=== PATIENT | male | born 1990 | race Caucasian/White ===

== ENCOUNTER 2020-12-02 21:23 | Emergency (ER) | payer OTHER, SELFPAY ==
[~2020-12-02] VITALS: Ht 185.4 cm; Wt 90.6 kg
[2020-12-02] MEDS ORDERED: CLEO300C2 PO (23:48)
[2020-12-02 23:58] VITALS: BP 144/71
[2020-12-03] MEDS ORDERED: CLINDAMYCIN 150MG CAPSULE PO ONE
== END 2020-12-03 00:09 | disposition home or self-care (01) ==
LOC: M ED 21:23
DX: L02.215 Cutaneous abscess of perineum (principal); Z88.0 Allergy status to penicillin; F20.9 Schizophrenia, unspecified

== ENCOUNTER 2020-12-06 18:11 | Emergency (ER) | payer OTHER, MEDICAID ==
[~2020-12-06] VITALS: Ht 185.4 cm; Wt 90.9 kg
[~2020-12-06 18:11] MED LIST: CLEO300C2 PO
[2020-12-06 19:44] LABS: HEMATOCRIT 42.8 % (42.0-52.0); HEMOGLOBIN 14.7 g/dl (13.5-17.5); MEAN CORPUSCULAR HEMOGLOBIN 30.3 pg (27.0-33.0); MEAN CORPUSCULAR HGB CONC 34.3 g/dl (32.0-36.5); MEAN CORPUSCULAR VOLUME 88.2 fl (80.0-96.0); PLATELET COUNT, AUTOMATED 216 10^3/uL (150-450); RED BLOOD COUNT 4.85 10^6/uL (4.30-6.10)
[2020-12-06 20:07] LABS: AMPHETAMINES LEVEL URINE NEGATIVE (NEGATIVE); BARBITURATES URINE NEGATIVE (NEGATIVE); BENZODIAZEPINES URINE NEGATIVE (NEGATIVE); CANNABINOIDS URINE NEGATIVE (NEGATIVE); COCAINE METABOLITE URINE NEGATIVE (NEGATIVE); METHADONE URINE NEGATIVE (NEGATIVE); OPIATES URINE NEGATIVE (NEGATIVE); PHENCYCLIDINE URINE NEGATIVE (NEGATIVE)
[2020-12-06 20:17] LABS: ACETAMINOPHEN LEVEL < 2.0 UG/ML (10.0-30.0); ALBUMIN 3.9 GM/DL (3.2-5.2); ALT/SGPT 37 U/L (12-78); BILIRUBIN,DIRECT 0.1 MG/DL (0.0-0.2); BILIRUBIN,TOTAL 0.3 MG/DL (0.2-1.0); BLOOD UREA NITROGEN 13 MG/DL (7-18); CALCIUM LEVEL 9.4 MG/DL (8.5-10.1); CARBON DIOXIDE LEVEL 27 MEQ/L (21-32); CHLORIDE LEVEL 103 MEQ/L (98-107); CREATININE FOR GFR 1.08 MG/DL (0.70-1.30); ETHYL ALCOHOL (ETHANOL) < 0.003 % (0.000-0.010); GLOMERULAR FILTRATION RATE > 60.0 (>60); GLUCOSE, FASTING 80 MG/DL (70-100); POTASSIUM SERUM 3.7 MEQ/L (3.5-5.1); SALICYLATE LEVEL < 1.7 MG/DL (5.0-30.0); SODIUM LEVEL 141 MEQ/L (136-145); THYROID STIMULATING HORMONE 0.907 uIU/ML (0.358-3.740); TOTAL PROTEIN 6.7 GM/DL (6.4-8.2)
[2020-12-06] MEDS ORDERED: HALO10TA20 PO (22:38)
[2020-12-06] MEDS ORDERED: VITMTA PO (22:40)
[2020-12-06] MEDS ORDERED: ARIS2.4I IM (22:40)
[2020-12-06 23:51] LABS: RSV AMPLIFICATION NEGATIVE (NEGATIVE)
--- NOTE | 2020-12-07 08:04 | ECGEPIP ---
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
[2020-12-07 08:27] VITALS: BP 131/76
== END 2020-12-07 08:29 | disposition short-term general hospital (02) ==
LOC: M ED 18:11
DX: F25.9 Schizoaffective disorder, unspecified (principal); Z79.899 Other long term (current) drug therapy; Z88.0 Allergy status to penicillin
CPT/HCPCS: 80048; 80076; 80307; 84443; 85027; 87631; 93005; 99284; G0480

== ENCOUNTER 2021-07-28 14:30 | Emergency (ER) | payer MEDICAID, OTHER ==
[~2021-07-28] VITALS: Ht 185.4 cm; Wt 81.8 kg
[~2021-07-28 14:30] MED LIST changes: +ARIS2.4I IM; +HALO10TA20 PO; +VITMTA PO
[2021-07-28 15:23] LABS: HEMATOCRIT 44.2 % (42.0-52.0); HEMOGLOBIN 15.1 g/dl (13.5-17.5); MEAN CORPUSCULAR HEMOGLOBIN 30.3 pg (27.0-33.0); MEAN CORPUSCULAR HGB CONC 34.2 g/dl (32.0-36.5); MEAN CORPUSCULAR VOLUME 88.6 fl (80.0-96.0); PLATELET COUNT, AUTOMATED 186 10^3/uL (150-450); RED BLOOD COUNT 4.99 10^6/uL (4.30-6.10); WHITE BLOOD COUNT 5.7 10^3/uL (4.0-10.0)
[2021-07-28 15:53] LABS: AMPHETAMINES LEVEL URINE NEGATIVE (NEGATIVE); BARBITURATES URINE NEGATIVE (NEGATIVE); BENZODIAZEPINES URINE NEGATIVE (NEGATIVE); CANNABINOIDS URINE NEGATIVE (NEGATIVE); COCAINE METABOLITE URINE NEGATIVE (NEGATIVE); METHADONE URINE NEGATIVE (NEGATIVE); OPIATES URINE NEGATIVE (NEGATIVE); PHENCYCLIDINE URINE NEGATIVE (NEGATIVE)
[2021-07-28 15:55] LABS: ACETAMINOPHEN LEVEL < 2.0 UG/ML (10.0-30.0); ALBUMIN 3.6 GM/DL (3.2-5.2); ALT/SGPT 31 U/L (12-78); BILIRUBIN,DIRECT 0.1 MG/DL (0.0-0.2); BILIRUBIN,TOTAL 0.5 MG/DL (0.2-1.0); BLOOD UREA NITROGEN 21 MG/DL (7-18); CALCIUM LEVEL 9.4 MG/DL (8.5-10.1); CARBON DIOXIDE LEVEL 28 MEQ/L (21-32); CHLORIDE LEVEL 105 MEQ/L (98-107); CREATININE FOR GFR 1.12 MG/DL (0.70-1.30); ETHYL ALCOHOL (ETHANOL) < 0.003 % (0.000-0.010); GLOMERULAR FILTRATION RATE > 60.0 (>60); GLUCOSE, FASTING 92 MG/DL (70-100); POTASSIUM SERUM 4.4 MEQ/L (3.5-5.1); SALICYLATE LEVEL < 1.7 MG/DL (5.0-30.0); SODIUM LEVEL 140 MEQ/L (136-145); TOTAL PROTEIN 6.8 GM/DL (6.4-8.2)
[2021-07-28 16:14] LABS: RSV AMPLIFICATION NEGATIVE (NEGATIVE)
[2021-07-28 18:32] VITALS: BP 122/78
== END 2021-07-28 19:17 | disposition home or self-care (01) ==
LOC: M ED 14:30
DX: F43.0 Acute stress reaction (principal); F32.9 Major depressive disorder, single episode, unspecified; F20.9 Schizophrenia, unspecified; Z88.0 Allergy status to penicillin

== ENCOUNTER 2021-07-29 20:38 | Inpatient (IN) | payer OTHER ==
[~2021-07-29] VITALS: Ht 182.9 cm; Wt 84.0 kg
[2021-07-29 21:05] LABS: HEMATOCRIT 40.8 % (42.0-52.0); MEAN CORPUSCULAR HEMOGLOBIN 30.4 pg (27.0-33.0); MEAN CORPUSCULAR HGB CONC 34.3 g/dl (32.0-36.5); MEAN CORPUSCULAR VOLUME 88.5 fl (80.0-96.0); PLATELET COUNT, AUTOMATED 174 10^3/uL (150-450); RED BLOOD COUNT 4.61 10^6/uL (4.30-6.10); WHITE BLOOD COUNT 4.9 10^3/uL (4.0-10.0)
[2021-07-29 21:36] LABS: ACETAMINOPHEN LEVEL < 2.0 UG/ML (10.0-30.0); ALBUMIN 3.4 GM/DL (3.2-5.2); ALT/SGPT 26 U/L (12-78); BILIRUBIN,DIRECT 0.1 MG/DL (0.0-0.2); BILIRUBIN,TOTAL 0.4 MG/DL (0.2-1.0); BLOOD UREA NITROGEN 17 MG/DL (7-18); CALCIUM LEVEL 9.1 MG/DL (8.5-10.1); CARBON DIOXIDE LEVEL 27 MEQ/L (21-32); CHLORIDE LEVEL 106 MEQ/L (98-107); CREATININE FOR GFR 1.06 MG/DL (0.70-1.30); ETHYL ALCOHOL (ETHANOL) < 0.003 % (0.000-0.010); GLOMERULAR FILTRATION RATE > 60.0 (>60); GLUCOSE, FASTING 86 MG/DL (70-100); POTASSIUM SERUM 4.3 MEQ/L (3.5-5.1); SALICYLATE LEVEL < 1.7 MG/DL (5.0-30.0); SODIUM LEVEL 140 MEQ/L (136-145)
[2021-07-29 22:54] LABS: AMPHETAMINES LEVEL URINE NEGATIVE (NEGATIVE); BARBITURATES URINE NEGATIVE (NEGATIVE); BENZODIAZEPINES URINE NEGATIVE (NEGATIVE); CANNABINOIDS URINE NEGATIVE (NEGATIVE); COCAINE METABOLITE URINE NEGATIVE (NEGATIVE); METHADONE URINE NEGATIVE (NEGATIVE); OPIATES URINE NEGATIVE (NEGATIVE); PHENCYCLIDINE URINE NEGATIVE (NEGATIVE)
[2021-07-29] MEDS ORDERED: HOME MED LIST COMPLETE! XX SCH (23:40)
[2021-07-30 01:40] LABS: RSV AMPLIFICATION NEGATIVE (NEGATIVE)
[2021-07-30] MEDS ORDERED: MOM 30ML SUSPENSION UDC PO PRN (02:40)
[2021-07-30] MEDS ORDERED: LORazepam 1 MG TAB PO PRN (02:40)
[2021-07-30] MEDS ORDERED: MAALOX 30 ML SUSP *UDC PO PRN (02:40)
[2021-07-30] MEDS ORDERED: ACETAMINOPHEN TAB 650MG DOSE (2X325MG) PO PRN (02:40)
[2021-07-30 04:15] VITALS: BP 120/76
[2021-07-30] MEDS: haloperidoL 5 MG TAB PO SCH ×2 (13:53→21:00)
--- NOTE | 2021-07-30 13:56 | MHHPEPDOC ---
General Date Of Admission: Jul 30, 2021 Legal Status: 9.39 Chief Complaint "When I am at [facility] I feel crazy." History of Present Illness HISTORY OF THE PRESENT ILLNESS: Patient is a 30 -year-old Single, Unemployed, Domiciled, , male, who lives in [facility] ([place], [place]) reportedly called police to wanted to jump into traffic. Reports that he has been feeling depressed, and having suicidal thoughts. He states in the interview that he has been having suicidal thoughts for months that he has been living at [facility] x 1 year and that prior to that he was living with his mother in [place], [place]. He states in the interview that he has questions about his life. He has delayed speech and appears to be responding to internal stimuli. In the interview he asks" Where do I find the questions? What do I want to be? I want to have relationships I want to learn and grow I want to spend time with people I want to get stronger I would like to be the person I want to become I don't understand the means and the methods Some times I am a control freak I sometimes I try to make it better PER ED REPORT: Pt contacted police after wanting to jump into traffic with intent to kill himself. Pt was just seen in the ED yesterday and was discharged after saying "I only said I was suicidal to get me out of the [facility] house." Pt continues to express SI with plan to jump into traffic. pt. states, "I called the police tonight because I almost committed suicide." Pt reports he's been feeling suicidal for the past few days. Today, he developed a plan to jump in front of a moving vehicle, however did not actually attempt. Suicidal stressors include disliking TLS and states "it's not fun." He reports wanting more outings and states he is lonely and "I don't belong." States he no longer speaks to his family or friends and states he would be better off . In addition to SI, pt. reports suffering from command AH to kill others. He denies a specific plan and it's directed towards anyone specific. Pt does appear to be internally pre- occupied during interview due to his delay in his responses. Pt has a Hx of Schizoaffective Disorder, transferred to [facility] (Nov, 2020) for SI. States he currently seeks TX with TLS, but does not believe the medication is working. Psychiatric Review of Systems Depression (2 or more weeks): depressed mood, anhedonia, insomnia/hypersomnia, feelings of worthlesness (hopeless and helpless), decreased energy, difficulty concentrating, psychomotor changes, suicidal thoughts Bonita (4 or more days of): denies Psychosis: auditory hallucination, paranoia, disorganization PTSD: denies Anxiety: stressor related anxiety Anxiety/ 6 months or more of: difficulty concentrating Past Psychiatric History Previous Psychiatric Diagnosis: Schizoaffective Disorder Previous Psychiatric Admissions: 10+ Hospitalizations, last admission was [facility] Suicide Attempts: No gestures or attempts Psychiatric Follow-up: TLS Psychiatric medications: Haldol, Haldol Dec, Effexor, Risperdal, Invega Sustenna, Aristada Past Medical History Medical Problems No contributory medical conditions No surgery in the past Head Injury: No Seizures: No Hospitalizations: Yes Surgeries: No Family Medical/Psychiatric HX Medical Problems Unable to answer Addiction History nicotine Social History Childhood: [place], 3 brothers, Abuse/Trauma: Unable to answer Current Living Situation: Lives in [facility] in [place] Education: Graduated High School in [place] Employment: Unemployed Social Support: [facility] Legal: Unknown Marital: Single Mental Status Examination General Appearance: unkempt, disheveled, hospital scubs/clothing Build: thin Demeanor: withdrawn, preoccupied, guarded Eye Contact: avoidant Activity: anxious Behavior: cooperative, loss of interests Speech: slow Mood: depressed, anxious Affect: flat Thought Process: loose, depressed, derailment Thought Content (Delusions): persecutory, paranoia Thought Content (Other): preoccupied, guarded Thought Content (Aggressive): none reported Perception (Hallucinations): auditory Perception (Other): none reported Cognition(Intelligence Est.): average Oriented: Awake, Alert, Oriented times three Insight: fair Judgment: Fair Psychosis: Denies Diagnoses Schizoaffective disorder. Depressed mood Nicotine use disorder A-FIB/CHADSVASC A-FIB History Current/History of A-Fib/PAF?: No Current PO Anticoag Therapy: No Assessment Patient is a 30-year-old single, unemployed/disabled, domiciled, male. He is reporting that he called the police and stated to them that he had suicidal thoughts to jump from a bridge. He states that when he is at [facility] his mind is "crazy. Patient reports that he has not been taking his medications at [facility]. Reports that his last admission was in [facility]. Patient presents in the interview is preoccupied having mild auditory hallucinations. He has delayed responses to questions observed with internal stimuli. Patient reports having suicidal thoughts for many months but has not acted on any. He is agreeable to start Haldol oral progressing to Haldol decanoate. Patient will be afforded individual and group therapy, medication management, safe environment, encouraged to participate in milieu therapy and will be discharged when stable. Initial Treatment Plan 1. Patient was admitted on a [9.39] status. 2. Complete history was obtained. 3. With patients permission, family will be contacted and database will be expanded. 4. Patients medication regimen will be reviewed and changed accordingly. 5. Patient will be provided with protected environment. 6. Patient will be treated with individual, group, and milieu therapies. 7. Patient will receive supportive psych-education. 8. Discharge planning will commence immediately. 9. Outpatient follow-up treatment will be strongly recommended. 10. The initial treatment plan will focus initially on: * Depression. * Risk for suicide. ESTIMATED LENGTH OF STAY: 57 DAYS. TIME SPENT COUNSELING AND COORDINATING INITIAL CARE: 60 minutes. Tobacco Cessation Screen Tobacco Cessation Tx Ordered?: Yes Ordered/Pending Vital Signs Vital Signs Date Time Temp Pulse Resp B/P (MAP) Pulse Ox O2 Delivery O2 Flow Rate FiO2 07/30/21 08:43 Room Air 07/30/21 04:15 97.6 56 18 120/76 (91) 97 Laboratory Data 24H Labs Laboratory Tests 2 07/29/21 20:53: Nucleated Red Blood Cells % (auto) 0.0, Anion Gap 7L, Glomerular Filtration Rate > 60.0, Calcium Level 9.1, Total Bilirubin 0.4, Direct Bilirubin 0.1, Aspartate Amino Transf (AST/SGOT) 17, Alanine Aminotransferase (ALT/SGPT) 26, Alkaline Phosphatase 52, Total Protein 6.0L, Albumin 3.4, Albumin/Globulin Ratio 1.3, Thyroid Stimulating Hormone (TSH) 2.020, Salicylates Level < 1.7L, Acetaminophen Level < 2.0L, Ethyl Alcohol Level < 0.003 07/29/21 22:17: Urine Opiates Screen NEGATIVE, Urine Methadone Screen NEGATIVE, Urine Barbiturates Screen NEGATIVE, Urine Phencyclidine Screen NEGATIVE, Urine Amphetamines Screen NEGATIVE, Urine Benzodiazepines Screen NEGATIVE, Urine Cocaine Metabolite Screen NEGATIVE, Urine Cannabinoids Screen NEGATIVE 07/29/21 23:42: Coronavirus (COVID-19)(PCR) NEGATIVE, Influenza Type A (RT-PCR) NEGATIVE, Influenza Type B (RT-PCR) NEGATIVE, Respiratory Syncytial Virus (PCR) NEGATIVE CBC/BMP Laboratory Tests 07/29/21 20:53 Medications No Active Prescriptions or Reported Meds Allergies Coded Allergies: Penicillins (Verified Allergy, Intermediate, 12/02/20) STEFANY MEDINA NP Jul 30, 2021 12:57
[2021-07-30] MEDS ORDERED: NICOTINE 21MG/24HR 1 EA TRANSDERMAL TD PRN (14:00)
--- NOTE | 2021-07-30 15:21 | HPEPDOC ---
[facility] Medical History & Physical Date of Admission Jul 30, 2021 Date of Service: Jul 30, 2021 History and Physical CHIEF COMPLAINT: Suicidal ideation HISTORY OF PRESENT ILLNESS: 30-year-old male was brought to ER by police after he contacted the police saying that he wanted to jump with traffic. Patient was seen in the ER day prior to admission with the same complaints. Patient denies any chest pain shortness of breath palpitations nausea vomiting or diarrhea. Hospitalist service was consulted for medical history. Blood work and vital signs were reviewed. No acute abnormalities noted. PAST MEDICAL HISTORY: Depression schizoaffective disorder PAST SURGICAL HISTORY: Past surgical history SOCIAL HISTORY: Patient denies smoking Patient denies etoh use Patient denies illicit drug use ALLERGIES: Please see below. REVIEW OF SYSTEMS: 10 point ROS conducted, relevant findings are noted in the HPI. HOME MEDICATIONS: Please see below. PHYSICAL EXAMINATION: VITAL SIGNS: please see below General: NAD, comfortable HEENT: PERRLA, EOMI, sclerae clear Neck: supple, normal ROM, no JVD Respiratory: lungs CTAB, no wheeze, no rales, no crackles CVS: RRR, normal S1, S2, no murmurs Abdo: soft, no masses, no hepatosplenomegaly, BS+, no rebound tenderness Extremities: no edema, pulses 2+ MSK: no joint deformities, normal ROM Neuro: no focal neuro deficits, moving all 4 extremities, CN2-12 intact. Strength 5/5 in all 4 extremities. No nystagmus. Psych: calm, cooperative, AAO x 3 LABORATORY DATA: See below. MICROBIOLOGY: Please see below. ASSESSMENT: 30-year-old male was brought to ER by police after he contacted the police saying that he wanted to jump with traffic. Patient was seen in the ER day prior to admission with the same complaints. Patient denies any chest pain shortness of breath palpitations nausea vomiting or diarrhea. Hospitalist service was consulted for medical history. PLAN: Suicidal ideation: Per psychiatry Thank you for involving me in the care of this patient. Please reconsult us as needed. Vital Signs Vital Signs Date Time Temp Pulse Resp B/P (MAP) Pulse Ox O2 Delivery O2 Flow Rate FiO2 07/30/21 08:43 Room Air 07/30/21 04:15 97.6 56 18 120/76 (91) 97 Laboratory Data Labs 24H Laboratory Tests 2 07/29/21 20:53: Nucleated Red Blood Cells % (auto) 0.0, Anion Gap 7L, Glomerular Filtration Rate > 60.0, Calcium Level 9.1, Total Bilirubin 0.4, Direct Bilirubin 0.1, Aspartate Amino Transf (AST/SGOT) 17, Alanine Aminotransferase (ALT/SGPT) 26, Alkaline Phosphatase 52, Total Protein 6.0L, Albumin 3.4, Albumin/Globulin Ratio 1.3, Thyroid Stimulating Hormone (TSH) 2.020, Salicylates Level < 1.7L, Acetaminophen Level < 2.0L, Ethyl Alcohol Level < 0.003 07/29/21 22:17: Urine Opiates Screen NEGATIVE, Urine Methadone Screen NEGATIVE, Urine Barbiturates Screen NEGATIVE, Urine Phencyclidine Screen NEGATIVE, Urine Amphetamines Screen NEGATIVE, Urine Benzodiazepines Screen NEGATIVE, Urine Cocaine Metabolite Screen NEGATIVE, Urine Cannabinoids Screen NEGATIVE 07/29/21 23:42: Coronavirus (COVID-19)(PCR) NEGATIVE, Influenza Type A (RT-PCR) NEGATIVE, Influenza Type B (RT-PCR) NEGATIVE, Respiratory Syncytial Virus (PCR) NEGATIVE CBC/BMP Laboratory Tests 07/29/21 20:53 Home Medications No Active Prescriptions or Reported Meds Allergies Coded Allergies: Penicillins (Verified Allergy, Intermediate, 12/02/20) SWELLING DEL DAVEY MD Jul 30, 2021 15:21
[2021-07-30 16:20] VITALS: BP 112/56
[2021-07-31 07:02] VITALS: BP 106/54
[2021-07-31] MEDS: haloperidoL 5 MG TAB PO SCH (08:15)
--- NOTE | 2021-07-31 11:43 | MHIPNPDOC ---
[facility] Progress Note Progress Note DATE OF SERVICE: 07/31/21 HISTORY: Patient is a 30 -year-old Single, Unemployed, Domiciled, , male, who lives in [facility] ([place], [place]) reportedly called police to wanted to jump into traffic. Reports that he has been feeling depressed, and having suicidal thoughts. He states in the interview that he has been having suicidal thoughts for months that he has been living at [facility] x 1 year and that prior to that he was living with his mother in [place], [place]. He states in the interview that he has questions about his life. He has delayed speech and appears to be responding to internal stimuli. In the interview he asks" Where do I find the questions? What do I want to be? I want to have relationships I want to learn and grow I want to spend time with people I want to get stronger I would like to be the person I want to become I don't understand the means and the methods Some times I am a control freak I sometimes I try to make it better PER ED REPORT: Pt contacted police after wanting to jump into traffic with intent to kill himself. Pt was just seen in the ED yesterday and was discharged after saying "I only said I was suicidal to get me out of the [facility] house." Pt co ntinues to express SI with plan to jump into traffic. pt. states, "I called the police tonight because I almost committed suicide." Pt reports he's been feeling suicidal for the past few days. Today, he developed a plan to jump in front of a moving vehicle, however did not actually attempt. Suicidal stressors include disliking TLS and states "it's not fun." He reports wanting more outings and states he is lonely and "I don't belong." States he no longer speaks to his family or friends and states he would be better off . In addition to SI, pt. reports suffering from command AH to kill others. He denies a specific plan and it's directed towards anyone specific. Pt does appear to be internally pre- occupied during interview due to his delay in his responses. Pt has a Hx of Schizoaffective Disorder, transferred to [facility] (Nov, 2020) for SI. States he currently seeks TX with [facility], but does not believe the medication is working. VITAL SIGNS: See below. NEW TEST RESULTS: See pending report. CURRENT MEDICATIONS: See below. MENTAL STATUS EXAMINATION: Patient is a 30 -year-old Single, Unemployed, Domiciled, , male, who lives in [place], [place]) reportedly the police stating he wanted to jump into traffic. General Appearance: well kempt, hygiene and grooming :fair hospital scrubs/clothing Build: thin Demeanor:diminished preoccupation ,less guarded Eye Contact: good eye contact Activity: anxious Behavior: cooperative Speech: delayed Mood: neutral, anxious Affect: flat Thought Process: more coherent today Thought Content (Delusions): no persecutory thoughts, decreased paranoia Thought Content (Other): less preoccupied, less guarded Thought Content (Aggressive): none reported Perception (Hallucinations): continued auditory hallucinations, but he is reporting less today Perception (Other): none reported Cognition(Intelligence Est.): average Oriented: Awake, Alert, Oriented times three Insight: fair Judgment: Fair Psychosis: Denies DIAGNOSES: Schizoaffective disorder,Depressed mood Nicotine use disorder ASSESSMENT: Pt alert and oriented today. Does not report depression, but does admit to some anxiety. Continued auditory hallucinations but denies command hallucinations. He is agreeable to restarting Aristada injection. Willing to stay until early next week. Patient has not been taking medication for several months and stated that he felt he needed to be compliant with treatment and get back on medications. He is seen with less delayed speech, he is not responding to internal stimuli or and reports reduction of voices. MANAGEMENT PLAN: Continue all medications and supportive therapies. Will discharge when stable. TIME SPENT: 25 minutes. Vital Signs Vital Signs Date Time Temp Pulse Resp B/P (MAP) Pulse Ox O2 Delivery O2 Flow Rate FiO2 07/31/21 07:02 98.3 62 16 106/54 (71) 96 Room Air Current Medications Current Medications Medications (Trade) Dose Ordered Sig/Jamey Route PRN Reason Start Time Stop Time Status Last Admin Dose Admin Acetaminophen (Tylenol Tab) 650 mg Q6HP PRN PO HEADACHE or MILD DISCOMFORT 07/30/21 02:40 Al Hydrox/Mg Hydrox/Simethicone (Mylanta) 30 ml Q4HP PRN PO HEARTBURN/INDIGESTION 07/30/21 02:40 Haloperidol (Haldol) 5 mg BID PO 07/30/21 09:00 07/31/21 08:15 Home Med (Home Med List Complete!) ASDIRECTED XX 07/29/21 23:40 07/29/21 23:37 DC Lorazepam (Ativan) 1 mg Q4HP PRN PO ANXIETY/AGITATION 07/30/21 02:40 08/01/21 02:40 Magnesium Hydroxide (Milk Of Magnesia) 30 ml DAILYPRN PRN PO CONSTIPATION 07/30/21 02:40 Nicotine (Nicoderm Cq 21mg) 1 patch DAILYPRN PRN TD NICOTINE WITHDRAWAL 07/30/21 14:00 Trazodone HCl (Desyrel) 50 mg QHSP PRN PO INSOMNIA 07/30/21 02:40 Allergies Coded Allergies: Penicillins (Verified Allergy, Intermediate, 12/02/20) SWELLING STEFANY CALDERON NP Jul 31, 2021 11:36
[2021-07-31 18:17] VITALS: BP 123/62
[2021-07-31] MEDS: ARIPiprazole 10 MG TAB PO SCH (20:20)
[2021-07-31] MEDS: traZODone 50 MG TAB PO PRN (20:36)
[2021-08-01 06:34] VITALS: BP 130/61
[2021-08-01 08:01] LABS: CHOLESTEROL RISK RATIO 3.061 (<5)
--- NOTE | 2021-08-01 09:13 | MHIPNPDOC ---
[facility] Progress Note Progress Note DATE OF SERVICE: 08/01/21 HISTORY: Patient is a 30 -year-old Single, Unemployed, Domiciled, , male, who lives in [facility] ([place], [place]) reportedly called police to wanted to jump into traffic. Reports that he has been feeling depressed, and having suicidal thoughts. He states in the interview that he has been having suicidal thoughts for months that he has been living at [facility] x 1 year and that prior to that he was living with his mother in [place], [place]. He states in the interview that he has questions about his life. PER ED REPORT: Pt contacted police after wanting to jump into traffic with intent to kill himself. Pt was just seen in the ED yesterday and was discharged after saying "I only said I was suicidal to get me out of the [facility] house." Pt continues to express SI with plan to jump into traffic. pt. states, "I called the police tonight because I almost committed suicide." Pt reports he's been feeling suicidal for the past few days. Today, he developed a plan to jump in front of a moving vehicle, however did not actually attempt. Suicidal stressors include disliking TLS and states "it's not fun." He reports wanting more outings and states he is lonely and "I don't belong." States he no longer speaks to his family or friends and states he would be better off . In addition to SI, pt. reports suffering from command AH to kill others. He denies a specific plan and it's directed towards anyone specific. Pt does appear to be internally pre- occupied during interview due to his delay in his responses. Pt has a Hx of Schizoaffective Disorder, transferred to [facility] (Nov, 2020) for SI. States he currently seeks TX with TLS, but does not believe the medication is working. VITAL SIGNS: See below. NEW TEST RESULTS: See pending report. CURRENT MEDICATIONS: See below. MENTAL STATUS EXAMINATION: Patient is a 30 -year-old Single, Unemployed, Domiciled, , male, who lives in [facility] ([place], [place]) reportedly the police stating he wanted to jump into traffic. General Appearance: well kempt, hygiene and grooming :fair hospital scrubs/clot matt Build: thin Demeanor:diminished preoccupation ,less guarded Eye Contact: good eye contact Activity: anxious Behavior: cooperative Speech: spontaneous, normal rate, tone and volume but minimal responses. Mood: neutral, anxious Affect: flat Thought Process: more coherent today Thought Content (Delusions): no persecutory thoughts, appears paranoia Thought Content (Other): guarded, isolative Thought Content (Aggressive): none reported Perception (Hallucinations): continued auditory hallucinations, but not command hallucinations Perception (Other): none reported Cognition(Intelligence Est.): average Oriented: Awake, Alert, Oriented times three Insight: fair Judgment: Fair Psychosis: Denies DIAGNOSES: Schizoaffective disorder,Depressed mood Nicotine use disorder ASSESSMENT: Patient found sleeping in his room. Agreeable to interview. States, "I am going crazy here. I feel irritated." He is not irritated at anyone and can't clarify what is making him irritated. When he was encouraged to attend groups, he stated "I don't do groups." He states that he doesn't want to stay next week until he get the Aristada. Patient stated he wanted the Maintena and did not want to wait for the Aristada. Reinforced with patient that the Aristada would be beneficial but patient's goal is to leave the hospital by Wednesday. He appears to have less paranoid thinking, his speech has a faster christiano and he is able to make his needs known. MANAGEMENT PLAN: Continue all medications and supportive therapies. Abilify 5 mg in AM in addition to Abilify 10 mg HS, will order Abilify Maintena 400 mg later when tolerability has been established. Patient states that he has been on Abilify with no adverse effects. Will discharge when stable. Probably Wednesday. TIME SPENT: 25 minutes. Vital Signs Vital Signs Date Time Temp Pulse Resp B/P (MAP) Pulse Ox O2 Delivery O2 Flow Rate FiO2 08/01/21 06:34 98.0 55 14 130/61 (84) 96 Room Air Laboratory Data 24H Labs Laboratory Tests 2 08/01/21 07:05: Triglycerides Level 48, Total Cholesterol 199, LDL Cholesterol 124H, Non-HDL Cholesterol (LDL + VLDL) 134, Total HDL Cholesterol 65, Cholesterol/HDL Ratio 3.061 Current Medications Current Medications Medications (Trade) Dose Ordered Sig/Jamey Route PRN Reason Start Time Stop Time Status Last Admin Dose Admin Acetaminophen (Tylenol Tab) 650 mg Q6HP PRN PO HEADACHE or MILD DISCOMFORT 07/30/21 02:40 Al Hydrox/Mg Hydrox/Simethicone (Mylanta) 30 ml Q4HP PRN PO HEARTBURN/INDIGESTION 07/30/21 02:40 Aripiprazole (AbiLIFY) 10 mg QHS PO 07/31/21 21:00 07/31/21 20:20 Haloperidol (Haldol) 5 mg BID PO 07/30/21 09:00 07/31/21 11:40 DC 07/31/21 08:15 Home Med (Home Med List Complete!) ASDIRECTED XX 07/29/21 23:40 07/29/21 23:37 DC Lorazepam (Ativan) 1 mg Q4HP PRN PO ANXIETY/AGITATION 07/30/21 02:40 08/01/21 02:40 DC Magnesium Hydroxide (Milk Of Magnesia) 30 ml DAILYPRN PRN PO CONSTIPATION 07/30/21 02:40 Nicotine (Nicoderm Cq 21mg) 1 patch DAILYPRN PRN TD NICOTINE WITHDRAWAL 07/30/21 14:00 Trazodone HCl (Desyrel) 50 mg QHSP PRN PO INSOMNIA 07/30/21 02:40 07/31/21 20:36 Allergies Coded Allergies: Penicillins (Verified Allergy, Intermediate, 12/02/20) SWELLING STEFANY CALDERON DOCUMENT CLERK Aug 01, 2021 09:05
[2021-08-01] MEDS ORDERED: hydrOXYzine 50 MG TAB PO PRN (09:15)
[2021-08-01] MEDS ORDERED: ARIPIPRAZOLE LAUROXIL IM ONE (14:00)
[2021-08-01 16:41] VITALS: BP 116/59
[2021-08-01] MEDS: ARIPiprazole 10 MG TAB PO SCH (21:35)
--- NOTE | 2021-08-02 11:54 | MHIPNPDOC ---
[facility] Progress Note Progress Note DATE OF SERVICE: 08/02/21 HISTORY: See H&P Interval: Is tired and lying in bed, denies any acute suicidal ideation, reports mood is improving on medications and has not received the Aristada which was confirmed on chart review. Per nursing staff patient is agreeable to starting Abilify Maintenna. Has been taking oral Abilify and denies any allergy or other side effects. Does not report any tight muscles, EPS symptoms or NMS symptoms, aims scoring is 0. Reports appetite and sleep are "fine". Food tray is uneaten at side of bed. No acute physical complaints. VITAL SIGNS: See below. NEW TEST RESULTS: Lipid panel shows LDL of 124 CURRENT MEDICATIONS: See below. MENTAL STATUS EXAMINATION: Patient is a 30-year old male, who is in no acute distress, tall dark hair good hygiene, somewhat avoidant eye contact, appears stated age. Speech: Is mildly slowed in context of morning fatigue Language skills are normal. Thought processes including: Linear logical Thought content: Denies suicidal or homicidal ideation, intent, or plan. Abstract reasoning, and computation: Normal. Description of associations: Normal. Description of abnormal or psychotic thoughts: Denies. Judgment: Improved. Insight: Good. Orientation: Times 4 Recent and remote memory: Intact Attention span and concentration: Good. Language: Pashto. Fund of knowledge: Average. Mood: "alright". Affect: Mildly dysthymic, constricted, withdrawn, mood congruent, appropriate DIAGNOSES: Schizoaffective disorder,Depressed mood Nicotine use disorder ASSESSMENT: Patient reports continues to improve on the unit, denies hallucinations or delusions, reports tolerates the oral Abilify without issue or side effects or side effect, aims score is 0, no NMS or EPS symptoms, agreeable to getting the shot, asked when he would leave made him aware that that will be discussion on Wednesday with provider. MANAGEMENT PLAN: Per chart review possible discharge Wednesday, provider waiting on tolerability to oral medication before putting in Abilify maintenna, will hold until March provider arrives on Wednesday, patient be continued on oral Abilify. TIME SPENT: 15 minutes. Vital Signs Vital Signs Date Time Temp Pulse Resp B/P (MAP) Pulse Ox O2 Delivery O2 Flow Rate FiO2 08/01/21 16:41 98.0 66 16 116/59 (78) 98 Room Air Current Medications Current Medications Medications (Trade) Dose Ordered Sig/Jamey Route PRN Reason Start Time Stop Time Status Last Admin Dose Admin Acetaminophen (Tylenol Tab) 650 mg Q6HP PRN PO HEADACHE or MILD DISCOMFORT 07/30/21 02:40 Al Hydrox/Mg Hydrox/Simethicone (Mylanta) 30 ml Q4HP PRN PO HEARTBURN/INDIGESTION 07/30/21 02:40 Aripiprazole (AbiLIFY) 5 mg QAM PO 08/01/21 09:00 08/02/21 09:24 Aripiprazole (AbiLIFY) 10 mg QHS PO 07/31/21 21:00 08/01/21 21:35 Haloperidol (Haldol) 5 mg BID PO 07/30/21 09:00 07/31/21 11:40 DC 07/31/21 08:15 Home Med (Home Med List Complete!) ASDIRECTED XX 07/29/21 23:40 07/29/21 23:37 DC Hydroxyzine HCl (Atarax) 50 mg Q6HP PRN PO ANXIETY/AGITATION 08/01/21 09:15 Lorazepam (Ativan) 1 mg Q4HP PRN PO ANXIETY/AGITATION 07/30/21 02:40 08/01/21 02:40 DC Magnesium Hydroxide (Milk Of Magnesia) 30 ml DAILYPRN PRN PO CONSTIPATION 07/30/21 02:40 Nicotine (Nicoderm Cq 21mg) 1 patch DAILYPRN PRN TD NICOTINE WITHDRAWAL 07/30/21 14:00 Trazodone HCl (Desyrel) 50 mg QHSP PRN PO INSOMNIA 07/30/21 02:40 07/31/21 20:36 Allergies Coded Allergies: Penicillins (Verified Allergy, Intermediate, 12/02/20) SWELLING BRISEYDA MCCULLOUGH MD Aug 02, 2021 11:54
[2021-08-02] MEDS: ARIPiprazole 10 MG TAB PO SCH (20:45)
--- NOTE | 2021-08-03 11:28 | MHIPNPDOC ---
[facility] Progress Note Progress Note DATE OF SERVICE: 08/03/21 HISTORY: See H&P Interval: Is tired and lying in bed, denies any acute suicidal ideation, reports mood is improving on medications and has not received the Aristada which was confirmed on chart review. Per nursing staff patient is agreeable to starting Abilify Maintenna. Has been taking oral Abilify and denies any allergy or other side effects. Does not report any tight muscles, EPS symptoms or NMS symptoms, aims scoring is 0. Reports appetite and sleep are "fine". Food tray is uneaten at side of bed. No acute physical complaints. VITAL SIGNS: See below. NEW TEST RESULTS: Lipid panel shows LDL of 124 CURRENT MEDICATIONS: See below. MENTAL STATUS EXAMINATION: Patient is a 30-year old male, who is in no acute distress, tall dark hair good hygiene, somewhat avoidant eye contact, appears stated age. Speech: Is mildly slowed in context of morning fatigue Language skills are normal. Thought processes including: Linear logical Thought content: Denies suicidal or homicidal ideation, intent, or plan. Abstract reasoning, and computation: Normal. Description of associations: [place] Description of abnormal or psychotic thoughts: Denies. Judgment: Improved. Insight: Good. Orientation: Times 4 Recent and remote memory: Intact Attention span and concentration: Good. Language: Maltese. Fund of knowledge: Average. Mood: "been good". Affect: Mildly dysthymic, flat, withdrawn, mood congruent, appropriate DIAGNOSES: Schizoaffective disorder,Depressed mood Nicotine use disorder ASSESSMENT: Patient reports continues to improve on the unit, denies hallucinations or delusions, but has had nighttime bizarre behavior, reports tolerates the oral Abilify without issue or side effects or side effect. Per chart review was negative in doorway yesterday and appeared to be disorganized. MANAGEMENT PLAN: Per chart review possible discharge Wednesday, provider waiting on tolerability to oral medication before putting in Abilify maintenna, will hold until March provider arrives on Wednesday, patient be continued on oral Abilify, increase dose to 15 mg twice daily as reports tolerates well, aims scoring is 0 today on interview. TIME SPENT: 20 minutes Vital Signs Vital Signs Date Time Temp Pulse Resp B/P (MAP) Pulse Ox O2 Delivery O2 Flow Rate FiO2 08/01/21 16:41 98.0 66 16 116/59 (78) 98 Room Air Current Medications Current Medications Medications (Trade) Dose Ordered Sig/Jamey Route PRN Reason Start Time Stop Time Status Last Admin Dose Admin Acetaminophen (Tylenol Tab) 650 mg Q6HP PRN PO HEADACHE or MILD DISCOMFORT 07/30/21 02:40 Al Hydrox/Mg Hydrox/Simethicone (Mylanta) 30 ml Q4HP PRN PO HEARTBURN/INDIGESTION 07/30/21 02:40 Aripiprazole (AbiLIFY) 5 mg QAM PO 08/01/21 09:00 08/03/21 10:55 DC 08/03/21 09:21 Aripiprazole (AbiLIFY) 10 mg QHS PO 07/31/21 21:00 08/03/21 10:55 DC 08/02/21 20:45 Aripiprazole (AbiLIFY) 15 mg QAM PO 08/04/21 09:00 Aripiprazole (AbiLIFY) 15 mg QHS PO 08/03/21 21:00 Haloperidol (Haldol) 5 mg BID PO 07/30/21 09:00 07/31/21 11:40 DC 07/31/21 08:15 Home Med (Home Med List Complete!) ASDIRECTED XX 07/29/21 23:40 07/29/21 23:37 DC Hydroxyzine HCl (Atarax) 50 mg Q6HP PRN PO ANXIETY/AGITATION 08/01/21 09:15 Lorazepam (Ativan) 1 mg Q4HP PRN PO ANXIETY/AGITATION 07/30/21 02:40 08/01/21 02:40 DC Magnesium Hydroxide (Milk Of Magnesia) 30 ml DAILYPRN PRN PO CONSTIPATION 07/30/21 02:40 Nicotine (Nicoderm Cq 21mg) 1 patch DAILYPRN PRN TD NICOTINE WITHDRAWAL 07/30/21 14:00 Trazodone HCl (Desyrel) 50 mg QHSP PRN PO INSOMNIA 07/30/21 02:40 07/31/21 20:36 Allergies Coded Allergies: Penicillins (Verified Allergy, Intermediate, 12/02/20) SWELLING BRISEYDA MCCULLOUGH MD Aug 03, 2021 11:28
[2021-08-03] MEDS: ARIPiprazole 15 MG TAB (AbiLIFY) PO SCH (21:11)
[2021-08-03] MEDS: traZODone 50 MG TAB PO PRN (21:11)
[2021-08-04 07:02] VITALS: BP 104/57
[2021-08-04] MEDS: ARIPiprazole 15 MG TAB (AbiLIFY) PO SCH ×2 (09:43→21:22)
[2021-08-04] MEDS ORDERED: ABIL400I IM (12:50)
[2021-08-04] MEDS ORDERED: ABIL1TAB12 PO ×2 (12:50)
[2021-08-04] MEDS ORDERED: NICO21PAT TD (12:50)
--- NOTE | 2021-08-04 14:18 | MHIPNPDOC ---
[facility] Progress Note Progress Note DATE OF SERVICE: 08/04/21 HISTORY: Patient is a 30 -year-old Single, Unemployed, Domiciled, , male, who lives in [place], [place]) reportedly called [facility] police to wanted to jump into traffic. Reports that he has been feeling depressed, and having suicidal thoughts. He states in the interview that he has been having suicidal thoughts for months that he has been living at [facility] x 1 year and that prior to that he was living with his mother in [place], [place]. He states in the interview that he has philophical questions about his life. VITAL SIGNS: See below. NEW TEST RESULTS: See pending report. CURRENT MEDICATIONS: See below. MENTAL STATUS EXAMINATION: Patient is a 30 -year-old Single, Unemployed, Domiciled, , male, who lives in [place], [place]) reportedly the police stating he wanted to jump into traffic. General Appearance: unkempt, poor attention to hygiene and grooming, wearing hospital scrubs/clothing Build: thin Demeanor: appropriate Eye Contact: good eye contact Activity: Average Behavior: cooperative Speech: spontaneous, normal rate, tone and volume but minimal responses. Mood: neutral, Affect: flat Thought Process: Coherent, linear Thought Content (Delusions): mildly paranoid Thought Content (Other): Less guarded, isolative Thought Content (Aggressive): none reported Perception (Hallucinations): continued auditory hallucinations, but not command hallucinations Perception (Other): none reported Cognition(Intelligence Est.): average Oriented: Awake, Alert, Oriented times three Insight: fair Judgment: Fair Psychosis: Denies DIAGNOSES: Schizoaffective disorder,Depressed mood Nicotine use disorder ASSESSMENT: Patient states that he feel he is ready for discharge. He is requesting his long acting today. States that over the weekend he has had no issues with [facility] edications. Reports that he feels that he has improved. Denies suicidal ideations. He denies auditory hallucinations but does have some delay in responses but this has improved from last week. Patient had had a lengthy conversation with provider x 3. He is mildly upset that he is not being discharged today. Patient continues to have flat affect, per staff has not been engaged in milieu or group therapy and having minimal responses to nurses. Has been observed in his room, chanting and making strange body movements. MANAGEMENT PLAN: Continue all medications and supportive therapies. Abilify Maintena 400 mg ordered for today. He is requesting to be discharged today, reinforced that he may be discharged tomorrow or Wednesday. TIME SPENT: 25 minutes. Vital Signs Vital Signs Date Time Temp Pulse Resp B/P (MAP) Pulse Ox O2 Delivery O2 Flow Rate FiO2 08/04/21 07:02 97.9 65 18 104/57 (73) 99 Room Air Current Medications Current Medications Medications (Trade) Dose Ordered Sig/Jamey Route PRN Reason Start Time Stop Time Status Last Admin Dose Admin Acetaminophen (Tylenol Tab) 650 mg Q6HP PRN PO HEADACHE or MILD DISCOMFORT 07/30/21 02:40 Al Hydrox/Mg Hydrox/Simethicone (Mylanta) 30 ml Q4HP PRN PO HEARTBURN/INDIGESTION 07/30/21 02:40 Aripiprazole (AbiLIFY) 5 mg QAM PO 08/01/21 09:00 08/03/21 10:55 DC 08/03/21 09:21 Aripiprazole (AbiLIFY) 10 mg QHS PO 07/31/21 21:00 08/03/21 10:55 DC 08/02/21 20:45 Aripiprazole (AbiLIFY) 15 mg QAM PO 08/04/21 09:00 08/04/21 09:43 Aripiprazole (AbiLIFY) 15 mg QHS PO 08/03/21 21:00 08/03/21 21:11 Haloperidol (Haldol) 5 mg BID PO 07/30/21 09:00 07/31/21 11:40 DC 07/31/21 08:15 Home Med (Home Med List Complete!) ASDIRECTED XX 07/29/21 23:40 07/29/21 23:37 DC Hydroxyzine HCl (Atarax) 50 mg Q6HP PRN PO ANXIETY/AGITATION 08/01/21 09:15 Lorazepam (Ativan) 1 mg Q4HP PRN PO ANXIETY/AGITATION 07/30/21 02:40 08/01/21 02:40 DC Magnesium Hydroxide (Milk Of Magnesia) 30 ml DAILYPRN PRN PO CONSTIPATION 07/30/21 02:40 Nicotine (Nicoderm Cq 21mg) 1 patch DAILYPRN PRN TD NICOTINE WITHDRAWAL 07/30/21 14:00 Trazodone HCl (Desyrel) 50 mg QHSP PRN PO INSOMNIA 07/30/21 02:40 08/03/21 21:11 Allergies Coded Allergies: Penicillins (Verified Allergy, Intermediate, 12/02/20) SWELLING STEFANY CALDERON NP Aug 04, 2021 14:18
[2021-08-04] MEDS ORDERED: ARIPiprazole MONOHYDRATE 400 MG INJ (ABILIFY) IM ONE (15:00)
[2021-08-04 18:10] VITALS: BP 120/61
[2021-08-05 06:00] VITALS: BP 129/62
[2021-08-05] MEDS: ARIPiprazole 15 MG TAB (AbiLIFY) PO SCH (08:56)
--- NOTE | 2021-08-05 10:45 | MHDSPDOC ---
[facility] Discharge Summary Discharge Summary DATE OF ADMISSION: Jul 30, 2021 at 04:04 DATE OF DISCHARGE: August 05, 2021 at 1026 DISCHARGE DIAGNOSES: Schizoaffective disorder, depressed mood Nicotine use disorder REASON FOR ADMISSION: Patient is a 30 -year-old Single, Unemployed, Domiciled, , male, who lives in [facility] ([place], [place]) reportedly called the police that he to wanted to jump into traffic. Reports that he has been feeling depressed, and having suicidal thoughts. He states in the interview that he has been having suicidal thoughts for months that he has been living at [facility] x 1 year and that prior to that he was living with his mother in [place], [place]. He states in the interview that he has philosophical questions about his life. He states in the interview that he has questions about his life. He has delayed speech and appears to be responding to internal stimuli. In the interview he asks Where do I find the questions? What do I want to be? PER ED REPORT: Pt contacted police after wanting to jump into traffic with intent to kill himself. Pt was just seen in the ED yesterday and was discharged after saying "I only said I was suicidal to get me out of the [facility] house." Pt continues to express SI with plan to jump into traffic. pt. states, "I called the police tonight because I almost committed suicide." Pt reports he's been fe eling suicidal for the past few days. Today, he developed a plan to jump in front of a moving vehicle, however did not actually attempt. Suicidal stressors include disliking [facility] and states "it's not fun." He reports wanting more outings and states he is lonely and "I don't belong." States he no longer speaks to his family or friends and states he would be better off . In addition to SI, pt. reports suffering from command AH to kill others. He denies a specific plan and it's directed towards anyone specific. Pt does appear to be internally pre- occupied during interview due to his delay in his responses. Pt has a Hx of Schizoaffective Disorder, transferred to [facility] (Nov, 2020) for SI. States he currently seeks TX with [facility], but does not believe the medication is working. VITAL SIGNS: See below. CONSULTANTS INVOLVED: See Medical H + P by Hospitalist TREATMENT AND PROGRESS ON THE UNIT: Patient was admitted to the [facility] on a 9.39 legal status was afforded the following treatment modalities: 1) Individual Therapy 2) Group Therapy 3) Medication Management 4) Milieu Therapy 5) Safe Environment HOSPITAL COURSE: Patient was admitted to [facility] on a 9.39 legal status. Pt contacted police after wanting to jump into traffic with intent to kill himself. He had been non-compliant of his medications and admitted that he had stopped taking medications including his injections. He initially was agreeable to Aristada and was started on oral Abilify. Later patient did not want to wait for Aristada to arrive to pharmacy and he asked for Maintena. Pt found medications beneficial and tolerated them well. Initially patient is guarded and isolative, preferring to stay in his room. He stated that he does not like to be in groups. Per staff patient had not attended to his ADLS during the weekend. Patient was more engaged within the last two days. Mood, anxiety, and intrusive thoughts improved with treatment. Pt attended groups yesterday. Pts symptoms improved with treatment. On day of discharge pt. denied depression, anxiety, insomnia, SI/HI, hallucinations, delusions. Pt was discharged home with follow-up with . Pt felt safe for discharge. DISCHARGE ASSESSMENT: In today's interview, patient is alert and oriented, pt.s dress is appropriate. Hygiene and grooming is well-kempt. Smiles on approach and is pleasant and engaged in the interview. Denies depression and anxiety. Denies suicidal and homicidal ideation, planning or intent. Denies and is not observed with alyson, psychotic symptoms of delusions, bizarre thinking, ob sessions, paranoia, ruminations illogical thoughts, flight of ideas or having poor insight and judgement. Reinforced with patient need to abstain from alcohol and drugs. At discharge patient has normal mentation, declines further hospitalization on a voluntary status and meets criteria for discharge today. Discussed indications of medications, potential benefits and risks, alternatives (including no treatment) and questions were encouraged and answered. Patient encouraged to return to hospital if symptoms worsen or change and encouraged to call unit if he/she/they needs to speak to provider for questions regarding medications or care. MENTAL STATUS EXAMINATION ON DISCHARGE: Patient is a 30 -year-old Single, Unemployed, Domiciled, , male, who lives in [place], [place]) reportedly called the police that he to wanted to jump into traffic. Hygiene and grooming improved, his eye contact is maintained. Behavior is cooperative and pleasant. Speech: Is fluid, conversant, normal rate, tone and volume Language skills are intact Thought processes including: linear and goal oriented Thought content: denies depression and anxiety. Denies suicidal/homicidal ideation, planning or intent. Abstract reasoning, and computation: fair Description of associations: denies, none observed Description of abnormal or psychotic thoughts: denies, none observed. Judgment: fair Insight: fair Orientation: alert and oriented to person, place, time and situation Recent and remote memory: intact Attention span and concentration: good Language: expansive Fund of knowledge: average Mood: Euthymic Mood Affect: reactive Suicide Risk Assessment: 1) Does the patient wish to be ? No 2) Since your admission, have you had any actual thought of killing yourself? No 3) Since your admission, have you been thinking about how you might do this? No 4) Since your admission, have you had these thoughts and had some intention of acting on them? No 5) Since your admission, have you started to work out or worked out the details of how to kill yourself? No 5A) Do you intent to carry out this plan? No and NA 6) Have you ever done anything, started anything, or prepared to do anything with any intent to ? No 6A) How long since your admission did you do any of these? NA MEDICATIONS ON DISCHARGE: See Medication Reconciliation PLAN/FOLLOWUP ARRANGEMENTS: Patient is returning to [facility] and will have his follow up with [facility] The amount of time spent in the coordination of care for this patient was approximately 25 minutes. ETOH/Disorder Med Rx ETOH/DRUG DISORDER RX: N/A Vital Signs/I&Os Vital Signs Date Time Temp Pulse Resp B/P (MAP) Pulse Ox O2 Delivery O2 Flow Rate FiO2 08/05/21 06:00 97.9 51 20 129/62 (84) 96 08/04/21 07:02 Room Air Medications Scheduled Aripiprazole (Abilify) 15 Mg Tablet, 15 MG PO QAM for Psychosis, #7 Aripiprazole (Abilify) 15 Mg Tablet, 15 MG PO QHS for Psychosis, #7 Aripiprazole Monohydrate (Abilify Maintena) 400 Mg Suser.vial, 400 MG IM ONCE for Psychosis, #1 Next dose due September 01, 2021 Scheduled PRN Nicotine (Nicotine Patch) 21 Mg Patch.td24, 1 PATCH TD DAILYPRN PRN for NICOTINE WITHDRAWAL, #7 Allergies Coded Allergies: Penicillins (Verified Allergy, Intermediate, 12/02/20) SWELLING STEFANY CALDERON [employer] Aug 05, 2021 10:45
== END 2021-08-05 13:26 | disposition home or self-care (01) | DRG 750 ==
LOC: M ED 20:38 → M PSY 07-30 04:04
PROVIDERS: ADMIT Psychiatry & Neurology Psychiatry; ATTEND Psychiatry & Neurology Psychiatry
DX: F25.1 Schizoaffective disorder, depressive type (principal); R45.851 Suicidal ideations; Z56.0 Unemployment, unspecified; F17.210 Nicotine dependence, cigarettes, uncomplicated; Z20.822 Contact with and (suspected) exposure to COVID-19; Z88.0 Allergy status to penicillin; Z59.8 Other problems related to housing and economic circumstances

== ENCOUNTER 2021-08-19 19:11 | Inpatient (IN) | payer OTHER ==
[~2021-08-19] VITALS: Ht 185.4 cm; Wt 77.3 kg
[~2021-08-19 19:11] MED LIST changes: +ABIL1TAB12 PO; +ABIL400I IM; +NICO21PAT TD
[2021-08-19 20:39] LABS: HEMATOCRIT 42.7 % (42.0-52.0); HEMOGLOBIN 14.5 g/dl (13.5-17.5); MEAN CORPUSCULAR HEMOGLOBIN 30.3 pg (27.0-33.0); MEAN CORPUSCULAR VOLUME 89.3 fl (80.0-96.0); PLATELET COUNT, AUTOMATED 200 10^3/uL (150-450); RED BLOOD COUNT 4.78 10^6/uL (4.30-6.10); WHITE BLOOD COUNT 5.7 10^3/uL (4.0-10.0)
[2021-08-19 21:04] LABS: AMPHETAMINES LEVEL URINE NEGATIVE (NEGATIVE); BARBITURATES URINE NEGATIVE (NEGATIVE); BENZODIAZEPINES URINE NEGATIVE (NEGATIVE); CANNABINOIDS URINE NEGATIVE (NEGATIVE); COCAINE METABOLITE URINE NEGATIVE (NEGATIVE); METHADONE URINE NEGATIVE (NEGATIVE); OPIATES URINE NEGATIVE (NEGATIVE); PHENCYCLIDINE URINE NEGATIVE (NEGATIVE)
[2021-08-19 21:31] LABS: ACETAMINOPHEN LEVEL < 2.0 UG/ML (10.0-30.0); ALBUMIN 3.3 GM/DL (3.2-5.2); ALT/SGPT 26 U/L (12-78); BILIRUBIN,DIRECT < 0.1 MG/DL (0.0-0.2); BILIRUBIN,TOTAL 0.2 MG/DL (0.2-1.0); BLOOD UREA NITROGEN 17 MG/DL (7-18); CALCIUM LEVEL 9.1 MG/DL (8.5-10.1); CARBON DIOXIDE LEVEL 29 MEQ/L (21-32); CHLORIDE LEVEL 106 MEQ/L (98-107); ETHYL ALCOHOL (ETHANOL) < 0.003 % (0.000-0.010); GLOMERULAR FILTRATION RATE > 60.0 (>60); GLUCOSE, FASTING 87 MG/DL (70-100); POTASSIUM SERUM 3.9 MEQ/L (3.5-5.1); SALICYLATE LEVEL < 1.7 MG/DL (5.0-30.0); SODIUM LEVEL 140 MEQ/L (136-145); THYROID STIMULATING HORMONE 0.724 uIU/ML (0.358-3.740); TOTAL PROTEIN 6.4 GM/DL (6.4-8.2)
[2021-08-20] MEDS ORDERED: ABIL1INJ2 IM (01:18)
[2021-08-20] MEDS ORDERED: ABIL1TAB12 PO (01:18)
[2021-08-20] MEDS ORDERED: HOME MED LIST COMPLETE! XX SCH (01:20)
[2021-08-20 01:56] LABS: RSV AMPLIFICATION NEGATIVE (NEGATIVE)
[2021-08-20] MEDS ORDERED: traZODone 50 MG TAB PO PRN (03:35)
[2021-08-20] MEDS ORDERED: ACETAMINOPHEN TAB 650MG DOSE (2X325MG) PO PRN (03:35)
[2021-08-20] MEDS ORDERED: MAALOX 30 ML SUSP *UDC PO PRN (03:35)
[2021-08-20] MEDS ORDERED: MOM 30ML SUSPENSION UDC PO PRN (03:35)
[2021-08-20] MEDS ORDERED: OLANZapine ORAL DISINTEGRATING TAB 5MG PO PRN (03:35)
[2021-08-20 05:27] VITALS: BP 115/71
[2021-08-20] MEDS: ARIPiprazole 15 MG TAB (AbiLIFY) PO SCH ×2 (09:46→21:57)
--- NOTE | 2021-08-20 11:28 | MHHPEPDOC ---
General Date Of Admission: Aug 20, 2021 Legal Status: 9.39 Chief Complaint "i said to them I was suicidal" History of Present Illness HISTORY OF THE PRESENT ILLNESS: Patient is a 30 -year-old , male, with a pph of schizoaffective disorder and more than 10 hospitalizations presents with suicidal ideations and plan to jump out a window, per chart review, was brought in on a 9.41 after he told [facility] workers in [place] where he resides he wanted to jump out bedroom window. Per PSA report: "Pt states several times "I mean should I be honest with you?" Pt reports that he is able to transistion between dimensions and is able to talk to different species inclusive of extra terrestrial. Pt at one point asked tw "are you an alien?" Pt has a very difficult time answering questions and states, "sometimes I think the government is aware that I can talk to people through the television". Pt also reports having a girlfriend that it his twin in female form and "she is sometimes female and sometimes an alien she changes forms". Pt also reports that often he has the ability to think what others are thinking. On interview denies suicidal thoughts then states "I told them I was suicidal because I thought I need to be in the hospital, for help, I don't know how to s ay that". He appears concrete and disorganized, somnolent, stating he feels very tired due to olanzapine he received this morning, does not provide reason why he needed to take the medication. Was last admitted Jul 30- to [facility] with thoughts of wanting to jump into traffic. Due to acute disorganization and paranoia patient ended interview early to return to bed and sleep, was not able to contract for safety, information was gathered from chart review mostly. he is due to abilify maintenna 400 mg Im FOSTER Sep 01, had received prior to recent discharge. Psychiatric Review of Systems Depression (2 or more weeks): anhedonia, decreased energy, suicidal thoughts Psychosis: auditory hallucination, delusions (bizarre), paranoia, disorgani zation Past Psychiatric History Per Rneae Gibbs and P jul 15: "Previous Psychiatric Diagnosis: Schizoaffective Disorder Previous Psychiatric Admissions: 10+ Hospitalizations, last admission was [facility] Suicide Attempts: No gestures or attempts Psychiatric Follow-up: [facility] Psychiatric medications: Haldol, Haldol Dec, Effexor, Risperdal, Invega Sustenna, Aristada" recent admission to [facility] Jul 30 for SI/psychosis, aug 02 received abilify 400 mg IM Past Medical History Medical Problems noon-contributory Head Injury: No Seizures: No Hospitalizations: Yes Surgeries: No Family Medical/Psychiatric HX Medical Problems none indicated, unable to fully assess due to disorganization Psychiatric Disorders: No Addiction: No Suicide Attemps/Completions: No Addiction History nicotine Social History Per yolanda's H and P 07/30 "Childhood: [place], 3 brothers, Abuse/Trauma: Unable to answer Current Living Situation: Lives in [facility] in [place] Education: Graduated High School in [place] Employment: Unemployed Social Support: [facility] Legal: Unknown Marital: Single" unable to engage further in interview for further information Mental Status Examination General Appearance: unkempt, disheveled Build: thin, other (tattoos) Demeanor: mistrustful, preoccupied, guarded Eye Contact: avoidant, intense Activity: slowed, anxious Behavior: uncooperative, loss of interests, withdrawn Speech: slurred, spontaneous, slow, low in volume, impoverished Mood: anxious, other (paranoid) Mood "bad" Affect: constricted, flat, disorganized Thought Process: concrete, blocked, slow, derailment Thought Content (Delusions): persecutory, bizarre, paranoia, delusions Thought Content (Other): preoccupied, guarded, phobic, ideas of reference, appears paranoid Thought Content (Aggressive): none reported Perception (Hallucinations): none reported Perception (Other): none reported Cognition (Impairment of): attention/concentration Cognition(Intelligence Est.): borderline Oriented: Awake, Alert, Oriented times three Insight: poor Judgment: Poor Psychosis: Psychotic Perceptions Diagnoses schizoaffective depressed type Tobacco use disorder A-FIB/CHADSVASC A-FIB History Current/History of A-Fib/PAF?: No Current PO Anticoag Therapy: No Age/Risk Factor Scoring CHADSVASC: CHADSVASC Response (Comments) Value Age Risk Factor Age < 65 years old 0 Gender Risk Factor Male 0 Hx of CHF No 0 Hx of HTN No 0 Hx of Stroke/TIA/or VTE No 0 Hx of Diabetes No 0 Hx of Vascular Disease No 0 Total 0 Treatment Treatment ordered: NONE Reason Anticoagulant not given: Not indicated/[id number] Assessment Patient is a 30 -year-old , male, with a pph of schizoaffective disorder and more than 10 hospitalizations presents with suicidal ideations and plan to jump out a window, per chart review, was brought in on a 9.41 after he told [employer] workers in [place] where he resides he wanted to jump out bedroom window. Per PSA report: "Pt states several times "I mean should I be honest with you?" Pt reports that he is able to transistion between dimensions and is able to talk to different species inclusive of extra terrestrial. Pt at one point asked tw "are you an alien?" Pt has a very difficult time answering questions and states, "sometimes I think the government is aware that I can talk to people through the television". Pt also reports having a girlfriend that it his twin in female form and "she is sometimes female and sometimes an alien she changes forms". Pt also reports that often he has the ability to think what others are thinking. Patient is currently disorganized and agreeable to continuing medications including abilify, plan to further evaluate tomorrow to assess for possible changes to regimen to help with psychotic symptoms. Reduced prn olanzapine to 5 mg due to sedation. Initial Treatment Plan 1. Patient was admitted on a [9.39] status. 2. Complete history was obtained. 3. With patients permission, family will be contacted and database will be expanded. 4. Patients medication regimen will be reviewed and changed accordingly. 5. Patient will be provided with protected environment. 6. Patient will be treated with individual, group, and milieu therapies. 7. Patient will receive supportive psych-education. 8. Discharge planning will commence immediately. 9. Outpatient follow-up treatment will be strongly recommended. 10. The initial treatment plan will focus initially on: * Depression. * Risk for suicide. ESTIMATED LENGTH OF STAY: 5-10 DAYS. TIME SPENT COUNSELING AND COORDINATING INITIAL CARE: 30 minutes. Tobacco Cessation Screen If Patient is a Smoker yes Tobacco Cessation Tx Ordered?: Yes Complete/Results docum. Vital Signs Vital Signs Date Time Temp Pulse Resp B/P (MAP) Pulse Ox O2 Delivery O2 Flow Rate FiO2 08/20/21 05:27 97.5 65 16 115/71 (86) 97 Room Air Laboratory Data 24H Labs Laboratory Tests 2 08/19/21 20:28: Nucleated Red Blood Cells % (auto) 0.0, Anion Gap 5L, Glomerular Filtration Rate > 60.0, Calcium Level 9.1, Total Bilirubin 0.2, Direct Bilirubin < 0.1, Aspartate Amino Transf (AST/SGOT) 17, Alanine Aminotransferase (ALT/SGPT) 26, Alkaline Phosphatase 61, Total Protein 6.4, Albumin 3.3, Albumin/Globulin Ratio 1.1, Thyroid Stimulating Hormone (TSH) 0.724, Salicylates Level < 1.7L, Urine Opiates Screen NEGATIVE, Urine Methadone Screen NEGATIVE, Acetaminophen Level < 2.0L, Urine Barbiturates Screen NEGATIVE, Urine Phencyclidine Screen NEGATIVE, Urine Amphetamines Screen NEGATIVE, Urine Benzodiazepines Screen NEGATIVE, Urine Cocaine Metabolite Screen NEGATIVE, Urine Cannabinoids Screen NEGATIVE, Ethyl Alcohol Level < 0.003 08/20/21 00:40: Coronavirus (COVID-19)(PCR) NEGATIVE, Influenza Type A (RT-PCR) NEGATIVE, Influenza Type B (RT-PCR) NEGATIVE, Respiratory Syncytial Virus (PCR) NEGATIVE CBC/BMP Laboratory Tests 08/19/21 20:28 Medications Scheduled Aripiprazole (Abilify) 15 Mg Tablet, 15 MG PO BID, (Reported) Aripiprazole (Abilify Maintena) 400 Mg Suser.syr, 400 MG IM QMONTH, (Reported) Allergies Coded Allergies: Penicillins (Verified Allergy, Intermediate, 12/02/20) SWELLING BRISEYDA MCCULLOUGH MD Aug 20, 2021 11:28
[2021-08-20] MEDS ORDERED: NICOTINE 21MG/24HR 1 EA TRANSDERMAL TD PRN (12:10)
--- NOTE | 2021-08-20 12:51 | HPEPDOC ---
[facility] Medical History & Physical Date of Admission Aug 19, 2021 Date of Service: Aug 20, 2021 History and Physical Chief complaint: Who presented to the emergency room with suicidal ideation History of present illness: Patient is a 30-year-old male with history of mental illness presented to the emergency room with complaints of suicidal ideation. Patient was admitted to the inpatient mental health unit under the care of psychiatry. Hospitalist service was consulted for medical screening evaluation, patient was seen and examined with a female snowboard designer in his room. Patient denies any headache, nausea, vomiting, chest pain, shortness breath, palpitations, cough, abdominal pain, constipation, diarrhea, or urinary discomfort. Denies any recent fevers, chills. Reports that his appetite is fairly denies any changes in his weight. Past Medical History: Reported history of depression Past Surgical History: Denies any prior surgeries Allergies: See below Medications: See below Family History: - Patient reports that his mother, father do not have any reported medical problems Social History: - Patient reports that he is a 72 smoke tobacco, rarely uses alcohol. Denies any drug use - Denies recent travel or sick contacts - Lives in a temporary living service - Occupation; unemployed Review of Systems: 10 point review of systems complete, all negative otherwise stated in HPI Physical exam: - Vitals: BP [115/71], HR [65], RR [16], Sat [97%RA], Temp [97.5F] - General: Lying in bed, Speaking in full sentences, AAOx3 - HEENT: NC, AT, PERRLA - CVS: RRR, +S1S2 - Lungs: Fair air entry bilaterally, No appreciable wheezing / rales / rhonchi - Abdomen: Soft, Non-distended, Non-tender - Extremities: No lower extremity edema, No calf tenderness - Neuro: No focal motor or sensory deficit - Skin: No visible rashes Labs: See below Imaging: See below EKG: See below Assessment and Plan: Suicidal ideation - Hx of depression - Admitted to the inpatient mental health unit under the care of psychiatry - Currently being managed by psychiatry No significant past medical history DVT prophylaxis - Will continue with early ambulation Male snowboard designer was present throughout the duration of this history and physical examination Thank you for this consultation. Hospitalist service will now sign off some: Please reconsult as needed Vital Signs Vital Signs Date Time Temp Pulse Resp B/P (MAP) Pulse Ox O2 Delivery O2 Flow Rate FiO2 08/20/21 05:27 97.5 65 16 115/71 (86) 97 Room Air Laboratory Data Labs 24H Laboratory Tests 2 08/19/21 20:28: Nucleated Red Blood Cells % (auto) 0.0, Anion Gap 5L, Glomerular Filtration Rate > 60.0, Calcium Level 9.1, Total Bilirubin 0.2, Direct Bilirubin < 0.1, Aspartate Amino Transf (AST/SGOT) 17, Alanine Aminotransferase (ALT/SGPT) 26, Alkaline Phosphatase 61, Total Protein 6.4, Albumin 3.3, Albumin/Globulin Ratio 1.1, Thyroid Stimulating Hormone (TSH) 0.724, Salicylates Level < 1.7L, Urine Opiates Screen NEGATIVE, Urine Methadone Screen NEGATIVE, Acetaminophen Level < 2.0L, Urine Barbiturates Screen NEGATIVE, Urine Phencyclidine Screen NEGATIVE, Urine Amphetamines Screen NEGATIVE, Urine Benzodiazepines Screen NEGATIVE, Urine Cocaine Metabolite Screen NEGATIVE, Urine Cannabinoids Screen NEGATIVE, Ethyl Alcohol Level < 0.003 08/20/21 00:40: Coronavirus (COVID-19)(PCR) NEGATIVE, Influenza Type A (RT-PCR) NEGATIVE, Influenza Type B (RT-PCR) NEGATIVE, Respiratory Syncytial Virus (PCR) NEGATIVE CBC/BMP Laboratory Tests 08/19/21 20:28 Home Medications Scheduled Aripiprazole (Abilify) 15 Mg Tablet, 15 MG PO BID Aripiprazole (Abilify Maintena) 400 Mg Suser.syr, 400 MG IM QMONTH Allergies Coded Allergies: Penicillins (Verified Allergy, Intermediate, 12/02/20) CASS WOOTEN MD Aug 20, 2021 12:51
[2021-08-20 19:27] VITALS: BP 112/66
[2021-08-21] MEDS: ARIPiprazole 15 MG TAB (AbiLIFY) PO SCH ×2 (09:45→20:08)
[2021-08-21] MEDS ORDERED: OLANZapine ORAL DISINTEGRATING TAB 5MG PO PRN (12:25)
--- NOTE | 2021-08-21 12:31 | MHIPNPDOC ---
[facility] Progress Note Progress Note DATE OF SERVICE: 08/21/21 HISTORY: Patient is a 30 -year-old , male, with a pph of schizoaffective disorder and more than 10 hospitalizations presents with suicidal ideations and plan to jump out a window, per chart review, was brought in on a 9.41 after he told [employer] workers in [place] where he resides he wanted to jump out bedroom window. Per PSA report: "Pt states several times "I mean should I be honest with you?" Pt reports that he is able to transistion between dimensions and is able to talk to different species inclusive of extra terrestr ial. Pt at one point asked tw "are you an alien?" Pt has a very difficult time answering questions and states, "sometimes I think the government is aware that I can talk to people through the television". Pt also reports having a girlfriend that it his twin in female form and "she is sometimes female and sometimes an alien she changes forms". Pt also reports that often he has the ability to think what others are thinking. On interview denies suicidal thoughts then states "I told them I was suicidal because I thought I need to be in the hospital, for help, I don't know how to say that". He appears concrete and disorganized, somnolent, stating he feels very tired due to olanzapine he received this morning, does not provide reason why he needed to take the medication. Was last admitted Jul 30- to [facility] with thoughts of wanting to jump into traffic. Due to acute disorganization and paranoia patient ended interview early to return to bed and sleep, was not able to contract for safety, information was gathered from chart review mostly. he is due to abilify maintenna 400 mg Im FOSTER Sep 01, had received prior to recent discharge. Interval: States "I was interpersonal confusion, not suicidal", when asked about what the person confusion was, states "the hospital is a good place to be because I was not happy with my life, did not have much money, friends are not with me there at [facility]", denied suicidal ideation, intent or plan, denied homicidal ideation intent or plan, denied any hallucinations, delusions or paranoia, reported that the "olanzapine made me feel tired and so I was not able to really talk well yesterday but I am feeling much better today I just wanted to be in the hospital, I do not know thought would change something", he then goes on to state that he really wants to go back home and feels he does not need to stay in the hospital, wants to continue with his Abilify and feels that it helps him. Denies any acute physical complaints, aims scoring 0 on evaluation. VITAL SIGNS: See below. NEW TEST RESULTS: August 20: influenza, RSV, covid test negative CURRENT MEDICATIONS: See below. MENTAL STATUS EXAMINATION: Patient is a 30-year old male, who is in no acute distress, improved eye contact, appears calm and relaxed, sitting in chair in hospital clothing with improved eye contact, improved hygiene Speech: Is spontaneous, normal rate and amount Language skills are fair. Thought processes including: Mildly disorganized at times but overall linear and logical. Thought content: Denies suicidal ideation, intent or plan, denies homicidal ideation intent or plan. Abstract reasoning, and computation: Poor description of associations: Mildly concrete Description of abnormal or psychotic thoughts: Denies. Judgment: Fair, improving Insight: Improved. Orientation: X4 Recent and remote memory: Intact. Attention span and concentration: Fair. Language: Sammarinese. Fund of knowledge: Below average at baseline, based on interview and history. Mood: "Feeling a lot better" affect: Mildly disorganized, blunted, euthymic, appropriate, mood congruent DIAGNOSES: schizoaffective depressed type Tobacco use disorder ASSESSMENT: Patient endorses that he was bored and dissatisfied with his living arrangements, did not have suicidal ideation and felt medications help control symptoms of paranoia and hallucinations, currently not experiencing any psychotic symptoms or manic symptoms, feels mood is even, denies suicidal thoughts intent or plan, wants to return back to the housing, despite situational frustrations of not having friends around and having financial concerns. MANAGEMENT PLAN: Continue home medications including Abilify, next due for 400 mg IM FOSTER 09/01/2021, collateral obtained from [facility], plan for possible discharge tomorrow if continues to do well. TIME SPENT: 15 minutes. Vital Signs Vital Signs Date Time Temp Pulse Resp B/P (MAP) Pulse Ox O2 Delivery O2 Flow Rate FiO2 08/20/21 19:27 97.6 75 16 112/66 (81) 08/20/21 05:27 97 Room Air Current Medications Current Medications Medications (Trade) Dose Ordered Sig/Jamey Route PRN Reason Start Time Stop Time Status Last Admin Dose Admin Acetaminophen (Tylenol Tab) 650 mg Q6HP PRN PO HEADACHE or MILD DISCOMFORT 08/20/21 03:35 Al Hydrox/Mg Hydrox/Simethicone (Mylanta) 30 ml Q4HP PRN PO HEARTBURN/INDIGESTION 08/20/21 03:35 Aripiprazole (AbiLIFY) 15 mg BID PO 08/20/21 09:00 08/21/21 09:45 Home Med (Home Med List Complete!) ASDIRECTED XX 08/20/21 01:20 08/20/21 01:22 DC Magnesium Hydroxide (Milk Of Magnesia) 30 ml DAILYPRN PRN PO CONSTIPATION 08/20/21 03:35 Nicotine (Nicoderm Cq 21mg) 1 patch DAILYPRN PRN TD NICOTINE WITHDRAWAL 08/20/21 12:10 Olanzapine (ZyPREXA ZYDIS) 10 mg Q4HP PRN PO ANXIETY/AGITATION 08/20/21 03:35 08/20/21 05:34 Trazodone HCl (Desyrel) 50 mg QHSP PRN PO INSOMNIA 08/20/21 03:35 Allergies Coded Allergies: Penicillins (Verified Allergy, Intermediate, 12/02/20) SWELLING BRISEYDA MCCULLOUGH MD Aug 21, 2021 12:31
[2021-08-21 16:18] VITALS: BP 138/60
[2021-08-22] MEDS ORDERED: ABIL1INJ2 IM (08:32)
[2021-08-22] MEDS ORDERED: NICO21PAT TD (08:32)
[2021-08-22] MEDS ORDERED: ABIL1TAB12 PO (08:32)
--- NOTE | 2021-08-22 14:29 | MHDSPDOC ---
[facility] Discharge Summary Discharge Summary DATE OF ADMISSION: Aug 20, 2021 at 03:45 DATE OF DISCHARGE: Aug 22, 2021 at 10:29 Discharge diagnoses: schizoaffective depressed type Tobacco use disorder Reason for admission:Patient is a 30 -year-old , male, with a pph of schizoaffective disorder and more than 10 hospitalizations presents with suicidal ideations and plan to jump out a window, per chart review, was brought in on a after he told TLS workers in [place] where he resides he wanted to jump out bedroom window. Per PSA report: "Pt states several times "I mean should I be honest with you?" Pt reports that he is able to transistion between dimensions and is able to talk to different species inclusive of extra terrestrial. Pt at one point asked tw "are you an alien?" Pt has a very difficult time answering questions and states, "sometimes I think the government is aware that I can talk to people through the television". Pt also reports having a girlfriend that it his twin in female form and "she is sometimes female and sometimes an alien she changes forms". Pt also reports that often he has the ability to think what others are thinking. On interview denies suicidal thoughts then states "I told them I was suicidal because I thought I need to be in the hospital, for help, I don't know how to say that". He appears concrete and disorganized, somnolent, stating he feels very tired due to olanzapine he received this morning, does not provide reason why he needed to take the medication. Was last admitted Jul 30- to [facility] with thoughts of wanting to jump into traffic. Due to acute disorganization and paranoia patient ended interview early to return to bed and sleep, was not able to contract for safety, information was gathered from chart review mostly. he is due to abilify maintenna 400 mg Im FOSTER Sep 01, had received prior to recent discharge. Vital signs: See below Consultants involved: See medical H&P by hospitalist Treatment and progress on the unit: Patient was admitted to the [facility] legal status and was afforded the following treatment modalities: 1. Individual therapy 2. Group therapy 3. Medication management 4. Milieu therapy 5. Safe environment Hospital course: Patient was admitted to the [facility] on a legal status. Was medically cleared prior to coming up to the [facility]. Upon arrival stated he was anxious and may be panicked, reported acute stressors of not be able to see friends and being dissatisfied with environment in [facility], initial interview was somewhat disorganized in the context of excessive sedation after receiving 10 mg of olanzapine, had also been making bizarre statements in the ED. On follow-up with patient states he is not having psychotic symptoms, rather he just want to be checked out in the hospital for anxiety and feels comfortable returning to [facility], was continued on home medications of Abilify 15 mg twice daily and still covered by his monthly Abilify FOSTER 400 mg, next due September 01, 2021. Patient found medications beneficial and tolerated them well. Denies mood anxiety and intrusive thoughts which improved with treatment. Patient attended groups daily during stay. Patient symptoms improved with treatment. On day of discharge patient had bright affect, was calm, denied depression, anxiety, insomnia, suicidal or homicidal ideations intent or plan, hallucinations, delusions. Terry amin was discharged to [facility] with follow-up. Patient felt safe for discharge. Was offered continued stay on voluntary admission but refused. Discharge assessment: On today's interview patient is alert and oriented, dressed appropriately. Has significantly brighter affect, good eye contact, was polite and offered his roommate a banana. He did not endorse any safety concerns reported he is ready to return home. Hygiene and grooming is well-kept. Smiles on approach and is pleasant and engaged on interview. Denies depression and anxiety. Denies suicidal homicidal ideation, intent or planning. Nursing evaluation was negative for suicidal ideations and denied altered perceptions. Denies and is not observed with alyson or psychotic symptoms of delusions, duran llucinations, bizarre thinking, obsessions, paranoia, ruminations, illogical thoughts, flight of ideas or having poor insight or judgment. Patient has normal mentation, declines further hospitalization of voluntary status and meets criteria for discharge today, patient encouraged to return the hospital if symptoms worsen or change and encouraged to call unit if they feel they need provider's questions to be answered or help with medications or care. Mental status: Patient is a 30-year old male, who is in no acute distress, improved eye contact, appears calm and relaxed, sitting in chair in hospital clothing with improved eye contact, improved hygiene Speech: Is spontaneous, normal rate and amount Language skills are fair. Thought processes including: Mildly disorganized at times but overall linear and logical. Thought content: Denies suicidal ideation, intent or plan, denies homicidal ideation intent or plan. Abstract reasoning, and computation: Fair description of associations: Good Description of abnormal or psychotic thoughts: Denies hallucinations, delusions, or paranoia Judgment: Fair, improving Insight: Improved. Orientation: X4 Recent and remote memory: Intact. Attention span and concentration: Fair. Language: Norwegian. Fund of knowledge: Below average at baseline, based on interview and history. Mood: "Good" affect: Euthymic, full, appropriate, mood congruent Medications on discharge: -see medication reconciliation, was given refills for 400 mg Abilify maintenna FOSTER CSSRS on discharge: Wish to be : No nonspecific active suicidal thoughts: No lifetime attempts: 0 interrupted attempts: 0 aborted attempts: 0 preparatory acts or behavior: None Taking into consideration safety state, status, modifiable, non-modifiable risk factors patient is at low risk on discharge for suicide according to [place] suicide evaluation. PLAN/FOLLOWUP ARRANGEMENTS: Follow Up Care Education Label * Medical * Medical Follow Up [facility] * Established With This Provider Yes * Therapist NATTY * Date Aug 28, 2021 * Time 11:00 * Address of Clinic or Practice [address] [place] [address] * Follow Up Care Education Label * Mental Health Appt 1 * Mental Health [facility] * Established With This Provider Yes * Therapist ARSENIO * Date Aug 25, 2021 * Time 11:00 * Address of Clinic or Practice [address] [place] [address] * The amount of time spent in the coordination of care for this patient was approximately 25 minutes. ETOH/Disorder Med Rx ETOH/DRUG DISORDER RX: Offrd @ d/c & pt refused Vital Signs/I&Os Vital Signs Date Time Temp Pulse Resp B/P (MAP) Pulse Ox O2 Delivery O2 Flow Rate FiO2 08/20/21 19:27 97.6 75 16 112/66 (81) 08/20/21 05:27 97 Room Air Medications Scheduled Aripiprazole (Abilify Maintena) 400 Mg Suser.syr, 400 MG IM QMONTH for psychosis, #1 Aripiprazole (Abilify) 15 Mg Tablet, 15 MG PO BID for psychosis, #14 Scheduled PRN Nicotine (Nicotine Patch) 21 Mg Patch.td24, 1 PATCH TD DAILYPRN PRN for NICOTINE WITHDRAWAL, #7 Allergies Coded Allergies: Penicillins (Verified Allergy, Intermediate, 12/02/20) SWELLING BRISEYDA MCCULLOUGH MD Aug 22, 2021 14:29
== END 2021-08-22 10:29 | disposition home or self-care (01) | DRG 750 ==
LOC: M ED 19:11 → M ED INP 08-20 03:45 → M PSY 08-20 04:57
PROVIDERS: ADMIT Student in an Organized Health Care Education/Training Program; ATTEND Student in an Organized Health Care Education/Training Program
DX: F25.1 Schizoaffective disorder, depressive type (principal); F17.210 Nicotine dependence, cigarettes, uncomplicated; R45.851 Suicidal ideations; Z20.822 Contact with and (suspected) exposure to COVID-19; Z79.899 Other long term (current) drug therapy; Z88.1 Allergy status to other antibiotic agents

== ENCOUNTER 2021-09-16 16:38 | Inpatient (IN) | payer OTHER ==
[~2021-09-16] VITALS: Ht 185.4 cm; Wt 86.0 kg
[~2021-09-16 16:38] MED LIST changes: +ABIL1INJ2 IM
--- OUTSIDE RECORDS SUMMARY | 2021-09-16 16:43 | CCD ---
Author Author [facility] Organization [facility] Address Unknown Phone Unavailable Care Team Providers Care Geophysical Prospecting Permit Agent Name Role Phone Emani Pierre Unavailable PROBLEMS Type Condition ICD9-CM Code COH52-DY Code Onset Dates Condition S tatus W/U Status Risk SNOMED Code Notes Problem Mental health disorder F99 Active confirmed 00123617 Problem Personality disorder F60.9 Active confirmed 32238855 Problem Paranoid schizophrenia F20.0 Active confirmed 74919764 ALLERGIES Allergen (clinical drug ingredient) Drug/Non Drug Allergy do cumented on EMR Reaction Allergy Type Onset Date Status caplyta c/o hot feeling Non Drug Allergy Act bentley penicillamine Penicillamine([facility] Code:[address]-30) Unknown Drug A llergy Active ENCOUNTERS from 1992 to 2021-08-27 Encounter Location [place] [address] 13 Aug, 2021 Emani Ignacio IMMUNIZATIONS Vaccine Route Administration Date Status Aristada IM Intramuscular February 12, 2021 Administered Aristada IM Intramuscular Nov 20, 2020 Administered Aristada IM Intramuscular Dec 18, 2020 Administered Aristada IM Intramuscular January 13, 2021 Administered Mantoux ID Intradermal Jun 26, 2020 Administered Aristada IM Intramuscular Oct 23, 2020 Administered Aristada IM Intramuscular Sep 25, 2020 Administered Aristada IM Intramuscular Aug 23, 2020 Administered abilify maintena IM Intramuscular Jul 26, 2020 Administered abilify maintena IM Intramuscular Jun 24, 2020 Administered abilify maintena IM Intramuscular May 24, 2020 Administered haldolperidol decanoate IM Intramuscular February 19, 2021 Adminis tered haldolperidol decanoate IM Intramuscular Jan 10, 2021 Adminis tered SOCIAL HISTORY Tobacco Use: Social History Observation Description Date Details (start date - stop date) Former Smoker Sex Assigned At : Social History Observation Description Sex Assigned At Unknown Tobacco Use/Smoking Question Answer Notes Are you a former smoker How long has it been since you last smoked? 1-3 months REASON FOR REFERRAL No Information VITAL SIGNS No information MEDICATIONS Medication SIG (Take, Route, Frequency, Duration) Notes Start Da te End Date Status Aristada 882 MG/3.2ML INJECT 3.2MLS ONCE A MONTH I NTRAMUSCULARLY Intramuscular for 30 Active ARIPiprazole 15 MG TAKE ONE TABLET BY MOUTH ELENA RY MORNING AND AT BEDTIME FOR PSYCHOSIS Oral for 7 Active PROCEDURES No Information RESULTS No Results REASON FOR VISIT mtcm/IPMHU follow-up MEDICAL (GENERAL) HISTORY Type Description Date Medical History ADHD Medical History Paranoid Schizophrenia Surgical History [place] teeth extraction Hospitalization History [facility] inpatient Hospitalization History Mental health 07/2021 Goals Section No Information Health Concerns No Information MEDICAL EQUIPMENT No Information MENTAL STATUS No Information FUNCTIONAL STATUS No Information ASSESSMENTS No Information PLAN OF TREATMENT Next Appt Details 08/28/21 at 1100 Reason: Provider Name:Sarah Singh, 2021-08-15 4 11:00:00 AM, [address] [place] [address], [phone], Provider Name:Emani Pierre, 2021-10-16 3 09:40:00 AM, [address] [place] [address], [phone], Insurance Providers Payer Name Payer Address Payer Phone Insured Name Patient Relati onship to Insured Coverage Start Date Coverage End Date [employer] CLAIMS DEPT [address] [address] [facility] [id number] Ernesto Peraza self
--- OUTSIDE RECORDS SUMMARY | 2021-09-16 16:43 | CCD ---
Author Author ReferralErnesto [facility] Organization Unknown Address Unknown Phone Unavailable Care Team Providers Care Oracle Hrms Developer Name Role Phone Referral, [facility] PCP Unavailable Allergies, Adverse Reactions, Alerts Allergy Substance Code C odeSystem Reaction Severity Critic ality Status Start Date Moderate Medications Medication Medication Code Medication CodeSystem Start Date Stop Date Route Dose Status Fill Instructions RxNorm Problems Problem Name Code CodeSy stem Alternate Code Alternate CodeSystem Start Date End Date Status Narrative Paranoid schizophrenia 03661855 SNOMED-CT 2021-02-04 Active Paranoid schizophrenia 21633412 SNOMED-CT 2021-02-04 Active Schizoaffective disorder, unspecified 76940214 SNOMED-CT 2020-09-12 Active Schizoaffective disorder, unspecified 45732893 SNOMED-CT 2020-09-12 Active Relevant diagnostic tests/laboratory data Narrative No Information Procedures Procedure Name Code Code System Target Site Date of Procedure Status Service Delivery Location Device Cod e Device Name Device UID Psychotherapy, 45 minutes with patient [id number] SNOMED-CT () 2021-08-[address], [id number] Initial Psychiatric Evaluation [id number] SNOMED-CT () 2021-07-[address], [id number] Est. Patient - E&M Intermediate [id number] SNOMED-CT () 2021-07-[address], [id number] [id number] Individual Psychotherapy 01235983 SNOMED-CT () 2021-08-[address], [id number] [id number] SNOMED-CT () 2020-11-15 [address] [place], [place], [address] [id number] SNOMED-CT () 2021-01-13 completed [facility] [address] [place], 715454296 [id number] SNOMED-CT () 2020-10-[address] [facility] [address] [place], 413464558 [id number] SNOMED-CT () 2020-12-[address] [facility] [address] [place], 2123[address] [id number] SNOMED-CT () 2020-10-15 [address] [facility] [address] [place], 302499527 [id number] SNOMED-CT () 2020-11-15 [address] [facility] [address] [place], 637834627 [id number] SNOMED-CT () 2020-12-[address] [facility] [address] [place], [address]15910 [id number] SNOMED-CT () 2021-01-13 completed [facility] [address] [place], 97[address]1519 [id number] SNOMED-CT () 2021-02-13 completed [facility] [address] [place], 521[address]8636 [id number] SNOMED-CT () 2021-03-15 completed [facility] [address] [place], 107035028 [id number] SNOMED-CT () 2021-04-15 completed [facility] [address] [place], 245599576 [id number] SNOMED-CT () 2021-05-15 [address] [place], 073527106 [id number] SNOMED-CT () 2021-06-15 completed [facility] [address] [place], 586354249 [id number] SNOMED-CT () 2021-07-16 [address] [facility] [address] [place], 52[address]6440 [id number] SNOMED-CT () 2021-08-15 [address] [place], 856066929 [id number] SNOMED-CT () 2020-10-15 [address] [place], 480392091 [id number] SNOMED-CT () 2020-11-15 [address] [facility] [address] [place], 999454779 [id number] SNOMED-CT () 2020-12-16 [address] [place], 928566447 [id number] SNOMED-CT () 2021-01-13 completed [facility] [address] [place], 785677658 [id number] SNOMED-CT () 2021-02-13 completed [facility] [address] [place], 573489811 [id number] SNOMED-CT () 2021-03-15 completed [address] [place], 977528811 [id number] SNOMED-CT () 2020-08-15 completed [address] [place], 389634198 [id number] SNOMED-CT () 2021-04-15 completed [facility] [address] [place], 410872196 [id number] SNOMED-CT () 2021-05-15 completed [address] [place], 519524469 [id number] SNOMED-CT () 2021-06-15 [address] [place], 186236987 [id number] SNOMED-CT () 2021-07-[address] [place], 120732621 [id number] SNOMED-CT () 2021-08-15 [address] [place], 938572645 [id number] SNOMED-CT () 2020-09-15 [address] [place], 526[address]3210 [id number] Encounters/Encounter Diagnoses Encounter Name Encounter Code Diagnosis Code Diagnosis Name Diagnosis CodeSystem Date of Diagnosis Service Delivery L ocation Pyschotherapy 30 Minute with Patient [address] [id number] Paranoid schizophrenia SNOMED-CT 2021-08-06 [facility] [address] [place] [address], [id number] Vital Signs No Information Social History Element Description Description Start Date End Date Code CodeSystem AdditionalInfo SexAssignedAtBirth Male 1990 M AdministrativeGender Hospital Discharge Instructions * Reason For Referral Medical Equipment * FDA Assessments *
--- OUTSIDE RECORDS SUMMARY | 2021-09-16 16:43 | CCD ---
Author Author ReferralErnesto [facility] Organization Unknown Address Unknown Phone Unavailable Care Team Providers Care Gamma Facilities Operator Name Role Phone Referral, [facility] PCP Unavailable Allergies, Adverse Reactions, Alerts Allergy Substance Code C odeSystem Reaction Severity Critic ality Status Start Date Moderate Medications Medication Medication Code Medication CodeSystem Start Date Stop Date Route Dose Status Fill Instructions RxNorm Problems Problem Name Code CodeSy stem Alternate Code Alternate CodeSystem Start Date End Date Status Narrative Schizoaffective disorder, unspecified 49112251 SNOMED-CT 2020-09-12 Active Schizoaffective disorder, unspecified 05050044 SNOMED-CT 2020-09-12 Active Paranoid schizophrenia 81180741 SNOMED-CT 2021-02-04 Active Paranoid schizophrenia 28271592 SNOMED-CT 2021-02-04 Active Relevant diagnostic tests/laboratory data Narrative No Information Procedures Procedure Name Code Code System Target Site Date of Procedure Status Service Delivery Location Device Cod e Device Name Device UID Initial Psychiatric Evaluation [id number] SNOMED-CT () 2021-07-[address], [id number] [id number] Est. Patient - E&M Intermediate [id number] SNOMED-CT () 2021-07-[address], 168478156 [id number] SNOMED-CT () 2020-11-15 [address] [place], [place], [address]25[address] [id number] SNOMED-CT () 2021-01-13 completed [address] [place], [place], 532765400 [id number] SNOMED-CT () 2020-10-15 [address] [place], [place], 211122153 [id number] SNOMED-CT () 2020-12-16 [address] [place], 917841279 [id number] SNOMED-CT () 2020-10-15 completed [address] [place], [place], 936766263 [id number] SNOMED-CT () 2020-11-15 completed [address] [place], 362584973 [id number] SNOMED-CT () 2020-12-16 completed [address] [place], 208942814 [id number] SNOMED-CT () 2021-01-13 completed [address] [place], 531098887 [id number] SNOMED-CT () 2021-02-13 completed [address] [place], 955442414 [id number] SNOMED-CT () 2021-03-15 completed [address] [place], 670111035 [id number] SNOMED-CT () 2021-04-15 completed [address] [place], 980896805 [id number] SNOMED-CT () 2021-05-15 completed [address] [place], 201843012 [id number] SNOMED-CT () 2021-06-15 completed [address] [place], 137927004 [id number] SNOMED-CT () 2021-07-16 [address] [place], 27[address]3215 [id number] SNOMED-CT () 2020-10-15 [address] [place], 916787638 [id number] SNOMED-CT () 2020-11-15 completed [address] [place], 704959152 [id number] SNOMED-CT () 2020-12-16 completed [address] [place], 824088799 [id number] SNOMED-CT () 2021-01-13 completed [facility] [address] [place], 424418151 [id number] SNOMED-CT () 2021-02-13 completed [address] [place], 935477535 [id number] SNOMED-CT () 2021-03-15 completed [address] [place], 662950339 [id number] SNOMED-CT () 2021-04-15 completed [address] [place], 621948799 [id number] SNOMED-CT () 2021-05-15 completed [address] [place], 370427413 [id number] SNOMED-CT () 2021-06-15 completed [address] [place], 829724895 [id number] SNOMED-CT () 2021-07-16 [address] [place], 628854409 [id number] SNOMED-CT () 2020-09-15 completed [address] [place], 688724061 [id number] SNOMED-CT () 2020-08-15 completed [address] [place], 203395548 [id number] Encounters/Encounter Diagnoses Encounter Name Encounter Code Diagnosis Code Diagnosis Name Diagnosis CodeSystem Date of Diagnosis Service Delivery L ocation Medication Therapy- Low Complexity 36309 [id number] Paranoid schizophrenia SNOMED-CT 2021-07-23 [facility] [address] [place] [address], [phone] Vital Signs No Information Social History Element Description Description Start Date End Date Code CodeSystem AdditionalInfo SexAssignedAtBirth Male 1990 M AdministrativeGender Hospital Discharge Instructions * Reason For Referral Medical Equipment * FDA Assessments *
--- OUTSIDE RECORDS SUMMARY | 2021-09-16 16:43 | CCD ---
Author Author [facility] Organization [facility] Address Unknown Phone Unavailable Care Team Providers Care Commodities Manager Name Role Phone Emani Pierre Unavailable PROBLEMS Type Condition ICD9-CM Code [id number] Code Onset Dates Condition S tatus W/U Status Risk SNOMED Code Notes Problem Mental health disorder F99 Active confirmed 84491820 Problem Personality disorder F60.9 Active confirmed 62960973 Problem Paranoid schizophrenia F20.0 Active confirmed 57725214 ALLERGIES Allergen (clinical drug ingredient) Drug/Non Drug Allergy do cumented on EMR Reaction Allergy Type Onset Date Status caplyta c/o hot feeling Non Drug Allergy Act bentely penicillamine Penicillamine([facility] Code:[address]-01) Unknown Drug A llergy Active ENCOUNTERS from 1992 to 2021-08-27 Encounter Location Date Provider Diagnosis [address] [phone] 13 Aug, 2021 Emani Adak IMMUNIZATIONS Vaccine Route Administration Date Status Aristada [...] Information RESULTS No Results REASON FOR VISIT notes MEDICAL (GENERAL) HISTORY Type Description Date Medical History ADHD Medical History Paranoid Schizophrenia Surgical History [place] teeth extraction Hospitalization History [facility] inpatient Hospitalization History Mental health 07/2021 Goals Section No Information Health Concerns No Information MEDICAL EQUIPMENT No Information MENTAL STATUS No Information FUNCTIONAL STATUS No Information ASSESSMENTS No Information PLAN OF TREATMENT Next Appt Details Provider Name:Sarah Singh, 2021-08-15 4 11:00:00 AM, [address] [place] [address], [phone], Provider Name:Emani Pierre, 2021-10- 3 09:40:00 AM, [address] [place] [address], [phone], Insurance Providers Payer Name Payer Address Payer Phone Insured Name Patient Relati onship to Insured Coverage Start Date Coverage End Date [employer] MED[employer] CLAIMS DEPT [address] [address] [facility] [id number] Ernesto Peraza self
--- OUTSIDE RECORDS SUMMARY | 2021-09-16 16:43 | CCD ---
Author Author [facility] Organization [facility] Address Unknown Phone Unavailable Care Team Providers Care Art Director Name Role Phone Emani Pierre Unavailable PROBLEMS Type Condition ICD9-CM Code [id number] Code Onset Dates Condition S tatus W/U Status Risk SNOMED Code Notes Problem Mental health disorder F99 Active confirmed [id number] Problem Personality disorder F60.9 Active confirmed 98515499 Problem Paranoid schizophrenia F20.0 Active confirmed 57683626 ALLERGIES Allergen (clinical drug ingredient) Drug/Non Drug Allergy do cumented on EMR Reaction Allergy Type Onset Date Status caplyta c/o hot feeling Non Drug Allergy Act bentley penicillamine Penicillamine([facility] Code:[address]-83) Unknown Drug A llergy Active ENCOUNTERS from 1992 to 2021-08-24 Encounter Location Date Provider Diagnosis [address] [address] Jul, [facility] discharge follow-up Z09 and Mental health disorder F99 IMMUNIZATIONS Vaccine Route Administration Date Status Aristada [...] REASON FOR REFERRAL No Information VITAL SIGNS Height 28.74 in Jul, Weight 173.6 lbs Jul, Temperature 97.8 degrees Fahrenheit Jul, Heart Rate 88 /min Jul, Respiratory Rate 18 /min Jul, Oximetry 98 % Jul, Blood pressure systolic 120 mmHg Jul, Blood pressure diastolic 74 mmHg Jul, MEDICATIONS Medication SIG (Take, Route, Frequency, Duration) Notes Start Da te End Date Status Aristada 882 MG/3.2ML INJECT 3.2MLS ONCE A MONTH I NTRAMUSCULARLY Intramuscular for 30 Active ARIPiprazole 15 MG TAKE ONE TABLET BY MOUTH ELENA RY MORNING AND AT BEDTIME FOR PSYCHOSIS Oral for 7 Active PROCEDURES No Information RESULTS No Results REASON FOR VISIT [facility] Hospitalization Follow Up, Records being faxed MEDICAL (GENERAL) HISTORY Type Description Date Medical History ADHD Medical History Paranoid Schizophrenia Surgical History [place] teeth extraction Hospitalization History [facility] inpatient Hospitalization History Mental health 07/2021 Goals Section No Information Health Concerns No Information MEDICAL EQUIPMENT No Information MENTAL STATUS No Information FUNCTIONAL STATUS No Information ASSESSMENTS Encounter Date Diagnosis Assessment Notes Treatment Notes Treatm ent Clinical Notes Jul, Hospital discharge follow-up (ICD-10 - Z09) Reviewed record. No discharge summary available. Requested notes be sent to the office Jul, Mental health disorder (ICD-10 - F99) Today, his PHQ-9 score is 0 and NIRU-7 score is 0. He has a negative screening for depression and anxiety. Pt to report to the ED immediately with any thoughts of self-harm and/or harm to others. Pt v/u and agree. No indications of what the follow up plan for this patient is known. He is not able to tell me either. See telephone encounter as I discussed case with [facility] RN as patient has been established with them in the past and needs follow up care Jul, Other All questions an d concerns addressed, patient understanding and agreeable to plan. Patient encouraged to follow up at the clinic for any additional or new questions or concerns. Time spent includes face to face time with patient and review of any pertinent laboratory results, consult documentation/hospital notes and diagnostic imaging. Time spent: 30 mins Glenna Blackman, scribing the following service on behalf of Emani Pierre NP on 08/07/2021. PLAN OF TREATMENT Treatment Notes Assessment Notes Clinical Notes Hospital discharge follow-up Reviewed re cord. No discharge summary available. Requested notes be sent to the office Mental health disorder Today, his PHQ-9 score is 0 and NIRU-7 score is 0. He has a negative screening for depression and anxiety. Pt to report to the ED immediately with any thoughts of self-harm and/or harm to others. Pt v/u and agree. No indications of what the follow up kiley n for this patient is known. He is not able to tell me either. See telephone encounter as I discussed case with [facility] RN as patient has been established with them in the past and needs follow up care Next Appt Details 3 Months Reason:Weight/MH Status Provider Name:Sarah Singh, 2021-08-15 4 11:00:00 AM, [address] [place] [address], [phone], Provider Name:Emani Pierre, 2021-10- 3 09:40:00 AM, [address] [place] [address], [phone], Follow Up:3 MonthsWeight/MH Status Insurance Providers Payer Name Payer Address Payer Phone Insured Name Patient Relati onship to Insured Coverage Start Date Coverage End Date [employer] CLAIMS [address] [address] [facility] [phone] Ernesto Peraza self
--- OUTSIDE RECORDS SUMMARY | 2021-09-16 16:43 | CCD ---
Author Author [facility] Organization [facility] Address Unknown Phone Unavailable Care Team Providers Care General Accountant Name Role Phone Sarah Singh Unavailable PROBLEMS Type Condition ICD9-CM Code [id number] Code Onset Dates Condition S tatus W/U Status Risk SNOMED Code Notes Problem Mental health disorder F99 Active confirmed [id number] Problem Personality disorder F60.9 Active confirmed 07026976 Problem Paranoid schizophrenia F20.0 Active confirmed 51942203 ALLERGIES Allergen (clinical drug ingredient) Drug/Non Drug Allergy do cumented on EMR Reaction Allergy Type Onset Date Status caplyta c/o hot feeling Non Drug Allergy Act bentley penicillamine Penicillamine([facility] 2[facility] Code:[address]-73) Unknown Drug A llergy Active ENCOUNTERS from 1992 to 2021-08-28 Encounter Location Date Provider Diagnosis [address] [address] 14 Aug, 2021 Sarahannemarie Singh IMMUNIZATIONS Vaccine Route Administration Date Status Aristada IM Intramuscular February 12, 2021 Administered Aristada IM Intramuscular Nov 20, 2020 Administered Aristada IM Intramuscular Dec 18, 2020 Administered Aristada IM Intramuscular January 13, 2021 Administered Mantoux ID Intradermal Jun 26, 2020 Administered Aristada IM Intramuscular Oct 23, 2020 Administered Aristada IM Intramuscular Sep 25, 2020 Administered Aristada IM Intramuscular Aug 23, 2020 Administered haldolperidol decanoate IM Intramuscular February 19, 2021 Adminis tered abilify maintena IM Intramuscular Jul 26, 2020 Administered abilify maintena IM Intramuscular Jun 24, 2020 Administered abilify maintena IM Intramuscular May 24, 2020 Administered haldolperidol decanoate IM Intramuscular Jan 10, 2021 [...] Notes Start Da te End Date Status ARIPiprazole 15 MG TAKE ONE TABLET BY MOUTH ELENA RY MORNING AND AT BEDTIME FOR PSYCHOSIS Oral for 7 Active Aristada 882 MG/3.2ML INJECT 3.2MLS ONCE A MONTH I NTRAMUSCULARLY Intramuscular for 30 Active PROCEDURES No Information RESULTS No Results REASON FOR VISIT Concerns MEDICAL (GENERAL) HISTORY Type Description Date Medical History ADHD Medical History Paranoid Schizophrenia Surgical History [place] teeth extraction Hospitalization History [facility] inpatient Hospitalization History Mental health 07/2021 Goals Section No Information Health Concerns No Information MEDICAL EQUIPMENT No Information MENTAL STATUS No Information FUNCTIONAL STATUS No Information ASSESSMENTS No Information PLAN OF TREATMENT Next Appt Details Provider Name:Emani Pierre, 2020-12-2 3 09:40:00 AM, [address] [place] [address], [phone], Insurance Providers Payer Name Payer Address Payer Phone Insured Name Patient Relati onship to Insured Coverage Start Date Coverage End Date [employer] CLAIMS DEPT [address] [address] [facility] [id number] Ernesto Peraza self
--- OUTSIDE RECORDS SUMMARY | 2021-09-16 16:44 | CCD ---
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 Name Role Phone Referral, [facility] PCP Unavailable Allergies, Adverse Reactions, Alerts Allergy Substance Code C odeSystem Reaction Severity Critic ality Status Start Date Moderate Medications Medication Medication Code Medication CodeSystem Start Date Stop Date Route Dose Status Fill Instructions RxNorm Problems Problem Name Code CodeSy stem Alternate Code Alternate CodeSystem Start Date End Date Status Narrative Schizoaffective disorder, unspecified 51207600 SNOMED-CT 2020-09-12 Active Paranoid schizophrenia 03218411 SNOMED-CT 2021-02-04 Active Paranoid schizophrenia 30248706 SNOMED-CT 2021-02-04 Active Schizoaffective disorder, unspecified 56764785 SNOMED-CT 2020-09-12 Active Relevant diagnostic tests/laboratory data Narrative No Information Procedures Procedure Name Code Code System Target Site Date of Procedure Status Service Delivery Location Device Cod e Device Name Device UID SNOMED-CT () 2020-11-[address] [place], [place], [id number] SNOMED-CT () 2021-01-[address] [place], [address] [id number] SNOMED-CT () 2020-10-[address] [place], [place], [address] [id number] SNOMED-CT () 2020-12-16 [address] [place], [id number] SNOMED-CT () 2020-10-15 [address] [place], [address] [id number] SNOMED-CT () 2020-11-[address] [place], [address] [id number] SNOMED-CT () 2020-12-[address] [place], [address] [id number] SNOMED-CT () 2021-01-[address] [place], [address] [id number] SNOMED-CT () 2021-02-13 [address] [place], [address] [id number] SNOMED-CT () 2021-03-15 [address] [place], [address] [id number] SNOMED-CT () 2021-04-[address] [place], [address] [id number] SNOMED-CT () 2021-05-[address] [place], [address] [id number] SNOMED-CT () 2021-06-15 [address] [place], [place], [address] [id number] SNOMED-CT () 2021-07-[address] [place], [address] [id number] SNOMED-CT () 2020-10-[address] [place], [address] [id number] SNOMED-CT () 2020-11-15 [address] [place], [address] [id number] SNOMED-CT () 2020-12-[address] [place], [address] [id number] SNOMED-CT () 2021-01-13 [address] [place], [address] [id number] SNOMED-CT () 2021-02-13 [address] [place], [address] [id number] SNOMED-CT () 2021-03-[address] [place], [address] [id number] SNOMED-CT () 2021-04-[address] [place], [address] [id number] SNOMED-CT () 2021-05-[address] [place], [address] [id number] SNOMED-CT () 2021-06-[address] [place], [address] [id number] SNOMED-CT () 2021-07-[address] [place], [address] [id number] SNOMED-CT () 2020-09-[address] [place], [address] [id number] SNOMED-CT () 2020-08-15 [address] [place], [place], [address] [id number] Encounters/Encounter Diagnoses Encounter Name Encounter Code Diagnosis Code Diagnosis Name Diagnosis CodeSystem Date of Diagnosis Service Delivery L ocation non-billable [id number] Paranoid schizophrenia SNOMED-CT 2021-07-17 [facility] , , , Vital Signs No Information Social History Element Description Description Start Date End Date Code CodeSystem AdditionalInfo SexAssignedAtBirth Male 1990 M AdministrativeGender Hospital Discharge Instructions * Reason For Referral Medical Equipment * FDA Assessments *
--- OUTSIDE RECORDS SUMMARY | 2021-09-16 16:44 | CCD ---
Author Author [facility] Organization [facility] Address Unknown Phone Unavailable Care Team Providers Care [place] Coiling Machine Setter Name Role Phone Emani Pierre Unavailable PROBLEMS Type Condition ICD9-CM Code [id number] Code Onset Dates Condition S tatus W/U Status Risk SNOMED Code Notes Problem Mental health disorder F99 Active confirmed 07004691 Problem Personality disorder F60.9 Active confirmed 60529493 Problem Paranoid schizophrenia F20.0 Active confirmed 48999450 ALLERGIES Allergen (clinical drug ingredient) Drug/Non Drug Allergy do cumented on EMR Reaction Allergy Type Onset Date Status caplyta c/o hot feeling Non Drug Allergy Act bentley penicillamine Penicillamine([facility] Code:[address]-95) Unknown Drug A llergy Active ENCOUNTERS from 1992 to 2021-08-07 Encounter Location Date Provider Diagnosis [address] [address] Jul, Emani Pierre IMMUNIZATIONS Vaccine Route Administration Date Status Aristada [...] Information RESULTS No Results REASON FOR VISIT [facility] D/C MEDICAL (GENERAL) HISTORY Type Description Date Medical History ADHD Medical History Paranoid Schizophrenia Surgical History [place] teeth extraction Hospitalization History [facility] inpatient Hospitalization History Mental health 07/2021 Goals Section No Information Health Concerns No Information MEDICAL EQUIPMENT No Information MENTAL STATUS No Information FUNCTIONAL STATUS No Information ASSESSMENTS No Information PLAN OF TREATMENT Next Appt Details Provider Name:Emani Pierre, 2020-12-2 3 09:40:00 AM, [address] [place] [address], [phone], Insurance Providers Payer Name Payer Address Payer Phone Insured Name Patient Relati onship to Insured Coverage Start Date Coverage End Date [employer] CLAIMS DEPT [address] [address] [facility] [id number] Ernesto Peraza self
--- OUTSIDE RECORDS SUMMARY | 2021-09-16 16:44 | CCD ---
Author Author [facility] Organization [facility] Address Unknown Phone Unavailable Care Team Providers Care Editor Magazine Name Role Phone [place], L Emani ARTIFICIAL FOLIAGE ARRANGER Unavailable Unavailable Ignacio, L Emani ARTIFICIAL FOLIAGE ARRANGER Unavailable Unavailable [place], L Emani ARTIFICIAL FOLIAGE ARRANGER Unavailable Unavailable [place], L Emani ARTIFICIAL FOLIAGE ARRANGER Unavailable Unavailable Ignacio, L Emani ARTIFICIAL FOLIAGE ARRANGER Unavailable Unavailable [place], L Emani ARTIFICIAL FOLIAGE ARRANGER Unavailable Unavailable [place], L Emani ARTIFICIAL FOLIAGE ARRANGER Unavailable Unavailable [place], L Emani ARTIFICIAL FOLIAGE ARRANGER Unavailable Unavailable [place], L Emani ARTIFICIAL FOLIAGE ARRANGER Unavailable Unavailable [place], L Emani ARTIFICIAL FOLIAGE ARRANGER Unavailable Unavailable Ignacio, L Emani ARTIFICIAL FOLIAGE ARRANGER Unavailable Unavailable [place], L Emani ARTIFICIAL FOLIAGE ARRANGER Unavailable Unavailable [place], L Emani ARTIFICIAL FOLIAGE ARRANGER Unavailable Unavailable [place], L Emani ARTIFICIAL FOLIAGE ARRANGER Unavailable Unavailable Ignacio, L Emani ARTIFICIAL FOLIAGE ARRANGER Unavailable Unavailable Ignacio, L Emani ARTIFICIAL FOLIAGE ARRANGER Unavailable Unavailable [place], L Emani ARTIFICIAL FOLIAGE ARRANGER Unavailable Unavailable Ignacio, L Emani ARTIFICIAL FOLIAGE ARRANGER Unavailable Unavailable [place], L Emani ARTIFICIAL FOLIAGE ARRANGER Unavailable Unavailable Ignacio, L Emani ARTIFICIAL FOLIAGE ARRANGER Unavailable Unavailable Ignacio, L Emani ARTIFICIAL FOLIAGE ARRANGER Unavailable Unavailable Ignacio, L Emani ARTIFICIAL FOLIAGE ARRANGER Unavailable Unavailable Ignacio, L Emani ARTIFICIAL FOLIAGE ARRANGER Unavailable Unavailable Ignacio, L Emani ARTIFICIAL FOLIAGE ARRANGER Unavailable Unavailable [place], L Emani ARTIFICIAL FOLIAGE ARRANGER Unavailable Unavailable [place], L Emani ARTIFICIAL FOLIAGE ARRANGER Unavailable Unavailable [place], L Emani ARTIFICIAL FOLIAGE ARRANGER Unavailable Unavailable Ignacio, L Emani ARTIFICIAL FOLIAGE ARRANGER Unavailable Unavailable Ignacio, L Emani ARTIFICIAL FOLIAGE ARRANGER Unavailable Unavailable [place], L Emani ARTIFICIAL FOLIAGE ARRANGER Unavailable Unavailable [place], L Emani ARTIFICIAL FOLIAGE ARRANGER Unavailable Unavailable Ignacio, L Emani ARTIFICIAL FOLIAGE ARRANGER Unavailable Unavailable Ignacio, L Emani ARTIFICIAL FOLIAGE ARRANGER Unavailable Unavailable Ignacio, L Emani ARTIFICIAL FOLIAGE ARRANGER Unavailable Unavailable [place], L Emani ARTIFICIAL FOLIAGE ARRANGER Unavailable Unavailable [place], L Emani ARTIFICIAL FOLIAGE ARRANGER Unavailable Unavailable [place], L Emani ARTIFICIAL FOLIAGE ARRANGER Unavailable Unavailable Ignacio, L Emani ARTIFICIAL FOLIAGE ARRANGER Unavailable Unavailable [place], L Emani ARTIFICIAL FOLIAGE ARRANGER Unavailable Unavailable LAGUNAS, SADA Unavailable Unavailable TONYA MORRIS MD Unavailable Unavailable TONYA MORRIS MD Unavailable Unavailable UNA, MANUEL Unavailable Unavailable UNA, MANUEL MD Unavailable Unavailable UNA, MANUEL MD Unavailable Unavailable UNA, MANUEL MD Unavailable Unavailable UNA, MANUEL MD Unavailable Unavailable SYSTEM, NOT IN PROVIDER Unavailable Unavailable DESJARLAIS, CRISS CHRO Unavailable Unavailable DESJARLAIS, CRISS CHRO Unavailable Unavailable DESJARLAIS, CRISS CHRO Unavailable Unavailable DESJARLAIS, CRISS CHRO Unavailable Unavailable DESJARLAIS, CRISS CHRO Unavailable Unavailable DESJARLAIS, CRISS CHRO Unavailable Unavailable DESJARLAIS, CRSIS CHRO Unavailable Unavailable DESJARLAIS, CRISS CHRO Unavailable Unavailable DESJARLAIS, CRISS CHRO Unavailable Unavailable ANDREEA, CAROLYNN JUDD PA-C Unavailable Unavailable ADNREEA, CAROLYNN JUDD PA-C Unavailable Unavailable ANDREEA, CAROLYNN JUDD PA-C Unavailable Unavailable ANDREEA, CAROLYNN JUDD PA-C Unavailable Unavailable ANDREEA, CAROLYNN JUDD PA-C Unavailable Unavailable ANDREEA, CAROLYNN JUDD PA-C Unavailable Unavailable ANDREEA, CAROLYNN JUDD PA-C Unavailable Unavailable ANDREEA, CAROLYNN JUDD PA-C Unavailable Unavailable ANDREEA, CAROLYNN JUDD PA-C Unavailable Unavailable ANDREEA, CAROLYNN JUDD PA-C Unavailable Unavailable Re-disclosure Warning The records that you are about to access may contain information from federally-assisted alcohol or drug abuse programs. If such information is present, then the following federally mandated warning applies: This information has been disclosed to you from records protected by federal confidentiality rules (42 CFR part 2). The federal rules prohibit you from making any further disclosure of this information unless further disclosure is expressly permitted by the written consent of the person to whom it pertains or as otherwise permitted by 42 CFR part 2. A general authorization for the release of medical or other information is NOT sufficient for this purpose. The Federal rules restrict any use of the information to criminally investigate or prosecute any alcohol or drug abuse patient.The records that you are about to access may contain highly sensitive health information, the redisclosure of which is protected by Article 27-F of the [facility] Public Health law. If you continue you may have access to information: Regarding HIV / AIDS; Provided by facilities licensed or operated by the [facility] Office of Mental Health; or Provided by the [facility] Office for People With Developmental Disabilities. If such information is present, then the following [facility] mandated warning applies: This information has been disclosed to you from confidential records which are protected by state law. State law prohibits you from making any further disclosure of this information without the specific written consent of the person to whom it pertains, or as otherwise permitted by law. Any unauthorized further disclosure in violation of state law may result in a fine or alf sentence or both. A general authorization for the release of medical or other information is NOT sufficient authorization for further disc losure. Allergies and Adverse Reactions Type Description Substance Reaction Status Data Source(s ) Drug allergy Penicillins Penicillins [facility] Encounters Encounter Providers Location Date Indications Data Source(s ) Psychiatric Diagnostic Evaluation [facility] 09/04/2021 12:00:00 AM EDT [place] ([facility]) Outpatient [facility] 08/28/2021 12:00:00 AM EDT eCW1 ([facility]) Outpatient [facility] 08/27/2021 12:00:00 AM EDT eCW1 ([facility]) Outpatient [facility] 08/27/2021 12:00:00 AM EDT eCW1 ([facility]) Outpatient Attender: Emani DE LOS SANTOS 08/07/2021 09:35:00 AM EDT [facility] Outpatient [facility] 08/07/2021 12:00:00 AM EDT eCW1 ([facility]) Outpatient [facility] 08/07/2021 12:00:00 AM EDT eCW1 ([facility]) Pyschotherapy 30 Minute with Patient [facility] 08/06/2021 12:00:00 AM EDT [facility] 07/23/2021 12:00:00 AM EDT [facility] ([facility]) non-billable [facility] 07/17/2021 12:00:00 AM EDT [facility] ([facility]) [facility]billable [facility] 06/16/2021 12:00:00 AM EDT [facility] ([facility]) [facility]billable [facility] 05/19/2021 12:00:00 AM EDT [facility] ([facility]) non-billable [facility] 04/15/2021 12:00:00 AM EDT [facility] ([facility]) Outpatient Attender: CRISS JOSHI NP 03/20/2021 02: 40:00 PM [facility] Outpatient Attender: JUDD DORAN PA-C 03/12/2021 10:00:00 AM [facility] Outpatient Attender: JUDD DORAN PA-C 02/19/2021 01:24:00 PM [facility] Outpatient Attender: CRISS JOSHI NP 02/18/2021 03: 44:00 PM [facility] Outpatient Attender: JUDD DORAN PA-C 02/18/2021 03:44:00 PM [facility] Admission cancelled. Disregard status an d admitted date. Outpatient Attender: JUDD DORAN PA-C 02/12/2021 10:00:00 AM [facility] Outpatient Attender: CRISS JOSHI NP 01/21/2021 03: 36:00 PM [facility] Outpatient Attender: JUDD DORAN PA-C 01/13/2021 12:33:00 PM [facility] Outpatient [facility] 01/13/2021 12:00:[address] [facility]) Outpatient Attender: JUDD DORAN PA-C 01/10/2021 11:00:00 AM [facility] Outpatient Attender: CRISS JOSHI NP 12/24/2020 03: 48:00 PM [facility] Outpatient Attender: JUDD DORAN PA-C 12/18/2020 03:19:00 PM [facility] Outpatient Attender: [facility] 12/18/2020 08:34:00 AM [facility] Outpatient 12/06/2020 11:05:[facility] chizoaffective disorder, vague SI, auditory hallucination. [facility] Schizoaffective disorder, vague SI, dimitris tory hallucination. Outpatient Attender: [facility] 12/04/2020 10:00:00 AM [facility] Outpatient Attender: CRISS JOSHI NP 11/21/2020 03: 40:00 PM [facility] Outpatient Attender: [facility] 11/21/2020 09:08:00 AM [facility] Outpatient Attender: JUDD DORAN PA-C 11/20/2020 01:15:00 PM [facility] Outpatient Attender: [facility] 11/06/2020 11:00:00 AM [facility] Outpatient Attender: JUDD DORAN PA-C 10/23/2020 04:30:00 PM [facility] Outpatient Attender: [facility] 10/23/2020 11:00:00 AM [facility] Outpatient Attender: CRISS JOSHI NP 10/15/2020 04: 00:00 PM [facility] Outpatient Attender: [facility] 10/09/2020 11:00:00 AM [facility] Outpatient Attender: [facility] 10/02/2020 10:00:00 AM [facility] Outpatient [facility] 10/01/2020 12:00:00 AM [place] [id number] ([facility]) Outpatient Attender: JUDD DORAN PA-C 09/25/2020 09:41:00 AM [facility] Outpatient Attender: [facility] 09/24/2020 01:00:00 PM [facility] Outpatient Attender: CRISS JOSHI NP 09/20/2020 02: 20:00 PM [facility] Outpatient Attender: [facility] 09/12/2020 04:00:00 PM [facility] Inpatient Attender: MANUEL [place]: TONYA MORRIS MDAdmitter: MANUEL HEART MD ER-3RD 09/02/2020 04:36:00 PM EDT - 09/11/2020 11:05:00 AM [facility] Patient discharged. Outpatient Referrer: [id number] 09/02/2020 10:0 9:00 AM [facility] schizophrenia Outpatient Attender: JUDD DORAN PA-C 08/29/2020 11:00:00 AM [facility] Outpatient Attender: JUDD DORAN PA-C 08/23/2020 04:15:00 PM [facility] Outpatient Attender: JUDD DORAN PA-C 08/06/2020 09:23:00 AM [facility] Outpatient Attender: JUDD DORAN PA-C 08/01/2020 03:02:00 PM [facility] Outpatient Attender: CRISS JOSHI NP 08/01/2020 03: 00:00 PM [facility] Outpatient Attender: JUDD DORAN PA-C 07/26/2020 01:37:00 PM [facility] Outpatient Attender: CRISS JOSHI NP 07/26/2020 01: 20:00 PM [facility] Outpatient Attender: JUDD DORAN PA-C 07/23/2020 10:24:00 AM [facility] Outpatient Attender: CRISS JOSHI NP 07/18/2020 08: 04:00 AM [facility] Outpatient Attender: [facility] 07/17/2020 02:00:00 PM [facility] Outpatient Attender: [facility] 07/08/2020 03:58:00 PM [facility] Outpatient Attender: [facility] 07/04/2020 04:00:00 PM [facility] Outpatient Attender: CRISS JOSHI NP 07/03/2020 02: 00:00 PM [facility] Outpatient Attender: Emani DE LOS SANTOS 06/26/2020 02:00:00 PM [facility] Outpatient Attender: JUDD DORAN PA-C 06/24/2020 01:00:00 PM [facility] Outpatient Attender: JUDD DORAN PA-C 06/21/2020 01:00:00 PM [facility] Outpatient Attender: [facility] 06/20/2020 05:58:00 PM [facility] Outpatient Attender: [facility] 06/13/2020 02:59:00 PM [facility] Outpatient Attender: CRISS JOSHI NP 06/12/2020 01: 49:00 PM EDT [facility] Outpatient Attender: SADA LAGUNAS 06/05/2020 05:00:00 PM EDT [facility] Outpatient Attender: SADA LAGUNAS 05/30/2020 02:00:00 PM EDT [facility] Outpatient Attender: JUDD DORAN PA-C 05/24/2020 10:00:00 AM EDT [facility] Outpatient Attender: CRISS MADELYN HESTER 05/22/2020 03: 20:00 PM EDT [facility] Outpatient Attender: JUDD DORAN PA-C 05/07/2020 10:00:00 AM EDT [facility] Immunizations Vaccine Date Status Description Data Source(s) 02/19/2021 12:58:00 PM EDT completed e CW1 ([facility]) 02/19/2021 12:58:00 PM EDT completed e CW1 ([facility]) 02/19/2021 12:58:00 PM EDT completed e CW1 ([facility]) 02/19/2021 12:58:00 PM EDT completed e CW1 ([facility]) 02/19/2021 12:58:00 PM EDT completed e CW1 ([facility]) 02/12/2021 10:38:00 AM EDT completed e CW1 ([facility]) 02/12/2021 10:38:00 AM EDT completed e CW1 ([facility]) 02/12/2021 10:38:00 AM EDT completed e CW1 ([facility]) 02/12/2021 10:38:00 AM EDT completed e CW1 ([facility]) 02/12/2021 10:38:00 AM EDT completed e CW1 ([facility]) 01/13/2021 01:33:00 PM EST completed e CW1 ([facility]) 01/13/2021 01:33:00 PM EST completed e CW1 ([facility]) 01/13/2021 01:33:00 PM EST completed e CW1 ([facility]) 01/13/2021 01:33:00 PM EST completed e CW1 ([facility]) 01/13/2021 01:33:00 PM EST completed e CW1 ([facility]) 01/13/2021 01:33:00 PM EST completed e CW1 ([facility]) 01/10/2021 11:11:00 AM EST completed e CW1 ([facility]) 01/10/2021 11:11:00 AM EST completed e CW1 ([facility]) 01/10/2021 11:11:00 AM EST completed e CW1 ([facility]) 01/10/2021 11:11:00 AM EST completed e CW1 ([facility]) 01/10/2021 11:11:00 AM EST completed e CW1 ([facility]) 01/10/2021 11:11:00 AM EST completed e CW1 ([facility]) 12/18/2020 03:36:00 PM EST completed e CW1 ([facility]) 12/18/2020 03:36:00 PM EST completed e CW1 ([facility]) 12/18/2020 03:36:00 PM EST completed e CW1 ([facility]) 12/18/2020 03:36:00 PM EST completed e CW1 ([facility]) 12/18/2020 03:36:00 PM EST completed e CW1 ([facility]) 12/18/2020 03:36:00 PM EST completed e CW1 ([facility]) 11/20/2020 04:50:00 PM EST completed e CW1 ([facility]) 11/20/2020 04:50:00 PM EST completed e CW1 ([facility]) 11/20/2020 04:50:00 PM EST completed e CW1 ([facility]) 11/20/2020 04:50:00 PM EST completed e CW1 ([facility]) 11/20/2020 04:50:00 PM EST completed e CW1 ([facility]) 11/20/2020 04:50:00 PM EST completed e CW1 ([facility]) 10/23/2020 05:27:00 PM EST completed e CW1 ([facility]) 10/23/2020 05:27:00 PM EST completed e CW1 ([facility]) 10/23/2020 05:27:00 PM EST completed e CW1 ([facility]) 10/23/2020 05:27:00 PM EST completed e CW1 ([facility]) 10/23/2020 05:27:00 PM EST completed e CW1 ([facility]) 10/23/2020 05:27:00 PM EST completed e CW1 ([facility]) 09/25/2020 10:14:00 AM EST completed e CW1 ([facility]) 09/25/2020 10:14:00 AM EST completed e CW1 ([facility]) 09/25/2020 10:14:00 AM EST completed e CW1 ([facility]) 09/25/2020 10:14:00 AM EST completed e CW1 ([facility]) 09/25/2020 10:14:00 AM EST completed e CW1 ([facility]) 09/25/2020 10:14:00 AM EST completed e CW1 ([facility]) 09/25/2020 10:14:00 AM EST completed e CW1 ([facility]) 08/23/2020 05:06:00 PM EDT completed e CW1 ([facility]) 08/23/2020 05:06:00 PM EDT completed e CW1 ([facility]) 08/23/2020 05:06:00 PM EDT completed e CW1 ([facility]) 08/23/2020 05:06:00 PM EDT completed e CW1 ([facility]) 08/23/2020 05:06:00 PM EDT completed e CW1 ([facility]) 08/23/2020 05:06:00 PM EDT completed e CW1 ([facility]) 08/23/2020 05:06:00 PM EDT completed e CW1 ([facility]) 07/26/2020 01:46:00 PM EDT completed e CW1 ([facility]) 07/26/2020 01:46:00 PM EDT completed e CW1 ([facility]) 07/26/2020 01:46:00 PM EDT completed e CW1 ([facility]) 07/26/2020 01:46:00 PM EDT completed e CW1 ([facility]) 07/26/2020 01:46:00 PM EDT completed e CW1 ([facility]) 07/26/2020 01:46:00 PM EDT completed e CW1 ([facility]) 07/26/2020 01:46:00 PM EDT completed e CW1 ([facility]) Medications Medication Brand Name Start Date Product Form Dose Route Admi nistrative Instructions Pharmacy Instructions Status Indications Reaction Description Data Source(s) Divalproex Sodium 500 MG Delayed Release Oral Tablet [ Depakote] Depakote 500 MG Depakote 500 MG 10/01/2020 12:00:00 AM EST 1.0 {tablet} active Depakote 500 MG [facility]CW1 [facility]) 882 mg/3.2 mL 09/24/2020 12:00:00 AM EST suspension,extended rel syring 3 INJECT 3.2ML INTRAMUSCULARLY ONCE MONTHLY INJECT 3.2ML INTRAMUSCULARLY ONCE MONTHLY SOLD: 09/25/2020 [facility] venlafaxine 75 MG Oral Tablet VENLAFAXINE HCL 09/12/2020 12:00:00 A M EDT tablet 20 TAKE ONE TABLET BY MOUTH EVERY DAY FOR M OOD TAKE ONE TABLET BY MOUTH EVERY DAY FOR MOOD SOLD: 09/12/2020 [facility] 500 mg 09/11/2020 12:00:00 AM EDT tablet,delayed release (DR/EC) 20 TAKE 1 TABLET BY MOUTH TWO TIMES A DAY TAKE 1 TABLET BY MOUTH TWO TIMES A DAY SOLD: 09/12/2020 [facility] 300 mg 08/28/2020 12:00:00 AM EDT capsule 60 TAKE ONE CAPSULE BY MOUTH TWICE A DAY TAKE ONE CAPSULE BY MOUTH TWICE A DAY SOLD: 08/29/2020 [facility] Penitas Carbonate 300 MG Oral Capsule Penitas Carbonate 300 MG 08/27/2020 12:00:00 AM EDT active Penitas Carbonate 300 MG eCW1 ([facility]) 882 mg/3.2 mL 08/20/2020 12:00:00 AM EDT suspension,extended rel syring 3 INJECT 3.2 ML INTRAMUSCULARLY ONCE MONTHLY INJECT 3.2 ML INTRAMUSCULARLY ONCE MONTHLY SOLD: 08/23/2020 [facility] 400 mg 05/24/2020 12:00:00 AM EDT suspension,extended rel syring 1 USE DIRECTED INJECT 1 SYRINGE INTRAMUSCULARLY ONCE PER MONTH USE DIRECTED INJECT 1 SYRINGE INTRAMUSCULARLY ONCE PER MONTH SOLD: 07/26/2020 [facility] Insurance Providers Payer name Policy type / Coverage type Policy ID Covered alliance party ID Covered alliance party's relationship to kelley Policy Kelley Plan Information EXCELLUS BCBS [id number] Yesika SFZ [id number] BLUE CROSS [id number] BLUE [place] [id number] BLUE CROSS [id number] MEDICAID [facility] [id number] SP [id number] MEDICAID [id number] Yesika [id number] MEDICAID [facility] [id number] SP [id number] MEDICAID [facility] [id number] SP [id number] [place] [id number] SP [id number] SELF PAY ONLY [id number] SP [id number] GABRIEL [id number] SP [id number] [place] [id number] MEDICAID PROF FEES [id number] S [id number] MEDICAID [id number] S [id number] JEAN PAUL [id number] S [id number] STAY WELL [id number] S [id number] 3 STAYWELL UNAVAILABLE S UNAVAILA BLE GABRIEL [id number] SP [id number] OTHER INS [id number] S [id number] [employer] [id number] S [id number] OTHER INS STAYWELL [id number] S [id number] [employer] [id number] S [id number] SELF PAY UNAVAILABLE S UNAVAILA BLE SELF PAY UNAVAILABLE S UNAVAILA BLE MEDICAID [id number] S [id number] MEDICAID [facility] [id number] BLUE CROSS [id number] BLUE BR[place] [id number] MEDICAID [facility] UNAVAILABLE UNAVAILABLE OTHER INS STAY WELL [id number] S [id number] GAB[facility]EL CARE MEDICAID [id number] S [id number] [facility] MEDICAID [id number] W GABRIEL CARE MEDICAID [id number] S [id number] IRA [facility] MEDICAID [id number] S [id number] MEDICAID [id number] S [id number] [facility] [id number] S [id number] [id number] S [id number] Problems, Conditions, and Diagnoses Code Display Name Description Problem Type Effective Dates Data Source(s) F99 Mental disorder, not otherwise specified MENTAL DISORDER, NOT OTHERWISE SPECIFIED Diagnosis 08/07/2021 09:35:00 AM EDT [facility] F20.0 Paranoid schizophrenia PARANOID SCHIZOPHRENIA Diagnosi s 03/20/2021 02:40:00 PM EDT [facility] F60.9 Personality disorder, unspecified PERSONALITY DI SORDER, UNSPECIFIED Diagnosis 02/19/2021 01:24:00 PM EDT [facility] Schizoaffective disorder, vague SI, dimitris tory hallucination. Schizoaffective disorder, vague SI, auditory hallucination. Diagnosis 12/06/2020 11:05:00 PM [facility] F12.10 Cannabis abuse, uncomplicated CANNABIS ABUSE, UNCOMPLI CATED Diagnosis 09/02/2020 04:36:00 PM T [facility] F17.200 Nicotine dependence, unspecified, uncomp licated NICOTINE DEPENDENCE, UNSPECIFIED, UNCOMPLICATED Diagnosis 09/02/2020 04:36:00 PM EDT [facility] F20.9 Schizophrenia, unspecified SCHIZOPHRENIA, UNSPECIFIED Diagnosis 09/02/2020 04:36:00 PM [facility] F25.0 Schizoaffective disorder, bipolar type S CHIZOAFFECTIVE DISORDER, BIPOLAR TYPE Diagnosis 09/02/2020 04:36:[facility] Encounter for general psychiatric examin ation, requested by authority ENCNTR FOR GENERAL PSYCHIATRIC EXAM, REQUESTED BY AUTHORITY Diagnosis 09/02/2020 04:36:00 PM [facility] schizophrenia schizophrenia Diagnosis 09/02/2020 10:09:00 AM [facility] Z59.9 Problem related to housing and economic circumstances, unspecified PROBLEM RELATED TO HOUSING AND ECONOMIC CIRCUMSTAN Diagnosis 07/18/2020 08:04:00 AM EDT [facility] F60.9 [id number] Personality disorder Problem 02/18/2021 12:0 0:00 AM EDT [facility]CW1 ([facility]) [id number] Paranoid schizophrenia Paranoid schizophrenia Conditio n 02/04/2021 12:00:00 AM EDT [facility] ([facility]) [id number] Paranoid schizophrenia Paranoid schizophrenia Conditio n 02/04/2021 12:00:00 AM EDT [facility] ([facility]) [id number] Paranoid schizophrenia Paranoid schizophrenia Conditio n 02/04/2021 12:00:00 AM EDT [facility] ([facility]) [id number] Paranoid schizophrenia Paranoid schizophrenia Conditio n 02/04/2021 12:00:00 AM EDT [facility] ([facility]) [id number] Paranoid schizophrenia Paranoid schizophrenia Conditio n 02/04/2021 12:00:00 AM EDT [facility] ([facility]) [id number] Paranoid schizophrenia Paranoid schizophrenia Conditio n 02/04/2021 12:00:00 AM EDT [facility] ([facility]) [id number] Paranoid schizophrenia Paranoid schizophrenia Conditio n 02/04/2021 12:00:00 AM EDT [facility] ([facility]) [id number] Paranoid schizophrenia Paranoid schizophrenia Conditio n 02/04/2021 12:00:00 AM EDT [facility] ([facility]) [id number] Paranoid schizophrenia Paranoid schizophrenia Conditio n 02/04/2021 12:00:00 AM EDT [facility] ([facility]) [id number] Paranoid schizophrenia Paranoid schizophrenia Conditio n 02/04/2021 12:00:00 AM EDT [facility] ([facility]) [id number] Paranoid schizophrenia Paranoid schizophrenia Conditio n 02/04/2021 12:00:00 AM EDT [facility] ([facility]) [id number] Schizoaffective disorder, unspecified Sc hizoaffective disorder, unspecified Condition 09/12/2020 12:00:00 AM EDT [facility] ([facility]) [id number] Schizoaffective disorder, unspecified Sc hizoaffective disorder, unspecified Condition 09/12/2020 12:00:00 AM EDT [facility]) [id number] Schizoaffective disorder, unspecified Sc hizoaffective disorder, unspecified Condition 09/12/2020 12:00:00 AM EDT [facility] ([facility]) [id number] Schizoaffective disorder, unspecified Sc hizoaffective disorder, unspecified Condition 09/12/2020 12:00:00 AM EDT [facility] ([facility]) [id number] Schizoaffective disorder, unspecified Sc hizoaffective disorder, unspecified Condition 09/12/2020 12:00:00 AM EDT [facility] ([facility]) [id number] Schizoaffective disorder, unspecified Sc hizoaffective disorder, unspecified Condition 09/12/2020 12:00:00 AM EDT [facility] ([facility]) [id number] Schizoaffective disorder, unspecified Sc hizoaffective disorder, unspecified Condition 09/12/2020 12:00:00 AM EDT [facility] ([facility]) [id number] Schizoaffective disorder, unspecified Sc hizoaffective disorder, unspecified Condition 09/12/2020 12:00:00 AM EDT [facility] ([facility]) [id number] Schizoaffective disorder, unspecified Sc hizoaffective disorder, unspecified Condition 09/12/2020 12:00:00 AM EDT [facility] ([facility]) [id number] Schizoaffective disorder, unspecified Sc hizoaffective disorder, unspecified Condition 09/12/2020 12:00:00 AM EDT [facility] ([facility]) [id number] Schizoaffective disorder, unspecified Sc hizoaffective disorder, unspecified Condition 09/12/2020 12:00:00 AM EDT [facility] ([facility]) Surgeries/Procedures Procedure Description Date Indications Data Source(s) Diagnostic psychiatric interview (procedure) 12:00:00 AM EDT [facility] ([facility]) Procedure related to management of drug administration (proc edure) 09/03/2021 12:00:00 AM EDT [facility] ([facility]) Individual psychotherapy (regime/therapy) 08/25/2021 1 2:00:00 AM EDT [facility] ([facility]) Evaluation AND/OR management - established patient (procedur e) 08/25/2021 12:00:00 AM EDT [facility] ([facility]) Individual psychotherapy (regime/therapy) 08/25/2021 1 2:00:00 AM EDT [facility] ([facility]) Individual psychotherapy (regime/therapy) 08/06/2021 1 2:00:00 AM EDT [facility] ([facility]) Individual psychotherapy (regime/therapy) 08/06/2021 1 2:00:00 AM EDT [facility] ([facility]) Individual psychotherapy (regime/therapy) 08/06/2021 1 2:00:00 AM EDT [facility] ([facility]) Individual psychotherapy (regime/therapy) 08/06/2021 1 2:00:00 AM EDT [facility] ([facility]) Evaluation AND/OR management - established patient (procedur e) 07/23/2021 12:00:00 AM EDT [facility] ([facility]) Evaluation AND/OR management - established patient (procedur e) 07/23/2021 12:00:00 AM EDT [facility] ([facility]) Evaluation AND/OR management - established patient (procedur e) 07/23/2021 12:00:00 AM EDT [facility] ([facility]) Initial psychiatric evaluation (procedure) 07/16/2021 12:00:00 AM EDT [facility] ([facility]) Initial psychiatric evaluation (procedure) 07/16/2021 12:00:00 AM EDT [facility] ([facility]) Initial psychiatric evaluation (procedure) 07/16/2021 12:00:00 AM EDT [facility] ([facility]) Psychological Tests, Neurobehavioral and Cognitive Status 09/02/2020 12:00:00 AM EDT [facility] Results ID Date Data Source [id number] 08/20/2021 12:40:00 AM EDT [facility] Name Value Range Interpretation Code Description Data Maritza rce(s) Supporting Document(s) SARS coronavirus 2 RNA [Presence] in Res piratory specimen by LENY with probe detection NEGATIVE [facility] This lab was ordered by [facility] a nd reported by [facility]. ID Date Data Source [id number] 07/29/2021 11:42:00 PM EDT [facility] Name Value Range Interpretation Code Description Data Maritza rce(s) Supporting Document(s) SARS coronavirus 2 RNA [Presence] in Res piratory specimen by LENY with probe detection NEGATIVE [facility] This lab was ordered by [facility] a nd reported by [facility]. ID Date Data Source [id number] 07/28/2021 03:10:00 PM EDT [facility] Name Value Range Interpretation Code Description Data Maritza rce(s) Supporting Document(s) SARS coronavirus 2 RNA [Presence] in Res piratory specimen by LENY with probe detection NEGATIVE [facility] This lab was ordered by [facility] a nd reported by [facility]. ID Date Data Source [id number] 12/06/2020 11:00:00 PM EST [facility] Name Value Range Interpretation Code Description Data Maritza rce(s) Supporting Document(s) SARS coronavirus 2 RNA [Presence] in Res piratory specimen by LENY with probe detection NEGATIVE [facility] This lab was ordered by [facility] a nd reported by [facility]. ID Date Data Source [id number] 09/11/2020 01:45:[address] DISCHARGE SUMMARYPATIENT NAME: ERNESTO PERAZA MR#: [id number] PHYSICIAN: MANUEL HEART MDAUTHOR: Manuel Heart MD DATE: 09/02/20 #: [id number] DATE: 09/11/20HistoryIdentificationPatient is 29-year-old male, currently single, lives by himself, pastpsych history of schizoaffective disorderChief ComplaintThe patient was referred for evaluation because Decompensation, worseninghallucinations.History of Presenting IllnessInformation from emergency room, The patients chief complaint is decompensationand hallucinations. Pt reports that he has had schizophrenia since he was 20years old. Pt reports that he has been admitted a few times before fordecompensation and was admitted to [facility] in 2013. Pt reports that he came inwith his mother because she had concerns about his mental health status. Ptdenies current SI, HI, hallucinations, self harm and denies having access tofirearms. Pt reports that he has always lived with his mother and that shethinks that he does not do enough for himself and is frequently in bed. 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 Pt's mother reportsthat Ernesto has had a pattern of becoming non-complaint with his psychmedications in the past and that this currently happening again. Pt's motherreports that Ernesto has had worsening auditory hallucinations and has beenverbally abusive towards her. Pt's mother reports that she can not contract Gemmyo's safety, does not feel safe at home with Ernesto and believes that I/Pwould benefit his mental health. . Delusions are denied, Hallucinations aredenied. Patient's mood is depressed.During this course of assessment, patient reported that he was brought into thehospital because he has been not feeling well lately experiencing significantconcern regarding his been receiving secret messages and he was also reportingthere is a pressure in his head as well. He was also feeling scared as well.He was also expressing that lithium medication that he was not taking and hewas thinking that his medication does not seem to be working well. Patient wasalso stating that he was having difficulty with his attention and concentration, he cannot stay focused due to his underlying illness and he has beendiagnosed with schizoaffective disorder as well. He could not contract for hissafety outside as well. Patient expressed and maintain safe behavior on theunit as well.Past psych history: Patient stated that he has been hospitalized more than 10times in the past, he is currently from [place], he also stated that hehad been on Invega Sustenna in the past, also getting Abilify Maintena latelyand also stated that he was placed on lithium medication recently as well.Patient also reported that he has been diagnosed with schizoaffective disorder,he does not feel comfortable talking about suicidal ideation or attempt in [facility] at this point as well.Past medical history: DeniedFamily psych history: Bipolar disorder in cousinSubstance use history: Reported smoking marijuana once and lately, denieshaving any other substances issuesAbuse history: DeniedSocial history: Patient stated that mother has been a major support that he has, he is getting SSI, he is currently single, lives in by himself the house thatprovided by his mother, he worked in a [employer] in the past but heis currently not working.Past Psych/Medical HistoryAllergiesCoded Allergies:Penicillins (09/03/20)Hospital CourseHospital CoursePatient was admitted into inpatient mental health unit due to concern aboutdecompensation of mental health as well as worsening hallucinations as well.Patient behavior, labs and vitals were constantly monitored during this courseof treatment. Patient was initially appeared exhibiting symptoms of psychosisand he was continued aristrada medication that he was getting it outside forunderlying psychotic symptoms as well. Patient was placed on mood stabilizerin the past due to underlying affective symptoms and he was on lithiummedication but stated that he did not feel comfortable continuing thatmedication at this point as well. After discussing with the patient we addedDepakote medication and also patient CMP and liver enzymes were also monitoredduring this course of treatment. Patient was started with 250 mg of Depakoteand slowly increased 100 mg twice a [facility] Patient has also reported symptoms of hopelessness, lack of motivationand some depression symptoms during this course of treatment and discussed withthe patient about different medication option and we added Effexor medicationfor underlying depression as well. Patient reported he had tried differentantidepressant medication which did not seem to be working for him as well.During this course of treatment we observed improvement in his mood, behaviorpatient also reporting having improved motivation and also appeared lessparanoid, less disorganized and shows taking [facility] Patient was also requesting for a safe discharge plan and placement andfor that he was accepted at [facility] but meanwhile [facility] as he does not feel comfortable stayingfurther into inpatient mental health unit just for placement. We discussedwith the patient and mother about safe discharge plan and she is willing toprovide him how, there were no concern about the safety reported, there were noaccess to guns or weapons reported as well. Patient shows improve ment as wellas taking part in his discharge plan, he was observed maintaining his safetyand others on the unit as well and no psychotic symptoms observed no as neededmedication needed. At the time of discharge patient talked about that he feelsrelaxed and he is open to be discharged, he stated that he likes to read, helikes to go outside and walk, if he ever feels unsafe he will reach out to histherapist or call someone or come back into the hospital. We also educated himabout inpatient and outpatient rehab as well as provide any information aboutsubstance use and related effect on his mood which patient declined during thiscourse of treatment as well. Patient is also willing to see his therapist andpsychiatrist outside and we no longer have criteria for inpatienthospitalization.Mental status examination: Patient was alert, oriented with time place person,cooperative, excited about his discharge plan, his speech remained softer, moodis better, affect was still somewhat constricted, thought process was mostlyorganized, thought content denied having any suicidal, homicidal ideations,denied having any auditory visual hallucinations, denied delusions, attentionconcentration improved, insight and judgment appeared improved, stable gaitDiagnosis: Schizoaffective disorder, bipolar subtypePatient's Discharge ConditionVital SignsVital Signs-LastResult Date TimeTemp 96.5 09/11 0740Pulse Ox 98 09/10 1302B/P 112/75 09/10 1302Pulse 81 09/10 1302Resp 15 09/10 1302Patient/Family InstructionsPrescriptionsStop taking the following medications:LITHIUM CARBONATE (LITHIUM CARB) 300 MG [id number] MILLIGRAM Orally TWICE DAILY Qty = 60Aripiprazole (Abilify Maintena) 400 MG SUSER.PLK067 MILLIGRAM Intramuscularly Q 28 DAYS Qty = 1Start taking the following new medications:Divalproex* (Depakote*) 500 MG TABLET.DR500 MILLIGRAM Orally TWICE DAILYQty = 20Refills = 1VENLAFAXINE HCL (VENLAFAXINE) 75 MG CAP.ER.24H75 MILLIGRAM Orally DAILYQty = 20Refills = 1Aripiprazole Lauroxil (Aristada) 882 MG/3.2 ML SUSER.OFV137 MILLIGRAM Intramuscularly X2WDLXYXmf = 1No RefillsDischarge Activity: As toleratedDischarge diet: Low Fat/Low Cholesterol, 2Gm SodiumFollow-upFollow up with your Primary care physicianFollow up with therapiest and psychiatrist as scheduledalso recommended outpt chemical dependencyReferralsOrdered ReferralsCH[facility] [place], [place] [address]Oz person appointment at [facility] ([phone]) onTSeptember 12 at 4:00 pm withSada Lagunas. If you are unable toattend this appointment, please call theinic number provided to reschedule.DATE SIGNED: 09/11/20 Electronically SignedTIME SIGNED: 1350 MANUEL HEART MD Name Value Range Interpretation Code Description Data Maritza rce(s) Supporting Document(s) ID Date Data Source [id number] 09/11/2020 09:45:00 AM EDT [address] [id number] NAME: ERNESTO PERAZA#: [id number] PHYSICIAN: MANUEL HEART [facility] #: [id number] ADM. DATE: 09/02/20PATIENT : 89 DISCH. DATE: [50}DISCHARGE SUMMARYMHU discharge planNicotine Replacement TherapySmoking Status Current every day smokerPrescribed at discharge Rx offered, pt refusedAlcohol/Drug DisorderAlcohol or Drug Disorder counseling prescribedPersonal Care InstructionsDischarge Activity: As toleratedDischarge diet: Low Fat/Low Cholesterol, 2Gm SodiumFollow Up CareFollow Up:Follow up with your Primary care physicianFollow up with therapiest and psychiatrist as scheduledalso recommended outpt chemical dependencyPriority ItemsUrgent /Important items that need to be addressed at primary care follow- upappointmentDischarge InformationDISCHARGE INFORMATION* Thank you for [facility] and allowing us toserve you* Our Goal is to provide the highest quality of care.* This discharge information is to help you better understand your diagnosisand medication* Avoid taking iqsm-ikz-dlrmdnz medicines unless approved by your physician.* Take your medications as prescribed. DO NOT stop any medications unlessapproved first* Weigh yourself daily. Report any gain of 5 lbs in a week* 24 Hour Crisis HOTLINE available: Call Reachout at [phone]* Chem. Dependency: Walk in Clinics [place] ([phone]) and [place] ([phone]) anytime Wednesday thru Wednesday 8 to 10am. [place] ([phone]) anytimeMond thru Wednesday 8 to 10am. [place] ([phone]) Wednesday or Wednesday from 8to 10am (Bring $30 to First [facility]) SMOKIN G CESSATION* Smoking is dangerous to your health. It delays the healing process, andworks against your medications. Not smoking will improve your health* Our hospital participates with the Opt-to-Quit program. You will be contactedafter discharge by the [facility] Smoker's Quitline for support with tobaccocessation. You have the option once contacted to refuse this service.* You can also go online to www.EntrenaYa. Free nicotine replacementsare available ___Attention* You should contact your follow up Physician as it is important that you lethim or her check you and report any new or remaining problems. If yourcondition worsens, follow up with your provider or visit our EmergencyDepartment. If you received pain medication, anxiety medications, musc lerelaxants, or any medication that causes drowsiness, you cannot operatemachinery, power tools, or drive.Safe ActSafe Act Completed NoiStopiStop completed NoEND ENDDICT: 09/11/20944 Electronically SignedTRANS:09/11/20944 MANUEL HEART MDTRANS BY:DATE SIGNED:09/11/20TIME SIGNED: 09REPORT COPY TO: Name Value Range Interpretation Code Description Data Maritza rce(s) Supporting Document(s) ID Date Data Source [id number] 09/10/2020 01:44:00 PM EDT [address] HEALTH PROGRESS NOTEPATIENT NAME: ERNESTO PERAZA PHYSICIAN: MANUEL HEART MDAUTHOR: Una SOTO,DhruvADM. DATE: 09/02/20 MR#: [id number] NOTE DATE: 09/10/20 RM#: [id number] TIME: 1349 is 29-year-old male, currently single, lives by himself, pastpsych history of schizoaffective disorderCC/Hx Present IllnessThe patient was referred for evaluation because Decompensation, worseninghallucinations.Events Since Last EntryPatient reporting feeling somewhat better, medication seems to be working well,denies having any medication side effect, he was wondering about his dischargeplanning stating that if [facility] is taking too long that he would prefer to go tohis mother's place for the time being as well. We discussed with the patientabout treatment plan and with his consent talked to his mother about safedischarge plan as well. And also reporting sleeping well and eating well aswell.Mental status examination: Patient was alert, oriented to place and person,appeared somewhat slightly distracted, still remain constricted affect, speechremained soft, mood is okay, less anxious, thought process was mostly organized, thought content denied having any suicidal, homicidal ideations, deniedhaving any auditory visual hallucinations, denied delusions, attentionconcentration limited, insight and judgment appeared improvedPlan: Consider to continue current treatment plan, discussed with the patientregarding safe discharge plan which patient agreed at this point and alsocontinuing current psychotropic medication as patient seems compliant with andshows improvement with the medication as well. Will have a possible safedischarge plan soon.ObjectiveVital SignsVital Signs-LastResult Date TimePulse Ox 98 09/10 1302B/P 112/75 09/10 1302Temp 96.5 09/10 1302Pulse 81 09/10 1302Resp 15 09/10 1302Current MedicationsVenlafaxine HCl (Effexor Xr) 75 MG DAILY POMiscellaneous Read UZCH30A@1800 NADivalproex Sodium (Depakote DR) 500 MG BID POMultivitamins (Multivitamin) 1 TAB DAILY PONicotine (Nicorette) 2 MG Q2HPRN PRN POAcetaminophen (Tylenol) 650 MG Q4HPRN PRN POAcetaminophen (Tylenol) 650 MG Q4HPRN PRN POAl Hydrox/Mg Hydrox/Simethicone (Maalox) 15 ML QIDPRN PRN POHydroxyzine (Atarax) 50 MG Q4HPRN PRN POMagnesium Hydroxide (Mom) 10 ML QHSPRN PRN POTrazodone HCl (Desyrel) 50 MG QHSPRN PRN POAssessment/PlanDiagnosis1. Schizoaffective disorderCoordination of care provided with nursing staff, treatment teamRisk/benefits discussed side effectsDATE SIGNED: 09/10/20 Electronically SignedTIME SIGNED: 1349 MANUEL HEART MD Name Value Range Interpretation Code Description Data Maritza rce(s) Supporting Document(s) ID Date Data Source [id number] 09/09/2020 01:30:[address] PROGRESS NOTEPATIENT NAME: ERNESTO PERAZA PHYSICIAN: MANUEL HEART MDAUTHOR: Una SOTO,DhruvADM. DATE: 09/02/20 MR#: [id number] NOTE DATE: 09/09/20 RM#: [id number] TIME: 1332 is 29-year-old male, currently single, lives by himself, pastpsych history of schizoaffective disorderCC/Hx Present IllnessThe patient was referred for evaluation because Decompensation, worseninghallucinations.Events Since Last EntryPatient reporting feeling significantly better stating that he thinks thatmedication seems to be working well, also stated that he feels that medicationshows improvement with his mood and hopelessness as well. He would like tocontinue taking his medication outside as well and he is focused on hisdischarge plan tomorrow as well. [facility] [place] [facility] patient agreed at this point as well and denied having anyconcern about the safety of others as well. Patient denied having any auditoryvisual hallucinations as well.Mental status examination: Patient was alert, oriented with time place person,cooperative, appeared less distracted, his speech remained soft, mood is better, affect was constricted still, thought content denied having any suicidal,homicidal ideations, denied having any auditory visual hallucinations, denieddelusions, attention concentration fair, insight and judgment appeared limited/improvedPlan: Consider to continue current treatment plan, patient shows improvementwith current medication and treatment plan, patient labs were also assessed andDepakote level was within normal range as well.ObjectiveVital SignsVital Signs-LastResult Date TimeTemp 98.0 09/09 0636Pulse Ox 98 09/08 1130B/P 120/80 09/08 1130Pulse 81 09/08 1130Resp 14 09/08 1130Current MedicationsVenlafaxine HCl (Effexor Xr) 75 MG DAILY POMiscellaneous Read [id number]@1800 NADivalproex Sodium (Depakote DR) 500 MG BID POMultivitamins (Multivitamin) 1 TAB DAILY PONicotine (Nicorette) 2 MG Q2HPRN PRN POAcetaminophen (Tylenol) 650 MG Q4HPRN PRN POAcetaminophen (Tylenol) 650 MG Q4HPRN PRN POAl Hydrox/Mg Hydrox/Simethicone (Maalox) 15 ML QIDPRN PRN POHydroxyzine (Atarax) 50 MG Q4HPRN PRN POMagnesium Hydroxide (Mom) 10 ML QHSPRN PRN POTrazodone HCl (Desyrel) 50 MG QHSPRN PRN POResultsLaboratory DataRecent Labs-24 hours10/869722BlvstavhqJkivew (136 - 147 mmol/L) 143Potassium (3.5 - 5.1 mmol/L) 4.3Chloride (99 - 110 mmol/L) 105Serum Bicarbonate (20 - 33 mmol/L) 32Anion Gap (10.0 - 20.0) 10.3BUN (7 - 23 mg/dL) 13Creatinine (0.500 - 1.300 mg/dL) 1.060Estimated GFR/1.73 m2 (mL/min) > 60Glucose (70 - 110 mg/dL) 86Calcium (8.3 - 10.7 mg/dL) 9.2Total Bilirubin (0.1 - 1.1 mg/dL) 0.6AST (8 - 40 U/L) 14ALT (6 - 54 U/L) 32Alkaline Phosphatase (45 - 117 U/L) 66Total Protein (6.0 - 7.8 g/dL) 7. 0Albumin (3.5 - 5.0 g/dL) 3.4 LGlobulin (2.3 - 3.5 g/dL) 3.6 HAlbumin/Globulin Ratio (1.0 - 2.5) 0.9 LToxicologyValproic Acid (40 - 120 ug/mL) 77.0Assessment/PlanDiagnosis1. Schizoaffective disorderCoordination of care provided with nursing staff, treatment teamRisk/benefits discussed side effectsDATE SIGNED: 09/09/20 Electronically SignedTIME SIGNED: 1332 MANUEL HEART MD Name Value Range Interpretation Code Description Data Maritza rce(s) Supporting Document(s) ID Date Data Source [id number] 09/09/2020 09:05:00 AM EDT [facility] Name Value Range Interpretation Code Description Data Maritza rce(s) Supporting Document(s) VALPROIC ACID 77.0 ug/mL 40-120 [facility] ID Date Data Source [id number] 09/09/2020 09:05:00 AM EDT [facility] Name Value Range Interpretation Code Description Data Maritza rce(s) Supporting Document(s) GLU 86 mg/dL 70-110 [facility] Patients taking Sulfasalazine may have f alsely depressedGlucose levels. Patients taking Sulfapyridine may havefalsely elevated Glucose levels. Patients should be drawnfor Glucose before the initial administration of eitherdrug. BUN 13 mg/dL 7-23 [facility] CRE 1.060 mg/dL 0.500-1.300 [facility] GFR > 60 mL/min [facility] CHLORIDE 105 mmol/L 99-110 [facility] NA 143 mmol/L 136-147 [facility] POTASSIUM 4.3 mmol/L 3.5-5.1 [facility] TCO2 32 mmol/L 20-33 [facility] ANION GAP 10.3 10.0-20.0 [facility] CA 9.2 mg/dL 8.3-10.7 [facility] ALKALINE PHOS 66 U/L 45-117 [facility] TP 7.0 g/dL 6.0-7.8 [facility] ALB 3.4 g/dL 3.5-5.0 [facility] ESRD Dialysis patient Albumin reference range: 2.9-4.4 g/dL GL 3.6 g/dL 2.3-3.5 [facility] A/G 0.9 1.0-2.5 [facility] T. BILIRUBIN 0.6 mg/dL 0.1-1.1 [facility] [place] Total Bilirubin is n ot recommended forpatients undergoing treatment with eltrombopag (Promacta)due to the potential for falsely elevated results. ALTI 32 U/L 6-54 [facility] Patients taking Sulfasalazine and/or Sul fapyridine may havefalsely depressed ALT levels. Patients should be drawn forALT before the initial administration of either drug. AST 14 U/L 8-40 [facility] Patients taking Sulfasalazine and/or Sul fapyridine may havefalsely depressed AST levels. Patients should be drawn forAST before the initial administration of either drug. ID Date Data Source [id number] 09/06/2020 11:51:00 AM EDT [facility] [place], [place] [address]HDYTLA HEALTH PROGRESS NOTEPATIENT NAME: ERNESTO PERAZA PHYSICIAN: MANUEL HEART, MDAUTHOR: Una SOTO,Ana Laura. DATE: 09/02/20 MR#: [id number] NOTE DATE: 09/06/20 RM#: [id number] TIME: 1152 is 29-year-old male, currently single, lives by himself, pastpsych history of schizoaffective disorderCC/Hx Present IllnessThe patient was referred for evaluation because Decompensation, worseninghallucinations.Events Since Last EntryPatient reporting feeling somewhat better, stating that he is open to haveconversation with his mother as well. Patient stated that his medication seemsto be working well, he was also updated about that he has been accepted at [facility] patient willing to go on Wednesday as well. He stated that his mood hasbeen much more better with the current medication and willing to continue themedication outside as well.Mental status examination: Patient was alert, oriented with a place, person,appeared somewhat less anxious, less distracted, speech remained softer, moodis better, affect was somewhat constricted, thought process was mostlyorganized, thought content denied having any suicidal, homicidal ideations,denied having any auditory visual hallucination, appeared less delusional,attention concentration limited, insight and judgment appeared limited as well.Plan: Consider to continue current treatment plan, discussed with the patientregarding continuing current medication that patient seems to be working well,will have a Depakote level done on Wednesday at this point, and also plan for safedischarge on Wednesday as well. Patient family will be contacted according topatient consent. Patient expressed and maintain safe behavior on the unit.ObjectiveVital SignsVital Signs-LastResult Date TimeTemp 97.3 09/06 0615Pulse Ox 97 09/05 0634B/P 119/67 09/05 0634Pulse 66 09/05 0634Resp 14 09/05 06Current MedicationsVenlafaxine HCl (Effexor Xr) 75 MG DAILY POMiscellaneous Read PDHY52K@1800 NADivalproex Sodium (Depakote DR) 500 MG BID POMultivitamins (Multivitamin) 1 TAB DAILY PONicotine (Nicorette) 2 MG Q2HPRN PRN POAcetaminophen (Tylenol) 650 MG Q4HPRN PRN POAcetaminophen (Tylenol) 650 MG Q4HPRN PRN POAl Hydrox/Mg Hydrox/Simethicone (Maalox) 15 ML QIDPRN PRN POHydroxyzine (Atarax) 50 MG Q4HPRN PRN POMagnesium Hydroxide (Mom) 10 ML QHSPRN PRN POTrazodone HCl (Desyrel) 50 MG QHSPRN PRN POAssessment/PlanDiagnosis1. Schizoaffective disorderCoordination of care provided with nursing staff, treatment teamRisk/benefits discussed side effectsJustification for continued stay danger to self/othersDATE SIGNED: 09/06/20 Electronically SignedTIME SIGNED: 1152 MANUEL HEART MD Name Value Range Interpretation Code Description Data Maritza rce(s) Supporting Document(s) ID Date Data Source [id number] 09/05/2020 01:09:00 PM EDT [address] HEALTH PROGRESS NOTEPATIENT NAME: ERNESTO PERAZA PHYSICIAN: MANUEL HEART MDAUTHOR: Una SOTO,DhruvADM. DATE: 09/02/20 MR#: [id number] NOTE DATE: 09/05/20 RM#: [id number] TIME: 1311 is 29-year-old male, currently single, lives by himself, pastpsych history of schizoaffective disorderCC/Hx Present IllnessThe patient was referred for evaluation because Decompensation, worseninghallucinations.Events Since Last EntryPatient reporting somewhat better, stating that he feels less anxious, stillsome underlying symptoms of depression there but does not feel any suicidal,denies having any hopelessness during this course of assessment. Patientstated that he is kind of somewhat not talking to his mother because he wasbrought into the hospital by her but he denies having any suicidal, h omicidalideations. Denied having any medical issues as well.Mental status examination: Patient was alert, oriented with a place, person,appeared distracted, still remain somewhat isolative, his speech remained softand hesitant manner, mood is anxious and depressed, affect was constricted,thought process was superficially organized, thought content denied having anydirect suicidal, homicidal ideations, still remained somewhat paranoid, deniedhaving any auditory visual hallucinations, attention concentration limited,insight and judgment appear limited as well.Plan: Consider to continue current treatment plan, monitoring for patientsafety, discussed with the patient about further increasing Effexor medicationat this point and also continue Depakote 500 mg twice a day as well. Alsotrying to gather further collateral information for safe discharge plan aswell.ObjectiveVital SignsVital Signs-LastResult Date TimePulse Ox 97 09/05 0634B/P 119/67 09/05 634Temp 97.4 09/05 634Pulse 66 09/05 634Resp 14 09/05 634Current MedicationsVenlafaxine HCl (Effexor Xr) 75 MG DAILY POMiscellaneous Read BYHV40L@1800 NADivalproex Sodium (Depakote DR) 500 MG BID POMultivitamins (Multivitamin) 1 TAB DAILY PONicotine (Nicorette) 2 MG Q2HPRN PRN POAcetaminophen (Tylenol) 650 MG Q4HPRN PRN POAcetaminophen (Tylenol) 650 MG Q4HPRN PRN POAl Hydrox/Mg Hydrox/Simethicone (Maalox) 15 ML QIDPRN PRN POHydroxyzine (Atarax) 50 MG Q4HPRN PRN POMagnesium Hydroxide (Mom) 10 ML QHSPRN PRN POTrazodone HCl (Desyrel) 50 MG QHSP RN PRN POAssessment/PlanDiagnosis1. Schizoaffective disorderCoordination of care provided with nursing staff, treatment teamRisk/benefits discussed side effectsJustification for continued stay danger to self/othersDATE SIGNED: 09/05/20 Electronically SignedTIME SIGNED: 1311 MANUEL HEART MD Name Value Range Interpretation Code Description Data Maritza rce(s) Supporting Document(s) ID Date Data Source [id number] 09/04/2020 01:31:00 PM EDT [facility] Exam Number: [id number] OF EXAMINATIO N: 09/04/2020 14:00 EDTCT BRAIN W/O CONTRASTHISTORY: Organic cause of psychosisTECHNIQUE:This CT exam was performed using the following dose reductiontechniques: automatic exposure control, adjustment of mA and/or kVaccording to the patient's size, and use of iterative reconstructiontechnique.Standard contiguous axial spiral imaging was obtained from the skullbase through the vertex without contrast administration and withcoronal reformatting.FINDINGS:BRAIN: Basilar cisterns and ventricles appear normal. No spaceoccupying lesions, intracerebral edema, or any signs of mass effectsare noted. Base of the skull appears normal.IMPRESSION:Unremarkable CT scan of the brainElectronically signed in PS360 by: Rashel Pineda M.D. 09/04/202013:24 EDT Reported By: - Paulina PINEDA M.D. Signed By: Paulina PINEDA M.D. Name Value Range Interpretation Code Description Data Maritza rce(s) Supporting Document(s) ID Date Data Source [id number] 09/04/2020 12:56:00 PM EDT [facility] [address] HEALTH PROGRESS NOTEPATIENT NAME: ERNESTO PERAZA PHYSICIAN: MANUEL HEART, MDAUTHOR: Una SOTO,DhruvADM. DATE: 09/02/20 MR#: [id number] NOTE DATE: 09/04/20 RM#: [id number] TIME: 1258 is 29-year-old male, currently single, lives by himself, pastpsych history of schizoaffective disorderCC/Hx Present IllnessThe patient was referred for evaluation because Decompensation, worseninghallucinations.Events Since Last EntryPatient reporting that he has been still feeling depressed, stating that attimes he feels tired of feeling this way and that seems to be making him veryhopeless. Patient was also talking about that he does not understand whetherhe will be ever back to normal as well. Patient still talking aboutsignificant paranoid delusions and some unreal things that been bothering himas well. Patient stated that compared to yesterday he seems to be doingsomewhat better, denied having any suicidal thoughts and expressed to maintainsafe behavior on the unit.Mental status examination: Patient was alert, oriented with a place, person,appeared distracted, still remains anxious, depressed, his speech remained soft, affect was constricted/blunted, thought process was superficially organized,thought content denied having any suicidal, homicidal ideations, still remainssignificantly delusional, possible bizarre and paranoid delusions, attentionconcentration limited, insight and judgment appeared impaired, denies havingany auditory visual hallucinationsPlan: Consider to continue current treatment plan, as we consider to order CTscan at this point to rule out any organic cause for significant underlyingdelusional thoughts, at the same time patient is added on Effexor medicationfor significant depression symptoms which could be part of affective symptomsof schizoaffective disorder as well. Currently monitoring for his safety,recently increase Depakote 400 mg twice a day at this point. Monitoring forhis safety and working on safe discharge plan and continued recommending closeo bservation.ObjectiveVital SignsVital Signs-LastResult Date TimePulse Ox 100 09/04 1104B/P 115/79 09/04 1104Temp 96.6 09/04 1104Pulse 71 09/04 1104Resp 14 09/04 1104Current MedicationsMiscellaneous Read XMSP09T@1800 NADivalproex Sodium (Depakote DR) 500 MG BID POMultivitamins (Multivitamin) 1 TAB DAILY POVenlafaxine HCl (Effexor Xr) 37.5 MG DAILY PONicotine (Nicorette) 2 MG Q2HPRN PRN POAcetaminophen (Tylenol) 650 MG Q4HPRN PRN POAcetaminophen (Tylenol) 650 MG Q4HPRN PRN POAl Hydrox/Mg Hydrox/Simethicone (Maalox) 15 ML QIDPRN PRN POHydroxyzine (Atarax) 50 MG Q4HPRN PRN POMagnesium Hydroxide (Mom) 10 ML QHSPRN PRN POTrazodone HCl (Desyrel) 50 MG QHSPRN PRN POAssessment/PlanDiagnosis1. Schizoaffective disorderCoordination of care provided with nursing staff, treatment teamRisk/benefits discussed side effectsDATE SIGNED: 09/04/20 Electronically SignedTIME SIGNED: 1258 MANUEL HEART MD Name Value Range Interpretation Code Description Data Maritza rce(s) Supporting Document(s) ID Date Data Source [id number] 09/03/2020 03:47:00 PM EDT [address] PSYCHIATRIC ASSESSMENTPATIENT NAME: ERNESTO PERAZA MR#: [id number] PHYSICIAN: MANUEL HEART MDAUTHOR: Una SOTO,Manuel DATE: 09/02/20 #: 3RDHistoryIdentificationPatient is 29-year-old male, currently single, lives by himself, pastpsych history of schizoaffective disorderChief ComplaintThe patient was referred for evaluation because Decompensation, worseninghallucinations.History of Presenting IllnessInformation from emergency room, The patients chief complaint is decompensationand hallucinations. Pt reports that he has had schizophrenia since he was 20years old. Pt reports that he has been admitted a few times before fordecompensation and was admitted to [facility] in 2013. Pt reports that he came inwith his mother because she had concerns about his mental health status. Ptdenies current SI, HI, hallucinations, self harm and denies having access tofirearms. Pt reports that he has always lived with his mother and that shethinks that he does not do enough for himself and is frequently in bed. 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 Pt's mother reportsthat Ernesto has had a pattern of becoming non-complaint with his psychmedications in the past and that this currently happening again. Pt's m otherreports that Ernesto has had worsening auditory hallucinations and has beenverbally abusive towards her. Pt's mother reports that she can not contract Gemmyo's safety, does not feel safe at home with Ernesto and believes that I/Pwould benefit his mental health. . Delusions are denied, Hallucinations aredenied. Patient's mood is depressed.During this course of assessment, patient reported that he was brought into thehospital because he has been not feeling well lately experiencing significantconcern regarding his been receiving secret messages and he was also reportingthere is a pressure in his head as well. He was also feeling scared as well.He was also expressing that lithium medication that he was not taking and hewas thinking that his medication does not seem to be working well. Patient wasalso stating that he was having difficulty with his attention and concentration, he cannot stay focused due to his underlying illness and he has beendiagnosed with schizoaffective disorder as well. He could not contract for hissafety outside as well. Patient expressed and maintain safe behavior on theunit as well.Past psych history: Patient stated that he has been hospitalized more than 10times in the past, he is currently from [place], he also stated that hehad been on Invega Sustenna in the past, also getting Abilify Maintena latelyand also stated that he was placed on lithium medication recently as well.Patient also reported that he has been diagnosed with schizoaffective disorder,he does not feel comfortable talking about suicidal ideation or attempt in thepast at this point as well.Past medical history: DeniedFamily psych history: Bipolar disorder in cousinSubstance use history: Reported smoking marijuana once and lately, denieshaving any other substances issuesAbuse history: DeniedSocial history: Patient stated that mother has been a major support that he has, he is getting SSI, he is currently single, lives in by himself the house thatprovided by his mother, he worked in a [employer] place in the past but heis currently not working.Additional NotesMental status examination: Patient was alert, oriented with a place, person,appeared distracted, anxious, his speech remained soft and hesitant manner,mood depressed and anxious, affect was blunted, thought process was mostlydisorganized and somewhat superficially organized at times, thought contentdenied having any suicidal, homicidal ideations but concerned about his abilityto maintain safety, also appeared paranoid, bizarre delusions, some possibleauditory hallucination which patient does not feel comfortable talking aboutbut denies visual hallucination., attention concentration poor, insight andjudgment appeared impaired, stable gaitDiagnosis: Schizoaffective disorder, bipolar subtypePlan: Consider to admit patient into inpatient mental health unit due toconcern about worsening symptoms of psychosis and possible concern aboutpatient's ability and amended safety. Patient behavior, labs and vitals willbe constantly monitored during this course of treatment. Discussed with thepatient about attending groups and activities, also due to patient underlyingpsychotic symptoms we consider to continue patient Abilify Maintena injectionthat he had been on it for quite some time at the same time patient wasexperiencing racing thoughts and appeared that patient needs mood stabilizer wedo not feel comfortable with the lithium medication as the patient never hadany tried that medication and does not feel comfortable continuing at thispoint and we consider to start him on Depakote medication 250 mg and slightlyfurther increase 500 mg twice a day. Currently monitoring for his safety,patient willing to reach out for further help if needed on the unit as hereported and also discussed with the patient about getting further c ollateralinformation and working on safe discharge plan. Also recommended inpatientrehab for underlying marijuana use as well.Past Psych/Medical HistoryAllergiesCoded Allergies:Penicillins (09/03/20)ExamVital SignsVital Signs-LastResult Date TimePulse Ox 100 09/03 1204B/P 131/77 09/03 1204Temp 97.0 09/03 1204Pulse 73 09/03 1204Resp 16 09/03 1204Assessment/PlanDiagnosis1. Schizoaffective disorderCoordination of care provided with nursing staff, treatment teamRisk/benefits discussed side effectsJustification for continued stay danger to self/othersDATE SIGNED: 09/03/20 Electronically SignedTIME SIGNED: 1554 MANUEL HEART MD Name Value Range Interpretation Code Description Data Maritza rce(s) Supporting Document(s) ID Date Data Source [id number] 09/03/2020 10:57:00 AM EDT [facility] [address] [address]ZOPXZOW AND PHYSICALPATIENT NAME: ERNESTO PERAZA MR#: [id number] PHYSICIAN: MANUEL HEART MDAUTHOR: Humaira Pugh DO DATE: 09/02/20 RM#: [id number] & PHYSICAL DATE: 09/03/20 : 92EVALUATION TIME: 1110HistoryChief Complaint/Admit ReasonDecompensated schizophreniaHistory of Presenting IllnessPatient is a 29 years old male with a past medical history significant forschizophrenia is seen in inpatient mental health unit for medical H&P. Patientstated he stopped taking his schizophrenia medications. According todocumentation, patient had her worsening auditory hallucinations. Howeverduring encounter, patient refused to discuss details of his hallucinations.Denies suicidal ideation. Patient denies any acute distress. Denies any feveror chill. Denies chest pain or shortness of breath.Past Medical/Surgical HistoryPast Medical/Surgical HistoryMedical ProblemsNicotine dependenceSchizoaffective disorderSchizophreniaReconciled Home Med ListSee Reconciled Home Medication ListAllergiesCoded Allergies:Penicillins (09/03/20)Family history Father: 68 y.o. Mother: 70 y.o. Patient does not know his parent's medical history.Social History alcohol use, recreational drug use, smokerReview of SystemsConstitutionalDenies: Pain, Fever, Chills, Generalized weakness.SkinDenies: bruising, itching, rash.EyesDenies: visual loss/blurred, itching.ENTDenies: nasal congestion, sore throat.RespiratoryDenies: dyspnea, non-productive cough, wheezing.CardiovascularDenies: chest pain, dyspnea on exertion, edema, palpitations.GastrointestinalDenies: nausea, vomiting, abdominal pain, diarrhea.GenitorurinaryDenies: dysuria, flank pain, frequency, urgency.MusculoskeletalDenies: extremity pain, extremity swelling, joint pain, joint swelling.HematologyDenies: bleeding, bruising.EndocrineDenies: diabetic.NeurologicalDenies: focal weakness, gait problem, numbness.PsychReports: auditory hallucination.ExamVital SignsVital Signs-24 HRS09/02 0647Temp 97.4 97.4 97.6Pulse 92 86 73Resp 16 18 16B/P 132/85 109/77 108/69B/P MeanPulse Ox 95 98 97O2 DeliveryO2 Flow ElsmMbW5Xveedbaa ExaminationGeneral Appearance no acute distress, afebrile, alert, awake, conversantHead atraumatic, normocephalicENT normal sinusNeck no swelling, suppleCardiovascular regular rate, no murmur, normal caillary refill, normal heartsoundsRespiratory clear to auscultation, no distress, aerating well, symmetricexpansionAbdomen soft, non-tender, no distention, normal bowel sounds, no guarding, noreboundUrinary no bladder distention, no flank painExtremities no cyanosis, no edemaMuscoskeletal full range of motion, normal inspection, no janice arthritisNeurological normal cerebellar functio, normal gait, normal speech, no motordeficits, no sensory deficitsSkin AssessmentSkin dry, intact, no rashPsych/Mental Status unable to evaluateData ReviewLaboratory DataLab from 08/30/2020 reviewedAssessment/PlanDiagnosis/Problem1. SchizophreniaA&P-Patient is admitted to inpatient mental health unit. Management perpsychiatry.2. Nicotine dependenceA&P-As needed nicotine supplement orderedVTE ProphylaxisVTE Prophylaxis: Encourage ambulation.CQM VTE HISTORYVTE HISTORYPrior VTE? NoDATE SIGNED: 09/12/20 Electronically SignedTIME SIGNED: 2013 HUMAIRA PUGH DO Name Value Range Interpretation Code Description Data Maritza rce(s) Supporting Document(s) ID Date Data Source [id number] 09/02/2020 12:08:52 PM EDT [facility] Name Value Range Interpretation Code Description Data Maritza rce(s) Supporting Document(s) Progress Note [facility] SKQUSy5jTiLLPoUd34/JWIngZOUsd1OpTQatTYc2OAyhMGMxS2ZeHVJ2dM0yHFN9YJxGCgViJfWdECI3 lbm [file] AgICAgICAgICAgICAgICAgICAgICAgICAgICAgICAgICAgICAgICAgICAgICAgICAgICAgICAgICAgIC OxSNVmVF1LKGBjTPIzZDLeQYQrDQIyTUQiMKZbNPFc ICAgICAgICAgICAgICAgICAgICAgICAgICAgICAgICAgICAgICAgICAgICAgICAgICAgICAgICAgICAg SNVwPHIdKZTlUYOtRJFlKO2ASXIbTFHxUQHlTAEtCSMbNMOyFAOrTVSuSBOnOIEoHAMnJJNiOGWrVBAf ICAgICAgICAgICAgICAgICAgICAgICAgICAgICAgIC DaPLRqZBRlOOWyFVBjBQXdFUAtPSIjUTZzXG8IZAKkXLUsAVHdGGJcWYPbKPTiZBMzMXPkHGDnARNpSP AgICAgICAgICAgICAgICAgICAgICAgICAgICAgICAgICAgICAgICAgICAgICAgICAgICAgICAgICAgIC XfMRUkWPMxRM2WBCCzEDCrVIUxQOBhOWByQMNaNRYr ICAgICAgICAgICAgICAgICAgICAgICAgICAgICAgICAgICAgICAgICAgICAgICAgICAgICAgICAgICAg SSJtVXSwRBRcTHQqOLBeZJZdBC8PFZOzJKWeXMEfCMVqTTEoMIVoVQNaUGRbMCOsCOFqCHHhPCCfENWz ICAgICAgICAgICAgICAgICAgICAgICAgICAgICAgIC QgWCLdUFDwKXFpVHQdFHFgBTYoMQFkGFDfISZsFX9FUKPjHRDzHGShNGEjEUWwUCRvMZFwMQDeMGDxRM AgICAgICAgICAgICAgICAgICAgICAgICAgICAgICAgICAgICAgICAgICAgICAgICAgICAgICAgICAgIC LtSOWrKLQkXQHqRU1XNSHdHVKhAYYdWBLbELBpUAMs ICAgICAgICAgICAgICAgICAgICAgICAgICAgICAgICAgICAgICAgICAgICAgICAgICAgICAgICAgICAg ETVxTSBmHBEdXYXrYHVkRRGpRRAlEZ8YLCDaCNGfDCVmJJHsJSDcQMHoRIXwNFWfGMKqVUSmTBRsPZTb ICAgICAgICAgICAgICAgICAgICAgICAgICAgICAgIC FuKPEjGGHoTBHiZQIjUCXaYJNkECMqRATvZTAfNPRgDX0TJZRcKKStKIFaFRNqKSXnJQJfZHAaCZQxNV AgICAgICAgICAgICAgICAgICAgICAgICAgICAgICAgICAgICAgICAgICAgICAgICAgICAgICAgICAgIC XgQWZpJOKmLRIaODLrSQ3PMK24mOAix2M0KQNkXL0y dyc/Zf7LQAfkkbUilAZzER6FNgWdLK7rcg8IYiYlFB6zzx8VJKoKIbMwK4W6aHRpOCRvRHYAPjQvI77j PDpnDk81MCrbIQXrXvFqDPf1Zz3QArNiZ9pbNAYhMdH4RTWqYyTrIOptRA8Hz5RqcBTsDLr+Vp7ERA6s a6VsLMpyUASjWC8uhn1DUMsALmJpL3SdclF4TVE8TO OcZb6OZAOcZGVwtLImRWEqTUNGXaMuD6BwyB66LZWOEf4+WQvsttYjIobEFuO9AGDgo7MfWPo3UW0EIB ZhGFy0eDJvAGLaX6Ahc2IdTt89UQNqUckxZfgzcFyuogFXTW7vO1dji7ThvKRbEJHIFvTkkTNdDH4mHP 3tTKInSCNlGqM9ZJIRDZ2NZPPfJEQdxDZrZUFbDUNP WN7HIQifEWS2CyajsjEbyQRtQPmcEK9FNSKoacPsGEWrBZWUYPi+Zg0PHI8am3VoMHkuKaEnDC8rzl7B IBkZLyNdB3H3sUFgS7S9HKzaIi3CLSPtHRJxGMWrYRWLBKgvZB0GTF1cpmC8BA4MkOLyYTMhBSRjeWAk OYb9K32rsQMdTLkvYF4SYAG+Ayad+Ev1VRMSoIJIyZO GmLrPoINPZTeQbA0KnH5USf4WdD4UqKT00bRwcjoEqGRhtPI6VZY9dKHYmTNFXOU8JyILmpH7kzzYsBS LzIBYBZrHrM54bcGSjBZDgULMgAAFbCz4OXVYmR5UocmDkhDgzsxLpKBNnFVHLVG7GYKoigfDtjFGfbZ nvLO77yZjlYI0VEd5XYpMsDM8doh2FwTRnTk6UJFCl Pz6WWMIhZLEyLSVyBRO3DMAdLqHxAMzlRLBbAFPcCRV5SHYnIYTyGI9XYoXvHRDbSFC8YxHgHSNmNBLi bz7AFQLgKYNkBlT1VJScDQJjQYOmFNfzQJScIFRpYLV3JYUiGKNoFZ2SMfOdYKYwVLX2HnNwRVEeJRIv fs2ZJTQaKNXaFIi8BEZyPOFgKPPlOVtwXKQuMCMgJA FmMYElMGKeZD5LMrVyKDCxWEIfFHeiLFKrPXVzep9CUBSiQJOrVxB2YUYaRSNdQRNcLLetMFMmIWG8Dg M9ZTScONVdSN5DBqRcABIvURF0ACweCKVzHXZovh0SWGJeFNIiAJI0CjZwKEJrBHWtIBpoQODiVZE5BY OtCPZbXGWwEC2VEjQmLNQqBET2EJhpLPIsFIWwor6K GQDyJEJrIbW9YEKhOZLeUDOzUKrxLSYoXQS9GeW1UMEhZVTrKY9XKbWlCVjnOYSAFvo1ISfqW1y4JHEy Xw9HE3Yjk4DkMOOeNSLRLZxdTK1hizCfVJXfBm9KG6lBGrm0SkV5JkafSJn5MSa9TYYvDnwmBNE0KUY9 SyTkR5D3Ik5nCLvzZjtwBHH4FpzyGAa9D1AcQASzFW Y5UORpHbY4PIsfPgNcCR2DAm5HUgM6POQ0yEFxQo2LMfk5FC4KRCCBG6YJVw== ID Date Data Source [id number] 08/30/2020 08:13:00 PM EDT [facility] Name Value Range Interpretation Code Description Data Maritza rce(s) Supporting Document(s) LITHIUM 0.20 mmol/L 0.50-1.20 [facility] ID Date Data Source [id number] 08/30/2020 08:13:00 [facility] Name Value Range Interpretation Code Description Data Maritza rce(s) Supporting Document(s) GLU 116 mg/dL 70-110 [facility] Patients taking Sulfasalazine may have f alsely depressedGlucose levels. Patients taking Sulfapyridine may havefalsely elevated Glucose levels. Patients should be drawnfor Glucose before the initial administration of eitherdrug. BUN 11 mg/dL 7-23 [facility] CRE 1.000 mg/dL 0.500-1.300 [facility] GFR > 60 mL/min [facility] CHLORIDE 107 mmol/L 99-110 [facility] NA 141 mmol/L 136-147 [facility] POTASSIUM 4.3 mmol/L 3.5-5.1 [facility] TCO2 30 mmol/L 20-33 [facility] ANION GAP 8.3 10.0-20.0 [facility] CA 9.0 mg/dL 8.3-10.7 [facility] ALKALINE PHOS 85 U/L 45-117 [facility] TP 7.3 g/dL 6.0-7.8 [facility] ALB 3.6 g/dL 3.5-5.0 [facility] ESRD Dialysis patient Albumin reference range: 2.9-4.4 g/dL GL 3.7 g/dL 2.3-3.5 [facility] A/G 1.0 1.0-2.5 [facility] T. BILIRUBIN 0.2 mg/dL 0.1-1.1 [facility] [place] Total Bilirubin is n ot recommended forpatients undergoing treatment with eltrombopag (Promacta)due to the potential for falsely elevated results. ALTI 32 U/L 6-54 [facility] Patients taking Sulfasalazine and/or Sul fapyridine may havefalsely depressed ALT levels. Patients should be drawn forALT before the initial administration of either drug. AST 15 U/L 8-40 [facility] Patients taking Sulfasalazine and/or Sul fapyridine may havefalsely depressed AST levels. Patients should be drawn forAST before the initial administration of either drug. ID Date Data Source [id number] 08/30/2020 08:13:00 PM EDT [facility] Name Value Range Interpretation Code Description Data Maritza rce(s) Supporting Document(s) SALICYLATE 1.8 mg/dL 0.0-20.0 [facility] ID Date Data Source [id number] 08/30/2020 08:13:00 PM EDT [facility] Name Value Range Interpretation Code Description Data Maritza rce(s) Supporting Document(s) ACETAMINOPHEN < 2.0 ug/mL 0-30 [facility] ID Date Data Source [id number] 08/30/2020 08:13:00 PM EDT [facility] Name Value Range Interpretation Code Description Data Maritza rce(s) Supporting Document(s) ETOH NONE DETECTED [facility] NONE DETECTED ID Date Data Source [id number] 08/30/2020 07:26:00 PM EDT [facility] Name Value Range Interpretation Code Description Data Maritza rce(s) Supporting Document(s) WBC 4.62 x10E3/uL 4.0-10.5 [facility] RBC 5.27 x10E6/uL 4.70-6.00 [facility] Hemoglobin 15.9 g/dL 14.0-18.0 [facility] Hematocrit 45.8 % 42.0-52.0 [facility] MCV 86.9 fL 81.0-99.0 [facility] MCH 30.2 pg 27.0-31.0 [facility] MCHC 34.7 g/dL 32.7-35.6 [facility] RDW 11.8 % 11.5-14.0 [facility] Platelet count 198 x10E3/uL 150-450 [facility] ital MPV 9.6 fl 6.9-9.5 [facility] Neutrophils 44.0 % 34-64 [facility] Lymphocytes 48.9 % 25-45 [facility] Monocytes 6.5 % 1.7-10.6 [facility] Eosinophils 0.2 % 0.4-7.0 [facility] Basophils 0.2 % 0.1-2.0 [facility] Imm. Gran. 0.2 % 0.1-2.0 [facility] Abs. Neutro. 2.03 x10E3/uL 1.2-7.6 [facility] Abs. Lymph. 2.26 x10E3/uL 1.0-3.5 [facility] Abs. [place]. 0.30 x10E3/uL 0.1-1.0 [facility] Eosin. 0.01 x10E3/uL 0.1-0.7 [facility] Abs. Baso. 0.01 x10E3/uL 0.0-0.1 [facility] Abs. Imm. Gran. 0.01 x10E3/uL 0.0-0.1 [facility] ANRBC% 0 % 0 [facility] ID Date Data Source [id number] 08/30/2020 08:13:00 PM EDT [facility]le Name Value Range Interpretation Code Description Data Maritza rce(s) Supporting Document(s) PCP VISTA NEG NEGATIVE [facility] MINIMUM LEVEL OF DETECTION IS 25 ng/ml BENZODIAZEPINES NEG NEGATIVE [facility] al MINIMUM LEVEL OF DETECTION IS 200 ng/ml COCAINE VISTA NEG NEGATIVE [facility] MINIMUM LEVEL OF DETECTION IS 300 ng/ml AMPHETAMINES NEG NEGATIVE [facility] al MINIMUM LEVEL OF DETECTION IS 1000 ng/ml BARBITURATES NEG NEGATIVE [facility] al CUTOFF CONCENTRATION IS 200 ng/ml CANNABINOIDS [facility] NE[facility] POS[facility]IVE RESULTS UNCOMFIRMEDCUTOFF ERIK NTRATION IS 50 ng/ml METHADONE VISTA NEG NEGATIVE [facility] al MINIMUM LEVEL OF DETECTION IS 300 ng/ml OPIATE VISTA NEG NEGATIVE [facility] MINIMUM DETECTION LEVEL IS 300 ng/ml ID Date Data Source [id number] 08/30/2020 07:33:00 PM EDT [facility] Name Value Range Interpretation Code Description Data Maritza rce(s) Supporting Document(s) URINE COLOR Yellow [facility] UAPR Clear [facility] UGLU Negative NEGATIVE [facility] URINE BILIRUBIN [facility] UKET Negative NEGATIVE [facility] USG 1.022 1.010-1.025 [facility] UBLO Negative NEGATIVE [facility] UpH 7.5 5.0-8.0 [facility] UPRO Negative Negative [facility] UUB 1.0 mg/dL 0.2-1.0 [facility] UNIT Negative Negative [facility] ULEU Negative Negative [facility] ID Date Data Source [id number] 09/02/2020 06:16:00 PM EDT [facility] Physician DocumentationClaxmark-Pia Jacobs edical CenterName: Erensto LipinskiAge: 29 yrsSex: MaleDOB: 1990MRN: [id number] Date: 08/30/2020Time: 18:38Account#: [id number] MD: Jacquelyn Pierre Physician Amanuel PereiraDisfreda Summary:09/02/20 16:39Hospitalization OrderedHospitalization Status: Inpatient Admission oy4Itwpiitv: Nico Tierney ov8Qplglrmn: Mental Health Unit jl8Iubtldvvu: Stable jh6Rqwaruo: an ongoing problem ky7Ofyckekf: are unchanged kk6Atia Assignment: qb4Sjujamipl- Schizophrenia, unspecified rt8Vrobrhdzjn Information- Admission Type: Inpatient Status. ue7Cywcv:- Medication Reconciliation th4- SBAR th4- Medication Reconciliation Form - 2nd Copy th4HPI:08/1619:50 This 29 yrs old White Male presents to ER via Private Vehicle with ow9ijjzgkdytu of Psych Problem.19:50 Patient brought in for psychiatric evaluation. Patient states history dk2of schizoaffective disorde r. It is indicated he is on lithium,patient states he is taking all his medications as prescribed. Hestates he is here because his mother was concerned that he wasspending time in bed. He states that he has nothing to do currentlyso he basically lays in bed and smokes cigarettes. He denies anyphysical complaints or pain. He denies any constitutional sicksymptoms. He denies any suicidal or homicidal ideations. He denieshearing voices. Patient really has no complaints, stating that hedoes not want to be admitted.Historical:- Allergies: PENICILLINS;- Home Meds:1. Abilify Maintena 400 mg intramuscular serr once moly2. Aristada 882 mg/3.2 mL intramuscular sers 3.2 mL once moly3. lithium carbonate 300 mg Oral tab 1 tab 2 times per day- PMHx: Schizophrenia;- Immunization history: Flu vaccine is not up to date.- Social history: Smoking status: Patient uses tobacco products,current every day smoker. Patient/guardian denies using streetdrugs, IV drugs, ETOH status Uses ETOH Occasionally.- Advance Directives:: None.ROS:19:51 Constitutional: Negative for chills, fever. Eyes: Negative for qb7mhbnvuiup, vision loss. ENT: Negative for difficulty swallowing,difficulty handling secretions. Neck: Negative for stiffness, bonytenderness. Cardiovascular: Negative for chest pain, palpitations.Respiratory: Negative for cough, shortness of breath. Abdomen/GI:Negative for abdominal pain, nausea, vomiting, diarrhea. Back:Negative for decreased range of motion, acute changes. MS/extremity:Negative for contusion, rash. Skin: Negative for jaundice, pallor.Neuro: Negative for loss of consciousness, seizure activity, syncope.Psych: Negative for homicidal ideation, suicidal ideation.Exam:19:52 Constitutional: The patient appears in no acute distress, alert, mk5fwnzk, comfortable, non-diaphoretic, non-toxic, well developed.19:52 Head/face: Exam is negative for contusion, deformity.19:52 Eyes: Exam is negative for drainage, abnormalities of symmetry, size,shape and reaction of the pupils.19:52 ENT: Exam is negative for epistaxis, abnormal voice.19:52 Neck: Exam negative for meningismus, nuchal rigidity.19:52 Chest/axilla: Exam negative for crepitus, flail chest.19:52 Cardiovascular: Exam negative for JVD, tachycardia.19:52 Respiratory: Exam negative for respiratory distress, stridor,tachypnea.19:52 Abdomen/GI: Exam negative for distension, guarding.19:52 Back: Exam negative for CVA tenderness, vertebral tenderness.19:52 Musculoskeletal/extremity: Exam is negative for open injury, pelvicinstability.19:52 Skin: Exam negative for cyanosis, pallor.19:52 Neuro: Exam negative for focal neuro deficits, confusion, dysarthria.19:52 Psych: Behavior/mood is cooperative, anxious, Affect is flat,Oriented to person, place, time, Patient has no thoughts/intents toharm self or others.Vital Signs:18:45 BP 115 / 70; Pulse 97; Resp 18; Temp 98; Pulse Ox 98% ; Weight 86.4 wd1kg; Height 6 ft. 1 in. (185.42 cm); Pain 0/10;08/1711:30 BP 106 / 53; Pulse 55; Resp 15; Temp 99.0; Pulse Ox 95% ; Pain 0/10; tlm19:09 BP 126 / 84; Pulse 77; Resp 16; Temp 98.2; Pulse Ox 99% ; tp210/1809:19 BP 120 / 81; Pulse 87; Resp 15; Temp 96.8; Pulse Ox 97% ; Pain 0/10; tlm19:30 BP 117 / 67; Pulse 72; Resp 16; Temp 97.2; Pulse Ox 97% on R/A; kk31/1918:14 BP 132 / 88; Pulse 92; Resp 16; Temp 97.6; Pulse Ox 98% ; Pain 0/10; wd110/1618:45 Body Mass Index 25.13 (86.40 kg, 185.42 cm) wd1MDM:08/1619:11 Patient medically screened. dk222:32 Data reviewed: nurses notes. ED course: Patient presenting for vr5puadsiuwice evaluation, does not endorse suicidality or homicidalityto me. He has a subtherapeutic lithium level, negative alcohol level,medically cleared for psychiatric evaluation.08/1916:39 ED course: I received this patient at change of shift. A change of rv9nrsyc patient was pending disposition. Patient has been seen andevaluated by PSA and presented to the psychiatrist. Patient will beadmitted for further evaluation and treatment. See PSA note. Patienthas been cooperative..08/1619: Order name: Acetaminophen Level; Complete Time: 22:32 tp:09 Order name: CBC with diff; Complete Time: 22:32 tp:09 Order name: CMP; Complete Time: 22:32 tp:09 Order name: ETOH; Complete Time: 22:32 tp:09 Order name: Glucose tp9:09 Order name: Salicylate Level; Complete Time: 22:32 tp:09 Order name: Triage - Drug Screen; Complete Time: 22:32 tp:09 Order name: UA; Complete Time: 22:32 tp:30 Order name: [place] Level; Complete Time: 22:32 :09 Order name: Diet - Mental Health Tray (call dietary); Complete Time: tp::09 Order name: Belongings List; Complete Time: 20:05 :09 Order name: Document Weight and Height for BMI; Complete Time: 19:21 :09 Order name: Mental Health Evaluation; Complete Time: 07:20 :09 Order name: Mental Health Level 3; Complete Time: 19:20 :09 Order name: VS q shift; Complete Time: 19:20 :32 Order name: Medically Cleared for Eval by-Psychosocial, Road Inspector dk2(.PSA); Complete Time: 02:19Dispensed Medications:08/1619:51 Drug: lithium 300 mg Route: PO; tp220:43 Follow up: Response: No adverse reaction jw510/1709:43 D rug: lithium 300 mg Route: PO; tlm17:41 Follow up: Response: No adverse reaction tlm19:47 Drug: lithium 300 mg Route: PO; tp221:00 Follow up: Response: No adverse reaction tp210/1809:18 Drug: lithium 300 mg Route: PO; tlm13:14 Follow up: Response: No adverse reaction tlm19:23 Drug: lithium 300 mg Route: PO; kk319:50 Follow up: Response: No adverse reaction kk310/1909:18 Drug: lithium 300 mg Route: PO; as4Dumaqemexq:Dispatcher [employer] Summer Medley RN RN tlmDBettye marroquin RN RN qi4NsxtlnnAmanuel Pereira MD MD pb3LibjuJm Glez RN RN qr5EbnlaqCodey Cordova RN RN Oscar Mullins MD MD dk2Brenda Sanford, RN RN lp8Khluketmz, Aliza, RN RN aa3 Name Value Range Interpretation Code Description Data Maritza rce(s) Supporting Document(s) ID Date Data Source [id number] 09/02/2020 06:16:00 PM EDT [facility] Nurse's NotesClaxElizabet[facility] Medical Anuradha terName: Ernesto PerazaAge: 29 yrsSex: MaleDOB: 1990MRN: [id number] Date: 08/30/2020Time: 18:38Account#: [id number] X7Avosubl MD: Candis Pierreiagnosis: Schizophrenia, unspecifiedPresentation:08/1618:40 Presenting complaint: Mother states: he has schizophrenia and hes zz8hbsucfmiypixdr. Coronavirus Screening: Have you traveled to [facility] with widespread or ongoing COVID-19 community spread [facility]? no Flu-like symptoms reported in the last 14days: no. Have you had close contact with confirmed or suspectedCOVID-19 case? no. Comm unicable Disease Screen: Negative for fever>/=100 degrees Fahrenheit. Communicable disease screen is negative.18:40 Acuity: Triage 2 wd118:40 Acuity Assignment: Triage 2 wd118:40 Method Of Arrival: Private Vehicle rx3Lgbvyw Assessment:18:43 General: Appears in no apparent distress, Behavior is cooperative. rf6Fvsqvx Screening: (1)Signs/symptoms infection No. Pain: Denies pain.PSS-3 Now I'm going to ask you some questions that we ask everyonetreated here, no matter what problem they are here for. It is part ofthe hospital's policy and it helps us to make sure we are not missinganything important. Over the past 2 weeks, have you felt down,depressed, or hopeless? Yes. Over the past 2 weeks, have had thoughtsof killing yourself? No. In your lifetime, have you ever attempted tokill yourself? Yes, More than 6 months ago. Provider notified. Neuro:Level of Consciousness is awake, alert, Oriented to person, place,time, Pumper Head are equal bilaterally Moves all extremities. Gait issteady, Speech is normal, Facial symmetry appears normal.Respiratory: Airway is patent Respiratory effort is even, unlabored,Respiratory pattern is regular.Historical:- Allergies: PENICILLINS;- Home Meds:1. Abilify Maintena 400 mg intramuscular serr once moly2. Aristada 882 mg/3.2 mL intramuscular sers 3.2 mL once moly3. lithium carbonate 300 mg Oral tab 1 tab 2 times per day- PMHx: Schizophrenia;- Immunization history: Flu vaccine is not up to date.- Social history: Smoking status: Patient uses tobacco products,current every day smoker. Patient/guardian denies using streetdrugs, IV drugs, ETOH status Uses ETOH Occasionally.- Advance Directives:: None.Screenin:21 Abuse screen: Denies threats or abuse. Denies injuries from another. tr0Bvlkfidlmnq screening: No deficits noted. Offer of HIV testing:patient was previously offered screening. Fall Risk None identified.Assessment:19:21 Pain: Denies pain. Sepsis Screening: Not applicable to this patient. oh7Gzza: No deficits noted. General: Appears in no apparent distress,Behavior is cooperative. EENT: No deficits noted. Neuro: Level ofConsciousness is awake, alert, Oriented to person, place, time.Cardiovascular: No deficits noted. Respiratory: No deficits noted.GI: No deficits noted. : No deficits noted. Musculoskeletal: Nodeficits noted.21:57 Reassessment: Patient appears in no apparent distress at this time. jw523:39 Reassessment: Patient appears in no apparent distress at this time. jw510/1701:31 Reassessment: Patient appears in no apparent distress at this time. jw503:49 Reassessment: Patient appears in no apparent distress at this time. jw505:23 Reassessment: Patient appears in no apparent distress at this time. jw508:00 Reassessment: Patient appears in no apparent distress at this time. tlm09:43 Reassessment: Patient appears in no apparent distress at this time. tlm11:30 Reassessment: Patient appears in no apparent distress at this time. tlm13:23 Reassessment: Patient appears in no apparent distress at this time. tlm15:00 Reassessment: Patient appears in no apparent distress at this time. tlm17:40 Reassessment: Patient appears in no apparent distress at this time. tlm18:48 Reassessment: Patient appears in no apparent distress at this time. tlm20:57 Reassessment: Patient appears in no apparent distress at this time. tp223:00 Reassessment: Patient appears in no apparent distress at this time. tp210/1801:00 Reassessment: Patient appears in no apparent distress at this time. tp202:28 Reassessment: Patient appears in no apparent distress at this time. tp204:57 Reassessment: Patient appears in no apparent distress at this time. tp206:55 Reassessment: Patient appears in no apparent distress at this time. tp207:15 Reassessment: Patient appears in no apparent distress at this time. tlm09:18 Reassessment: Patient appears in no apparent distress at this time. tlm11:18 Reassessment: Patient appears in no apparent distress at this time. tlm13:14 Reassessment: Patient appears in no apparent distress at this time. tlm14:23 Reassessment: Patient appears in no apparent distress at this time. tlm15:36 Reassessment: Patient appears in no apparent distress at this time. tlm17:16 Reassessment: Patient appears in no apparent distress at this time. tlm19:20 Reassessment: Patient appears in no apparent distress at this time. kk320:15 Reassessment: Patient appears in no apparent distress at this time. kk321:25 Reassessment: Patient appears in no apparent distress at this time. kk322:35 Reassessment: Patient appears in no apparent distress at this time. kk323:18 Reassessment: Patient appears in no apparent distress at this time. yo3Pgpykns up to use bathroom.08/1900:20 Reassessment: Patient appears in no apparent distress at this time. kk302:01 Reassessment: Patient appears in no apparent distress at this time. tp203:09 Reassessment: Patient appears in no apparent distress at this time. kk303:52 Reassessment: Patient appears in no apparent distress at this time. tp205:10 Reassessment: Patient appears in no apparent distress at this time. kk306:18 Reassessment: Patient appears in no apparent distress at this time. qr9Vjsytzr awake and using bathroom.08:13 Reassessment: Patient appears in no apparent distress at this time. aa3No changes from previously documented assessment.10:52 Reassessment: Patient appears in no apparent distress at this time. aa313:47 Reassessment: Patient appears in no apparent distress at this time. aa3No changes from previously documented assessment.15:34 Reassessment: Patient appears in no apparent distress at this time. aa3No changes from previously documented asses sment.Psychosocial:08/1702:07 SAFE Act Report Not Completed. Intervention: Observation Level 3. cp202:20 Mental health consult is initiated at 02:20. cp206:08 Referral Information: Evaluation referral is generated by a relative, cw2ongsqk The patient was referred for evaluation becauseDecompensation, worsening hallucinations. Subjective: The patientschief complaint is decompensation and hallucinations. Pt reports thathe has had schizophrenia since he was 20 years old. Pt reports thathe has been admitted a few times before for decompensation and wasad[facility] to [facility]. Pt reports that he came in with his motherbecause she had concerns about his mental health status. Pt deniescurrent SI, HI, hallucinations, self harm and denies having access tofirearms. Pt reports that he has always lived with his mother andthat she thinks that he does not do enough for himself and isfrequently in bed. Pt provided this telegraphic typewriter operator chief permission to speak withhis mother. Pt's mother reports that Ernesto has had a pattern ofbecoming non-complaint with his psych medications in the past andthat this currently happening again. Pt's mother reports that Malik had worsening auditory hallucinations and has been verballyabusive towards her. Pt's mother reports that she can not contractfor Ernesto's safety, does not feel safe at home with Ernesto andbelieves that I/P would benefit his mental health. . Delusions aredenied, Hallucinations are denied. Patient's mood is depressed.Patient reports history of schizophrenia, Mental Health Admissions:2, one in [place], one at [facility]. Both for Decomp. Current Outpatient MentalHealth Services: Therapist / Agency: [facility]. LivingEnvironment: Family / Home Support: Good The patient currently liveswith his / her mother, Mother. Detox / Rehab Admissions: None.Current Outpt Alcohol or Substance Abuse Services: None. Patientpresents to Emergency Department with the following symptoms withinthe past 2 weeks: hallucinations - auditory, psychosis. Objective:Patient is cooperative, Speech is soft, Affect is flat. Mental statusexam: Patients appearance is appropriate, Patient's behavior isnormal, Speech is normal. Affect is flat. Mood is appropriate.Perception is normal. Appetite is normal. Memory is good. Energylevel is normal. Content of thought is normal. Thought Process isintact. Cognitive level is Oriented to person,place and time. Insight/ Judgment is fair. Rapport with interviewer is good. SuicidalIdeation: Denies. Homicidal Ideation: Denies. Patient uses marijuana.Family notified of admission to [facility], Notification was given to.Consultation: Psych MD informed of patient's status at 05:40.Disposition: Medically cleared for disposition by Dr Maldonado.Psychiatric Consult is performed by phone with Dr Tierney. LegalStatus: Patient's legal status will be. DSM-V DX [place] I diagnosis:Schizophrenia. Insurance Pre-Certification: Not Required. [facility]: The patient displays symptoms of severepsychiatric disorder resulting in disordered behavior and significantinterference with his / her ability to maintain self care.Hallucinations. The patient requires continuous observation and/orcontrol to protect self, others or property. The patient's carerequires a multi-modal treatment plan under close supervision andcoordination due to the complexity and severity of the patient'ssymptoms. The patient requires administration and monitoring ofpsychoactive medications by skilled medical providers due to the sideeffects of the psychoactive medications or significant dosageadjustments. The patient is not a marketing services vice president or militarydependent. [place] Suicide Severity Rating Scale: Suicidal IdeationRating 0; Intensity of Ideations Rating 0; Suicidal Behavior Rating 0.06:22 Narrative Pt's mother phone number: [phone].. cp214:36 Narrative Per pt's mother, he is "anti-medicine". He has been kfnon-compliant with therapy and has been responding to internalstimuli. Found yelling at radio and objects. Bettye, staff at [facility] that she has recommended that the pt be seen forinpatient treatment.16:09 Narrative Pt currently waiting for bed availability. kf20:04 Narrative PSA Seth Jenkins takes over responsibility of PSA. cj1Pt resting. Sitter present and safety maintained..21:16 Narrative Pt information faxed to [facility]. cj123:22 Narrative Pt sleeping. Sitter present and safety maintained. . cj123:27 Narrative Pt chart faxed to [facility].. cj123:50 Narrative Pt chart faxed to [facility]. cj110/1805:48 Narrative Pt sleeping. Sitter present and safety maintained.. cj109:45 Narrative Pt is calm and cooperative. Pt showered. Sitter is present. om9Nwmkic is maintained..15:49 Narrative Pt is calm and cooperative. Sitter is present. Safety is bp9rtudtdrvdp..17:35 Narrative Pt is calm and cooperative. Sitter is present. Safety is gg8szvghgecsx..19:29 Narrative PSA roll handed off to this telegraphic typewriter operator chief at 1900. sm822:00 Narrative Pt is resting. Sitter is present. Safety is maintained. sm810/1901:54 Narrative Pt is sleeping. Sitter is present. Safety is maintained. sm803:55 Narrative Pt is sleeping. Sitter is present. Safety is maintained. sm806:04 Narrative Pt is sleeping. Sitter is present. Safety is maintained. sm807:31 Narrative PSA role handed off to this telegraphic typewriter operator chief at 7:30 AM. kf09:10 Narrative Pt chart has been faxed to [facility] for review. kf09:43 Narrative Information provided to [facility] for review. kf11:24 Narrative Chart has been faxed to [facility] for review. kfPsych:08/1619:00 Subjective: Patient's mood is irritable, Delusions are denied, er5Cvdlztzdwolnek are denied. Ob jective: Patient is cooperative,irritable, Speech is normal, Affect is flat. Interventions: Removedpersonal items and placed in bag. Patient placed in hospital gown.Searched person for dangerous items. Urine collected and sent forurine drug test. Belonging list filled out. Observation Level Level 3Sitter needed. Provider notified. Oscar Maldonado MD Charge nursenotified. CODEY CORDOVA Level 3 order placed.Vital Signs:18:45 BP 115 / 70; Pulse 97; Resp 18; Temp 98; Pulse Ox 98% ; Weight 86.4 wd1kg; Height 6 ft. 1 in. (185.42 cm); Pain 0/10;08/1711:30 BP 106 / 53; Pulse 55; Resp 15; Temp 99.0; Pulse Ox 95% ; Pain 0/10; tlm19:09 BP 126 / 84; Pulse 77; Resp 16; Temp 98.2; Pulse Ox 99% ; tp210/1809:19 BP 120 / 81; Pulse 87; Resp 15; Temp 96.8; Pulse Ox 97% ; Pain 0/10; tlm19:30 BP 117 / 67; Pulse 72; Resp 16; Temp 97.2; Pulse Ox 97% on R/A; kk310/1918:14 BP 132 / 88; Pulse 92; Resp 16; Temp 97.6; Pulse Ox 98% ; Pain 0/10; wd110/1618:45 Body Mass Index 25.13 (86.40 kg, 185.42 cm) wd1ED Course:08/1618:39 Patient arrived in ED. wd118:39 Emani Pierre is Private Physician. wd118:40 Triage completed. wd119:11 Oscar Maldonado MD is Attending Physician. dk219:18 Jm Glez, MATIAS is Primary Nurse. jw519:23 Patient has correct armband on for positive identification. Bed in jw5low position. Sitter at bedside. Verbal reassurance given. Warmblanket given.20:04 Valuables inventory done. Locked in safe. sk421:30 Sitter at bedside. jw523:39 Sitter at bedside. jw510/1701:31 Sitter at bedside. jw503:50 Sitter at bedside. jw505:23 Sitter at bedside. jw508:00 Appears to be sleeping. Awaiting disposition. tlm08:00 Sitter at bedside. Diet tray given. tlm09:43 Appears to be sleeping. Awaiting disposition. tlm09:43 Sitter at bedside. Diet: Patient given regular meal. Tolerated well. tlm09:43 No Physician assisted procedures completed. tlm11:30 No apparent distress. Resting quietly. Awaiting disposition. tlm11:30 Sitter at bedside. Diet tray ordered. tlm13:24 No apparent distress. Awaiting disposition. tlm13:24 Sitter at bedside. Diet: Patient given regular meal. Tolerated well. tlm15:00 No apparent distress. Resting quietly. Awaiting disposition. tlm15:00 Sitter at bedside. tlm17:40 No apparent distress. Awaiting disposition. tlm17:40 Primary Nurse role handed off by Jm Glez RN dh217:40 Sitter at bedside. Diet: Patient given regular meal. Tolerated well. tlm18:48 No apparent distress. Awaiting disposition. tlm18:48 Sitter at bedside. tlm19:27 Codey Cordova RN is Primary Nurse. tp210/180 7:15 Appears to be sleeping. Awaiting disposition. tlm07:15 Sitter at bedside. Diet tray given. tlm08:26 Shower given. Linen changed. fbg09:19 No apparent distress. Awaiting disposition. tlm09:19 Sitter at bedside. Diet: Patient given regular meal. Tolerated well. tlm09:53 Primary Nurse role handed off by Codey Cordova RN fbg11:18 Summer Perez, RN is Primary Nurse. tlm11:18 Resting quietly. Awaiting disposition. tlm11:18 Sitter at bedside. Diet tray ordered. tlm13:14 Resting quietly. Awaiting disposition. tlm13:14 Sitter at bedside. Diet: Patient given regular meal. Tolerated well. tlm14:23 No apparent distress. Awaiting disposition. tlm14:23 Sitter at bedside. tlm15:36 Sitter at bedside. Diet tray ordered. tlm15:37 Resting quietly. Awaiting disposition. tlm17:16 No apparent distress. Awaiting disposition. tlm17:16 Sitter at bedside. Diet: Patient given regular meal. Tolerated well. tlm19:05 Report received from Summer Perez RN. kk319:06 Primary Nurse role handed off by Summer Perez RN kk319:06 Brenda Sanford RN is Primary Nurse. kk319:20 No apparent distress. Resting quietly. kk319:20 Sitter at bedside. kk319:20 PO fluids given. snack given. kk320:15 No apparent distress. Resting quietly. kk320:15 Sitter at bedside. kk321:20 Sitter at bedside. kk321:25 No apparent distress. Resting quietly. kk322:21 Sitter at bedside. kk322:36 No apparent distress. Resting quietly. kk323:19 Sitter at bedside. kk323:20 No apparent distress. Resting quietly. kk310/1900:21 No apparent distress. Resting quietly. kk300:21 Sitter at bedside. kk301:20 No apparent distress. Appears to be sleeping. kk301:20 Sitter at bedside. kk302:20 Sitter at bedside. kk302:22 No apparent distress. Appears to be sleeping. kk303:09 No apparent distress. Appears to be sleeping. kk303:09 Sitter at bedside. kk304:24 No apparent distress. Appears to be sleeping. kk304:24 Sitter at bedside. kk305:10 No apparent distress. Appears to be sleeping. kk305:10 Sitter at bedside. kk306:18 Sitter at bedside. kk306:19 No apparent distress. Resting quietly. kk307:19 Report given to Shell Gandhi RN. k k307:21 Primary Nurse role handed off by Brenda Sanford, MATIAS kk308:13 Sitter at bedside. aa308:14 No apparent distress. Resting quietly. aa308:30 Diet: Patient given regular meal. aa310:52 Sitter at bedside. aa310:53 No apparent distress. Resting quietly. aa313:48 Sitter at bedside. aa315:34 No apparent distress. Resting quietly. aa315:34 Sitter at bedside. aa316:38 Attending Physician role handed off by Oscar Maldonado MD th416:38 Amanuel Pereira MD is Attending Physician. th416:39 Nico Tierney MD is Hospitalizing Provider. hi5Riuewtfigonq Medications:08/1619:51 Drug: lithium 300 mg Route: PO; tp220:43 Follow up: Response: No adverse reaction 519:43 Drug: lithium 300 mg Route: PO; tlm17:41 Follow up: Response: No adverse reaction tlm19:47 Drug: lithium 300 mg Route: PO; tp221:00 Follow up: Response: No adverse reaction tp210/1809:18 Drug: lithium 300 mg Route: PO; tlm13:14 Follow up: Response: No adverse reaction tlm19:23 Drug: lithium 300 mg Route: PO; kk319:50 Follow up: Response: No adverse reaction kk310/1909:18 Drug: lithium 300 mg Route: PO; mx6Mejaxdo:16:39 Decision to Hospitalize by Provider. th418:14 Disposition: Discharged to home wd118:14 Condition: stable.18:14 Instructed on need for admit, Demonstrated understanding ofinstructions.18:14 Discharge Assessment: Patient verbalized understanding of dispositioninstructions. Patient has no functional deficits.18:16 Patient left the ED. ra9Jcnmejtmch:Simeon Renee RN Summer Menezes RN MATIAS tlAj Cox, FALGUNI PSA rs2DowBettye RN MATIAS zf6AkahwqnpxNikki Bryan, FALGUNI PSA Amanuel Norman MD MD hr1YdjsqslSeth Jenkins, PSA PSA bl9OmfqnJm Glez RN MATIAS cy3HllbpyCodey english RN RN uv4DqmbxxeOscar Maldonado MD MD jg5UcuqsDebbie Christiansen Krista, RN RN zy7ZlrtzpauClarice santana qw1RwokgolitShell arzola RN RN yr0FntqDeny slater, PSA PSA yx1Csrxdh, Jeanie 2 Name Value Range Interpretation Code Description Data Maritza rce(s) Supporting Document(s) Procedure Social History Code Duration Value Status Description Data Source(s ) Smoking 08/07/2021 12:00:00 AM EDT Former Smoker completed Former Smoker eCW1 ([facility]) Smoking 08/07/2021 12:00:00 AM EDT Former Smoker completed Former Smoker eCW1 ([facility]) Smoking 08/07/2021 12:00:00 AM EDT Former Smoker completed Former Smoker eCW1 ([facility]) Smoking 08/07/2021 12:00:00 AM EDT Former Smoker completed Former Smoker eCW1 ([facility]) Smoking 08/07/2021 12:00:00 AM EDT Former Smoker completed Former Smoker eCW1 ([facility]) Smoking 11/21/2020 12:00:00 AM EST Former Smoker completed Former Smoker eCW1 ([facility]) Vital Signs ID Date Data Source UNK Name Value Range Interpretation Code Description Data Source(s) Body height 28.74 [in_i] 28.74 [in_i] eCW1 ([facility]) Heart rate 88 /min 88 /min eCW1 ([facility]) Respiratory rate 18 /min 18 /min eCW1 ([facility]) Body weight 173.6 [lb_av] 173.6 [lb_av] eCW1 ([facility]) Body temperature 97.8 [degF] 97.8 [degF] eCW1 ( [facility]) Oxygen saturation in Arterial blood by Pulse oximetry 98 % 98 % eCW1 ([facility]) ID Date Data Source [id number] 12/06/2020 11:05:16 PM EST [facility] Name Value Range Interpretation Code Description Data Source(s) TRANSFER FROM [facility] ID Date Data Source [id number] 09/13/2020 01:57:00 PM EDT [facility] Name Value Range Interpretation Code Description Data Source(s) WEIGHT 86.8 kilos 86.8 kilos [facility] HEIGHT 182.88 centimeters 182.88 centimeter [facility] WEIGHT 86.4 kilos 86.4 kilos [facility] HEIGHT 182.88 centimeters 182.88 centimeter [facility] ID Date Data Source [id number] 09/02/2020 12:08:52 PM EDT [facility] Name Value Range Interpretation Code Description Data Source(s) TRANSFER FROM [facility] Patient Treatment Plan of Care Planned Activity Planned Date Details Description Data Source (s) [place] 07/26/2020 01:46:00 PM EDT eCW1 ([facility]) Divalproex Sodium 500 MG Delayed Release Oral Tablet [ Depakote] 10/01/2020 12:00:00 AM EST eCW1 ([facility])
--- OUTSIDE RECORDS SUMMARY | 2021-09-16 17:21 | CCD ---
Author Author [facility] Organization [facility] Address Unknown Phone Unavailable Care Team Providers Care Associate Business Analyst Name Role Phone [place], L Emani SOCK KNITTER Unavailable Unavailable Ignacio, L Emani SOCK KNITTER Unavailable Unavailable [place], L Emani SOCK KNITTER Unavailable Unavailable [place], L Emani SOCK KNITTER Unavailable Unavailable Ignacio, L Emani SOCK KNITTER Unavailable Unavailable [place], L Emani SOCK KNITTER Unavailable Unavailable [place], L Emani SOCK KNITTER Unavailable Unavailable [place], L Emani SOCK KNITTER Unavailable Unavailable [place], L Emani SOCK KNITTER Unavailable Unavailable [place], L Emani SOCK KNITTER Unavailable Unavailable Ignacio, L Emani SOCK KNITTER Unavailable Unavailable [place], L Emani SOCK KNITTER Unavailable Unavailable [place], L Emani SOCK KNITTER Unavailable Unavailable [place], L Emani SOCK KNITTER Unavailable Unavailable Ignacio, L Emani SOCK KNITTER Unavailable Unavailable Ignacio, L Emani SOCK KNITTER Unavailable Unavailable [place], L Emani SOCK KNITTER Unavailable Unavailable Ignacio, L Emani SOCK KNITTER Unavailable Unavailable [place], L Emani SOCK KNITTER Unavailable Unavailable Ignacio, L Emani SOCK KNITTER Unavailable Unavailable Ignacio, L Emani SOCK KNITTER Unavailable Unavailable Ignacio, L Emani SOCK KNITTER Unavailable Unavailable Ignacio, L Emani SOCK KNITTER Unavailable Unavailable Ignacio, L Emani SOCK KNITTER Unavailable Unavailable [place], L Emani SOCK KNITTER Unavailable Unavailable [place], L Emani SOCK KNITTER Unavailable Unavailable [place], L Emani SOCK KNITTER Unavailable Unavailable Ignacio, L Emani SOCK KNITTER Unavailable Unavailable Ignacio, L Emani SOCK KNITTER Unavailable Unavailable [place], L Emani SOCK KNITTER Unavailable Unavailable [place], L Emani SOCK KNITTER Unavailable Unavailable Ignacio, L Emani SOCK KNITTER Unavailable Unavailable Ignacio, L Emani SOCK KNITTER Unavailable Unavailable Ignacio, L Emani SOCK KNITTER Unavailable Unavailable [place], L Emani SOCK KNITTER Unavailable Unavailable [place], L Emani SOCK KNITTER Unavailable Unavailable [place], L Emani SOCK KNITTER Unavailable Unavailable Ignacio, L Emani SOCK KNITTER Unavailable Unavailable [place], L Emani SOCK KNITTER Unavailable Unavailable LAGUNAS, SADA Unavailable Unavailable TONYA MORRIS MD Unavailable Unavailable TONYA MORRIS MD Unavailable Unavailable UNA, MANUEL Unavailable Unavailable UNA, MANUEL MD Unavailable Unavailable UNA, MANUEL MD Unavailable Unavailable UNA, MANUEL MD Unavailable Unavailable UNA, MANUEL MD Unavailable Unavailable SYSTEM, NOT IN PROVIDER Unavailable Unavailable DESJARLAIS, CRISS METAL RECLAMATION KETTLE TENDER Unavailable Unavailable DESJARLAIS, CRISS METAL RECLAMATION KETTLE TENDER Unavailable Unavailable DESJARLAIS, CRISS METAL RECLAMATION KETTLE TENDER Unavailable Unavailable DESJARLAIS, CRISS METAL RECLAMATION KETTLE TENDER Unavailable Unavailable DESJARLAIS, CRISS METAL RECLAMATION KETTLE TENDER Unavailable Unavailable DESJARLAIS, CRISS METAL RECLAMATION KETTLE TENDER Unavailable Unavailable DESJARLAIS, CRISS METAL RECLAMATION KETTLE TENDER Unavailable Unavailable DESJARLAIS, CRISS METAL RECLAMATION KETTLE TENDER Unavailable Unavailable DESJARLAIS, CRISS METAL RECLAMATION KETTLE TENDER Unavailable Unavailable ANDREEA, CAROLYNN JUDD PA-C Unavailable [...] is protected by Article 27-F of the [facility] Public Health law. If you continue you may have access to information: Regarding HIV / AIDS; Provided by facilities licensed or operated by the [facility] Office of Mental Health; or Provided by the [facility] Office for People With Developmental Disabilities. If such information is present, then the following [facility] mandated warning applies: This information has been [...] law may result in a fine or detention sentence or both. A general authorization for the release of medical or other information is NOT sufficient authorization for further disc losure. Allergies and Adverse Reactions Type Description Substance Reaction Status Data Source(s ) Drug allergy Penicillins Penicillins Caity [facility] spital Encounters Encounter Providers Location Date Indications Data Source(s ) Psychiatric Diagnostic Evaluation [facility]al [facility] 09/04/2021 12:00:00 AM EDT [place] ([facility]) Outpatient [facility] 08/28/2021 12:00:00 AM EDT eCW1 ([facility]) Outpatient [facility] 08/27/2021 12:00:00 AM EDT eCW1 ([facility]) Outpatient [facility] 08/27/2021 12:00:00 AM EDT eCW1 ([facility]) Outpatient Attender: Emani DE LOS SANTOS 08/07/2021 09:35:[address] [facility] Outpatient [facility] 08/07/2021 12:00:00 AM EDT eCW1 ([facility]) Outpatient [facility] 08/07/2021 12:00:00 AM EDT eCW1 ([facility]) Pyschotherapy 30 Minute with Patient [facility] 08/06/2021 12:00:00 AM EDT [facility] ([facility]) [facility] 07/23/2021 12:00:00 AM EDT [facility] ([facility]) non-billable [facility] 07/17/2021 12:00:00 AM EDT [facility] ([facility]) non-billable [facility] 06/16/2021 12:00:00 AM EDT [facility] ([facility]) non-billable [facility] 05/19/2021 12:00:00 AM EDT [facility] ([facility]) non-billable [facility] 04/15/2021 12:00:00 AM EDT [facility] ([facility]) Outpatient Attender: CRISS JOSHI NP 03/20/2021 02: 40:00 PM [facility] Outpatient Attender: JUDD DORAN PA-C 03/12/2021 10:00:00 AM [facility] Outpatient Attender: JUDD DORAN PA-C 02/19/2021 01:24:00 PM [facility] Outpatient Attender: CRISS JOSHI NP 02/18/2021 03: 44:00 PM [facility] Outpatient Attender: JUDD DORAN PA-C 02/18/2021 03:44:00 PM [facility] Admission cancelled. Disregard status an d admitted date. Outpatient Attender: JUDD DORAN PA-C 02/12/2021 10:00:00 AM [facility] Outpatient Attender: CRISS JOSHI NP 01/21/2021 03: 36:00 PM [facility] Outpatient Attender: JUDD DORAN PA-C 01/13/2021 12:33:00 PM [facility] Outpatient [facility] 01/13/2021 12:00:[address] [facility]) Outpatient Attender: JUDD DORAN PA-C 01/10/2021 11:00:00 AM [facility] Outpatient Attender: CRISS JOSHI NP 12/24/2020 03: 48:00 PM [facility] Outpatient Attender: JUDD DORAN PA-C 12/18/2020 03:19:00 PM [facility] Outpatient Attender: [facility] 12/18/2020 08:34:00 AM [facility] Outpatient 12/06/2020 11:05:00 PM [facility] S chizoaffective disorder, vague SI, auditory hallucination. [facility] Schizoaffective disorder, vague SI, dimitris tory hallucination. Outpatient Attender: [facility] 12/04/2020 10:00:00 AM [facility] Outpatient Attender: CRISS JOSHI NP 11/21/2020 03: 40:00 PM [facility] Outpatient Attender: [facility] 11/21/2020 09:08:00 AM [facility] Outpatient Attender: JUDD DORAN PA-C 11/20/2020 01:15:00 PM [facility] Outpatient Attender: [facility] 11/06/2020 11:00:00 AM [facility] Outpatient Attender: JUDD DORAN PA-C 10/23/2020 04:30:00 PM [facility] Outpatient Attender: [facility] 10/23/2020 11:00:00 AM [facility] Outpatient Attender: CRISS JOSHI NP 10/15/2020 04: 00:00 PM [facility] Outpatient Attender: [facility] 10/09/2020 11:00:00 AM [facility] Outpatient Attender: [facility] 10/02/2020 10:00:00 AM [facility] Outpatient [facility] 10/01/2020 12:00:00 AM [place] [id number] ([facility]) Outpatient Attender: JUDD DORAN PA-C 09/25/2020 09:41:00 AM [facility] Outpatient Attender: [facility] 09/24/2020 01:00:00 PM [facility] Outpatient Attender: CRISS JOSHI NP 09/20/2020 02: 20:00 PM [facility] Outpatient Attender: [facility] 09/12/2020 04:00:00 PM [facility] Inpatient Attender: MANUEL Carroll [place]: TONYA MORRIS MDAdmitter: MANUEL HEART MD ER-3RD 09/02/2020 04:36:00 PM EDT - 09/11/2020 11:05:00 AM [facility] Patient discharged. Outpatient Referrer: PROVIDER SYSTEM [id number] 09/02/2020 10:0 9:00 AM [facility] schizophrenia Outpatient Attender: JUDD DORAN PA-C 08/29/2020 11:00:00 AM [facility] Outpatient Attender: JUDD DORAN PA-C 08/23/2020 04:15:00 PM [facility] Outpatient Attender: JUDD DORAN PA-C 08/06/2020 09:23:00 AM [facility] Outpatient Attender: JUDD DORAN PA-C 08/01/2020 03:02:00 PM [facility] Outpatient Attender: CRISS JOSHI NP 08/01/2020 03: 00:00 PM [facility] Outpatient Attender: JUDD DORAN PA-C 07/26/2020 01:37:00 PM [facility] Outpatient Attender: CRISS JOSHI NP 07/26/2020 01: 20:00 PM [facility] Outpatient Attender: JUDD DORAN PA-C 07/23/2020 10:24:00 AM [facility] Outpatient Attender: CRISS JOSHI NP 07/18/2020 08: 04:00 AM [facility] Outpatient Attender: [facility] 07/17/2020 02:00:00 PM [facility] Outpatient Attender: [facility] 07/08/2020 03:58:00 PM [facility] Outpatient Attender: [facility] 07/04/2020 04:00:00 PM [facility] Outpatient Attender: CRISS JOSHI NP 07/03/2020 02: 00:00 PM [facility] Outpatient Attender: Emani DE LOS SANTOS 06/26/2020 02:00:00 PM [facility] Outpatient Attender: JUDD DORAN PA-C 06/24/2020 01:00:00 PM [facility] Outpatient Attender: JUDD DORAN PA-C 06/21/2020 01:00:00 PM [facility] Outpatient Attender: [facility] 06/20/2020 05:58:00 PM [facility] Outpatient Attender: [facility] 06/13/2020 02:59:00 PM [facility] Outpatient Attender: CRISS JOSHI NP 06/12/2020 01: 49:[address] [facility] Outpatient Attender: SADA LAGUNAS 06/05/2020 05:00:[address] [facility] Outpatient Attender: SADA LAGUNAS 05/30/2020 02:00:[address] [facility] Outpatient Attender: JUDD DORAN PA-C 05/24/2020 10:00:[address] [facility] Outpatient Attender: CRISS MADELYN HESTER 05/22/2020 03: 20:[address] [facility] Outpatient Attender: JUDD DORAN PA-C 05/07/2020 10:00:[address] [facility] Immunizations Vaccine Date Status Description Data Source(s) 02/19/2021 12:58:00 PM EDT completed e CW1 ([facility]) 02/19/2021 12:58:00 PM EDT completed e CW1 ([facility]) 02/19/2021 12:58:00 PM EDT completed e CW1 ([facility]) 02/19/2021 12:58:00 PM EDT completed e CW1 ([facility]) 02/19/2021 12:58:00 PM EDT completed e CW1 ([facility]) 02/12/2021 10:38:00 AM EDT completed e CW1 ([facility]) 02/12/2021 10:38:00 AM EDT completed e CW1 ([facility]) 02/12/2021 10:38:00 AM EDT completed e CW1 ([facility]) 02/12/2021 10:38:00 AM EDT completed e CW1 ([facility]) 02/12/2021 10:38:00 AM EDT completed e CW1 ([facility]) 01/13/2021 01:33:00 PM EST completed e CW1 ([facility]) 01/13/2021 01:33:00 PM EST completed e CW1 ([facility]) 01/13/2021 01:33:00 PM EST completed e CW1 ([facility]) 01/13/2021 01:33:00 PM EST completed e CW1 ([facility]) 01/13/2021 01:33:00 PM EST completed e CW1 ([facility]) 01/13/2021 01:33:00 PM EST completed e CW1 ([facility]) 01/10/2021 11:11:00 AM EST completed e CW1 ([facility]) 01/10/2021 11:11:00 AM EST completed e CW1 ([facility]) 01/10/2021 11:11:00 AM EST completed e CW1 ([facility]) 01/10/2021 11:11:00 AM EST completed e CW1 ([facility]) 01/10/2021 11:11:00 AM EST completed e CW1 ([facility]) 01/10/2021 11:11:00 AM EST completed e CW1 ([facility]) 12/18/2020 03:36:00 PM EST completed e CW1 ([facility]) 12/18/2020 03:36:00 PM EST completed e CW1 ([facility]) 12/18/2020 03:36:00 PM EST completed e CW1 ([facility]) 12/18/2020 03:36:00 PM EST completed e CW1 ([facility]) 12/18/2020 03:36:00 PM EST completed e CW1 ([facility]) 12/18/2020 03:36:00 PM EST completed e CW1 ([facility]) 11/20/2020 04:50:00 PM EST completed e CW1 ([facility]) 11/20/2020 04:50:00 PM EST completed e CW1 ([facility]) 11/20/2020 04:50:00 PM EST completed e CW1 ([facility]) 11/20/2020 04:50:00 PM EST completed e CW1 ([facility]) 11/20/2020 04:50:00 PM EST completed e CW1 ([facility]) 11/20/2020 04:50:00 PM EST completed e CW1 ([facility]) 10/23/2020 05:27:00 PM EST completed e CW1 ([facility]) 10/23/2020 05:27:00 PM EST completed e CW1 ([facility]) 10/23/2020 05:27:00 PM EST completed e CW1 ([facility]) 10/23/2020 05:27:00 PM EST completed e CW1 ([facility]) 10/23/2020 05:27:00 PM EST completed e CW1 ([facility]) 10/23/2020 05:27:00 PM EST completed e CW1 ([facility]) 09/25/2020 10:14:00 AM EST completed e CW1 ([facility]) 09/25/2020 10:14:00 AM EST completed e CW1 ([facility]) 09/25/2020 10:14:00 AM EST completed e CW1 ([facility]) 09/25/2020 10:14:00 AM EST completed e CW1 ([facility]) 09/25/2020 10:14:00 AM EST completed e CW1 ([facility]) 09/25/2020 10:14:00 AM EST completed e CW1 ([facility]) 09/25/2020 10:14:00 AM EST completed e CW1 ([facility]) 08/23/2020 05:06:00 PM EDT completed e CW1 ([facility]) 08/23/2020 05:06:00 PM EDT completed e CW1 ([facility]) 08/23/2020 05:06:00 PM EDT completed e CW1 ([facility]) 08/23/2020 05:06:00 PM EDT completed e CW1 ([facility]) 08/23/2020 05:06:00 PM EDT completed e CW1 ([facility]) 08/23/2020 05:06:00 PM EDT completed e CW1 ([facility]) 08/23/2020 05:06:00 PM EDT completed e CW1 ([facility]) 07/26/2020 01:46:00 PM EDT completed e CW1 ([facility]) 07/26/2020 01:46:00 PM EDT completed e CW1 ([facility]) 07/26/2020 01:46:00 PM EDT completed e CW1 ([facility]) 07/26/2020 01:46:00 PM EDT completed e CW1 ([facility]) 07/26/2020 01:46:00 PM EDT completed e CW1 ([facility]) 07/26/2020 01:46:00 PM EDT completed e CW1 ([facility]) 07/26/2020 01:46:00 PM EDT completed e CW1 ([facility]) Medications Medication Brand Name Start Date Product Form Dose Route Admi nistrative Instructions Pharmacy Instructions Status Indications Reaction Description Data Source(s) Divalproex Sodium 500 MG Delayed Release Oral Tablet [ Depakote] Depakote 500 MG Depakote 500 MG 10/01/2020 12:00:00 AM EST 1.0 {tablet} active Depakote 500 MG eCW1 ([facility]) 882 mg/3.2 mL 09/24/2020 12:00:00 [...] TWICE A DAY SOLD: 08/29/2020 [facility] [place] Carbonate 300 MG Oral Capsule [place] Carbonate 300 MG 08/27/2020 12:00:00 AM EDT active [place] Carbonate 300 MG eCW1 ([facility]) 882 mg/3.2 mL 08/20/2020 12:00:00 AM EDT [...] type / Coverage type Policy ID Covered democrat ID Covered democrat's relationship to kelley Policy Kelley Plan Information EXCELLUS BCBS [id number] Yesika SFZ [id number] BLUE CROSS [id number] BLUE PENGILLY [id number] BLUE CROSS [id number] MEDICAID [facility] [id number] SP [id number] MEDICAID [id number] Yesika [id number] MEDICAID [facility] [id number] SP [id number] MEDICAID [facility] [id number] SP [id number] EMEDNY [id number] SP [id number] SELF PAY ONLY [id number] SP [id number] GABRIEL [id number] SP [id number] EMEDNY [id number] MEDICAID PROF FEES [id number] S [id number] MEDICAID [id number] S [id number] JEAN PAUL [id number] S [id number] 3 STAY WELL [id number] S [id number] 3 STAYWELL UNAVAILABLE S UNAVAILA BLE GABRIEL [id number] SP [id number] OTHER INS [id number] S [id number] 3 [facility] PL[facility] [id number] S [id number] OTHER INS STAYWELL [id number] S [id number] [facility] [employer] [id number] S [id number] SELF PAY UNAVAILABLE S UNAVAILA BLE SELF PAY UNAVAILABLE S UNAVAILA BLE MEDICAID [id number] S [id number] MEDICAID [facility] [id number] BLUE CROSS [id number] BLUE PENGILLY [id number] MEDICAID [facility] UNAVAILABLE UNAVAILABLE OTHER INS STAY WELL [id number] S [id number] [facility] MEDICAID [id number] S [id number] [facility] MEDICAID [id number] W [facility] MEDICAID [id number] S [id number] [facility] MEDICAID [id number] S [id number] MEDICAID [id number] [facility] [id number] S [id number] [facility] [id number] S [id number] Problems, Conditions, and Diagnoses Code Display Name Description Problem Type Effective Dates Data Source(s) F99 Mental disorder, not otherwise specified MENTAL DISORDER, NOT OTHERWISE SPECIFIED Diagnosis 08/07/2021 09:35:00 AM ED[facility] F20.0 Paranoid schizophrenia PARANOID SCHIZOPHRENIA Diagnosi s 03/20/2021 02:40:[address] [facility] F60.9 Personality disorder, unspecified PERSONALITY DI SORDER, UNSPECIFIED Diagnosis 02/19/2021 01:24:[address] [facility] Schizoaffective disorder, vague SI, dimitris tory hallucination. Schizoaffective disorder, vague SI, auditory hallucination. Diagnosis 12/06/2020 11:05:00 PM [facility] F12.10 Cannabis abuse, uncomplicated CANNABIS ABUSE, UNCOMPLI CATED Diagnosis 09/02/2020 04:36:00 PM T [facility] F17.200 Nicotine dependence, unspecified, uncomp licated NICOTINE DEPENDENCE, UNSPECIFIED, UNCOMPLICATED Diagnosis 09/02/2020 04:36:00 PM EDT [facility] F20.9 Schizophrenia, unspecified SCHIZOPHRENIA, UNSPECIFIED Diagnosis 09/02/2020 04:36:00 PM [facility] F25.0 Schizoaffective disorder, bipolar type S CHIZOAFFECTIVE DISORDER, BIPOLAR TYPE Diagnosis 09/02/2020 04:36:00 [facility]6 Encounter for general psychiatric examin ation, requested by authority ENCNTR FOR GENERAL PSYCHIATRIC EXAM, REQUESTED BY AUTHORITY Diagnosis 09/02/2020 04:36:00 PM [facility] schizophrenia schizophrenia Diagnosis 09/02/2020 10:09:00 AM [facility] Z59.9 Problem related to housing and economic circumstances, unspecified PROBLEM RELATED TO HOUSING AND ECONOMIC CIRCUMSTAN Diagnosis 07/18/2020 08:04:[address] [facility] F60.9 [id number] Personality disorder Problem 02/18/2021 12:0 0:00 AM EDT eCW1 ([facility]) [id number] Paranoid schizophrenia Paranoid schizophrenia Conditio n 02/04/2021 12:00:00 AM EDT [facility] ([facility]) [id number] Paranoid schizophrenia Paranoid schizophrenia Conditio n 02/04/2021 12:00:00 AM EDT [facility] ([facility]) [id number] Paranoid schizophrenia Paranoid schizophrenia Conditio n 02/04/2021 12:00:00 AM EDT [facility] ([facility]) [id number] Paranoid schizophrenia Paranoid schizophrenia Conditio n 02/04/2021 12:00:00 AM EDT [facility] ([facility]) [id number] Paranoid schizophrenia Paranoid schizophrenia Conditio n 02/04/2021 12:00:00 AM EDT [facility] ([facility]) [id number] Paranoid schizophrenia Paranoid schizophrenia Conditio n 02/04/2021 12:00:00 AM EDT [facility] ([facility]) [id number] Paranoid schizophrenia Paranoid schizophrenia Conditio n 02/04/2021 12:00:00 AM EDT [facility] ([facility]) [id number] Paranoid schizophrenia Paranoid schizophrenia Conditio n 02/04/2021 12:00:00 AM EDT [facility] ([facility]) [id number] Paranoid schizophrenia Paranoid schizophrenia Conditio n 02/04/2021 12:00:00 AM EDT [facility] ([facility]) [id number] Paranoid schizophrenia Paranoid schizophrenia Conditio n 02/04/2021 12:00:00 AM EDT [facility] ([facility]) [id number] Paranoid schizophrenia Paranoid schizophrenia Conditio n 02/04/2021 12:00:00 AM EDT [facility] ([facility]) [id number] Schizoaffective disorder, unspecified Sc hizoaffective disorder, unspecified Condition 09/12/2020 12:00:00 AM EDT [facility] ([facility]) [id number] Schizoaffective disorder, unspecified Sc hizoaffective disorder, unspecified Condition 09/12/2020 12:00:00 AM EDT [facility] [id number] Schizoaffective disorder, unspecified Sc hizoaffective disorder, unspecified Condition 09/12/2020 12:00:00 AM EDT [facility] ([facility]) [id number] Schizoaffective disorder, unspecified Sc hizoaffective disorder, unspecified Condition 09/12/2020 12:00:00 AM EDT [facility] ([facility]) [id number] Schizoaffective disorder, unspecified Sc hizoaffective disorder, unspecified Condition 09/12/2020 12:00:00 AM EDT [facility] ([facility]) [id number] Schizoaffective disorder, unspecified Sc hizoaffective disorder, unspecified Condition 09/12/2020 12:00:00 AM EDT [facility] ([facility]) [id number] Schizoaffective disorder, unspecified Sc hizoaffective disorder, unspecified Condition 09/12/2020 12:00:00 AM EDT [facility] ([facility]) [id number] Schizoaffective disorder, unspecified Sc hizoaffective disorder, unspecified Condition 09/12/2020 12:00:00 AM EDT [facility] ([facility]) [id number] Schizoaffective disorder, unspecified Sc hizoaffective disorder, unspecified Condition 09/12/2020 12:00:00 AM EDT [facility] ([facility]) [id number] Schizoaffective disorder, unspecified Sc hizoaffective disorder, unspecified Condition 09/12/2020 12:00:00 AM EDT [facility] ([facility]) [id number] Schizoaffective disorder, unspecified Sc hizoaffective disorder, unspecified Condition 09/12/2020 12:00:00 AM EDT [facility] ([facility] Surgeries/Procedures Procedure Description Date Indications Data Source(s) Diagnostic psychiatric interview (procedure) 12:00:00 AM EDT [facility] ([facility]) Procedure related to management of drug administration (proc edure) 09/03/2021 12:00:00 AM EDT [facility] ([facility]) Individual psychotherapy (regime/therapy) 08/25/2021 1 2:00:00 AM EDT [facility] ([facility]) Evaluation AND/OR management - established patient (procedur e) 08/25/2021 12:00:00 AM EDT [facility] ([facility]) Individual psychotherapy (regime/therapy) 08/25/2021 1 2:00:00 AM EDT [facility] ([facility]) Individual psychotherapy (regime/therapy) 08/06/2021 1 2:00:00 AM EDT [facility] ([facility]) Individual psychotherapy (regime/therapy) 08/06/2021 1 2:00:00 AM EDT [facility] ([facility]) Individual psychotherapy (regime/therapy) 08/06/2021 1 2:00:00 AM EDT [facility] ([facility]) Individual psychotherapy (regime/therapy) 08/06/2021 1 2:00:00 AM EDT [facility] ([facility]) Evaluation AND/OR management - established patient (procedur e) 07/23/2021 12:00:00 AM EDT [facility] ([facility]) Evaluation AND/OR management - established patient (procedur e) 07/23/2021 12:00:00 AM EDT [facility] ([facility]) Evaluation AND/OR management - established patient (procedur e) 07/23/2021 12:00:00 AM EDT [facility] ([facility]) Initial psychiatric evaluation (procedure) 07/16/2021 12:00:00 AM EDT [facility] ([facility]) Initial psychiatric evaluation (procedure) 07/16/2021 12:00:00 AM EDT [facility] ([facility]) Initial psychiatric evaluation (procedure) 07/16/2021 12:00:00 AM EDT [facility] ([facility]) Psychological Tests, Neurobehavioral and Cognitive Status 09/02/2020 12:00:00 AM EDT [facility] Results ID Date Data Source [id number] 08/20/2021 12:40:00 AM EDT [facility] Name Value Range Interpretation Code Description Data Maritza rce(s) Supporting Document(s) SARS coronavirus 2 RNA [Presence] in Res piratory specimen by LENY with probe detection NEGATIVE [facility] This lab was ordered by [facility] a nd reported by [facility]. ID Date Data Source [id number] 07/29/2021 11:42:00 PM EDT [facility] Name Value Range Interpretation Code Description Data Maritza rce(s) Supporting Document(s) SARS coronavirus 2 RNA [Presence] in Res piratory specimen by LENY with probe detection NEGATIVE [facility] This lab was ordered by [facility] a nd reported by [facility]. ID Date Data Source [id number] 07/28/2021 03:10:00 PM EDT [facility] Name Value Range Interpretation Code Description Data Maritza rce(s) Supporting Document(s) SARS coronavirus 2 RNA [Presence] in Res piratory specimen by LENY with probe detection NEGATIVE [facility] This lab was ordered by [facility] a nd reported by [facility]. ID Date Data Source [id number] 12/06/2020 11:00:00 PM EST [facility] Name Value Range Interpretation Code Description Data Maritza rce(s) Supporting Document(s) SARS coronavirus 2 RNA [Presence] in Res piratory specimen by LENY with probe detection NEGATIVE [facility] This lab was ordered by [facility] a nd reported by [facility]. ID Date Data Source [id number] 09/11/2020 01:45:00 PM EDT [address] DISCHARGE SUMMARYPATIENT NAME: ERNESTO PERAZA MR#: [id number] PHYSICIAN: MANUEL HEART MDAUTHOR: Manuel Heart MD [...] times before fordecompensation and was admitted to [facility] in 2013. Pt reports that he came inwith his mother because she had concerns about his mental health status. Ptdenies current SI, HI, hallucinations, self harm and denies having access tofirearms. Pt reports that he has always lived with his mother and that shethinks that he does not do enough for himself and is frequently in bed. P tprovided this group underwriter permission to speak with his mother. Pt's mother reportsthat Ernesto has had a pattern of becoming non-complaint with his psychmedications in the past and that this currently happening again. Pt's motherreports that Ernesto has had worsening auditory hallucinations and has beenverbally abusive towards her. Pt's mother reports that she can not contract [employer]'s safety, does not feel safe at home [...] in the past, he is currently from [place], he also stated that hehad been on Invega Sustenna in the past, also getting Abilify Maintena latelyand also stated that he was placed on lithium medication recently as well.Patient also reported that he has been diagnosed with schizoaffective disorder,he does not feel comfortable talking about suicidal ideation or attempt in [facility] at this point as well.Past medical history: [...] by his mother, he worked in a [employer] place in the past but heis currently [...] [facility] Patient has also reported symptoms of hopelessness, [...] shows taking [facility]. Patient was also requesting for a safe discharge plan and placement andfor that he was accepted at [facility] but [facility] as he does not feel comfortable [...] following medications:LITHIUM CARBONATE (LITHIUM CARB) 300 MG [id number] MILLIGRAM Orally TWICE DAILY Qty = 60Aripiprazole (Abilify Maintena) 400 MG SUSER.GHJ210 MILLIGRAM Intramuscularly Q 28 DAYS Qty = 1Start taking the following new medications:Divalproex* (Depakote*) 500 MG TABLET.DR500 MILLIGRAM Orally TWICE DAILYQty = 20Refills = 1VENLAFAXINE HCL (VENLAFAXINE) 75 MG CAP.ER.24H75 MILLIGRAM Orally DAILYQty = 20Refills = 1Aripiprazole Lauroxil (Aristada) 882 MG/3.2 ML SUSER.QAN722 MILLIGRAM Intramuscularly B2OKOFUHim = 1No RefillsDischarge Activity: As toleratedDischarge diet: Low Fat/Low Cholesterol, 2Gm SodiumFollow-upFollow up with your Primary care physicianFollow up with therapiest and psychiatrist as scheduledalso recommended outpt chemical dependencyReferralsOrdered Referrals[facility] [place], [place] [address]Bz person appointment at [facility] ([phone]) onTSeptember 12 at 4:00 pm withSada Lagunas. If you are unable toattend this appointment, please call theinic number provided to reschedule.DATE SIGNED: 09/11/20 Electronically SignedTIME SIGNED: 1350 MANUEL HEART MD Name Value Range Interpretation Code Description Data Maritza rce(s) Supporting Document(s) ID Date Data Source [id number] 09/11/2020 09:45:00 AM EDT [address] [id number] NAME: ERNESTO PERAZA#: [id number] PHYSICIAN: MANUEL HEART [facility] #: [id number] ADM. DATE: 09/02/20PATIENT : 89 DISCH. DATE: [...] upappointmentDischarge InformationDISCHARGE INFORMATION* Thank you for choosing [facility] and allowing us toserve you* Our Goal is to provide the highest quality of care.* This discharge information is to help you better understand your diagnosisand medication* Avoid taking rhbe-vpr-ydhyeyp medicines unless approved by your physician.* Take your medications as prescribed. DO NOT stop any medications unlessapproved first* Weigh yourself daily. Report any gain of 5 lbs in a week* 24 Hour Crisis HOTLINE available: Call [facility] at [phone]* Chem. Dependency: [facility] [place] ([phone]) and [place] ([phone]) anytime Wednesday thru Wednesday 8 to 10am. [place] ([phone]) anytimeMond thru Wednesday 8 to 10am. [facility] ([phone]) Wednesday or Wednesday from 8to 10am (Bring $30 to [facility]) SMOKIN G CESSATION* Smoking is dangerous to your health. It delays the healing process, andworks against your medications. Not smoking will improve your health* Our hospital participates with the Opt-to-Quit program. You will be contactedafter discharge by the [facility] Smoker's Quitline for support with tobaccocessation. You have the option once contacted to refuse this service.* You can also go online to www.[employer]. Free nicotine replacementsare available ___Attention* You should [...] rce(s) Supporting Document(s) ID Date Data Source [id number] 09/10/2020 01:44:00 PM EDT [address] HEALTH PROGRESS NOTEPATIENT NAME: ERNESTO PERAZA PHYSICIAN: MANUEL HEART MDAUTHOR: Una SOTO,DhruvADM. DATE: 09/02/20 MR#: [id number] NOTE DATE: 09/10/20 RM#: [id number] TIME: 1349 [...] (Effexor Xr) 75 MG DAILY POMiscellaneous Read [id number]@1800 NADivalproex Sodium (Depakote DR) 500 MG BID [...] rce(s) Supporting Document(s) ID Date Data Source [id number] 09/09/2020 01:30:00 PM EDT [address] PROGRESS NOTEPATIENT NAME: ERNESTO PERAZA PHYSICIAN: MANUEL HEART MDAUTHOR: Una SOTO,DhruvADM. DATE: 09/02/20 MR#: [id number] NOTE DATE: 09/09/20 RM#: [id number] TIME: 1332 [...] (Effexor Xr) 75 MG DAILY POMiscellaneous Read [id number]@1800 NADivalproex Sodium (Depakote DR) 500 MG BID POMultivitamins (Multivitamin) 1 TAB DAILY PONicotine (Nicorette) 2 MG Q2HPRN PRN POAcetaminophen (Tylenol) 650 MG Q4HPRN PRN POAcetaminophen (Tylenol) 650 MG Q4HPRN PRN POAl Hydrox/Mg Hydrox/Simethicone (Maalox) 15 ML QIDPRN PRN POHydroxyzine (Atarax) 50 MG Q4HPRN PRN POMagnesium Hydroxide (Mom) 10 ML QHSPRN PRN POTrazodone HCl (Desyrel) 50 MG QHSPRN PRN POResultsLaboratory DataRecent Labs-24 hours10/640643BqzyavrerHhbvuz (136 - 147 mmol/L) 143Potassium (3.5 - [...] rce(s) Supporting Document(s) ID Date Data Source [id number] 09/09/2020 09:05:00 AM EDT [facility] Name Value Range Interpretation Code Description Data Maritza rce(s) Supporting Document(s) VALPROIC ACID 77.0 ug/mL 40-120 [facility] ID Date Data Source [id number] 09/09/2020 09:05:00 AM EDT [facility] Name Value Range Interpretation Code Description Data Maritza rce(s) Supporting Document(s) GLU 86 mg/dL 70-110 [facility] Patients taking Sulfasalazine may have f alsely depressedGlucose levels. Patients taking Sulfapyridine may havefalsely elevated Glucose levels. Patients should be drawnfor Glucose before the initial administration of eitherdrug. BUN 13 mg/dL 7-23 [facility] CRE 1.060 mg/dL 0.500-1.300 [facility] GFR > 60 mL/min [facility] CHLORIDE 105 mmol/L 99-110 [facility] NA 143 mmol/L 136-147 [facility] POTASSIUM 4.3 mmol/L 3.5-5.1 [facility] TCO2 32 mmol/L 20-33 [facility] ANION GAP 10.3 10.0-20.0 [facility] CA 9.2 mg/dL 8.3-10.7 [facility] ALKALINE PHOS 66 U/L 45-117 [facility] TP 7.0 g/dL 6.0-7.8 [facility] ALB 3.4 g/dL 3.5-5.0 [facility] ESRD Dialysis patient Albumin reference range: 2.9-4.4 g/dL GL 3.6 g/dL 2.3-3.5 H [facility] A/G 0.9 1.0-2.5 [facility] T. BILIRUBIN 0.6 mg/dL 0.1-1.1 [facility] [employer] [place] Total Bilirubin is n ot recommended forpatients undergoing treatment with eltrombopag (Promacta)due to the potential for falsely elevated results. ALTI 32 U/L 6-54 [facility] Patients taking Sulfasalazine and/or Sul fapyridine may havefalsely depressed ALT levels. Patients should be drawn forALT before the initial administration of either drug. AST 14 U/L 8-40 [facility] Patients taking Sulfasalazine and/or Sul fapyridine may havefalsely depressed AST levels. Patients should be drawn forAST before the initial administration of either drug. ID Date Data Source [id number] 09/06/2020 11:51:00 AM EDT [facility] [place], [place] [address]KWFMXO HEALTH PROGRESS NOTEPATIENT NAME: ERNESTO PERAZA PHYSICIAN: MANUEL HEART, MDAUTHOR: Una SOTO,Ana Laura. DATE: 09/02/20 MR#: [id number] NOTE DATE: 09/06/20 RM#: [id number] TIME: 1152 [...] about that he has been accepted at [facility] patient willing to go on Wednesday as [...] (Effexor Xr) 75 MG DAILY POMiscellaneous Read [id number]@1800 NADivalproex Sodium (Depakote DR) 500 MG BID [...] rce(s) Supporting Document(s) ID Date Data Source [id number] 09/05/2020 01:09:00 PM EDT [address] HEALTH PROGRESS NOTEPATIENT NAME: ERNESTO PERAZA PHYSICIAN: MANUEL HEART MDAUTHOR: Una SOTO,DhruvADM. DATE: 09/02/20 MR#: [id number] NOTE DATE: 09/05/20 RM#: [id number] TIME: 1311 [...] (Effexor Xr) 75 MG DAILY POMiscellaneous Read [id number]@1800 NADivalproex Sodium (Depakote DR) 500 MG BID [...] rce(s) Supporting Document(s) ID Date Data Source [id number] 09/04/2020 01:31:00 PM EDT [facility] Exam Number: [id number] OF EXAMINATIO N: 09/04/2020 14:00 EDTCT BRAIN [...] rce(s) Supporting Document(s) ID Date Data Source [id number] 09/04/2020 12:56:00 PM EDT [facility] [address] HEALTH PROGRESS NOTEPATIENT NAME: ERNESTO PERAZA PHYSICIAN: MANUEL HEART, MDAUTHOR: Una SOTO,DhruvADM. DATE: 09/02/20 MR#: [id number] NOTE DATE: 09/04/20 RM#: [id number] TIME: 1258 [...] 09/04 1104Resp 14 09/04 1104Current MedicationsMiscellaneous Read [id number]@1800 NADivalproex Sodium (Depakote DR) 500 MG BID [...] rce(s) Supporting Document(s) ID Date Data Source [id number] 09/03/2020 03:47:00 PM EDT [address] PSYCHIATRIC ASSESSMENTPATIENT NAME: ERNESTO PERAZA MR#: [id number] PHYSICIAN: MANUEL HEART MDAUTHOR: Una SOTO,Manuel DATE: [...] times before fordecompensation and was admitted to [facility] in 2013. Pt reports that he came inwith his mother because she had concerns about his mental health status. Ptdenies current SI, HI, hallucinations, self harm and denies having access tofirearms. Pt reports that he has always lived with his mother and that shethinks that he does not do enough for himself and is frequently in bed. Ptprovided this group underwriter permission to speak with his mother. Pt's mother reportsthat Ernesto has had a pattern of becoming non-complaint with his psychmedications in the past and that this currently happening again. Pt's m otherreports that Ernesto has had worsening auditory hallucinations and has beenverbally abusive towards her. Pt's mother reports that she can not contract [employer]'s safety, does not feel safe at home [...] in the past, he is currently from [place], he also stated that hehad been on [...] by his mother, he worked in a [employer] place in the past but heis currently [...] rce(s) Supporting Document(s) ID Date Data Source [id number] 09/03/2020 10:57:00 AM EDT [facility] [address] [address]SABYKTE AND PHYSICALPATIENT NAME: ERNESTO PERAZA MR#: [id number] PHYSICIAN: MANUEL HEART MDAUTHOR: Humaira Pugh DO [...] MeanPulse Ox 95 98 97O2 DeliveryO2 Flow KgqkEdD7Memqebca ExaminationGeneral Appearance no acute distress, afebrile, alert, [...] rce(s) Supporting Document(s) ID Date Data Source [id number] 09/02/2020 12:08:52 PM EDT [facility] Name Value Range Interpretation Code Description Data Maritza rce(s) Supporting Document(s) Progress Note [facility] SMCCVs1aCpOFCcDj65/NCOtiFINkl2UiUWmdYYo2QXrbPYBoL1QcGGU5sX8wOCV7SPgNIxHfPnVrIWM6 lbm [file] AgICAgICAgICAgICAgICAgICAgICAgICAgICAgICAgICAgICAgICAgICAgICAgICAgICAgICAgICAgIC StOSApWK8CMREeAEMeIMLxZBPwBYFvIUKeZPRwPTQf ICAgICAgICAgICAgICAgICAgICAgICAgICAgICAgICAgICAgICAgICAgICAgICAgICAgICAgICAgICAg SPBnNPKsJSKnTNObTIPdGL1MUBAbCCEwOZDyQFYiTKInIUAkVDFzIOVbAPRwCUIxHOFnWPNwJFGfEZOf ICAgICAgICAgICAgICAgICAgICAgICAgICAgICAgIC JaWMFoXRDuVNKvQONkCXOrXUQsAJQtMFRiVB3RRUWcEXMiFINoYXMkDOPwSFMvKAWeUXFfYTHgPTVwES AgICAgICAgICAgICAgICAgICAgICAgICAgICAgICAgICAgICAgICAgICAgICAgICAgICAgICAgICAgIC XbLEQkALZfKU0CYLPhAZZbHAImYGKhWTCyTDVvXWWe ICAgICAgICAgICAgICAgICAgICAgICAgICAgICAgICAgICAgICAgICAgICAgICAgICAgICAgICAgICAg YFNkCUMbSZOvVFLxQWQoTVMjNQ4WDULvDMDoOZBeQDTwUHUcLOVaLJLxZPFyDHSaRTFwPXXcCFFtVBLt ICAgICAgICAgICAgICAgICAgICAgICAgICAgICAgIC KyWEPuQLWuNIRuTTBuSXEqRLInWOWdYRBcVXJfEV8BJQIgQSMuEELxZZQrCEGnFRDaDEFzARFhUNPaTR AgICAgICAgICAgICAgICAgICAgICAgICAgICAgICAgICAgICAgICAgICAgICAgICAgICAgICAgICAgIC CkRTIhJESqJOWuUM9FLJEjILUiHSNxNIFqZJUeDVDl ICAgICAgICAgICAgICAgICAgICAgICAgICAgICAgICAgICAgICAgICAgICAgICAgICAgICAgICAgICAg PZLiCAVjPIRkMMJsLOPuKZRtAOZdSN6DINLdQKCnORQpRIJfXWJdBILjPPPlOCEuYQQaHKYuAZKwXYMk ICAgICAgICAgICAgICAgICAgICAgICAgICAgICAgIC FqBQIpTZQvNWOyTJVlCCKiSGBqCCXkYIJuXCUlRCChLB3ZPMQnRLOpKITrOMNzNQIvFWJaUAWrPNInTS AgICAgICAgICAgICAgICAgICAgICAgICAgICAgICAgICAgICAgICAgICAgICAgICAgICAgICAgICAgIC SmKEArXRGoVAGoQMUgRY3DKK01hFNad7Z4VNRiFQ1g dyc/Zw9VONjbxvOlmFXuXL1TXfOcUK5klx0FOaZuBE7hvt0TCGmKExYtT1J4fRVtQLUkDYUVWbMlT06w HFkdRk16IKxoSXLsAmWaXEk4Jj2GOmHaC4yeVIRtIvN5HKAvKvAjTQctDZ8Ay4HqoTPiYEk+Jl5IDR2i g4XgYUgmJWVwBM9emc1LTZxUPeEsE8GrwhX1VEV2PQ DkOb7MYQRpCDTvuOSsOWOjLUYWUcViB3GwfA01HCPYBa4+MJojawMqEayRJqW6JWKdq8VpHXm7GI6EKN EsDCl5oAKuUYAjN0Cxl2EoYo14GRSoLpoyZsxelKvejjWZIG5pY8qry9TtrSMoBIUKJgRwmQQwRY2vRP 2qKWPjZPUtCbX1ECIVVB1WXWYpJWNmdTSsYROlMSWC GR9DOLsxPYU8LccerjCowXZfPLsvFT0ZXWLamjUeMPAlMYVHTYm+Gd0NAV9ij7FqALghZlLwRW6zwc1B OIjRBjUqY0L4qQToQ8T4VNuzXi9ZUCWdFCGpMZLxRJGNTXnfBP5FII4vghY8KV5JiKZySSUxVGEoyRAj EJl6V05blAYzMDgeOY6GTWR+Ayad+Jn1VKCZvSRNtHI XwUxOwUASCTqUoC8TeJ1DLa2EmG0WrOL74aAnurqYjYFxdPM1MHY8dMURmQMORMP7GdOUpyZ9zjjPmMJ TfNTSEPrTfH72tfWLqRIZxZIDpDKQtHt4GUKGzS7SmupHobRrafcYuNYBjPVFBUP4ZGGwamvEtuMNgjV vaDZ26aLfaWE4OOj3DWxStIT9mid6HrRYfQc2ZDEOs Wf4RXGBfIQEdDQJmGQU8MFEoOpMlARuySJXoAXBjSUO6PAMaOBKzVQ9EWtVtLXEnGIS6DnTyLZGcSXHa hj8VROOwOCMlEwN6EMEhSLLyFTRxNJieRZXuOUFeHHL8EABcVSIlCA5VQdJySDUcOQJ0NyDcFKYySTKt fh9SRWEjEWWbQBh7IPZaZISdWPHcZFmtHSLaUWFcDU OlNFCiPRSaWF0NEwDhTTIqXPLoNMvcUTJqWCLxmy0SFWFxJXTaXiV2GZQsAXAnFOAdFGwrSACmMLA3Lq P9LHIoSPAhXQ9WIdNrRRMuHFL0PLuqSQGkTLGtvr8YAHYtENClSAI8CuFtQGVsRPMnTRdwEWXsMFC3YX AkOBUqPVQaPR4PNmKaVVCiMPS0WQpaZWKuJQCrpv9Y DWVfWRYtIkY4JPWmVEOwMVFmMYweYGKzLBY7IuZ1GHMtHMDnYQ1RZgZnYLmpHHGLVag9SXjvH9k1BUEp Wi7MZ1Tcf2IgTBEiRWADODxhNG5fjqIbDBDzJs6LG7nULmq8OcN3FoerONu2NXl0PUTiHjqgWTT4AIX2 WsEzI3P8Pv2xGGagOzwfYUT6BepoZPt2V0YnVJBvMC O0AHAzEhE2DTzeQgBdMS5ECe4TKrG1PKT9mYIdSq2KIdp8GR9PZVDPI1MOBo== ID Date Data Source [id number] 08/30/2020 08:13:00 PM EDT [facility] Name Value Range Interpretation Code Description Data Maritza rce(s) Supporting Document(s) LITHIUM 0.20 mmol/L 0.50-1.20 L [facility] ID Date Data Source [id number] 08/30/2020 08:13:00 PM EDT [facility] Name Value Range Interpretation Code Description Data Maritza rce(s) Supporting Document(s) GLU 116 mg/dL 70-110 H [facility] Patients taking Sulfasalazine may have f alsely depressedGlucose levels. Patients taking Sulfapyridine may havefalsely elevated Glucose levels. Patients should be drawnfor Glucose before the initial administration of eitherdrug. BUN 11 mg/dL 7-23 [facility] CRE 1.000 mg/dL 0.500-1.300 [facility] GFR > 60 mL/min [facility] CHLORIDE 107 mmol/L 99-110 [facility] NA 141 mmol/L 136-147 [facility] POTASSIUM 4.3 mmol/L 3.5-5.1 [facility] TCO2 30 mmol/L 20-33 [facility] ANION GAP 8.3 10.0-20.0 L [facility] CA 9.0 mg/dL 8.3-10.7 [facility] ALKALINE PHOS 85 U/L 45-117 [facility] TP 7.3 g/dL 6.0-7.8 [facility] ALB 3.6 g/dL 3.5-5.0 [facility] ESRD Dialysis patient Albumin reference range: 2.9-4.4 g/dL GL 3.7 g/dL 2.3-3.5 [facility] A/G 1.0 1.0-2.5 [facility] T. BILIRUBIN 0.2 mg/dL 0.1-1.1 [facility] [employer] [place] Total Bilirubin is n ot recommended forpatients undergoing treatment with eltrombopag (Promacta)due to the potential for falsely elevated results. ALTI 32 U/L 6-54 [facility] Patients taking Sulfasalazine and/or Sul fapyridine may havefalsely depressed ALT levels. Patients should be drawn forALT before the initial administration of either drug. AST 15 U/L 8-40 [facility] Patients taking Sulfasalazine and/or Sul fapyridine may havefalsely depressed AST levels. Patients should be drawn forAST before the initial administration of either drug. ID Date Data Source [id number] 08/30/2020 08:13:00 PM EDT [facility] Name Value Range Interpretation Code Description Data Maritza rce(s) Supporting Document(s) SALICYLATE 1.8 mg/dL 0.0-20.0 [facility] ID Date Data Source [id number] 08/30/2020 08:13:00 PM EDT [facility] Name Value Range Interpretation Code Description Data Maritza rce(s) Supporting Document(s) ACETAMINOPHEN < 2.0 ug/mL 0-30 [facility] ID Date Data Source [id number] 08/30/2020 08:13:00 PM EDT [facility] Name Value Range Interpretation Code Description Data Maritza rce(s) Supporting Document(s) ETOH NONE DETECTED [facility] NONE DETECTED ID Date Data Source [id number] 08/30/2020 07:26:00 PM EDT [facility] Name Value Range Interpretation Code Description Data Maritza rce(s) Supporting Document(s) WBC 4.62 x10E3/uL 4.0-10.5 [facility] RBC 5.27 x10E6/uL 4.70-6.00 [facility] Hemoglobin 15.9 g/dL 14.0-18.0 [facility] Hematocrit 45.8 % 42.0-52.0 [facility] MCV 86.9 fL 81.0-99.0 [facility] MCH 30.2 pg 27.0-31.0 [facility] MCHC 34.7 g/dL 32.7-35.6 [facility] RDW 11.8 % 11.5-14.0 [facility] Platelet count 198 x10E3/uL 150-450 [facility] ital MPV 9.6 fl 6.9-9.5 H [facility] Neutrophils 44.0 % 34-64 N [facility] Lymphocytes 48.9 % 25-45 H [facility] Monocytes 6.5 % 1.7-10.6 [facility] Eosinophils 0.2 % 0.4-7.0 L [facility] Basophils 0.2 % 0.1-2.0 [facility] Imm. Gran. 0.2 % 0.1-2.0 [facility] Abs. Neutro. 2.03 x10E3/uL 1.2-7.6 [facility] Abs. Lymph. 2.26 x10E3/uL 1.0-3.5 [facility] Abs. [facility]. 0.30 x10E3/uL 0.1-1.0 N [facility]. Eosin. 0.01 x10E3/uL 0.1-0.7 L [facility] Abs. Baso. 0.01 x10E3/uL 0.0-0.1 [facility] Abs. Imm. Gran. 0.01 x10E3/uL 0.0-0.1 [facility] spital ANRBC% 0 % 0 [facility] ID Date Data Source [id number] 08/30/2020 08:13:00 PM EDT [facility] nichelle Name Value Range Interpretation Code Description Data Maritza rce(s) Supporting Document(s) PCP VISTA NEG NEGATIVE [facility] MINIMUM LEVEL OF DETECTION IS 25 ng/ml BENZODIAZEPINES NEG NEGATIVE [facility] al MINIMUM LEVEL OF DETECTION IS 200 ng/ml COCAINE VISTA NEG NEGATIVE [facility] MINIMUM LEVEL OF DETECTION IS 300 ng/ml AMPHETAMINES NEG NEGATIVE [facility] al MINIMUM LEVEL OF DETECTION IS 1000 ng/ml BARBITURATES NEG NEGATIVE [facility] al CUTOFF CONCENTRATION IS 200 ng/ml CANNABINOIDS POS NEGATIVE [facility] POSITIVE RESULTS UNCOMFIRMEDCUTOFF ERIK NTRATION IS 50 ng/ml METHADONE VISTA NEG NEGATIVE [facility] al MINIMUM LEVEL OF DETECTION IS 300 ng/ml OPIATE VISTA NEG NEGATIVE [facility] MINIMUM DETECTION LEVEL IS 300 ng/ml ID Date Data Source [id number] 08/30/2020 07:33:00 PM EDT [facility] nichelle Name Value Range Interpretation Code Description Data Maritza rce(s) Supporting Document(s) URINE COLOR Yellow [facility] UAPR Clear [facility] UGLU Negative NEGATIVE [facility]IN [facility] UK[facility] NE[facility] USG 1.022 1.010-1.025 [facility] UBLO Negative NEGATIVE [facility] UpH 7.5 5.0-8.0 [facility] UPRO Negative Negative [facility] UUB 1.0 mg/dL 0.2-1.0 [facility] UNIT Negative Negative [facility] ULEU Negative Negative [facility] ID Date Data Source [id number] 09/02/2020 06:16:00 PM EDT [facility] Physician DocumentationClaxmark-Pia Jacobs edical CenterName: Ernesto LipinskiAge: 29 yrsSex: MaleDOB: 1990MRN: [id number] Date: 08/30/2020Time: 18:38Account#: [id number] MD: Jacquelyn Pierre Physician Amanuel PereiraDisfreda Summary:09/02/20 16:39Hospitalization OrderedHospitalization Status: Inpatient Admission qq3Azzunkwa: Nico Tierney dh8Gkrjfhmf: Mental Health Unit bt7Lodietceq: Stable ml6Iundafj: an ongoing problem wz1Thmwwozj: are unchanged gf6Hpwi Assignment: ja4Lcjzoudab- Schizophrenia, unspecified fg1Mxrbxtfclv Information- Admission Type: Inpatient Status. zo5Ohtpf:- Medication Reconciliation th4- SBAR th4- Medication Reconciliation Form - 2nd Copy th4HPI:08/1619:50 This 29 yrs old White Male presents to ER via Private Vehicle with zj2jsrwkrwgip of Psych Problem.19:50 Patient brought in for [...] Negative for chills, fever. Eyes: Negative for wf8fghdhahva, vision loss. ENT: Negative for difficulty swallowing,difficulty [...] patient appears in no acute distress, alert, fp9gtvab, comfortable, non-diaphoretic, non-toxic, well developed.19:52 Head/face: Exam [...] nurses notes. ED course: Patient presenting for md3tlugwqekvyg evaluation, does not endorse suicidality or homicidalityto me. He has a subtherapeutic lithium level, negative alcohol level,medically cleared for psychiatric evaluation.08/1916:39 ED course: I received this patient at change of shift. A change of sx6ipetk patient was pending disposition. Patient has been [...] UA; Complete Time: 22:32 tp:30 Order name: [place] Level; Complete Time: 22:32 :09 Order name: [...] Order name: Medically Cleared for Eval by-Psychosocial, Deposit Refund Clerk dk2(.PSA); Complete Time: 02:19Dispensed Medications:08/1619:51 Drug: lithium [...] kk310/1909:18 Drug: lithium 300 mg Route: PO; vk8Wpxyxshenk:Dispatcher [employer] Summer Medley RN RN tlmDBettye marroquin RN RN kx4LmaqqedAmanuel Pereira MD MD yx7BkukaJm Glez RN RN rl6WaprkaCodey Cordova RN RN Oscar Mullins MD MD dk2Brenda Sanford, RN RN xl6Jahpyxrri, Aliza, RN RN aa3 Name Value Range Interpretation Code Description Data Maritza rce(s) Supporting Document(s) ID Date Data Source [id number] 09/02/2020 06:16:00 PM EDT [facility]Cl[facility]St[facility] Anuradha terName: Ernesto PerazaAge: 29 yrsSex: MaleDOB: 1990MRN: [id number] Date: 08/30/2020Time: 18:38Account#: [id number] Z7Eoygwgr MD: Candis Pierreiagnosis: Schizophrenia, unspecifiedPresentation:08/1618:40 Presenting complaint: Mother states: he has schizophrenia and hes ux9uircydwtxfpzlc. Coronavirus Screening: Have you traveled to [facility] with widespread or ongoing COVID-19 community spread [facility]? no Flu-like symptoms reported in the last 14days: no. Have you had close contact with confirmed or suspectedCOVID-19 case? no. Comm unicable Disease Screen: Negative for fever>/=100 degrees Fahrenheit. Communicable disease screen is negative.18:40 Acuity: Triage 2 wd118:40 Acuity Assignment: Triage 2 wd118:40 Method Of Arrival: Private Vehicle tv7Emfxtx Assessment:18:43 General: Appears in no apparent distress, Behavior is cooperative. gs9Taqshs Screening: (1)Signs/symptoms infection No. Pain: Denies pain.PSS-3 [...] is awake, alert, Oriented to person, place,time, Flask Pusher are equal bilaterally Moves all extremities. Gait [...] threats or abuse. Denies injuries from another. re2Yisjkzxgxan screening: No deficits noted. Offer of HIV testing:patient was previously offered screening. Fall Risk None identified.Assessment:19:21 Pain: Denies pain. Sepsis Screening: Not applicable to this patient. zv8Ezkc: No deficits noted. General: Appears in no [...] in no apparent distress at this time. lk2Tjsllzl up to use bathroom.08/1900:20 Reassessment: Patient appears [...] in no apparent distress at this time. qa4Fxwuoro awake and using bathroom.08:13 Reassessment: Patient appears [...] Evaluation referral is generated by a relative, lk4tgepoj The patient was referred for evaluation becauseDecompensation, worsening hallucinations. Subjective: The patientschief complaint is decompensation and hallucinations. Pt reports thathe has had schizophrenia since he was 20 years old. Pt reports thathe has been admitted a few times before for decompensation and wasad[facility] to [facility] 2013. Pt reports that he came in with his motherbecause she had concerns about his mental health status. Pt deniescurrent SI, HI, hallucinations, self harm and denies having access tofirearms. Pt reports that he has always lived with his mother andthat she thinks that he does not do enough for himself and isfrequently in bed. Pt provided this group underwriter permission to speak withhis mother. Pt's mother [...] of schizophrenia, Mental Health Admissions:2, one in [place], one at [facility]. Both for Decomp. Current Outpatient MentalHealth Services: [...] Patient uses marijuana.Family notified of admission to [facility], Notification was given to.Consultation: Psych MD informed of patient's status at 05:40.Disposition: Medically cleared for disposition by Dr Maldonado.Psychiatric Consult is performed by phone with Dr Tierney. LegalStatus: Patient's legal status will be. DSM-V DX [place] I diagnosis:Schizophrenia. Insurance Pre-Certification: Not Required. [facility] The patient displays symptoms of severepsychiatric [...] significant dosageadjustments. The patient is not a mechanical service specialist or militarydependent. Sandy Suicide Severity Rating Scale: Suicidal IdeationRating 0; Intensity of Ideations Rating 0; Suicidal Behavior Rating 0.06:22 Narrative Pt's mother phone number: [phone].. cp214:36 Narrative Per pt's mother, he is "anti-medicine". He has been kfnon-compliant with therapy and has been responding to internalstimuli. Found yelling at radio and objects. Bettye, staff at [facility] that she has recommended that the pt be seen forinpatient treatment.16:09 Narrative Pt currently waiting for bed availability. kf20:04 Narrative PSA Seth Jenkins takes over responsibility of PSA. cj1Pt resting. Sitter present and safety maintained..21:16 Narrative Pt information faxed to [facility]. cj123:22 Narrative Pt sleeping. Sitter present and safety maintained. . cj123:27 Narrative Pt chart faxed to [facility].. cj123:50 Narrative Pt chart faxed to [facility]. cj110/1805:48 Narrative Pt sleeping. Sitter present and safety maintained.. cj109:45 Narrative Pt is calm and cooperative. Pt showered. Sitter is present. xo8Kqecyx is maintained..15:49 Narrative Pt is calm and cooperative. Sitter is present. Safety is tp6qmwspyijfg..17:35 Narrative Pt is calm and cooperative. Sitter is present. Safety is go9lleorvhliw..19:29 Narrative PSA roll handed off to this group underwriter at 1900. sm822:00 Narrative Pt is resting. Sitter is present. Safety is maintained. sm810/1901:54 Narrative Pt is sleeping. Sitter is present. Safety is maintained. sm803:55 Narrative Pt is sleeping. Sitter is present. Safety is maintained. sm806:04 Narrative Pt is sleeping. Sitter is present. Safety is maintained. sm807:31 Narrative PSA role handed off to this group underwriter at 7:30 AM. kf09:10 Narrative Pt chart has been faxed to [facility] for review. kf09:43 Narrative Information provided to [facility] for review. kf11:24 Narrative Chart has been faxed to [facility] for review. kfPsych:08/1619:00 Subjective: Patient's mood is irritable, Delusions are denied, rt3Lexfddyxczoenx are denied. Ob jective: Patient is cooperative,irritable, [...] th416:39 Nico Tierney MD is Hospitalizing Provider. ek8Sxebwcrtoret Medications:08/1619:51 Drug: lithium 300 mg Route: PO; [...] kk310/1909:18 Drug: lithium 300 mg Route: PO; gc3Qunawdz:16:39 Decision to Hospitalize by Provider. th418:14 Disposition: Discharged to home wd118:14 Condition: stable.18:14 Instructed on need for admit, Demonstrated understanding ofinstructions.18:14 Discharge Assessment: Patient verbalized understanding of dispositioninstructions. Patient has no functional deficits.18:16 Patient left the ED. wm2Hinbgpbofx:Simeon Renee RN Summer Menezes RN MATIAS tlAj Cox, FALGUNI PSA rs2DowBettye RN MATIAS gu4HazthwnmqNikki Bryan, FALGUNI PSA Amanuel Norman MD MD ew4LoowlpoSeth Jenkins, PSA PSA lh5GmirpJm Glez RN MATIAS dr4LfkjtvCodey english RN RN uw5UceoqldOscar Maldonado MD MD uk8YkcdaDebbie Christiansen Krista, RN RN zq6TstbkjpiClarice santana zx5LamqsrxlxShell arzola RN RN pr3FuxmDeny slater, PSA PSA xf0Zummnm, Jeanie 2 Name Value Range Interpretation Code Description Data Maritza rce(s) Supporting Document(s) Procedure Social History Code Duration Value Status Description Data Source(s ) Smoking 08/07/2021 12:00:00 AM EDT Former Smoker completed Former Smoker eCW1 ([facility]) Smoking 08/07/2021 12:00:00 AM EDT Former Smoker completed Former Smoker eCW1 ([facility]) Smoking 08/07/2021 12:00:00 AM EDT Former Smoker completed Former Smoker eCW1 ([facility]) Smoking 08/07/2021 12:00:00 AM EDT Former Smoker completed Former Smoker eCW1 ([facility]) Smoking 08/07/2021 12:00:00 AM EDT Former Smoker completed Former Smoker eCW1 ([facility]) Smoking 11/21/2020 12:00:00 AM EST Former Smoker completed Former Smoker eCW1 ([facility]) Vital Signs ID Date Data Source UNK Name Value Range Interpretation Code Description Data Source(s) Body height 28.74 [in_i] 28.74 [in_i] eCW1 ([facility]) Body weight 173.6 [lb_av] 173.6 [lb_av] eCW1 ([facility]) Body temperature 97.8 [degF] 97.8 [degF] eCW1 ( [facility]) Heart rate 88 /min 88 /min eCW1 ([facility]) Respiratory rate 18 /min 18 /min eCW1 ([facility]) Oxygen saturation in Arterial blood by Pulse oximetry 98 % 98 % eCW1 ([facility]) ID Date Data Source [id number] 12/06/2020 11:05:16 PM EST [facility] Name Value Range Interpretation Code Description Data Source(s) TRANSFER FROM [facility] ID Date Data Source [id number] 09/13/2020 01:57:00 PM EDT [facility] Name Value Range Interpretation Code Description Data Source(s) WEIGHT 86.8 kilos 86.8 kilos [facility] HEIGHT 182.88 centimeters 182.88 centimeter [facility] WEIGHT 86.4 kilos 86.4 kilos [facility] HEIGHT 182.88 centimeters 182.88 centimeter [facility] ID Date Data Source [id number] 09/02/2020 12:08:52 PM EDT [facility] Name Value Range Interpretation Code Description Data Source(s) TRANSFER FROM [facility] Patient Treatment Plan of Care Planned Activity Planned Date Details Description Data Source (s) [place] 07/26/2020 01:46:00 PM EDT eCW1 ([facility]) Divalproex Sodium 500 MG Delayed Release Oral Tablet [ Depakote] 10/01/2020 12:00:00 AM EST eCW1 ([facility])
[2021-09-16 19:32] LABS: HEMATOCRIT 46.9 % (42.0-52.0); HEMOGLOBIN 15.7 g/dl (13.5-17.5); MEAN CORPUSCULAR HGB CONC 33.5 g/dl (32.0-36.5); MEAN CORPUSCULAR VOLUME 89.5 fl (80.0-96.0); PLATELET COUNT, AUTOMATED 197 10^3/uL (150-450); RED BLOOD COUNT 5.24 10^6/uL (4.30-6.10); WHITE BLOOD COUNT 5.2 10^3/uL (4.0-10.0)
[2021-09-16 19:53] LABS: ACETAMINOPHEN LEVEL < 2.0 UG/ML (10.0-30.0); ALBUMIN 3.3 GM/DL (3.2-5.2); ALT/SGPT 28 U/L (12-78); BILIRUBIN,DIRECT 0.1 MG/DL (0.0-0.2); BILIRUBIN,TOTAL 0.6 MG/DL (0.2-1.0); BLOOD UREA NITROGEN 18 MG/DL (7-18); CALCIUM LEVEL 9.5 MG/DL (8.5-10.1); CARBON DIOXIDE LEVEL 30 MEQ/L (21-32); CHLORIDE LEVEL 106 MEQ/L (98-107); CREATININE FOR GFR 0.98 MG/DL (0.70-1.30); ETHYL ALCOHOL (ETHANOL) 0.007 % (0.000-0.010); GLOMERULAR FILTRATION RATE > 60.0 (>60); GLUCOSE, FASTING 96 MG/DL (70-100); POTASSIUM SERUM 4.5 MEQ/L (3.5-5.1); SALICYLATE LEVEL < 1.7 MG/DL (5.0-30.0); SODIUM LEVEL 141 MEQ/L (136-145); THYROID STIMULATING HORMONE 0.439 uIU/ML (0.358-3.740); TOTAL PROTEIN 6.4 GM/DL (6.4-8.2)
[2021-09-16 21:19] LABS: AMPHETAMINES LEVEL URINE NEGATIVE (NEGATIVE); BARBITURATES URINE NEGATIVE (NEGATIVE); BENZODIAZEPINES URINE NEGATIVE (NEGATIVE); CANNABINOIDS URINE POSITIVE (NEGATIVE); COCAINE METABOLITE URINE NEGATIVE (NEGATIVE); METHADONE URINE NEGATIVE (NEGATIVE); OPIATES URINE NEGATIVE (NEGATIVE); PHENCYCLIDINE URINE NEGATIVE (NEGATIVE)
[2021-09-16 21:20] LABS: RSV AMPLIFICATION NEGATIVE (NEGATIVE)
[2021-09-16] MEDS ORDERED: HOME MED LIST COMPLETE! XX SCH (23:05)
[2021-09-16] MEDS ORDERED: ABIL1INJ2 IM (23:05)
--- NOTE | 2021-09-17 08:33 | MHCRPDOC ---
[facility] Consultation Consultation DATE OF CONSULTATION: 09/17/21 CONSULTATION REQUESTED BY: ED team REASON FOR CONSULTATION: Patient reported suicidal ideations at TLS appointment RELEVANT HISTORY: Patient is a 30 -year-old , male, with a pph of schizoaffective disorder and more than 10 hospitalizations presents with suicidal ideations and plan to jump off roof, endorses worsening depression, suicidal thoughts and command auditory hallucinations telling him to harm himself and that he needs to be in the hospital reportedly. Denies acute physical complaints. Denies medication side effects. Reported the symptoms at TLS appointment and provider urged he be brought to the hospital for evaluation. Per PSA report: "PT was seen by his mental health provider today and he expressed that he is suicidal and plans to jump off the roof of a building and land on pavement. PT was recently admitted to [facility] 08/05 and 09/04. In November he had been admitted to [place] and he describes his experience there as weird. PT states after his last [facility] d/c in August he felt much better and that lasted about a week and then he started to feel depressed again. PT lists stressors as being unemployed, not having a relationship, having no money, boredom and living at [facility]. He admits to two suicide attempts that he aborted-1. Started his car in a garage 2. Put a belt around his neck and began to strangle himself. Unsure of the time frames. He identifies his desire to have a , kids and a career as the motivator for him to abort the attempts. PT is admitting to and at first he states he can recogonize the voices but then he states "I dont know. I feel there is pain there. I dont want to look at it" He would not discuss furthur. He does not appear to be responding to internal stimuli but he does have pause times up to 20 seconds when answering questions. Currently he cannot CFS. He denies HI. PT was brought to ED on legal status 9.45 but per PT's provider at [facility] they only completed the order for transportation as they had no other means for PT to get to ED per his request. The order was not signed by a valid designee. PT is aware that [facility] is at capacity and he will need to be transferred for care. PT's mother called to check on him and referred to him as "one of your frequent flyers". PT declined to speak with her and does not wish for staff to speak with her. Per psychiatrist dr. Mccullough PT to be held in ED and he will complete a face to face in the morning as he has treated PT prior and would like to evaluate for admission vs. d/c." PAST PSYCHIATRIC HISTORY: Michele Macdonald H and P jul 30: "Previous Psychiatric Diagnosis: Schizoaffective Disorder Previous Psychiatric Admissions: 10+ Hospitalizations, last admission was [facility] Suicide Attempts: No gestures or attempts Psychiatric Follow-up: TLS Psychiatric medications: Haldol, Haldol Dec, Effexor, Risperdal, Invega Sustenna, Aristada" recent admission to [facility] Jul 30- for SI/psychosis, aug 02 received abilify 400 mg IM PAST MEDICAL HISTORY: non-contributory Head Injury: No Seizures: No Hospitalizations: Yes Surgeries: No FAMILY HISTORY: Medical Problems none indicated, unable to fully assess due to disorganization Psychiatric Disorders: No Addiction: No Suicide Attemps/Completions: No PERSONAL AND SOCIAL HISTORY: Per jose H and P 07/30 "Childhood: [place], 3 brothers, Abuse/Trauma: Unable to answer Current Living Situation: Lives in [facility] in [place] Education: Graduated High School in [place] Employment: Unemployed Social Support: [facility] Legal: Unknown Marital: Single" SUBSTANCE ABUSE HISTORY: nicotine LEGAL HISTORY: denies MENTAL STATUS EXAMINATION: Patient is a 30-year old male, who is in no acute distress, disheveled, sitting in bed, poor eye contact and looking around the room, appears stated age Speech is slowed, nonspontaneous, decreased amount Language skills are poor Thought processes including: Circumstantial Thought content: Reports hearing voices that tell him to harm himself, endorses suicidal ideation. Abstract reasoning, and computation: Poor. Description of associations: Poor. Description of abnormal or psychotic thoughts: Auditory hallucinations which are command. Judgment: Poor. Insight: Poor. Orientation to x4. Recent and remote memory: Fair Attention span and concentration: Decreased. Language: Faroese. Fund of knowledge: Below average based on interview. Mood: Depressed. Affect: Dysthymic, withdrawn, constricted DIAGNOSIS: 1. schizoaffective depressed type Tobacco use disorder PLAN: 1. Patient meets criteria for involuntary admission due to suicidal thoughts, have plan to jump off the roof, reports worsening depression symptoms in context of isolation and life situation, does not like his TLS housing 2. Continue home medications Vital Signs Vital Signs Date Time Temp Pulse Resp B/P (MAP) Pulse Ox O2 Delivery O2 Flow Rate FiO2 09/17/21 06:13 98.5 62 18 113/55 (74) 97 Room Air Laboratory Data 24H Labs Laboratory Tests 2 09/16/21 19:02: Nucleated Red Blood Cells % (auto) 0.0, Anion Gap 5L, Glomerular Filtration Rate > 60.0, Calcium Level 9.5, Total Bilirubin 0.6, Direct Bilirubin 0.1, Aspartate Amino Transf (AST/SGOT) 15, Alanine Aminotransferase (ALT/SGPT) 28, Alkaline Phosphatase 58, Total Protein 6.4, Albumin 3.3, Albumin/Globulin Ratio 1.1, Thyroid Stimulating Hormone (TSH) 0.439, Salicylates Level < 1.7L, Acetaminophen Level < 2.0L, Ethyl Alcohol Level 0.007 09/16/21 19:40: Coronavirus (COVID-19)(PCR) NEGATIVE, Influenza Type A (RT-PCR) NEGATIVE, Influenza Type B (RT-PCR) NEGATIVE, Respiratory Syncytial Virus (PCR) NEGATIVE 09/16/21 20:27: Urine Opiates Screen NEGATIVE, Urine Methadone Screen NEGATIVE, Urine Barbiturates Screen NEGATIVE, Urine Phencyclidine Screen NEGATIVE, Urine Amphetamines Screen NEGATIVE, Urine Benzodiazepines Screen NEGATIVE, Urine Cocaine Metabolite Screen NEGATIVE, Urine Cannabinoids Screen POSITIVEH Home Medications Current Medications Current Medications Medications (Trade) Dose Ordered Sig/Jamey Route PRN Reason Start Time Stop Time Status Last Admin Dose Admin Home Med (Home Med List Complete!) ASDIRECTED XX 09/16/21 23:05 09/16/21 23:08 DC Scheduled Aripiprazole (Abilify Maintena) 400 Mg Suser.syr, 400 MG IM QMONTH, (Reported) Allergies Coded Allergies: Penicillins (Verified Allergy, Intermediate, 12/02/20) SWELLING BRISEYDA MCCULLOUGH MD Sep 17, 2021 08:33
[2021-09-17] MEDS ORDERED: ACETAMINOPHEN TAB 650MG DOSE (2X325MG) PO PRN (15:25)
[2021-09-17] MEDS ORDERED: MOM 30ML SUSPENSION UDC PO PRN (15:25)
[2021-09-17] MEDS ORDERED: MAALOX 30 ML SUSP *UDC PO PRN (15:25)
--- OUTSIDE RECORDS SUMMARY | 2021-09-17 15:38 | CCD ---
Author Author [facility] Organization [facility] Address Unknown Phone Unavailable Care Team Providers Care Core Drill Operator Helper Name Role Phone Artesia, L Emani REGULATORY AFFAIRS PORTFOLIO LEADER Unavailable Unavailable Ignacio, L Emani REGULATORY AFFAIRS PORTFOLIO LEADER Unavailable Unavailable Artesia, L Emani REGULATORY AFFAIRS PORTFOLIO LEADER Unavailable Unavailable Artesia, L Emani REGULATORY AFFAIRS PORTFOLIO LEADER Unavailable Unavailable Ignacio, L Emani REGULATORY AFFAIRS PORTFOLIO LEADER Unavailable Unavailable Artesia, L Emani REGULATORY AFFAIRS PORTFOLIO LEADER Unavailable Unavailable Artesia, L Emani REGULATORY AFFAIRS PORTFOLIO LEADER Unavailable Unavailable Artesia, L Emani REGULATORY AFFAIRS PORTFOLIO LEADER Unavailable Unavailable Artesia, L Emani REGULATORY AFFAIRS PORTFOLIO LEADER Unavailable Unavailable Artesia, L Emani REGULATORY AFFAIRS PORTFOLIO LEADER Unavailable Unavailable Ignacio, L Emani REGULATORY AFFAIRS PORTFOLIO LEADER Unavailable Unavailable Artesia, L Emani REGULATORY AFFAIRS PORTFOLIO LEADER Unavailable Unavailable Artesia, L Emani REGULATORY AFFAIRS PORTFOLIO LEADER Unavailable Unavailable Artesia, L Emani REGULATORY AFFAIRS PORTFOLIO LEADER Unavailable Unavailable Ignacio, L Emani REGULATORY AFFAIRS PORTFOLIO LEADER Unavailable Unavailable Ignacio, L Emani REGULATORY AFFAIRS PORTFOLIO LEADER Unavailable Unavailable Artesia, L Emani REGULATORY AFFAIRS PORTFOLIO LEADER Unavailable Unavailable Ignacio, L Emani REGULATORY AFFAIRS PORTFOLIO LEADER Unavailable Unavailable Artesia, L Emani REGULATORY AFFAIRS PORTFOLIO LEADER Unavailable Unavailable Ignacio, L Emani REGULATORY AFFAIRS PORTFOLIO LEADER Unavailable Unavailable Ignacio, L Emani REGULATORY AFFAIRS PORTFOLIO LEADER Unavailable Unavailable Ignacio, L Emani REGULATORY AFFAIRS PORTFOLIO LEADER Unavailable Unavailable Ignacio, L Emani REGULATORY AFFAIRS PORTFOLIO LEADER Unavailable Unavailable Ignacio, L Emani REGULATORY AFFAIRS PORTFOLIO LEADER Unavailable Unavailable Artesia, L Emani REGULATORY AFFAIRS PORTFOLIO LEADER Unavailable Unavailable Artesia, L Emani REGULATORY AFFAIRS PORTFOLIO LEADER Unavailable Unavailable Artesia, L Emani REGULATORY AFFAIRS PORTFOLIO LEADER Unavailable Unavailable Ignacio, L Emani REGULATORY AFFAIRS PORTFOLIO LEADER Unavailable Unavailable Ignacio, L Emani REGULATORY AFFAIRS PORTFOLIO LEADER Unavailable Unavailable Artesia, L Emani REGULATORY AFFAIRS PORTFOLIO LEADER Unavailable Unavailable Artesia, L Emani REGULATORY AFFAIRS PORTFOLIO LEADER Unavailable Unavailable Ignacio, L Emani REGULATORY AFFAIRS PORTFOLIO LEADER Unavailable Unavailable Ignacio, L Emani REGULATORY AFFAIRS PORTFOLIO LEADER Unavailable Unavailable Ignacio, L Emani REGULATORY AFFAIRS PORTFOLIO LEADER Unavailable Unavailable Artesia, L Emani REGULATORY AFFAIRS PORTFOLIO LEADER Unavailable Unavailable Artesia, L Emani REGULATORY AFFAIRS PORTFOLIO LEADER Unavailable Unavailable Artesia, L Emani REGULATORY AFFAIRS PORTFOLIO LEADER Unavailable Unavailable Ignacio, L Emani REGULATORY AFFAIRS PORTFOLIO LEADER Unavailable Unavailable Artesia, L Emani REGULATORY AFFAIRS PORTFOLIO LEADER Unavailable Unavailable LAGUNAS, SADA Unavailable Unavailable TONYA MORRIS MD Unavailable Unavailable TONYA MORRIS MD Unavailable Unavailable UNA, MANUEL Unavailable Unavailable UNA, MANUEL MD Unavailable Unavailable UNA, MANUEL MD Unavailable Unavailable UNA, MANUEL MD Unavailable Unavailable UNA, MANUEL MD Unavailable Unavailable SYSTEM, NOT IN PROVIDER Unavailable Unavailable DESJARLAIS, CRISS ENROLLMENT COUNSELOR Unavailable Unavailable DESJARLAIS, CRISS ENROLLMENT COUNSELOR Unavailable Unavailable DESJARLAIS, CRISS ENROLLMENT COUNSELOR Unavailable Unavailable DESJARLAIS, CRISS ENROLLMENT COUNSELOR Unavailable Unavailable DESJARLAIS, CRISS ENROLLMENT COUNSELOR Unavailable Unavailable DESJARLAIS, CRISS ENROLLMENT COUNSELOR Unavailable Unavailable DESJARLAIS, CRISS ENROLLMENT COUNSELOR Unavailable Unavailable DESJARLAIS, CRISS ENROLLMENT COUNSELOR Unavailable Unavailable DESJARLAIS, CRISS ENROLLMENT COUNSELOR Unavailable Unavailable ANDREEA, CAROLYNN JUDD PA-C Unavailable Unavailable ANDREEA, CAROLYNN JUDD PA-C Unavailable Unavailable ANDREEA, CAROLYNN JUDD PA-C Unavailable Unavailable ANDREEA, CAROLYNN JUDD PA-C Unavailable Unavailable ANDREEA, CAROYLNN JUDD PA-C Unavailable Unavailable ANDREEA, CAROLYNN JUDD [...] is protected by Article 27-F of the [facility] Public Health law. If you continue you may have access to information: Regarding HIV / AIDS; Provided by facilities licensed or operated by the [facility] Office of Mental Health; or Provided by the [facility] Office for People With Developmental Disabilities. If such information is present, then the following [facility] mandated warning applies: This information has [...] law may result in a fine or mcc sentence or both. A general authorization for [...] hospital Clinic 09/04/2021 12:00:00 AM EDT [facility] ([facility]) Outpatient [facility] 08/28/2021 12:00:00 AM EDT eCW1 ([facility]) Outpatient [facility] 08/27/2021 12:00:00 AM EDT eCW1 ([facility]) Outpatient [facility] 08/27/2021 12:00:00 AM EDT eCW1 ([facility]) Outpatient Attender: Emani DE LOS SANTOS 08/07/2021 09:35:00 AM EDT [facility] Outpatient [facility] 08/07/2021 12:00:00 AM EDT eCW1 ([facility]) Outpatient [facility] 08/07/2021 12:00:00 AM EDT eCW1 ([facility]) Pyschotherapy 30 Minute with Patient [facility] 08/06/2021 12:00:00 AM EDT [facility] ([facility]) [facility] 07/23/2021 12:00:00 AM EDT [facility] ([facility]) non-billable [facility] 07/17/2021 12:00:00 AM EDT [facility] ([facility]) non-billable [facility] 06/16/2021 12:00:00 AM EDT [facility] ([facility]) non-billable [facility] 05/19/2021 12:00:00 AM EDT [facility] ([facility]) non-billable [facility] 04/15/2021 12:00:00 AM EDT [facility] ([facility]) Outpatient Attender: CRISS JOSHI NP 03/20/2021 02: 40:00 PM [facility] Outpatient Attender: JUDD DORAN PA-C 03/12/2021 10:00:00 AM [facility] Outpatient Attender: JUDD DORAN PA-C 02/19/2021 01:24:00 PM [facility] Outpatient Attender: CRISS JOSHI NP 02/18/2021 03: 44:00 PM [facility] Outpatient Attender: JUDD DORAN PA-C 02/18/2021 03:44:00 PM [facility] Admission cancelled. Disregard status an d admitted date. Outpatient Attender: JUDD DORAN PA-C 02/12/2021 10:00:00 AM [facility] Outpatient Attender: CRISS JOSHI NP 01/21/2021 03: 36:00 PM [facility] Outpatient Attender: JUDD DORAN PA-C 01/13/2021 12:33:00 PM [facility] Outpatient [facility] 01/13/2021 12:00:[address] [facility]) Outpatient Attender: JUDD DORAN PA-C 01/10/2021 11:00:00 AM [facility] Outpatient Attender: CRISS JOSHI NP 12/24/2020 03: 48:00 PM [facility] Outpatient Attender: JUDD DORAN PA-C 12/18/2020 03:19:00 PM [facility] Outpatient Attender: [facility] 12/18/2020 08:34:00 AM [facility] Outpatient 12/06/2020 11:05:00 PM [facility] S chizoaffective disorder, vague SI, auditory hallucination. [facility] Schizoaffective disorder, vague SI, dimirtis tory hallucination. Outpatient Attender: [facility] 12/04/2020 10:00:00 AM [facility] Outpatient Attender: CRISS JOSHI NP 11/21/2020 03: 40:00 PM [facility] Outpatient Attender: [facility] 11/21/2020 09:08:00 AM [facility] Outpatient Attender: JUDD DORAN PA-C 11/20/2020 01:15:00 PM [facility] Outpatient Attender: [facility] 11/06/2020 11:00:00 AM [facility] Outpatient Attender: JUDD DORAN PA-C 10/23/2020 04:30:00 PM [facility] Outpatient Attender: [facility] 10/23/2020 11:00:00 AM [facility] Outpatient Attender: CRISS JOSHI NP 10/15/2020 04: 00:00 PM [facility] Outpatient Attender: [facility] 10/09/2020 11:00:00 AM [facility] Outpatient Attender: [facility] 10/02/2020 10:00:00 AM [facility] Outpatient [facility] 10/01/2020 12:00:00 AM [place] [id number] ([facility]) Outpatient Attender: JUDD DORAN PA-C 09/25/2020 09:41:00 AM [facility] Outpatient Attender: [facility] 09/24/2020 01:00:00 PM [facility] Outpatient Attender: CRISS JOSHI NP 09/20/2020 02: 20:00 PM [facility] Outpatient Attender: [facility] 09/12/2020 04:00:00 PM [facility] Inpatient Attender: MANUEL Carroll [place]: TONYA MORRIS MDAdmitter: MANUEL HEART MD ER-3RD 09/02/2020 04:36:00 PM EDT - 09/11/2020 11:05:00 AM [facility] Patient discharged. Outpatient Referrer: PROVIDER SYSTEM [id number] 09/02/2020 10:0 9:[address] [facility] schizophrenia Outpatient Attender: JUDD DORAN PA-C 08/29/2020 11:00:00 AM [facility] Outpatient Attender: JUDD DORAN PA-C 08/23/2020 04:15:00 PM [facility] Outpatient Attender: JUDD DORAN PA-C 08/06/2020 09:23:00 AM [facility] Outpatient Attender: JUDD DORAN PA-C 08/01/2020 03:02:00 PM [facility] Outpatient Attender: CRISS JOSHI NP 08/01/2020 03: 00:00 PM [facility] Outpatient Attender: JUDD DORAN PA-C 07/26/2020 01:37:00 PM [facility] Outpatient Attender: CRISS JOSHI NP 07/26/2020 01: 20:00 PM [facility] Outpatient Attender: JUDD DORAN PA-C 07/23/2020 10:24:00 AM [facility] Outpatient Attender: CRISS JOSHI NP 07/18/2020 08: 04:00 AM [facility] Outpatient Attender: [facility] 07/17/2020 02:00:00 PM [facility] Outpatient Attender: [facility] 07/08/2020 03:58:00 PM [facility] Outpatient Attender: [facility] 07/04/2020 04:00:00 PM [facility] Outpatient Attender: CRISS JOSHI NP 07/03/2020 02: 00:00 PM [facility] Outpatient Attender: Emani DE LOS SANTOS 06/26/2020 02:00:00 PM [facility] Outpatient Attender: JUDD DORAN PA-C 06/24/2020 01:00:00 PM [facility] Outpatient Attender: JUDD DORAN PA-C 06/21/2020 01:00:00 PM [facility] Outpatient Attender: [facility] 06/20/2020 05:58:00 PM [facility] Outpatient Attender: [facility] 06/13/2020 02:59:00 PM [facility] Outpatient Attender: CRISS JOSHI NP 06/12/2020 01: 49:00 PM EDT [facility] Outpatient Attender: SADA LAGUNAS 06/05/2020 05:00:00 PM EDT [facility] Outpatient Attender: SADA LAGUNAS 05/30/2020 02:00:00 PM EDT [facility] Outpatient Attender: JUDD DORAN PA-C 05/24/2020 10:00:00 AM EDT [facility] Outpatient Attender: CRISS MADELYN HESTER 05/22/2020 03: 20:00 PM EDT [facility] Outpatient Attender: JUDD DORAN PA-C 05/07/2020 10:00:00 AM EDT [facility] Immunizations Vaccine Date Status Description Data Source(s) 02/19/2021 12:58:00 PM EDT completed e CW1 ([facility]) 02/19/2021 12:58:00 PM EDT completed e CW1 ([facility]) 02/19/2021 12:58:00 PM EDT completed e CW1 ([facility]) 02/19/2021 12:58:00 PM EDT completed e CW1 ([facility]) 02/19/2021 12:58:00 PM EDT completed e CW1 ([facility]) 02/12/2021 10:38:00 AM EDT completed e CW1 ([facility]) 02/12/2021 10:38:00 AM EDT completed e CW1 ([facility]) 02/12/2021 10:38:00 AM EDT completed e CW1 ([facility]) 02/12/2021 10:38:00 AM EDT completed e CW1 ([facility]) 02/12/2021 10:38:00 AM EDT completed e CW1 ([facility]) 01/13/2021 01:33:00 PM EST completed e CW1 ([facility]) 01/13/2021 01:33:00 PM EST completed e CW1 ([facility]) 01/13/2021 01:33:00 PM EST completed e CW1 ([facility]) 01/13/2021 01:33:00 PM EST completed e CW1 ([facility]) 01/13/2021 01:33:00 PM EST completed e CW1 ([facility]) 01/13/2021 01:33:00 PM EST completed e CW1 ([facility]) 01/10/2021 11:11:00 AM EST completed e CW1 ([facility]) 01/10/2021 11:11:00 AM EST completed e CW1 ([facility]) 01/10/2021 11:11:00 AM EST completed e CW1 ([facility]) 01/10/2021 11:11:00 AM EST completed e CW1 ([facility]) 01/10/2021 11:11:00 AM EST completed e CW1 ([facility]) 01/10/2021 11:11:00 AM EST completed e CW1 ([facility]) 12/18/2020 03:36:00 PM EST completed e CW1 ([facility]) 12/18/2020 03:36:00 PM EST completed e CW1 ([facility]) 12/18/2020 03:36:00 PM EST completed e CW1 ([facility]) 12/18/2020 03:36:00 PM EST completed e CW1 ([facility]) 12/18/2020 03:36:00 PM EST completed e CW1 ([facility]) 12/18/2020 03:36:00 PM EST completed e CW1 ([facility]) 11/20/2020 04:50:00 PM EST completed e CW1 ([facility]) 11/20/2020 04:50:00 PM EST completed e CW1 ([facility]) 11/20/2020 04:50:00 PM EST completed e CW1 ([facility]) 11/20/2020 04:50:00 PM EST completed e CW1 ([facility]) 11/20/2020 04:50:00 PM EST completed e CW1 ([facility]) 11/20/2020 04:50:00 PM EST completed e CW1 ([facility]) 10/23/2020 05:27:00 PM EST completed e CW1 ([facility]) 10/23/2020 05:27:00 PM EST completed e CW1 ([facility]) 10/23/2020 05:27:00 PM EST completed e CW1 ([facility]) 10/23/2020 05:27:00 PM EST completed e CW1 ([facility]) 10/23/2020 05:27:00 PM EST completed e CW1 ([facility]) 10/23/2020 05:27:00 PM EST completed e CW1 ([facility]) 09/25/2020 10:14:00 AM EST completed e CW1 ([facility]) 09/25/2020 10:14:00 AM EST completed e CW1 ([facility]) 09/25/2020 10:14:00 AM EST completed e CW1 ([facility]) 09/25/2020 10:14:00 AM EST completed e CW1 ([facility]) 09/25/2020 10:14:00 AM EST completed e CW1 ([facility]) 09/25/2020 10:14:00 AM EST completed e CW1 ([facility]) 09/25/2020 10:14:00 AM EST completed e CW1 ([facility]) 08/23/2020 05:06:00 PM EDT completed e CW1 ([facility]) 08/23/2020 05:06:00 PM EDT completed e CW1 ([facility]) 08/23/2020 05:06:00 PM EDT completed e CW1 ([facility]) 08/23/2020 05:06:00 PM EDT completed e CW1 ([facility]) 08/23/2020 05:06:00 PM EDT completed e CW1 ([facility]) 08/23/2020 05:06:00 PM EDT completed e CW1 ([facility]) 08/23/2020 05:06:00 PM EDT completed e CW1 ([facility]) 07/26/2020 01:46:00 PM EDT completed e CW1 ([facility]) 07/26/2020 01:46:00 PM EDT completed e CW1 ([facility]) 07/26/2020 01:46:00 PM EDT completed e CW1 ([facility]) 07/26/2020 01:46:00 PM EDT completed e CW1 ([facility]) 07/26/2020 01:46:00 PM EDT completed e CW1 ([facility]) 07/26/2020 01:46:00 PM EDT completed e CW1 ([facility]) 07/26/2020 01:46:00 PM EDT completed e CW1 ([facility]) Medications Medication Brand Name Start Date Product Form Dose Route Admi nistrative Instructions Pharmacy Instructions Status Indications Reaction Description Data Source(s) Divalproex Sodium 500 MG Delayed Release Oral Tablet [ Depakote] Depakote 500 MG Depakote 500 MG 10/01/2020 12:00:00 AM EST 1.0 {tablet} active Depakote 500 MG eCW1 ([facility]) 882 mg/3.2 mL 09/24/2020 [...] TWICE A DAY SOLD: 08/29/2020 [facility] [place] Carbonate 300 MG Oral Capsule [place] Carbonate 300 MG 08/27/2020 12:00:00 AM EDT active [place] Carbonate 300 MG eCW1 ([facility]) 882 mg/3.2 mL 08/20/2020 12:00:00 AM EDT [...] type / Coverage type Policy ID Covered republican ID Covered republican's relationship to kelley Policy Kelley Plan Information [employer]BS [id number] Yesika SFZ [id number] BLUE [place] [id number] [place] [id number] BLUE CROSS [id number] MEDICAID [facility] [id number] SP [id number] MEDICAID [id number] Yesika [id number] MEDICAID [facility] [id number] SP [id number] MEDICAID [facility] [id number] SP [id number] EMEDNY [id number] SP [id number] SELF PAY ONLY [id number] SP [id number] GABRIEL [id number] SP [id number] EMEDNY [id number] MEDICAID PROF FEES [id number] MEDICAID [id number] S [id number] JEAN PAUL [id number] S [id number] 3 [place] [id number] S [id number] 3 [place] UNAVAILABLE S UNAVAILA BLE GABRIEL [id number] SP [id number] OTHER INS [id number] [facility] PL[facility] [id number] S [id number] OTHER INS STAYWELL [id number] S [id number] [facility] [id number] S [id number] SELF PAY UNAVAILABLE S UNAVAILA BLE SELF PAY UNAVAILABLE S UNAVAILA BLE MEDICAID [id number] S [id number] MEDICAID [facility] [id number] BLUE [place] [id number] [place] [id number] MEDICAID [facility] UNAVAILABLE UNAVAILABLE OTHER INS STAY WELL [id number] S [id number] [facility] MEDICAID [id number] S [id number] [facility] MEDICAID [id number] W G[facility]RI[facility] CARE MEDICAID [id number] S [id number] [facility] MEDICAID [id number] S [id number] MEDICAID [id number] S [id number] [facility] [id number] S [id number] [facility] [id number] S [id number] Problems, Conditions, and Diagnoses Code Display Name Description Problem Type Effective Dates Data Source(s) F99 Mental disorder, not otherwise specified MENTAL DISORDER, NOT OTHERWISE SPECIFIED Diagnosis 08/07/2021 09:35:[address] [facility] F20.0 Paranoid schizophrenia PARANOID SCHIZOPHRENIA Diagnosi s 03/20/2021 02:40:00 PM EDT [facility] F60.9 Personality disorder, unspecified PERSONALITY DI SORDER, UNSPECIFIED Diagnosis 02/19/2021 01:24:00 PM EDT [facility] Schizoaffective disorder, vague SI, dimitris tory hallucination. Schizoaffective disorder, vague SI, auditory hallucination. Diagnosis 12/06/2020 11:05:00 PM [facility] F12.10 Cannabis abuse, uncomplicated CANNABIS ABUSE, UNCOMPLI CATED Diagnosis 09/02/2020 04:36:00 PM EDT [facility] F17.200 Nicotine dependence, unspecified, uncomp licated NICOTINE DEPENDENCE, UNSPECIFIED, UNCOMPLICATED Diagnosis 09/02/2020 04:36:00 PM EDT [facility] F20.9 Schizophrenia, unspecified SCHIZOPHRENIA, UNSPECIFIED Diagnosis 09/02/2020 04:36:00 PM EDT [facility] F25.0 Schizoaffective disorder, bipolar type S CHIZOAFFECTIVE DISORDER, BIPOLAR TYPE Diagnosis 09/02/2020 04:36:00 PM [facility]6 Encounter for general psychiatric examin ation, requested by authority ENCNTR FOR GENERAL PSYCHIATRIC EXAM, REQUESTED BY AUTHORITY Diagnosis 09/02/2020 04:36:00 PM EDT [facility] schizophrenia schizophrenia Diagnosis 09/02/2020 10:09:00 AM T [facility] F60.9 [id number] Personality disorder Problem 02/18/2021 12:0 0:00 AM EDT eCW1 ([facility]) [id number] Paranoid schizophrenia Paranoid schizophrenia Conditio n 02/04/2021 12:00:00 AM EDT [facility] ([facility] [id number] Paranoid schizophrenia Paranoid schizophrenia Conditio n 02/04/2021 12:00:00 AM EDT [facility] ([facility]) [id number] Paranoid schizophrenia Paranoid schizophrenia Conditio n 02/04/2021 12:00:00 AM EDT [facility] ([facility]) [id number] Paranoid schizophrenia Paranoid schizophrenia Conditio n 02/04/2021 12:00:00 AM EDT [facility] ([facility]) [id number] Paranoid schizophrenia Paranoid schizophrenia Conditio n 02/04/2021 12:00:00 AM EDT [facility] ([facility]) [id number] Paranoid schizophrenia Paranoid schizophrenia Conditio n 02/04/2021 12:00:00 AM EDT [facility] ([facility]) [id number] Paranoid schizophrenia Paranoid schizophrenia Conditio n 02/04/2021 12:00:00 AM EDT [facility] ([facility]) [id number] Paranoid schizophrenia Paranoid schizophrenia Conditio n 02/04/2021 12:00:00 AM EDT [facility] ([facility]) [id number] Paranoid schizophrenia Paranoid schizophrenia Conditio n 02/04/2021 12:00:00 AM EDT [facility] ([facility]) [id number] Paranoid schizophrenia Paranoid schizophrenia Conditio n 02/04/2021 12:00:00 AM EDT [facility] ([facility]) [id number] Paranoid schizophrenia Paranoid schizophrenia Conditio n 02/04/2021 12:00:00 AM EDT [facility] ([facility]) [id number] Schizoaffective disorder, unspecified Sc hizoaffective disorder, unspecified Condition 09/12/2020 12:00:00 AM EDT [facility] [id number] Schizoaffective disorder, unspecified Sc hizoaffective disorder, unspecified Condition 09/12/2020 12:00:00 AM EDT [facility] ([facility]) [id number] Schizoaffective disorder, unspecified Sc hizoaffective disorder, unspecified Condition 09/12/2020 12:00:00 AM EDT [facility] ([facility]) [id number] Schizoaffective disorder, unspecified Sc hizoaffective disorder, unspecified Condition 09/12/2020 12:00:00 AM EDT [facility] ([facility]) [id number] Schizoaffective disorder, unspecified Sc hizoaffective disorder, unspecified Condition 09/12/2020 12:00:00 AM EDT [facility] ([facility]) [id number] Schizoaffective disorder, unspecified Sc hizoaffective disorder, unspecified Condition 09/12/2020 12:00:00 AM EDT [facility] ([facility]) [id number] Schizoaffective disorder, unspecified Sc hizoaffective disorder, unspecified Condition 09/12/2020 12:00:00 AM EDT [facility] ([facility]) [id number] Schizoaffective disorder, unspecified Sc hizoaffective disorder, unspecified Condition 09/12/2020 12:00:00 AM EDT [facility] ([facility]) [id number] Schizoaffective disorder, unspecified Sc hizoaffective disorder, unspecified Condition 09/12/2020 12:00:00 AM EDT [facility] ([facility]) [id number] Schizoaffective disorder, unspecified Sc hizoaffective disorder, unspecified Condition 09/12/2020 12:00:00 AM EDT [facility] ([facility]) [id number] Schizoaffective disorder, unspecified Sc hizoaffective disorder, unspecified Condition 09/12/2020 12:00:00 AM EDT [facility] ([facility]) Surgeries/Procedures Procedure Description Date Indications Data Source(s) Diagnostic psychiatric interview (procedure) 12:00:00 AM EDT [facility] ([facility]) Procedure related to management of drug administration (proc edure) 09/03/2021 12:00:00 AM EDT [facility]) Individual psychotherapy (regime/therapy) 08/25/2021 1 2:00:00 AM EDT [facility] ([facility]) Evaluation AND/OR management - established patient (procedur e) 08/25/2021 12:00:00 AM EDT [facility] ([facility]) Individual psychotherapy (regime/therapy) 08/25/2021 1 2:00:00 AM EDT [facility] ([facility]) Individual psychotherapy (regime/therapy) 08/06/2021 1 2:00:00 AM EDT [facility] ([facility]) Individual psychotherapy (regime/therapy) 08/06/2021 1 2:00:00 AM EDT [facility] ([facility]) Individual psychotherapy (regime/therapy) 08/06/2021 1 2:00:00 AM EDT [facility] ([facility]) Individual psychotherapy (regime/therapy) 08/06/2021 1 2:00:00 AM EDT [facility] ([facility]) Evaluation AND/OR management - established patient (procedur e) 07/23/2021 12:00:00 AM EDT [facility] Evaluation AND/OR management - established patient (procedur e) 07/23/2021 12:00:00 AM EDT [facility] ([facility]) Evaluation AND/OR management - established patient (procedur e) 07/23/2021 12:00:00 AM EDT [facility] ([facility]) Initial psychiatric evaluation (procedure) 07/16/2021 12:00:00 AM EDT [facility] ([facility]) Initial psychiatric evaluation (procedure) 07/16/2021 12:00:00 AM EDT [facility] ([facility]) Initial psychiatric evaluation (procedure) 07/16/2021 12:00:00 AM EDT [facility] ([facility]) Psychological Tests, Neurobehavioral and Cognitive Status 09/02/2020 12:00:00 AM EDT [facility] Results ID Date Data Source [id number] 08/20/2021 12:40:00 AM EDT [facility] Name Value Range Interpretation Code Description Data Maritza rce(s) Supporting Document(s) SARS coronavirus 2 RNA [Presence] in Res piratory specimen by LENY with probe detection NEGATIVE [facility] This lab was ordered by [facility] a nd reported by [facility]. ID Date Data Source [id number] 07/29/2021 11:42:00 PM EDT [facility] Name Value Range Interpretation Code Description Data Maritza rce(s) Supporting Document(s) SARS coronavirus 2 RNA [Presence] in Res piratory specimen by LENY with probe detection NEGATIVE [facility] This lab was ordered by [facility] a nd reported by [facility]. ID Date Data Source [id number] 07/28/2021 03:10:00 PM EDT [facility] Name Value Range Interpretation Code Description Data Maritza rce(s) Supporting Document(s) SARS coronavirus 2 RNA [Presence] in Res piratory specimen by LENY with probe detection NEGATIVE [facility] This lab was ordered by [facility] a nd reported by [facility]. ID Date Data Source [id number] 12/06/2020 11:00:00 PM EST [facility] Name Value Range Interpretation Code Description Data Maritza rce(s) Supporting Document(s) SARS coronavirus 2 RNA [Presence] in Res piratory specimen by LENY with probe detection NEGATIVE [facility] This lab was ordered by [facility] a nd reported by [facility]. ID Date Data Source [id number] 09/11/2020 01:45:00 PM EDT [address] DISCHARGE SUMMARYPATIENT NAME: ERNESTO HERNÁNDEZ MR#: [id number] PHYSICIAN: MANUEL HEART MDAUTHOR: Manuel Heart MD [...] times before fordecompensation and was admitted to [facility] in 2013. Pt reports that he came inwith his mother because she had concerns about his mental health status. Ptdenies current SI, HI, hallucinations, self harm and denies having access tofirearms. Pt reports that he has always lived with his mother and that shethinks that he does not do enough for himself and is frequently in bed. P tprovided this information writer permission to speak with his mother. Pt's mother reportsthat Ernesto has had a pattern of becoming non-complaint with his psychmedications in the past and that this currently happening again. Pt's motherreports that Ernesto has had worsening auditory hallucinations and has beenverbally abusive towards her. Pt's mother reports that she can not contract [employer] safety, does not feel safe at home [...] in the past, he is currently from [place], he also stated that hehad been on [...] by his mother, he worked in a [employer] place in the past but heis currently [...] a day during this course of treatment [facility]. Patient has also reported symptoms of hopelessness, [...] shows taking part in his discharge plan aswell. Patient was also requesting for a safe discharge plan and placement andfor that he was accepted at [facility] but meanwhile he would prefer to go to hisparents place before he goes to the [facility] as he does not feel comfortable [...] following medications:LITHIUM CARBONATE (LITHIUM CARB) 300 MG [id number] MILLIGRAM Orally TWICE DAILY Qty = 60Aripiprazole (Abilify Maintena) 400 MG SUSER.GLV013 MILLIGRAM Intramuscularly Q 28 DAYS Qty = 1Start taking the following new medications:Divalproex* (Depakote*) 500 MG TABLET.DR500 MILLIGRAM Orally TWICE DAILYQty = 20Refills = 1VENLAFAXINE HCL (VENLAFAXINE) 75 MG CAP.ER.24H75 MILLIGRAM Orally DAILYQty = 20Refills = 1Aripiprazole Lauroxil (Aristada) 882 MG/3.2 ML SUSER.TUM364 MILLIGRAM Intramuscularly S0AUNCWDtr = 1No RefillsDischarge Activity: As toleratedDischarge diet: Low Fat/Low Cholesterol, 2Gm SodiumFollow-upFollow up with your Primary care physicianFollow up with therapiest and psychiatrist as scheduledalso recommended outpt chemical dependencyReferralsOrdered Referrals[facility] [place], [place] [address]Rs person appointment at [facility] ([phone]) September 12 at 4:00 pm withSada Lagunas. If you are unable toattend this appointment, please call theinic number provided to reschedule.DATE SIGNED: 09/11/20 Electronically SignedTIME SIGNED: 1350 MANUEL HEART MD Name Value Range Interpretation Code Description Data Maritza rce(s) Supporting Document(s) ID Date Data Source [id number] 09/11/2020 09:45:00 AM EDT [facility] [place] [address] [id number] NAME: ERNESTO HERNÁNDEZ#: [id number] PHYSICIAN: MANUEL HEART MDAOUNT #: [id number] ADM. DATE: 09/02/20PATIENT : 89 DISCH. DATE: [...] upappointmentDischarge InformationDISCHARGE INFORMATION* [facility] and allowing us toserve you* Our Goal is to provide the highest quality of care.* This discharge information is to help you better understand your diagnosisand medication* Avoid taking onxa-asr-fluzoch medicines unless approved by your physician.* Take your medications as prescribed. DO NOT stop any medications unlessapproved first* Weigh yourself daily. Report any gain of 5 lbs in a week* 24 Hour Crisis HOTLINE available: Call Reachout at [phone]* Chem. Dependency: Walk in Clinics [place] ([phone]) and [place] ([phone]) anytime Wednesday thru Wednesday 8 to 10am. [place] ([phone]) anytimeWednesday thru Wednesday 8 to 10am. [place] ([phone]) Wednesday or Wednesday from 8to 10am (Bring $30 to First [facility]) SMOKIN G CESSATION* Smoking is dangerous to your health. It delays the healing process, andworks against your medications. Not smoking will improve your health* Our hospital participates with the Opt-to-Quit program. You will be contactedafter discharge by the [facility] Smoker's Quitline for support with tobaccocessation. You have the option once contacted to refuse this service.* You can also go online to www.[employer]. Free nicotine replacementsare available ___Attention* You should contact your follow up Physician as it is important that you lethim or her check you and report any new or remaining problems. If yourcondition worsens, follow up with your provider or visit our EmergencyDepartment. If you received pain medication, anxiety medications, musc lerelaxants, or any medication that causes drowsiness, you cannot operateShareTrackery, power tools, or drive.Safe ActSafe Act Completed NoiStopiStop completed NoEND ENDDICT: 09/11/20944 Electronically SignedTRANS:09/11/20944 MANUEL HEART MDTRANS BY:DATE SIGNED:09/11/20TIME SIGNED: 0946REPORT COPY TO: Name Value Range Interpretation Code Description Data Maritza rce(s) Supporting Document(s) ID Date Data Source [id number] 09/10/2020 01:44:00 PM EDT [facility] [address] HEALTH PROGRESS NOTEPATIENT NAME: ERNESTO HERNÁNDEZ PHYSICIAN: MANUEL HEART MDAUTHOR: Una SOTO,DhruvADM. DATE: 09/02/20 MR#: [id number] NOTE DATE: 09/10/20 RM#: [id number] TIME: 1349 [...] (Effexor Xr) 75 MG DAILY POMiscellaneous Read HSLG12T@1800 NADivalproex Sodium (Depakote DR) 500 MG BID [...] rce(s) Supporting Document(s) ID Date Data Source [id number] 09/09/2020 01:30:00 PM EDT [facility] [address] HEALTH PROGRESS NOTEPATIENT NAME: ERNESTO HERNÁNDEZ PHYSICIAN: MANUEL HEART MDAUTHOR: Una SOTO,DhruvADM. DATE: 09/02/20 MR#: [id number] NOTE DATE: 09/09/20 RM#: [id number] TIME: 1332 [...] (Effexor Xr) 75 MG DAILY POMiscellaneous Read AMBD33W@1800 NADivalproex Sodium (Depakote DR) 500 MG BID POMultivitamins (Multivitamin) 1 TAB DAILY PONicotine (Nicorette) 2 MG Q2HPRN PRN POAcetaminophen (Tylenol) 650 MG Q4HPRN PRN POAcetaminophen (Tylenol) 650 MG Q4HPRN PRN POAl Hydrox/Mg Hydrox/Simethicone (Maalox) 15 ML QIDPRN PRN POHydroxyzine (Atarax) 50 MG Q4HPRN PRN POMagnesium Hydroxide (Mom) 10 ML QHSPRN PRN POTrazodone HCl (Desyrel) 50 MG QHSPRN PRN POResultsLaboratory DataRecent Labs-24 hours10/666550OnvdwgpwkRaaxlm (136 - 147 mmol/L) 143Potassium (3.5 - [...] rce(s) Supporting Document(s) ID Date Data Source [id number] 09/09/2020 09:05:00 AM EDT [facility] Name Value Range Interpretation Code Description Data Maritza rce(s) Supporting Document(s) VALPROIC ACID 77.0 ug/mL 40-120 N [facility] ID Date Data Source [id number] 09/09/2020 09:05:00 AM EDT [facility] Name Value Range Interpretation Code Description Data Maritza rce(s) Supporting Document(s) GLU 86 mg/dL 70-110 N [facility] Patients taking Sulfasalazine may have f alsely depressedGlucose levels. Patients taking Sulfapyridine may havefalsely elevated Glucose levels. Patients should be drawnfor Glucose before the initial administration of eitherdrug. BUN 13 mg/dL 7-23 [facility] CRE 1.060 mg/dL 0.500-1.300 [facility] GFR > 60 mL/min [facility] CHLORIDE 105 mmol/L 99-110 [facility] NA 143 mmol/L 136-147 [facility] POTASSIUM 4.3 mmol/L 3.5-5.1 [facility] TCO2 32 mmol/L 20-33 [facility] ANION GAP 10.3 10.0-20.0 [facility] CA 9.2 mg/dL 8.3-10.7 [facility] ALKALINE PHOS 66 U/L 45-117 [facility] TP 7.0 g/dL 6.0-7.8 [facility] ALB 3.4 g/dL 3.5-5.0 [facility] ESRD Dialysis patient Albumin reference range: 2.9-4.4 g/dL GL 3.6 g/dL 2.3-3.5 H [facility] A/G 0.9 1.0-2.5 [facility] T. BILIRUBIN 0.6 mg/dL 0.1-1.1 [facility] The [employer] [place] Total Bilirubin is n ot recommended forpatients undergoing treatment with eltrombopag (Promacta)due to the potential for falsely elevated results. ALTI 32 U/L 6-54 [facility] Patients taking Sulfasalazine and/or Sul fapyridine may havefalsely depressed ALT levels. Patients should be drawn forALT before the initial administration of either drug. AST 14 U/L 8-40 [facility] Patients taking Sulfasalazine and/or Sul fapyridine may havefalsely depressed AST levels. Patients should be drawn forAST before the initial administration of either drug. ID Date Data Source [id number] 09/06/2020 11:51:00 AM EDT [address] HEALTH PROGRESS NOTEPATIENT NAME: ERNESTO HERNÁNDEZ PHYSICIAN: MANUEL HEART MDAUTHOR: Una SOTO,DhruvADM. DATE: 09/02/20 MR#: [id number] NOTE DATE: 09/06/20 RM#: [id number] TIME: 1152 [...] about that he has been accepted at [facility] patient willing to go on Wednesday [...] 09/05 0634Pulse 66 09/05 0634Resp 14 09/05 634Current MedicationsVenlafaxine HCl (Effexor Xr) 75 MG DAILY POMiscellaneous Read GEHF79P@1800 NADivalproex Sodium (Depakote DR) 500 MG BID [...] rce(s) Supporting Document(s) ID Date Data Source [id number] 09/05/2020 01:09:00 PM EDT [address] HEALTH PROGRESS NOTEPATIENT NAME: ERNESTO HERNÁNDEZ PHYSICIAN: MANUEL HEART MDAUTHOR: Una SOTO,DhruvADM. DATE: 09/02/20 MR#: [id number] NOTE DATE: 09/05/20 #: 308EVALUATION TIME: 1311 is 29-year-old male, currently [...] SignsVital Signs-LastResult Date TimePulse Ox 97 09/05 634B/P 119/67 09/05 634Temp 97.4 09/05 634Pulse 66 09/05 634Resp 14 09/05 634Current MedicationsVenlafaxine HCl (Effexor Xr) 75 MG DAILY POMiscellaneous Read GGST67Q@1800 NADivalproex Sodium (Depakote DR) 500 MG BID [...] rce(s) Supporting Document(s) ID Date Data Source [id number] 09/04/2020 01:31:00 PM EDT [facility] Exam Number: [id number] OF EXAMINATIO N: 09/04/2020 14:00 EDTCT BRAIN [...] Rashel Pineda M.D. 09/04/202013:24 EDT Reported By: Jakob PINEDA M.D. Signed By: Paulina PINEDA M.D. Name Value Range Interpretation Code Description Data Maritza rce(s) Supporting Document(s) ID Date Data Source [id number] 09/04/2020 12:56:00 PM EDT [address] HEALTH PROGRESS NOTEPATIENT NAME: ERNESTO HERNÁNDEZ PHYSICIAN: MANUEL HEART MDAUTHOR: Una SOTO,DhruvADM. DATE: 09/02/20 MR#: [id number] NOTE DATE: 09/04/20 RM#: [id number] TIME: 1258 [...] 09/04 1104Resp 14 09/04 1104Current MedicationsMiscellaneous Read CNOH67R@1800 NADivalproex Sodium (Depakote DR) 500 MG BID [...] rce(s) Supporting Document(s) ID Date Data Source [id number] 09/03/2020 03:47:00 PM EDT [facility] [place] [id number] ASSESSMENTPATIENT NAME: ERNESTO HERNÁNDEZ MR#: [id number] PHYSICIAN: MANUEL HEART MDAUTHOR: Una SOTO,Manuel DATE: 09/02/20 RM#: 3RDHistoryIdentificationPatient is 29-year-old male, currently single, lives [...] times before fordecompensation and was admitted to [facility] in 2013. Pt reports that he came inwith his mother because she had concerns about his mental health status. Ptdenies current SI, HI, hallucinations, self harm and denies having access tofirearms. Pt reports that he has always lived with his mother and that shethinks that he does not do enough for himself and is frequently in bed. Ptprovided this information writer permission to speak with his mother. Pt's mother reportsthat Ernesto has had a pattern of becoming non-complaint with his psychmedications in the past and that this currently happening again. Pt's m otherreports that Ernesto has had worsening auditory hallucinations and has beenverbally abusive towards her. Pt's mother reports that she can not contract [employer]'s safety, does not feel safe at home [...] in the past, he is currently from [place], he also stated that hehad been on [...] by his mother, he worked in a [employer] place in the past but heis currently [...] underlyingpsychotic symptoms we consider to continue patient Leny Soriaa injectionthat he had been on it for [...] rce(s) Supporting Document(s) ID Date Data Source [id number] 09/03/2020 10:57:00 AM EDT [facility] [address] [address]LBUGEQA AND PHYSICALPATIENT NAME: EDGARERNESTO T MR#: [id number] PHYSICIAN: MANUEL HEART MDAUTHOR: Humaira Pugh DO [...] problem, numbness.PsychReports: auditory hallucination.ExamVital SignsVital Signs-24 HRS09/02 1941 0647Temp 97.4 97.4 97.6Pulse 92 86 73Resp 16 18 16B/P 132/85 109/77 108/69B/P MeanPulse Ox 95 98 97O2 DeliveryO2 Flow BcwsVwP2Tmiuiiyi ExaminationGeneral Appearance no acute distress, afebrile, alert, [...] rce(s) Supporting Document(s) ID Date Data Source [id number] 09/02/2020 12:08:52 PM EDT [facility] Name Value Range Interpretation Code Description Data Maritza rce(s) Supporting Document(s) Progress Note [facility] WFSFBx9sGzFOVxGv70/VPMabAZLcv6VcVKhbSGq5KZspOKUhG7LiTOD7hQ4dWDH9WPnUPxWzKdZjDDM8 lbm [file] AgICAgICAgICAgICAgICAgICAgICAgICAgICAgICAgICAgICAgICAgICAgICAgICAgICAgICAgICAgIC IsFCPuGV4XKHTwZQXhYGQmXGFeGOGqDYAvOOVtHOGu ICAgICAgICAgICAgICAgICAgICAgICAgICAgICAgICAgICAgICAgICAgICAgICAgICAgICAgICAgICAg OIOfDVZjHSKgOEMsJSOkIU1HIVXgEPJcONNdFMQaVKLfVYIdIMLpLNBuGSEsBEQbDYRsOUYmGIOdDVLt ICAgICAgICAgICAgICAgICAgICAgICAgICAgICAgIC BuUOZdYXVqIELhSSQvAXNtAIBzILLjMFMzIR2ZTVWaRGZzGDOmMHDdROBsBRVyMFEqMEIcZBNwMHMoUF AgICAgICAgICAgICAgICAgICAgICAgICAgICAgICAgICAgICAgICAgICAgICAgICAgICAgICAgICAgIC TgXIEsCVUhVI1YLVYtQVRkRBCqTUUtTYAzVOUbMKSe ICAgICAgICAgICAgICAgICAgICAgICAgICAgICAgICAgICAgICAgICAgICAgICAgICAgICAgICAgICAg MRJaCTTfRUWpANExEPAsWIMtBZ7LIVZhSPCnJJIjPFDkJKSnIJMeQPEdYUAuRUVtCQVfKRIgKIWkXOHo ICAgICAgICAgICAgICAgICAgICAgICAgICAgICAgIC EvQSTpFXKmCYAgHSJcYKZzYBPmEYLkITTxLRQwRT5BQCMdVQHkDIFyMLAmZQJfPGZbKJZeYNPgUQAnKY AgICAgICAgICAgICAgICAgICAgICAgICAgICAgICAgICAgICAgICAgICAgICAgICAgICAgICAgICAgIC YmDVIrTWXvBTAiHI6QAMAgBGLaBQBbIJEgTODiQBNb ICAgICAgICAgICAgICAgICAgICAgICAgICAgICAgICAgICAgICAgICAgICAgICAgICAgICAgICAgICAg LXZhRFAjFAGkPIPsELEgLCLxGPZwYV0QWTVlZIZmYPVuDAPgFUHkEECnDSUiQDDqILBiVRLtIYLzSSPr ICAgICAgICAgICAgICAgICAgICAgICAgICAgICAgIC YtTIErCGDrRIQcFQQpJPCpEQRxZYKwPHJrJIYdYHDwSQ9PWXRuRZCnPUWpIAOjDRZfHMCjOOXpNSXqKL AgICAgICAgICAgICAgICAgICAgICAgICAgICAgICAgICAgICAgICAgICAgICAgICAgICAgICAgICAgIC RcAVPkOJAdOPWxWMGhRZ3EXU34lUEvr4B0GURaSG5e dyc/Vt9MQSqsgiGpxUPwWB2MSsXpMN6anb8AIkHgFU0wne6NSQnRKoIsI1C6qOUhPCDdYVJOAkWtG88r DSldPx84MGgfWHTqSyEuOSh8Kl3HCnAgW7whDJEzCfY9TQWcMmFkIYxlAC7Gb7OolFFpDPn+Lk9UYT4f z3CuVFtmESNdXN8unb3YXFvNKpNzW1XdgdK4UKY3RK FwUv8KCIGrCQKezXTmXZXgOXCVDwRqL3WxrN52VIQDXw3+MOvqioQuPmtQNiI2FEPku9ZzFWw3WT8AAJ FpGWg4lSLcZPJsW7Wxy9EjMs64YNBuGgxlDuowrQkkvjWYNB7tK3kfd2PyvJGsUYFNYeSizXSaKM3wBY 6jKAMbMDAhYtN3GUAQKS7SNLFcOHEnoWFnFQXaOEWD VL1AIQurZDP4CqxcdbKdvGOtFQumAY7UFUJdmvPxZICuVTBGHHc+Oq3IQV9gn8OqDCfdSqZbSA0bxx0C RKuUFcIcR1J4hORyD4O1MZagPm7LOHBiRXWpQANlPZHQKItrOY2DLV6dndG2ZW9QxDHrMURwQWGtwADy VDt2G92eiBZfFUiqNA1BZPI+Ayad+Wt9ZBSTpCMCrYJ BkNqJxULFONaNnN4HxO6PSg5MoN4JzMG01eZbdksIhQLflKO9IBZ1xFNSfQFOENY0LwANyoV2kgiEbYZ EpEJYJUsBwB46tlNCfOUOyPVYcQENyAs1OIEZdG8UjjmXueFelaqOmUEOcYUPYMP1QEYveqhGpdWVagP ikIK52aGejYH5IDe1FSaEwRM5hrr9XiJBvOm0YJWQm Yc9LISImPITtXETwQBE3ASTjOoRwOHjhCLWcASKdBBN1SIJdQGKgGX5DFkWrNMFdLLP5IdGrEKDpAWMc yr5KZTOhXWNtQvV0ZHTaJWTcSLJsFYjsVNBuVLQoJLU8NVRkXNZxYB2DDgTwZVMnDJT8ZyYqIEQdSRTs ak0EVTLzXFDeRXg8YPQdQCReNXBdFSjyEMZnCUVcNM ImTUQlZHZhGE0GBaQoNTXqWTKnNWhlZLHwYXWwou6SXCHdZTTbWeP9QSHfHMVqRYGqHLtsKQJvJMO5Oo G0IDSgYAUeYF3DBvShJONsRHN1CBqkNYXqJPJzxt9HLSZqBOHfLUL2ApKqZOAsWDFgEXpqTKXoIHU5KS DmMXZyEVTsHY6RFsOuSRGcUFF0UVmuYNQrKLThjf1H SQPeZQQmKlR9VQVlNWIsMYKuLYmuEMRwOWV1UiJ3BWAfDPFmRM9IXlVyJGceHDUNFwi5JExqV4x3HNPm Ss1JI3Ntr1VeSIGkMFFFASdtJD6qmlLpMMCcWe1ED1bKRbu4HyY7JberGDn8INz6XABxMfgmXWO9YCL9 PyCvH4P7Ve6dWEvlUkhzDVZ5WkrqZKs6Q5HhFXWgCE G8HTKqTjI8ZBhhNyQoZV0MUy9NOlV7KDM2iQUiYm1QJzr5JY7YXAQEL2QWZs== ID Date Data Source [id number] 08/30/2020 08:13:00 PM EDT [facility] Name Value Range Interpretation Code Description Data Maritza rce(s) Supporting Document(s) LITHIUM 0.20 mmol/L 0.50-1.20 [facility] ID Date Data Source [id number] 08/30/2020 08:13:00 PM EDT [facility] Name Value Range Interpretation Code Description Data Maritza rce(s) Supporting Document(s) GLU 116 mg/dL 70-110 [facility] Patients taking Sulfasalazine may have f alsely depressedGlucose levels. Patients taking Sulfapyridine may havefalsely elevated Glucose levels. Patients should be drawnfor Glucose before the initial administration of eitherdrug. BUN 11 mg/dL 7-23 [facility] CRE 1.000 mg/dL 0.500-1.300 [facility] GFR > 60 mL/min [facility] CHLORIDE 107 mmol/L 99-110 [facility] NA 141 mmol/L 136-147 [facility] POTASSIUM 4.3 mmol/L 3.5-5.1 [facility] TCO2 30 mmol/L 20-33 [facility] ANION GAP 8.3 10.0-20.0 [facility] CA 9.0 mg/dL 8.3-10.7 [facility] ALKALINE PHOS 85 U/L 45-117 [facility] TP 7.3 g/dL 6.0-7.8 [facility] ALB 3.6 g/dL 3.5-5.0 [facility] ESRD Dialysis patient Albumin reference range: 2.9-4.4 g/dL GL 3.7 g/dL 2.3-3.5 [facility] A/G 1.0 1.0-2.5 [facility] T. BILIRUBIN 0.2 mg/dL 0.1-1.1 [facility] [employer] [place] Total Bilirubin is n ot recommended forpatients undergoing treatment with eltrombopag (Promacta)due to the potential for falsely elevated results. ALTI 32 U/L 6-54 [facility] Patients taking Sulfasalazine and/or Sul fapyridine may havefalsely depressed ALT levels. Patients should be drawn forALT before the initial administration of either drug. AST 15 U/L 8-40 [facility] Patients taking Sulfasalazine and/or Sul fapyridine may havefalsely depressed AST levels. Patients should be drawn forAST before the initial administration of either drug. ID Date Data Source [id number] 08/30/2020 08:13:00 PM EDT [facility] Name Value Range Interpretation Code Description Data Maritza rce(s) Supporting Document(s) SALICYLATE 1.8 mg/dL 0.0-20.0 [facility] ID Date Data Source [id number] 08/30/2020 08:13:00 PM EDT [facility] Name Value Range Interpretation Code Description Data Maritza rce(s) Supporting Document(s) ACETAMINOPHEN < 2.0 ug/mL 0-30 [facility] ID Date Data Source [id number] 08/30/2020 08:13:00 PM EDT [facility] Name Value Range Interpretation Code Description Data Maritza rce(s) Supporting Document(s) ETOH NONE DETECTED N [facility] NONE DETECTED ID Date Data Source [id number] 08/30/2020 07:26:00 PM EDT [facility] nichelle Name Value Range Interpretation Code Description Data Maritza rce(s) Supporting Document(s) WBC 4.62 x10E3/uL 4.0-10.5 [facility] RBC 5.27 x10E6/uL 4.70-6.00 [facility] Hemoglobin 15.9 g/dL 14.0-18.0 [facility] Hematocrit 45.8 % 42.0-52.0 [facility] MCV 86.9 fL 81.0-99.0 [facility] MCH 30.2 pg 27.0-31.0 [facility] MCHC 34.7 g/dL 32.7-35.6 [facility] RDW 11.8 % 11.5-14.0 [facility] Platelet count 198 x10E3/uL 150-450 [facility] ital MPV 9.6 fl 6.9-9.5 [facility] Neutrophils 44.0 % 34-64 [facility] Lymphocytes 48.9 % 25-45 [facility] Monocytes 6.5 % 1.7-10.6 [facility] Eosinophils 0.2 % 0.4-7.0 [facility] Basophils 0.2 % 0.1-2.0 [facility] Imm. Gran. 0.2 % 0.1-2.0 [facility] Abs. Neutro. 2.03 x10E3/uL 1.2-7.6 [facility] Abs. Lymph. 2.26 x10E3/uL 1.0-3.5 [facility] Abs. [place]. 0.30 x10E3/uL 0.1-1.0 [facility] Abs. Eosin. 0.01 x10E3/uL 0.1-0.7 [facility] Abs. Baso. 0.01 x10E3/uL 0.0-0.1 [facility] Imm. Gran. 0.01 x10E3/uL 0.0-0.1 N [facility] spital ANRBC% 0 % 0 [facility] ID Date Data Source [id number] 08/30/2020 08:13:00 PM EDT [facility] Name Value Range Interpretation Code Description Data Maritza rce(s) Supporting Document(s) PCP VISTA NEG NEGATIVE [facility] MINIMUM LEVEL OF DETECTION IS 25 ng/ml BENZODIAZEPINES NEG NEGATIVE [facility] al MINIMUM LEVEL OF DETECTION IS 200 ng/ml COCAINE VISTA NEG NEGATIVE [facility] MINIMUM LEVEL OF DETECTION IS 300 ng/ml AMPHETAMINES NEG NEGATIVE [facility] al MINIMUM LEVEL OF DETECTION IS 1000 ng/ml BARBITURATES NEG NEGATIVE [facility] CUTOFF CONCENTRATION IS 200 ng/ml CANNABINOIDS POS NEGATIVE [facility] POSITIVE RESULTS UNCOMFIRMEDCUTOFF ERIK NTRATION IS 50 ng/ml METHADONE VISTA NEG NEGATIVE [facility] al MINIMUM LEVEL OF DETECTION IS 300 ng/ml OPIATE VISTA NEG NEGATIVE [facility] MINIMUM DETECTION LEVEL IS 300 ng/ml ID Date Data Source [id number] 08/30/2020 07:33:00 PM EDT [facility] Name Value Range Interpretation Code Description Data Maritza rce(s) Supporting Document(s) URINE COLOR Yellow [facility] UAPR Clear [facility] UGLU Negative NEGATIVE [facility] URINE BILIRUBIN Negative [facility]GATIVE [facility] UKET Negative NEGATIVE [facility] USG 1.022 1.010-1.025 [facility] UBLO Negative NEGATIVE [facility] UpH 7.5 5.0-8.0 [facility] UPRO Negative Negative [facility] UUB 1.0 mg/dL 0.2-1.0 [facility] UNIT Negative Negative [facility] ULEU Negative Negative [facility] ID Date Data Source [id number] 09/02/2020 06:16:00 PM EDT [facility] Physician DocumentationClaxton-Pia Jacobs edical CenterName: Ernesto LipinskiAge: 29 yrsSex: MaleDOB: 1990MRN: [id number] Date: 08/30/2020Time: 18:38Account#: [id number] MD: Jacquelyn Pierre Physician Amanuel PereiraDisfreda Summary:09/02/20 16:39Hospitalization OrderedHospitalization Status: Inpatient Admission it5Vzprdpce: Nico Tierney ca5Meobvvxl: Mental Health Unit yd2Anzmtvcpq: Stable kd9Wndvedu: an ongoing problem iw7Maiwpjxh: are unchanged pl5Pgnz Assignment: it1Onpibnxgy- Schizophrenia, unspecified rt3Lduyxzyhww Information- Admission Type: Inpatient Status. hx3Biwwe:- Medication Reconciliation th4- SBAR th4- Medication Reconciliation Form - 2nd Copy th4HPI:08/1619:50 This 29 yrs old White Male presents to ER via Private Vehicle with cz8yeqeuemhlp of Psych Problem.19:50 Patient brought in for [...] Negative for chills, fever. Eyes: Negative for vj9stxiwttze, vision loss. ENT: Negative for difficulty swallowing,difficulty [...] patient appears in no acute distress, alert, en7jyoul, comfortable, non-diaphoretic, non-toxic, well developed.19:52 Head/face: Exam [...] Temp 97.2; Pulse Ox 97% on R/A; kk311918:14 BP 132 / 88; Pulse 92; Resp 16; Temp 97.6; Pulse Ox 98% ; Pain 0/10; wd110/1618:45 Body Mass Index 25.13 (86.40 kg, 185.42 cm) wd1MDM:08/1619:11 Patient medically screened. dk222:32 Data reviewed: nurses notes. ED course: Patient presenting for wu9afknyvlbkdg evaluation, does not endorse suicidality or homicidalityto me. He has a subtherapeutic lithium level, negative alcohol level,medically cleared for psychiatric evaluation.08/1916:39 ED course: I received this patient at change of shift. A change of ub9dmoii patient was pending disposition. Patient has been [...] Complete Time: 22:32 tp:09 Order name: Glucose tp:09 Order name: Salicylate Level; Complete Time: 22:32 tp219:09 Order name: Triage - Drug Screen; Complete Time: 22:32 tp9:09 Order name: UA; Complete Time: 22:32 tp:30 Order name: [place] Level; Complete Time: 22:32 jw9:09 Order name: Diet - Mental Health Tray (call dietary); Complete Time: tp219::09 Order name: Belongings List; Complete Time: 20:05 tp:09 Order name: Document Weight and Height for BMI; Complete Time: 19:21 tp9:09 Order name: Mental Health Evaluation; Complete Time: 07:20 tp:09 Order name: Mental Health Level 3; Complete Time: 19:20 tp:09 Order name: VS q shift; Complete Time: 19:20 tp:32 Order name: Medically Cleared for Eval by-Psychosocial, Supervisor [employer] gigi2(.FALGUNI); Complete Time: 02:19Dispensed Medications:08/1619:51 Drug: lithium 300 [...] kk310/1909:18 Drug: lithium 300 mg Route: PO; od5Cqdyaguhvr:Dispatcher [employer] Summer Medley RN RN tlBettye Guerrero RN RN ug4LipejsjAmanuel Pereira MD MD sk9PzccfJm Glez RN RN xk3FmmbvaCodey Cordova RN RN qr7MjzkbfbOscar Maldonado MD MD ul3MwsniBrenda Sanford RN RN hw8Igiyzrgcf, Aliza, RN MATIAS aa3 Name Value Range Interpretation Code Description Data Maritza rce(s) Supporting Document(s) ID Date Data Source [id number] 09/02/2020 06:16:00 PM EDT [facility] Nurse's NotesCl[facility]rar[facility] Anuradha terName: Ernesto LipinskiAge: 29 yrsSex: MaleDOB: 1990MRN: [id number] Date: 08/30/2020Time: 18:38Account#: [id number] MD: Candis Pierreiagnosis: Schizophrenia, unspecifiedPresentation:08/1618:40 Presenting complaint: Mother states: he has schizophrenia and hes rc4boubsuezbyybbf. Coronavirus Screening: Have you [facility] with widespread or ongoing COVID-19 community spread [facility] [facility]? no Flu-like symptoms reported in the last 14days: no. Have you had close contact with confirmed or suspectedCOVID-19 case? no. Comm unicable Disease Screen: Negative for fever>/=100 degrees Fahrenheit. Communicable disease screen is negative.18:40 Acuity: Triage 2 wd118:40 Acuity Assignment: Triage 2 wd118:40 Method Of Arrival: Private Vehicle qh5Tuurzh Assessment:18:43 General: Appears in no apparent distress, Behavior is cooperative. sf2Lnkxuh Screening: (1)Signs/symptoms infection No. Pain: Denies pain.PSS-3 Now I'm going to ask you some questions that we ask everyonetreated here, no matter what problem they are here for. [facility] and it helps us to [...] is awake, alert, Oriented to person, place,time, Reimbursement Representative are equal bilaterally Moves all extremities. Gait [...] threats or abuse. Denies injuries from another. rh7Blkouufpsmt screening: No deficits noted. Offer of HIV testing:patient was previously offered screening. Fall Risk None identified.Assessment:19:21 Pain: Denies pain. Sepsis Screening: Not applicable to this patient. fd2Rxjo: No deficits noted. General: Appears in no [...] in no apparent distress at this time. nd4Itlradb up to use bathroom.08/1900:20 Reassessment: Patient appears [...] in no apparent distress at this time. bj5Cjczmen awake and using bathroom.08:13 Reassessment: Patient appears [...] Evaluation referral is generated by a relative, ro9aciwlw The patient was referred for evaluation becauseDecompensation, worsening hallucinations. Subjective: The patientschief complaint is decompensation and hallucinations. Pt reports thathe has had schizophrenia since he was 20 years old. Pt reports thathe has been admitted a few times before for decompensation and wasad[facility] to [facility] in [facility]. Pt reports that he came in with his motherbecause she had concerns about his mental health status. Pt deniescurrent SI, HI, hallucinations, self harm and denies having access tofirearms. Pt reports that he has always lived with his mother andthat she thinks that he does not do enough for himself and isfrequently in bed. Pt provided this information writer permission to speak withhis mother. Pt's mother [...] of schizophrenia, Mental Health Admissions:2, one in [place], one at [facility]. Both for Decomp. Current Outpatient MentalHealth Services: [...] Patient uses marijuana.Family notified of admission to [facility], Notification was given to.Consultation: Psych MD informed of patient's status at 05:40.Disposition: Medically cleared for disposition by Dr Maldonado.Psychiatric Consult is performed by phone with Dr Tierney. LegalStatus: Patient's legal status will be. DSM-V DX [place] diagnosis:Schizophrenia. Insurance Pre-Certification: Not Required. [facility] The patient displays symptoms of severepsychiatric [...] significant dosageadjustments. The patient is not a pharmacy services director or militarydependent. [place] Suicide Severity Rating Scale: Suicidal IdeationRating 0; Intensity of Ideations Rating 0; Suicidal Behavior Rating 0.06:22 Narrative Pt's mother phone number: [phone].. cp214:36 Narrative Per pt's mother, he is "anti-medicine". He has been kfnon-compliant with therapy and has been responding to internalstimuli. Found yelling at radio and objects. Bettye, staff at [facility] that she has recommended that the pt be seen forinpatient treatment.16:09 Narrative Pt currently waiting for bed availability. kf20:04 Narrative PSA Seth Jenkins takes over responsibility of PSA. cj1Pt resting. Sitter present and safety maintained..21:16 Narrative Pt information faxed to [facility]. cj123:22 Narrative Pt sleeping. Sitter present and safety maintained. . cj123:27 Narrative Pt chart faxed to [facility].. cj123:50 Narrative Pt chart faxed to [facility]. cj110/1805:48 Narrative Pt sleeping. Sitter present and safety maintained.. cj109:45 Narrative Pt is calm and cooperative. Pt showered. Sitter is present. ls8Gstdvp is maintained..15:49 Narrative Pt is calm and cooperative. Sitter is present. Safety is zu0bdnykpxwfd..17:35 Narrative Pt is calm and cooperative. Sitter is present. Safety is xf7cxdovxgmth..19:29 Narrative PSA roll handed off to this information writer at 1900. sm822:00 Narrative Pt is resting. Sitter is present. Safety is maintained. sm810/1901:54 Narrative Pt is sleeping. Sitter is present. Safety is maintained. sm803:55 Narrative Pt is sleeping. Sitter is present. Safety is maintained. sm806:04 Narrative Pt is sleeping. Sitter is present. Safety is maintained. sm807:31 Narrative PSA role handed off to this information writer at 7:30 AM. kf09:10 Narrative Pt chart has been faxed to [facility] for review. kf09:43 Narrative Information provided to [facility] for review. kf11:24 Narrative Chart has been faxed to [facility] for review. kfPsych:08/1619:00 Subjective: Patient's mood is irritable, Delusions are denied, ti6Xxsxdxuvqqkpkk are denied. Ob jective: Patient is cooperative,irritable, [...] Primary Nurse role handed off by Codey Cordova, MATIAS fbg11:18 Summer Perez, MATIAS is Primary Nurse. tlm11:18 Resting quietly. Awaiting [...] Primary Nurse role handed off by Summer Perez, MATIAS kk319:06 Brenda Sanford, MATIAS is Primary Nurse. kk319:20 No apparent distress. [...] Primary Nurse role handed off by Brenda Sanford RN kk308:13 Sitter at bedside. aa308:14 No apparent [...] th416:39 Nico Tierney MD is Hospitalizing Provider. sm3Kqbqvwrywswt Medications:08/1619:51 Drug: lithium 300 mg Route: PO; tp220:43 Follow up: Response: No adverse reaction jw510/1709:43 Drug: lithium 300 mg Route: PO; tlm17:41 Follow up: Response: No adverse reaction tlm19:47 Drug: lithium 300 mg Route: PO; tp221:00 Follow up: Response: No adverse reaction tp210/1809:18 Drug: lithium 300 mg Route: PO; tlm13:14 Follow up: Response: No adverse reaction tlm19:23 Drug: lithium 300 mg Route: PO; kk319:50 Follow up: Response: No adverse reaction kk3101909:18 Drug: lithium 300 mg Route: PO; bi2Bgzjrsq:16:39 Decision to Hospitalize by Provider. th418:14 Disposition: Discharged to home wd118:14 Condition: stable.18:14 Instructed on need for admit, Demonstrated understanding ofinstructions.18:14 Discharge Assessment: Patient verbalized understanding of dispositioninstructions. Patient has no functional deficits.18:16 Patient left the ED. ni6Brfhorjmjy:Simeon Renee, RN Summer Menezes, RN MATIAS tlmSAj felix, FALGUNI PSA rs2Dow, Bettye RN MATIAS gp3HefxuxscbNikki Bryan, PSA PSA Amanuel Norman MD MD kh3WdggqnpSeth Jenkins, PSA PSA em7LmujjJm Glez, RN RN ig5VyiglsCodey english, RN MATIAS aj0ZrvrbbjOscar pathak MD MD ig1AmmbdDebbie Lopez Krista, RN RN lr7KkkocjmmClarice santana8AShell hernandez RN RN sg2SmfgDeny slater, PSA PSA or4Tprrjm, Dana 2 Name Value Range Interpretation Code Description Data Maritza rce(s) Supporting Document(s) Procedure Social History Code Duration Value Status Description Data Source(s ) Smoking 08/07/2021 12:00:00 AM EDT Former Smoker completed Former Smoker eCW1 ([facility]) Smoking 08/07/2021 12:00:00 AM EDT Former Smoker completed Former Smoker eCW1 ([facility]) Smoking 08/07/2021 12:00:00 AM EDT Former Smoker completed Former Smoker eCW1 ([facility]) Smoking 08/07/2021 12:00:00 AM EDT Former Smoker completed Former Smoker eCW1 ([facility]) Smoking 08/07/2021 12:00:00 AM EDT Former Smoker completed Former Smoker eCW1 ([facility]) Smoking 11/21/2020 12:00:00 AM EST Former Smoker completed Former Smoker eCW1 ([facility]) Vital Signs ID Date Data Source UNK Name Value Range Interpretation Code Description Data Source(s) Body height 28.74 [in_i] 28.74 [in_i] eCW1 ([facility]) Body temperature 97.8 [degF] 97.8 [degF] eCW1 ( [facility]) Heart rate 88 /min 88 /min eCW1 ([facility]) Respiratory rate 18 /min 18 /min eCW1 ([facility]) Body weight 173.6 [lb_av] 173.6 [lb_av] eCW1 ([facility]) Oxygen saturation in Arterial blood by Pulse oximetry 98 % 98 % eCW1 ([facility]) ID Date Data Source [id number] 12/06/2020 11:05:16 PM EST [facility] Name Value Range Interpretation Code Description Data Source(s) TRANSFER FROM [facility] ID Date Data Source [id number] 09/13/2020 01:57:00 PM EDT [facility] Name Value Range Interpretation Code Description Data Source(s) WEIGHT 86.8 kilos 86.8 kilos [facility] HEIGHT 182.88 centimeters 182.88 centimeter s [facility] WEIGHT 86.4 kilos 86.4 kilos [facility] HEIGHT 182.[address] [facility] ID Date Data Source [id number] 09/02/2020 12:08:52 PM EDT [facility] Name Value Range Interpretation Code Description Data Source(s) TRANSFER FROM [facility] Patient Treatment Plan of Care Planned Activity Planned Date Details Description Data Source (s) [place] 07/26/2020 01:46:00 PM EDT eCW1 ([facility]) Divalproex Sodium 500 MG Delayed Release Oral Tablet [ Depakote] 10/01/2020 12:00:00 AM EST eCW1 ([facility])
--- OUTSIDE RECORDS SUMMARY | 2021-09-17 15:38 | CCD ---
Author Author Ernesto Johnson Organization Unknown Address Unknown Phone Unavailable Care Team Providers Care Director Of Valuation Name Role Phone Elizabeth Jazmin PCP Unavailable Allergies, Adverse Reactions, Alerts Allergy Substance Code C odeSystem Reaction Severity Critic ality Status Start Date Moderate Medications Medication Medication Code Medication CodeSystem Start Date Stop Date Route Dose Status Fill Instructions RxNorm Problems Problem Name Code CodeSy stem Alternate Code Alternate CodeSystem Start Date End Date Status Narrative Paranoid schizophrenia 20551310 SNOMED-CT 2021-02-04 Active Schizoaffective disorder, unspecified 24801786 SNOMED-CT 2020-09-12 Active Schizoaffective disorder, unspecified 36465656 SNOMED-CT 2020-09-12 Active Paranoid schizophrenia 85284743 SNOMED-CT 2021-02-04 Active Relevant diagnostic tests/laboratory data Narrative No Information Procedures Procedure Name Code Code System Target Site Date of Procedure Status Service Delivery Location Device Cod e Device Name Device UID Psychotherapy, 45 minutes with patient [id number] SNOMED-CT () 2021-08-[address], [id number] Psychotherapy, 45 minutes with patient [id number] SNOMED-CT () 2021-08-[address], [id number] Initial Psychiatric Evaluation 838778019 SNOMED-CT () 2021-07-[address], [id number] Comprehensive medication services, per 15 minutes 856423928 SNOMED-CT () 2021-09-[address], [id number] Est. Patient - E&M Intermediate 655005608 SNOMED-CT () 2021-07-[address], [id number] [id number] Est. Patient - E&M Expanded 941515510 SNOMED-CT () 2021-08-[address], [id number] Individual Psychotherapy 62015928 SNOMED-CT () 2021-08-[address], [id number] Individual Psychotherapy 45691149 SNOMED-CT () 2021-08-[address], [id number] Psychiatric Diagnostic Evaluation without medical serv ices 391076755 SNOMED-CT () 2021-09-[address], 479051113 [id number] SNOMED-CT () 2020-11-[address] [place], [place], 553568010 [id number] SNOMED-CT () 2021-01-[address], 607256580 [id number] SNOMED-CT () 2020-10-[address], 970983214 [id number] SNOMED-CT () 2020-12-[address], 042793836 [id number] SNOMED-CT () 2020-10-[address], 013275739 [id number] SNOMED-CT () 2020-11-[address], 977980744 [id number] SNOMED-CT () 2020-12-[address], 349962179 [id number] SNOMED-CT () 2021-01-[address], 460785860 [id number] SNOMED-CT () 2021-02-[address], 790745374 [id number] SNOMED-CT () 2021-03-[address], 087942328 [id number] SNOMED-CT () 2021-04-[address], 357555842 [id number] SNOMED-CT () 2021-05-[address], 503080037 [id number] SNOMED-CT () 2021-06-[address], 354999948 [id number] SNOMED-CT () 2021-07-[address], 938345909 [id number] SNOMED-CT () 2021-08-[address], 375621481 [id number] SNOMED-CT () 2021-09-[address], 680991979 [id number] SNOMED-CT () 2020-10-[address], 542766811 [id number] SNOMED-CT () 2020-11-[address], 466803556 [id number] SNOMED-CT () 2020-12-[address], 334698057 [id number] SNOMED-CT () 2021-01-[address], 802574890 [id number] SNOMED-CT () 2021-02-[address], 908036444 [id number] SNOMED-CT () 2021-03-[address], 597299835 [id number] SNOMED-CT () 2020-09-[address], 250294495 [id number] SNOMED-CT () 2020-08-[address], 822228315 [id number] SNOMED-CT () 2021-04-[address], 249071831 [id number] SNOMED-CT () 2021-05-[address], 061260419 [id number] SNOMED-CT () 2021-06-[address], 297539999 [id number] SNOMED-CT () 2021-07-[address], 289981207 [id number] SNOMED-CT () 2021-08-[address], 486670206 [id number] SNOMED-CT () 2021-09-[address], 182979209 [id number] Encounters/Encounter Diagnoses Encounter Name Encounter Code Diagnosis Code Diagnosis Name Diagnosis CodeSystem Date of Diagnosis Service Delivery L ocation Psychiatric Diagnostic Evaluation [id number] Paranoid schizophrenia SNOMED-CT 2021-09-04 [facility] [address] [place] [address], [id number] Vital Signs No Information Social History Element Description Description Start Date End Date Code CodeSystem AdditionalInfo SexAssignedAtBirth Male 1990 M AdministrativeGender Hospital Discharge Instructions * Reason For Referral Medical Equipment * FDA Assessments *
[2021-09-17] MEDS ORDERED: NICOTINE 21MG/24HR 1 EA TRANSDERMAL TD ONE (15:40)
[2021-09-17] MEDS ORDERED: OLANZapine ORAL DISINTEGRATING TAB 5MG PO PRN (15:40)
[2021-09-17 16:22] VITALS: BP 123/69
[2021-09-17] MEDS: ARIPiprazole 15 MG TAB (AbiLIFY) PO SCH (20:45)
[2021-09-17] MEDS: traZODone 50 MG TAB PO PRN (20:45)
[2021-09-18 06:31] VITALS: BP 103/52
[2021-09-18] MEDS: NICOTINE 21MG/24HR 1 EA TRANSDERMAL TD SCH ×2 (09:00→09:20)
--- NOTE | 2021-09-18 09:03 | ECGEPIP ---
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
[2021-09-18] MEDS: ARIPiprazole 15 MG TAB (AbiLIFY) PO SCH (09:19)
--- NOTE | 2021-09-18 10:23 | MHHPEPDOC ---
General Legal Status: 9.39 Chief Complaint "I feel trapped" History of Present Illness HISTORY OF THE PRESENT ILLNESS: RELEVANT HISTORY: This casualty underwriter's consultation report: Patient is a 30 -year-old , male, with a pph of schizoaffective disorder and more than 10 hospitalizations presents with suicidal ideations and plan to jump off roof, endorses worsening depression, suicidal thoughts and command auditory hallucinations telling him to harm himself and that he needs to be in the hospital reportedly. Denies acute physical complaints. Denies medication side effects. Reported the symptoms at [facility] appointment and provider urged he be brought to the hospital for evaluation. Per PSA report: "PT was seen by his mental health provider today and he expressed that he is suicidal and plans to jump off the roof of a building and land on pavement. PT was recently admitted to [facility] 08/05 and 09/04. In November he had been admitted to [facility] and he describes his experience there as weird. PT states after his last [facility] d/c in August he felt much better and that lasted about a week and then he started to feel depressed again. PT lists stressors as being unemployed, not having a relationship, having no money, boredom and living at [facility]. He admits to two suicide attempts that he aborted-1. Started his car in a garage 2. Put a belt around his neck and began to strangle himself. Unsure of the time frames. He identifies his desire to have a , kids and a career as the motivator for him to abort the attempts. PT is admitting to and at first he states he can recogonize the voices but then he states "I dont know. I feel there is pain there. I dont want to look at it" He would not discuss furthur. He does not appear to be responding to internal stimuli but he does have pause times up to 20 seconds when answering questions. Currently he cannot CFS. He denies HI. PT was brought to ED on legal status 9.45 but per PT's provider at [facility] they only completed the order for transportation as they had no other means for PT to get to ED per his request. The order was not signed by a valid designee. PT is aware that [facility] is at capacity and he will need to be transferred for care. PT's mother called to check on him and referred to him as "one of your frequent flyers". PT declined to speak with her and does not wish for staff to speak with her. Per psychiatrist dr. Mccullough PT to be held in ED and he will complete a face to face in the morning as he has treated PT prior and would like to evaluate for admission vs. d/c." Interval: Patient is disorganized in interview, does not know if the medications are helping him with his disorganized thought process reports that he has trouble thinking straight, that he wants to join a cult and feels like his life is going nowhere and that he wants to end his life, states "I feel trapped", reports mood 3-4 out of 10, "I really want in my life and into the spirit world, reports stressors of having no job, no career, being in his [facility] home and feeling situation is not improving. Past Psychiatric History Per [facility] jul 30: "Previous Psychiatric Diagnosis: Schizoaffective Disorder Previous Psychiatric Admissions: 10+ Hospitalizations, last admission was [facility] Suicide Attempts: No gestures or attempts Psychiatric Follow-up: [facility] Psychiatric medications: Haldol, Haldol Dec, Effexor, Risperdal, Invega Sustenna, Aristada" recent admission to [facility] Jul 30- for SI/psychosis, aug 02 received abilify 400 mg IM Past Medical History Medical Problems PAST MEDICAL HISTORY: non-contributory Head Injury: No Seizures: No Hospitalizations: Yes Surgeries: No Addiction History nicotine Social History Per [facility] and P 07/30 "Childhood: [place], 3 brothers, Abuse/Trauma: Unable to answer Current Living Situation: Lives in [facility] in [place] Education: Graduated High School in [place] Employment: Unemployed Social Support: [facility] Legal: Unknown Marital: Single" Confirmed with patient Mental Status Examination General Appearance: disheveled Build: thin, tall Demeanor: mistrustful, guarded Eye Contact: avoidant Activity: slowed, anxious Behavior: resistant, loss of interests, anhedonia, withdrawn Speech: spontaneous, slow, impoverished Mood: depressed, anxious, irritable Mood " I do not know, 3-4 out of 10" Affect: flat, anxious, disorganized Thought Process: circumstantial, concrete, depressed, slow Thought Content (Delusions): nihilistic, paranoia, delusions, other (Endorses suicidal thoughts with intent, no plan) Thought Content (Other): preoccupied, guarded, phobic, internal-stimuli Thought Content (Aggressive): none reported Perception (Hallucinations): visual Perception (Other): none reported Cognition (Impairment of): attention/concentration Cognition(Intelligence Est.): average Oriented: Awake, Alert, Oriented times three Insight: poor Judgment: Poor Psychosis: Psychotic Perceptions Diagnoses Schizoaffective depressed type Tobacco use disorder A-FIB/CHADSVASC A-FIB History Current/History of A-Fib/PAF?: No Current PO Anticoag Therapy: No Age/Risk Factor Scoring CHADSVASC: CHADSVASC Response (Comments) Value Age Risk Factor Age < 65 years old 0 Gender Risk Factor Male 0 Hx of CHF No 0 Hx of HTN No 0 Hx of Stroke/TIA/or VTE No 0 Hx of Diabetes No 0 Hx of Vascular Disease No 0 Total 0 Treatment Treatment ordered: NONE Reason Anticoagulant not given: Not indicated/[id number] Assessment Patient is a 30-year-old man who presents from [facility] referral by provider due to worsening suicidal thoughts, disorganization. Patient appears disorganized, internally preoccupied, endorses visual hallucinations but does not elaborate on auditory hallucinations, endorses paranoia, feels his situation has not improved in life and that he cannot think clearly. Agrees to starting paliperidone, made aware of common and rare side effects. Plan for cross taper of Abilify for paliperidone. Reports last Abilify injection 05 September 2001, this needs confirmation. Initial Treatment Plan 1. Patient was admitted on a [9.39] status. 2. Complete history was obtained. 3. With patients permission, family will be contacted and database will be expanded. 4. Patients medication regimen will be reviewed and changed accordingly. 5. Patient will be provided with protected environment. 6. Patient will be treated with individual, group, and milieu therapies. 7. Patient will receive supportive psych-education. 8. Discharge planning will commence immediately. 9. Outpatient follow-up treatment will be strongly recommended. 10. The initial treatment plan will focus initially on: * Depression. * Risk for suicide. ESTIMATED LENGTH OF STAY: 5-10 DAYS. TIME SPENT COUNSELING AND COORDINATING INITIAL CARE: 60 minutes. Tobacco Cessation Screen If Patient is a Smoker yes Tobacco Cessation Tx Ordered?: Yes Complete/Results docum. Vital Signs Vital Signs Date Time Temp Pulse Resp B/P (MAP) Pulse Ox O2 Delivery O2 Flow Rate FiO2 09/18/21 06:31 97.2 57 18 103/52 (69) 100 Room Air Medications Scheduled Aripiprazole (Abilify Maintena) 400 Mg Suser.syr, 400 MG IM QMONTH, (Reported) Allergies Coded Allergies: Penicillins (Verified Allergy, Intermediate, 12/02/20) SWELLING BRISEYDA MCCULLOUGH MD Sep 18, 2021 10:23
--- NOTE | 2021-09-18 19:08 | HPEPDOC ---
General Date of Admission Sep 17, 2021 at 15:21 Date of Service: Sep 18, 2021 Chief Complaint The patient is a 30-year-old male admitted with a reason for visit of Unspecified Psychotic Do. Source: Patient Exam Limitations: No limitations History of Present Illness Patient 30 years old male with past medical history of Schizoaffective Disorder presented to hospital with suicidal thoughts. He expressed that he is suicidal and plans to jump off the roof of a building and land on pavement. During my interview patient denied fever, chest pain, palpitations, chills, nausea, diarrhea, dysuria Home Medications Scheduled Aripiprazole (Abilify Maintena) 400 Mg Suser.syr, 400 MG IM QMONTH, (Reported) Allergies Coded Allergies: Penicillins (Verified Allergy, Intermediate, 12/02/20) SWELLING Past Medical History Medical History Schizoaffective Disorder Social History * Smoker: other (vaping) Alcohol: occationally Drugs: marijuana A-FIB/CHADSVASC A-FIB History Current/History of A-Fib/PAF?: No Current PO Anticoag Therapy: No Age/Risk Factor Scoring CHADSVASC: CHADSVASC Response (Comments) Value Age Risk Factor Age < 65 years old 0 Gender Risk Factor Male 0 Hx of CHF No 0 Hx of HTN No 0 Hx of Stroke/TIA/or VTE No 0 Hx of Diabetes No 0 Hx of Vascular Disease No 0 Total 0 Review of Systems Constitutional: Denies: Chills ENT: Denies: Head Aches Skin: Denies: Rash Pulmonary: Denies: Dyspnea Cardiovascular: Denies: Chest Pain Gastrointestinal: Denies: Nausea Genitourinary: Denies: Dysuria Hematologic: Denies: Bruising Musculoskeletal: Denies: Neck Pain Neurological: Denies: Weakness Psych: Reports: Depression Physical Examination General Exam: Positive: Alert Eye Exam: Positive: PERRLA ENT Exam: Positive: Atraumatic Neck Exam: Positive: Supple; Negative: JVD Chest Exam: Positive: Clear to auscultation Heart Exam: Positive: Rate Normal Telemetry: Positive: No significant arrhythmia Abdomen Exam: Positive: Normal bowel sounds Extremity Exam: Negative: Clubbing Skin Exam: Positive: Nl turgor and temperature Neuro Exam: Positive: Normal Gait Psych Exam: Positive: Oriented x 3 Vital Signs Vital Signs Date Time Temp Pulse Resp B/P (MAP) Pulse Ox O2 Delivery O2 Flow Rate FiO2 11/4/21 06:31 97.2 57 18 103/52 (69) 100 Room Air Assessment/Plan Patient 30 years old male with past medical history of Schizoaffective Disorder presented to hospital with suicidal thoughts. He expressed that he is suicidal and plans to jump off the roof of a building and land on pavement. During my interview patient denied fever, chest pain, palpitations, chills, nausea, diarrhea, dysuria Problems (1) Depression with suicidal ideation Status: Acute Problem Text: Defer treatment to psych team Plan / VTE VTE Prophylaxis Ordered?: No VTE Exclusion Mechanical Proph: Low Risk for VTE LYNDA ABREU DO Sep 18, 2021 19:08
[2021-09-18 19:35] VITALS: BP 112/59
[2021-09-18] MEDS: LORazepam 1 MG TAB PO PRN (19:39)
[2021-09-18] MEDS: haloperidoL 5 MG TAB PO PRN (19:40)
[2021-09-18] MEDS: ARIPiprazole 10 MG TAB PO SCH (19:40)
[2021-09-18] MEDS ORDERED: PALIPERIDONE 3 MG ER TAB (INVEGA) PO SCH (21:00)
[2021-09-19] MEDS: NICOTINE 21MG/24HR 1 EA TRANSDERMAL TD SCH (09:00)
[2021-09-19] MEDS: ARIPiprazole 10 MG TAB PO SCH ×2 (09:12→21:48)
--- NOTE | 2021-09-19 14:20 | MHIPNPDOC ---
[facility] Progress Note Progress Note DATE OF SERVICE: 09/19/21 HISTORY: This bond writer's consultation report: Patient is a 30 -year-old , male, with a pph of schizoaffective disorder and more than 10 hospitalizations presents with suicidal ideations and plan to jump off roof, endorses worsening depression, suicidal thoughts and command auditory hallucinations telling him to harm himself and that he needs to be in the hospital reportedly. Denies acute physical complaints. Denies medication side effects. Reported the symptoms at [facility] appointment and provider urged he be brought to the hospital for evaluation. Interval: Patient continues to be disorganized, but less so than previous day, is looking around the room and says he sees a weekly character which she describes floater then goes on to say that he can talk to this character, last night was having a psychotic episode and felt that people were attacking him from the insides was yelling. Discussed treatment options including continuing paliperidone as an alternative to Abilify, was made aware of common and rare side effects including NMS, EPS, metabolic side effects and other common rare side effects. Was agreeable to increasing his nighttime dose and possibly re ceiving an injection monthly as an alternative to his Abilify IM FOSTER. VITAL SIGNS: See below. NEW TEST RESULTS: See below CURRENT MEDICATIONS: See below. MENTAL STATUS EXAMINATION: Patient is a 30-year old male, who is in no acute distress, lying in bed, put on his glasses, thin, tall, disheveled, in hospital clothing, appears older than stated age Speech: Is disorganized, poverty of speech Language skills are poor Thought processes including: Disorganized Thought content: Appears internally preoccupied, unable to clearly answer questions about self-harm, but states that he has no suicidal intent or plan. No homicidal ideations. abstract reasoning, and computation: Poor, unable to engage in questioning due to acute disorganization description of associations: Poor based on interview Description of abnormal or psychotic thoughts: Patient appears internally preoccupied, disorganized, responding to auditory hallucinations, visual hallucinations, has paranoia reportedly Judgment: Poor Insight: Poor Orientation: x4 Recent and remote memory: Limited in context of disorganization Attention span and concentration: Decreased Language: Luxembourgish Fund of knowledge: Average based on history Mood: "Anxious" affect: Paranoid, internally preoccupied, disorganized DIAGNOSES: Schizoaffective disorder, depressed type Cannabis use disorder Tobacco use disorder ASSESSMENT: Patient continues to be grossly psychotic and internally preoccupied, poses a risk for safety of self and others. Patient also continues to be depressed although denies suicidal intent or plan. Patient needs extended stay for stabilization of psychotic symptoms. Patient denies acute physical complaints, denies medication side effects. MANAGEMENT PLAN: Increase paliperidone to 6 mg nightly for acute psychotic symptoms. Plan to possibly start Invega Sustenna 234 mg IM FOSTER within 1 week, with subsequent booster shot at 156 mg within the following week. Maintenance paliperidone IM FOSTER will be determined based on response to oral dosing. TIME SPENT: 20 minutes. Vital Signs Vital Signs Date Time Temp Pulse Resp B/P (MAP) Pulse Ox O2 Delivery O2 Flow Rate FiO2 09/18/21 19:35 97.9 68 16 112/59 (76) 97 09/18/21 06:31 Room Air Current Medications Current Medications Medications (Trade) Dose Ordered Sig/Jamey Route PRN Reason Start Time Stop Time Status Last Admin Dose Admin Acetaminophen (Tylenol Tab) 650 mg Q6HP PRN PO HEADACHE or MILD DISCOMFORT 09/17/21 15:25 Al Hydrox/Mg Hydrox/Simethicone (Mylanta) 30 ml Q4HP PRN PO HEARTBURN/INDIGESTION 09/17/21 15:25 Aripiprazole (AbiLIFY) 10 mg BID PO 09/18/21 21:00 09/19/21 09:12 Aripiprazole (AbiLIFY) 15 mg BID PO 09/17/21 21:00 09/18/21 10:25 DC 09/18/21 09:19 Haloperidol (Haldol) 5 mg Q4HP PRN PO AGITATION 09/18/21 13:25 09/18/21 19:40 Home Med (Home Med List Complete!) ASDIRECTED XX 09/16/21 23:05 09/16/21 23:08 DC Lorazepam (Ativan) 1 mg QIDP PRN PO ANXIETY/AGITATION 09/18/21 13:25 09/18/21 19:39 Magnesium Hydroxide (Milk Of Magnesia) 30 ml DAILYPRN PRN PO CONSTIPATION 09/17/21 15:25 Nicotine (Nicoderm Cq 21mg) 1 patch DAILY TD 09/18/21 09:00 09/19/21 09:17 DC Olanzapine (ZyPREXA ZYDIS) 5 mg Q6HP PRN PO ANXIETY/AGITATION 09/17/21 15:40 09/18/21 13:24 DC 09/18/21 13:13 Paliperidone (Invega) 3 mg QHS PO 09/18/21 21:00 09/19/21 09:59 DC 09/18/21 19:40 Paliperidone (Invega) 6 mg QHS PO 09/19/21 21:00 Trazodone HCl (Desyrel) 50 mg QHSP PRN PO INSOMNIA 09/17/21 15:25 09/17/21 20:45 Allergies Coded Allergies: Penicillins (Verified Allergy, Intermediate, 12/02/20) SWELLING BRISEYDA MCCULLOUGH MD Sep 19, 2021 14:20
[2021-09-19] MEDS: LORazepam 1 MG TAB PO PRN (15:47)
[2021-09-19] MEDS: haloperidoL 5 MG TAB PO PRN (15:47)
[2021-09-19 19:20] VITALS: BP 143/71
[2021-09-19] MEDS: PALIPERIDONE 3 MG ER TAB (INVEGA) PO SCH (21:48)
[2021-09-20 06:49] VITALS: BP 106/51
[2021-09-20] MEDS: ARIPiprazole 10 MG TAB PO SCH ×2 (09:26→21:33)
[2021-09-20] MEDS: LORazepam 1 MG TAB PO PRN (17:18)
[2021-09-20] MEDS: haloperidoL 5 MG TAB PO PRN (17:18)
[2021-09-20 18:42] VITALS: BP 125/71
--- NOTE | 2021-09-20 18:49 | MHIPN ---
[facility] PROGRESS NOTE DATE: 09/20/2021 The patient today states, "I'm doing well." He says that he is no longer having suicidal thoughts, but then he says, "Today is a better day, but I feel lost and aimless." I asked him if he was still hearing voices telling him to harm himself, and he said, "I don't know how to be honest about that." He did say that he slept good. MENTAL STATUS EXAMINATION: This patient is alert and oriented times three. Eye contact is fair. Speaks in a monotone. There is no formal thought disorder. He says that his mood is "well." Affect is flat. He is not psychotic, suicidal, homicidal. Concentration and memory are fairly good. Insight and judgment are fair. DIAGNOSIS: Schizoaffective disorder, depressed type. TREATMENT PLAN: At this point we will continue to monitor the patient. We will continue observation and stabilization of mood and continue resolution of suicidal and homicidal ideation.
[2021-09-20] MEDS: PALIPERIDONE 3 MG ER TAB (INVEGA) PO SCH (21:33)
[2021-09-21 06:45] VITALS: BP 138/67
[2021-09-21] MEDS: ARIPiprazole 10 MG TAB PO SCH ×2 (09:51→20:48)
[2021-09-21] MEDS: haloperidoL 5 MG TAB PO PRN (14:52)
[2021-09-21] MEDS: LORazepam 1 MG TAB PO PRN (14:52)
[2021-09-21 18:23] VITALS: BP 144/84
[2021-09-21] MEDS: PALIPERIDONE 3 MG ER TAB (INVEGA) PO SCH (20:48)
[2021-09-22 06:44] VITALS: BP 126/62
--- NOTE | 2021-09-22 08:28 | MHIPNPDOC ---
[facility] Progress Note Progress Note DATE OF SERVICE: 09/22/21 HISTORY: This scientific technical writer's consultation report: Patient is a 30 -year-old , male, with a pph of schizoaffective disorder and more than 10 hospitalizations presents with suicidal ideations and plan to jump off roof, endorses worsening depression, suicidal thoughts and command auditory hallucinations telling him to harm himself and that he needs to be in the hospital reportedly. Denies acute physical complaints. Denies medication side effects. Reported the symptoms at [facility] appointment and provider urged he be brought to the hospital for evaluation. Interval: Denies tight muscles, AIMS score = 0 on interview, patient reports that his thoughts are clear, that he is less anxious and paranoid, appears less disorganized, but continues to state that he feels people are coming and going from his body. Discussed medication changes and patient is agreeable to this, overall feels that his mood is more optimistic and improved from previous days, denies any acute medication side effects or acute physical complaints. VITAL SIGNS: See below. NEW TEST RESULTS: See below CURRENT MEDICATIONS: See below. MENTAL STATUS EXAMINATION: Patient is a 30-year old male, who is in no acute distress, lying in bed, put on his glasses, thin, tall, disheveled, in hospital clothing, appears older than stated age Speech: Is spontaneous, normal amount Language skills are poor Thought processes including: less disorganized Thought content: Denies SI or HI, feels doing abstract reasoning, and computation: normal description of associations: good on questioning Description of abnormal or psychotic thoughts: Patient appears internally preoccupied, disorganized, responding to auditory hallucinations, visual hallucinations, has paranoia reportedly Judgment: Improving Insight: Improving Orientation: x4 Recent and remote memory: Limited in context of disorganization Attention span and concentration: Decreased Language: South African Fund of knowledge: Average based on history Mood: "optimistic and happy" affect: mildly disorganized, less internally preoccupied, stable mood, blunted DIAGNOSES: Schizoaffective disorder, depressed type Cannabis use disorder Tobacco use disorder ASSESSMENT: Patient is less concrete, less disorganized, reports improvements in clarity of thought with medication, without side effects including allergy or any EPS symptoms, agreeable to changes including disc continue Abilify increasing dose of Invega. Patient continues to have some bizarre delusions as mentioned above people coming and going into his body, denies scary or aggressive thoughts. Needs continued stay for acute stabilization of psychotic symptoms. MANAGEMENT PLAN: Continue Abilify, increase oral paliperidone to 9 mg nightly. Patient agrees to plan, plan to possibly start Invega Sustenna 234 mg IM FOSTER tomorrow or the following days depending on response to oral medication, with subsequent booster shot at 156 mg within the following week. Maintenance paliperidone IM FOSTER will be determined based on response to oral dosing. TIME SPENT: 25 minutes. Vital Signs Vital Signs Date Time Temp Pulse Resp B/P (MAP) Pulse Ox O2 Delivery O2 Flow Rate FiO2 09/22/21 06:44 98.2 60 16 126/62 (83) 97 Room Air Current Medications Current Medications Medications (Trade) Dose Ordered Sig/Jamey Route PRN Reason Start Time Stop Time Status Last Admin Dose Admin Acetaminophen (Tylenol Tab) 650 mg Q6HP PRN PO HEADACHE or MILD DISCOMFORT 09/17/21 15:25 Al Hydrox/Mg Hydrox/Simethicone (Mylanta) 30 ml Q4HP PRN PO HEARTBURN/INDIGESTION 09/17/21 15:25 Aripiprazole (AbiLIFY) 5 mg BID PO 09/22/21 09:00 Aripiprazole (AbiLIFY) 10 mg BID PO 09/18/21 21:00 09/22/21 08:14 DC 09/21/21 20:48 Aripiprazole (AbiLIFY) 15 mg BID PO 09/17/21 21:00 09/18/21 10:25 DC 09/18/21 09:19 Haloperidol (Haldol) 5 mg Q4HP PRN PO AGITATION 09/18/21 13:25 09/21/21 14:52 Home Med (Home Med List Complete!) ASDIRECTED XX 09/16/21 23:05 09/16/21 23:08 DC Lorazepam (Ativan) 1 mg QIDP PRN PO ANXIETY/AGITATION 09/18/21 13:25 09/21/21 14:52 Magnesium Hydroxide (Milk Of Magnesia) 30 ml DAILYPRN PRN PO CONSTIPATION 09/17/21 15:25 Nicotine (Nicoderm Cq 21mg) 1 patch DAILY TD 09/18/21 09:00 09/19/21 09:17 DC Olanzapine (ZyPREXA ZYDIS) 5 mg Q6HP PRN PO ANXIETY/AGITATION 09/17/21 15:40 09/18/21 13:24 DC 09/18/21 13:13 Paliperidone (Invega) 3 mg QHS PO 09/18/21 21:00 09/19/21 09:59 DC 09/18/21 19:40 Paliperidone (Invega) 6 mg QHS PO 09/19/21 21:00 09/22/21 08:19 DC 09/21/21 20:48 Paliperidone (Invega) 9 mg QHS PO 09/22/21 21:00 UNV Trazodone HCl (Desyrel) 50 mg QHSP PRN PO INSOMNIA 09/17/21 15:25 09/17/21 20:45 Allergies Coded Allergies: Penicillins (Verified Allergy, Intermediate, 12/02/20) SWELLING BRISEYDA MCCULLOUGH MD Sep 22, 2021 08:28
--- NOTE | 2021-09-22 10:45 | MHIPN ---
[facility] PROGRESS NOTE DATE: 09/21/2021 HISTORY OF PRESENT ILLNESS: The patient today states "I am doing good." He says he slept good, but he tells me that he is not having suicidal thoughts now, but he is worried about what is going to happen when he goes home at the [facility] residence. He says "when I go home all I do is sit in bed all day long and I don't have a job. I would like to work, but I'm not sure if I can." He remains somewhat confused. I asked him whether he was hearing voices and then basically he said that he was not sure how to answer that question. MENTAL STATUS EXAM: This patient is alert and oriented times 3. Eye contact is fair. Psychomotor activity is normal. There is no formal thought disorder. His says his mood is good. His affect is flat. He is still having some psychotic symptoms. he is not suicidal or homicidal. Concentration is fair. Memory intact. Insight and judgment is poor. DIAGNOSIS: Schizoaffective disorder. TREATMENT PLAN: At this point the patient will continue to be monitored for resolution of psychotic symptoms and resolution of any suicidal or homicidal ideations. We will titrate his medications as indicated.
[2021-09-22] MEDS: PALIPERIDONE 3 MG ER TAB (INVEGA) PO SCH (20:10)
[2021-09-23] MEDS ORDERED: PALIPERIDONE PALMITATE 234MG/1.5ML INJ (INVEGA)(FREE PSY INPT ONLY) IM SCH (09:00)
--- NOTE | 2021-09-23 11:16 | MHIPNPDOC ---
[facility] Progress Note Progress Note DATE OF SERVICE: 09/23/21 HISTORY: This senior mortgage underwriter's consultation report: Patient is a 30 -year-old , male, with a pph of schizoaffective disorder and more than 10 hospitalizations presents with suicidal ideations and plan to jump off roof, endorses worsening depression, suicidal thoughts and command auditory hallucinations telling him to harm himself and that he needs to be in the hospital reportedly. Denies acute physical complaints. Denies medication side effects. Reported the symptoms at TLS appointment and provider urged he be brought to the hospital for evaluation. Interval: Patient tolerating paliperidone 9 mg nightly without side effects reported, was lying in bed and has not been attending groups, was encouraged to attend groups, denies any acute physical complaints, reports that he feels his t hinking is clearer since increasing his medication, agreeable to taking paliperidone IM FOSTER tomorrow, where, and rare side effects. VITAL SIGNS: See below. NEW TEST RESULTS: See below CURRENT MEDICATIONS: See below. MENTAL STATUS EXAMINATION: Patient is a 30-year old male, who is in no acute distress, sitting in bed, thin, tall, less disheveled, in hospital clothing, appears older than stated age Speech: Is spontaneous, normal amount Language skills are improving Thought processes including: continues to be less disorganized Thought content: Denies SI or HI, feels doing abstract reasoning, and computation: normal description of associations: good on questioning Description of abnormal or psychotic thoughts: Reports improvement in paranoia, appears less disorganized, denies hallucinations Judgment: Improving Insight: Improving Orientation: x4 Recent and remote memory: Continues to be improved Attention span and concentration: Decreased Language: Thai Fund of knowledge: Average based on history Mood: "No problems" affect: Continues to be blunted, less anxious, less paranoid DIAGNOSES: Schizoaffective disorder, depressed type Cannabis use disorder Tobacco use disorder ASSESSMENT: Patient reporting improvement psychotic symptoms including level disorganization, paranoia, no longer reporting visual hallucinations. Possibly minimizing symptoms, but states that medication is helping him, denies medication side effects, AIMS scoring is 0 today on interview. MANAGEMENT PLAN: Discontinue Abilify, continue oral paliperidone to 9 mg nightly. Ordered Invega Sustenna 234 mg IM FOSTER for tomorrow a.m., will require subsequent booster shot at 156 mg within the following week. TIME SPENT: 20 minutes. Vital Signs Vital Signs Date Time Temp Pulse Resp B/P (MAP) Pulse Ox O2 Delivery O2 Flow Rate FiO2 09/22/21 06:44 98.2 60 16 126/62 (83) 97 Room Air Current Medications Current Medications Medications (Trade) Dose Ordered Sig/Jamey Route PRN Reason Start Time Stop Time Status Last Admin Dose Admin Acetaminophen (Tylenol Tab) 650 mg Q6HP PRN PO HEADACHE or MILD DISCOMFORT 09/17/21 15:25 Al Hydrox/Mg Hydrox/Simethicone (Mylanta) 30 ml Q4HP PRN PO HEARTBURN/INDIGESTION 09/17/21 15:25 Aripiprazole (AbiLIFY) 5 mg BID PO 09/22/21 09:00 09/23/21 11:06 DC 09/23/21 08:04 Aripiprazole (AbiLIFY) 10 mg BID PO 09/18/21 21:00 09/22/21 08:14 DC 09/21/21 20:48 Aripiprazole (AbiLIFY) 15 mg BID PO 09/17/21 21:00 09/18/21 10:25 DC 09/18/21 09:19 Haloperidol (Haldol) 5 mg Q4HP PRN PO AGITATION 09/18/21 13:25 09/21/21 14:52 Home Med (Home Med List Complete!) ASDIRECTED XX 09/16/21 23:05 09/16/21 23:08 DC Lorazepam (Ativan) 1 mg QIDP PRN PO ANXIETY/AGITATION 09/18/21 13:25 09/21/21 14:52 Magnesium Hydroxide (Milk Of Magnesia) 30 ml DAILYPRN PRN PO CONSTIPATION 09/17/21 15:25 Nicotine (Nicoderm Cq 21mg) 1 patch DAILY TD 09/18/21 09:00 09/19/21 09:17 DC Olanzapine (ZyPREXA ZYDIS) 5 mg Q6HP PRN PO ANXIETY/AGITATION 09/17/21 15:40 09/18/21 13:24 DC 09/18/21 13:13 Paliperidone (Invega) 3 mg QHS PO 09/18/21 21:00 09/19/21 09:59 DC 09/18/21 19:40 Paliperidone (Invega) 6 mg QHS PO 09/19/21 21:00 09/22/21 08:19 DC 09/21/21 20:48 Paliperidone (Invega) 9 mg QHS PO 09/22/21 21:00 09/22/21 20:10 Trazodone HCl (Desyrel) 50 mg QHSP PRN PO INSOMNIA 09/17/21 15:25 09/17/21 20:45 Allergies Coded Allergies: Penicillins (Verified Allergy, Intermediate, 12/02/20) SWELLING BRISEYDA MCCULLOUGH MD Sep 23, 2021 11:16
[2021-09-23 16:30] VITALS: BP 130/71
[2021-09-23] MEDS: PALIPERIDONE 3 MG ER TAB (INVEGA) PO SCH (21:18)
[2021-09-24] MEDS: traZODone 50 MG TAB PO PRN (00:54)
[2021-09-24 06:44] VITALS: BP 117/56
[2021-09-24] MEDS: PALIPERIDONE 3 MG ER TAB (INVEGA) PO SCH ×2 (10:16→19:50)
--- NOTE | 2021-09-24 11:58 | MHIPNPDOC ---
[facility] Progress Note Progress Note DATE OF SERVICE: 09/24/21 HISTORY: This jingle writer's consultation report: Patient is a 30 -year-old , male, with a pph of schizoaffective disorder and more than 10 hospitalizations presents with suicidal ideations and plan to jump off roof, endorses worsening depression, suicidal thoughts and command auditory hallucinations telling him to harm himself and that he needs to be in the hospital reportedly. Denies acute physical complaints. Denies medication side effects. Reported the symptoms at TLS appointment and provider urged he be brought to the hospital for evaluation. Interval: Patient reports tolerating medications well, agrees to decreasing paliperidone to 3 mg twice daily, likely oversedated in context of having his paliperidone, Invega 204 mg IM FOSTER, patient is good with associations and proverb interpretations. Remains somewhat concrete, reports improved mood, has started to go to groups as of yesterday. Perseverates on when to return home, was made aware will need a booster paliperidone 156 mg IM FOSTER. VITAL SIGNS: See below. NEW TEST RESULTS: See below CURRENT MEDICATIONS: See below. MENTAL STATUS EXAMINATION: Patient is a 30-year old male, who is in no acute distress, sitting in bed, thin, tall, less disheveled, in hospital clothing, appears older than stated age Speech: Is spontaneous, normal amount Language skills are improving Thought processes including: continues to be less disorganized Thought content: Denies SI or HI, feels doing abstract reasoning, and computation: normal description of associations: good on questioning Description of abnormal or psychotic thoughts: Denies psychotic symptoms, does not appear to be responding to internal stimuli on interview Judgment: Improving Insight: Improving Orientation: x4 Recent and remote memory: Continues to be improved Attention span and concentration: Decreased Language: Yoruba Fund of knowledge: Average based on history Mood: "no issue" affect: no change, blunted, less anxious, less paranoid DIAGNOSES: Schizoaffective disorder, depressed type Cannabis use disorder Tobacco use disorder ASSESSMENT: No pain in the injection site, no swelling, denies side effects medications, no acute physical complaints, started to attend groups, perseverates on wanting to return home and is agreeable to medication changes. Patient continues to be concrete, somewhat withdrawn, less internally preoccupied or paranoid, needs continued stay for dosing adjustments of medications to ensure stability from psychosis. MANAGEMENT PLAN: Titrate oral paliperidone from 9 mg nightly to 3 mg twice daily, received Invega Sustenna 234 mg IM FOSTER 09/23/21, will require subsequent booster shot at 156 mg ordered for 09/29/2021. TIME SPENT: 20 minutes. Vital Signs Vital Signs Date Time Temp Pulse Resp B/P (MAP) Pulse Ox O2 Delivery O2 Flow Rate FiO2 09/24/21 06:44 99.2 68 16 117/56 (76) 97 Room Air Current Medications Current Medications Medications (Trade) Dose Ordered Sig/Jamey Route PRN Reason Start Time Stop Time Status Last Admin Dose Admin Acetaminophen (Tylenol Tab) 650 mg Q6HP PRN PO HEADACHE or MILD DISCOMFORT 09/17/21 15:25 Al Hydrox/Mg Hydrox/Simethicone (Mylanta) 30 ml Q4HP PRN PO HEARTBURN/INDIGESTION 09/17/21 15:25 Aripiprazole (AbiLIFY) 5 mg BID PO 09/22/21 09:00 09/23/21 11:06 DC 09/23/21 08:04 Aripiprazole (AbiLIFY) 10 mg BID PO 09/18/21 21:00 09/22/21 08:14 DC 09/21/21 20:48 Aripiprazole (AbiLIFY) 15 mg BID PO 09/17/21 21:00 09/18/21 10:25 DC 09/18/21 09:19 Haloperidol (Haldol) 5 mg Q4HP PRN PO AGITATION 09/18/21 13:25 09/21/21 14:52 Home Med (Home Med List Complete!) ASDIRECTED XX 09/16/21 23:05 09/16/21 23:08 DC Lorazepam (Ativan) 1 mg QIDP PRN PO ANXIETY/AGITATION 09/18/21 13:25 09/21/21 14:52 Magnesium Hydroxide (Milk Of Magnesia) 30 ml DAILYPRN PRN PO CONSTIPATION 09/17/21 15:25 Nicotine (Nicoderm Cq 21mg) 1 patch DAILY TD 09/18/21 09:00 09/19/21 09:17 DC Olanzapine (ZyPREXA ZYDIS) 5 mg Q6HP PRN PO ANXIETY/AGITATION 09/17/21 15:40 09/18/21 13:24 DC 09/18/21 13:13 Paliperidone (Invega) 3 mg BID PO 09/24/21 09:00 09/24/21 10:16 Paliperidone (Invega) 3 mg QHS PO 09/18/21 21:00 09/19/21 09:59 DC 09/18/21 19:40 Paliperidone (Invega) 6 mg QHS PO 09/19/21 21:00 09/22/21 08:19 DC 09/21/21 20:48 Paliperidone (Invega) 9 mg QHS PO 09/22/21 21:00 09/24/21 10:04 DC 09/23/21 21:18 Paliperidone Palmitate (Invega Sustenna) 234 mg Q30D IM 09/23/21 09:00 09/23/21 12:40 Trazodone HCl (Desyrel) 50 mg QHSP PRN PO INSOMNIA 09/17/21 15:25 09/24/21 00:54 Allergies Coded Allergies: Penicillins (Verified Allergy, Intermediate, 12/02/20) SWELLING BRISEYDA MCCULLOUGH MD Sep 24, 2021 11:58
[2021-09-24 16:25] VITALS: BP 134/68
[2021-09-24] MEDS: BENZTROPINE 1 MG TAB PO SCH (19:50)
[2021-09-25 06:56] VITALS: BP 101/50
[2021-09-25] MEDS: BENZTROPINE 1 MG TAB PO SCH ×2 (09:03→21:14)
[2021-09-25] MEDS: PALIPERIDONE 3 MG ER TAB (INVEGA) PO SCH ×2 (09:03→21:14)
--- NOTE | 2021-09-25 13:10 | MHIPNPDOC ---
[facility] Progress Note Progress Note DATE OF SERVICE: 09/25/21 HISTORY: This singer songwriter's consultation report: Patient is a 30 -year-old , male, with a pph of schizoaffective disorder and more than 10 hospitalizations presents with suicidal ideations and plan to jump off roof, endorses worsening depression, suicidal thoughts and command auditory hallucinations telling him to harm himself and that he needs to be in the hospital reportedly. Denies acute physical complaints. Denies medication side effects. Reported the symptoms at TLS appointment and provider urged he be brought to the hospital for evaluation. Interval: Patient has been attending few groups, went on September 23 to 2 groups, encouraged to go to groups, made aware we will get a paliperidone 156 mg FOSTER booster shot on Wednesday with potential discharge from the unit if symptoms are improving and is safe to leave. On interview patient states that he has had some sexual side effects has noticed that he is less easily aroused, made aware could be a side effect from medication and will monitor, as he just received a large dose of IM FOSTER and it takes time for the medication to stabilize in this blood stream. Otherwise no acute physical complaints or medication side effects. VITAL SIGNS: See below. NEW TEST RESULTS: See below CURRENT MEDICATIONS: See below. MENTAL STATUS EXAMINATION: Patient is a 30-year old male, who is in no acute distress, sitting in bed, thin, tall, wearing glasses, improved hygiene, in hospital clothing, appears older than stated age Speech: Is spontaneous, normal amount Language skills are improving Thought processes including: continues to be less disorganized Thought content: Denies SI or HI, feels doing abstract reasoning, and computation: normal description of associations: good on questioning Description of abnormal or psychotic thoughts: Denies psychotic symptoms, does not appear to be responding to internal stimuli on interview Judgment: Improving Insight: Improving Orientation: x4 Recent and remote memory: Continues to be improved Attention span and concentration: Decreased Language: Iranian Fund of knowledge: Average based on history Mood: "better" affect: less blunted, brighter, more engaged, less anxious, less paranoid DIAGNOSES: Schizoaffective disorder, depressed type Cannabis use disorder Tobacco use disorder ASSESSMENT: Patient appears less sedated today, has not been consistent with attending groups, less blunted and withdrawn, no longer appears internally preoccupied, states he is looking forward to returning to his [facility] housing and understands he needs to get the booster shot before he can leave, continues to improve on medications, needs continued stay in order to receive 100 for 6 mg FOSTER booster of paliperidone on 09/29. Possible sexual side effects of medication, will need further monitoring/evaluation to assess as patient maintained on medication, if becomes an issue may consider augmenting with another medication possibly Wellbutrin or considering adjusting his dose with outpatient provider. MANAGEMENT PLAN: Continue paliperidone 3 mg twice daily, received Invega Sustenna 234 mg IM FOSTER 09/23/21, will require subsequent booster shot at 156 mg ordered for 09/29/2021. TIME SPENT: 15 minutes. Vital Signs Vital Signs Date Time Temp Pulse Resp B/P (MAP) Pulse Ox O2 Delivery O2 Flow Rate FiO2 09/25/21 06:56 97.2 62 16 101/50 (67) 100 Room Air Current Medications Current Medications Medications (Trade) Dose Ordered Sig/Jamey Route PRN Reason Start Time Stop Time Status Last Admin Dose Admin Acetaminophen (Tylenol Tab) 650 mg Q6HP PRN PO HEADACHE or MILD DISCOMFORT 09/17/21 15:25 Al Hydrox/Mg Hydrox/Simethicone (Mylanta) 30 ml Q4HP PRN PO HEARTBURN/INDIGESTION 09/17/21 15:25 Aripiprazole (AbiLIFY) 5 mg BID PO 09/22/21 09:00 09/23/21 11:06 DC 09/23/21 08:04 Aripiprazole (AbiLIFY) 10 mg BID PO 09/18/21 21:00 09/22/21 08:14 DC 09/21/21 20:48 Aripiprazole (AbiLIFY) 15 mg BID PO 09/17/21 21:00 09/18/21 10:25 DC 09/18/21 09:19 Benztropine Mesylate (Cogentin) 1 mg BID PO 09/24/21 21:00 09/25/21 09:03 Haloperidol (Haldol) 5 mg Q4HP PRN PO AGITATION 09/18/21 13:25 09/21/21 14:52 Home Med (Home Med List Complete!) ASDIRECTED XX 09/16/21 23:05 09/16/21 23:08 DC Lorazepam (Ativan) 1 mg QIDP PRN PO ANXIETY/AGITATION 09/18/21 13:25 09/25/21 11:17 DC 09/21/21 14:52 Magnesium Hydroxide (Milk Of Magnesia) 30 ml DAILYPRN PRN PO CONSTIPATION 09/17/21 15:25 Miscellaneous (Unresolved Clarification Entry) SEE LABEL COMMENTS DAILY XX 09/24/21 09:00 Nicotine (Nicoderm Cq 21mg) 1 patch DAILY TD 09/18/21 09:00 09/19/21 09:17 DC Olanzapine (ZyPREXA ZYDIS) 5 mg Q6HP PRN PO ANXIETY/AGITATION 09/17/21 15:40 09/18/21 13:24 DC 09/18/21 13:13 Paliperidone (Invega) 3 mg BID PO 09/24/21 09:00 09/25/21 09:03 Paliperidone (Invega) 3 mg QHS PO 09/18/21 21:00 09/19/21 09:59 DC 09/18/21 19:40 Paliperidone (Invega) 6 mg QHS PO 09/19/21 21:00 09/22/21 08:19 DC 09/21/21 20:48 Paliperidone (Invega) 9 mg QHS PO 09/22/21 21:00 09/24/21 10:04 DC 09/23/21 21:18 Paliperidone Palmitate (Invega Sustenna) 234 mg Q30D IM 09/23/21 09:00 09/23/21 12:40 Trazodone HCl (Desyrel) 50 mg QHSP PRN PO INSOMNIA 09/17/21 15:25 09/24/21 00:54 Allergies Coded Allergies: Penicillins (Verified Allergy, Intermediate, 12/02/20) SWELLING BRISEYDA MCCULLOUGH MD Sep 25, 2021 13:10
[2021-09-25] MEDS ORDERED: NICOTINE 14 MG/24 HR TRANSDERMAL TD PRN (15:55)
[2021-09-25 18:46] VITALS: BP 127/68
[2021-09-25] MEDS: traZODone 50 MG TAB PO PRN (21:14)
[2021-09-26 06:19] VITALS: BP 136/80
[2021-09-26] MEDS: BENZTROPINE 1 MG TAB PO SCH ×2 (08:21→20:09)
[2021-09-26] MEDS: PALIPERIDONE 3 MG ER TAB (INVEGA) PO SCH ×2 (08:21→20:09)
--- NOTE | 2021-09-26 14:16 | MHIPNPDOC ---
[facility] Progress Note Progress Note DATE OF SERVICE: 09/26/21 HISTORY: This caption writer's consultation report: Patient is a 30 -year-old , male, with a pph of schizoaffective disorder and more than 10 hospitalizations presents with suicidal ideations and plan to jump off roof, endorses worsening depression, suicidal thoughts and command auditory hallucinations telling him to harm himself and that he needs to be in the hospital reportedly. Denies acute physical complaints. Denies medication side effects. Reported the symptoms at TLS appointment and provider urged he be brought to the hospital for evaluation. Interval: Patient was stating he is good to go home and that he wants to go back to his TLS and stop his injections, made aware he has a booster shot that would not be going home today due to safety concerns, patient continues to be ps ychotic disorganized, endorses auditory hallucinations of a spirit person telling him to stop take his medications, states he is unhappy with myself the provider in the spirit person, made patient aware that he is due for an injection booster on Wednesday and that in the meantime will increase medications orally to help with psychotic symptoms. VITAL SIGNS: See below. NEW TEST RESULTS: See below CURRENT MEDICATIONS: See below. MENTAL STATUS EXAMINATION: Patient is a 30-year old male, who is in no acute distress, sitting in bed, thin, tall, wearing glasses, improved hygiene, in hospital clothing, appears older than stated age Speech: Is spontaneous, normal amount Language skills are improving Thought processes including: continues to be less disorganized Thought content: Denies SI or HI, feels doing abstract reasoning, and computation: normal description of associations: good on questioning Description of abnormal or psychotic thoughts: Continues to be responding to internal stimuli since decreasing paliperidone oral dosage Judgment: Poor Insight: Poor Orientation: x4 Recent and remote memory: Continues to be improved Attention span and concentration: Decreased Language: [place] Fund of knowledge: Average based on history Mood: "okay" affect: Less paranoid, endorses auditory hallucinations of a spirit person telling him to go off his medications DIAGNOSES: Schizoaffective disorder, depressed type Cannabis use disorder Tobacco use disorder ASSESSMENT: Patient initially seemed calm since decreasing oral paliperidone yesterday, today on interview reports that he sees a severe person want to meet with me separately, states he wants to discontinue the shot, that he does not need it and he can go home, this is despite him stating he is talking to a spirit person during interview, was educated about the risk of discontinue the shot, told him we will increase oral medications due to acute psychotic symptoms and disorganization which has not fully resolved with injection. Denies acute physical complaint, apart from sexual side effects he reports he is having on medication. In my clinical opinion appears to have poor insight and judgment at this time. MANAGEMENT PLAN: Switch paliperidone for Haldol 10 mg nightly, received Invega Sustenna 234 mg IM FOSTER 09/23/21, will require subsequent booster shot at 156 mg ordered for 09/29/2021. TIME SPENT: 15 minutes. Vital Signs Vital Signs Date Time Temp Pulse Resp B/P (MAP) Pulse Ox O2 Delivery O2 Flow Rate FiO2 09/26/21 06:19 97.2 110 18 136/80 (98) 97 Room Air Current Medications Current Medications Medications (Trade) Dose Ordered Sig/Jamey Route PRN Reason Start Time Stop Time Status Last Admin Dose Admin Acetaminophen (Tylenol Tab) 650 mg Q6HP PRN PO HEADACHE or MILD DISCOMFORT 09/17/21 15:25 Al Hydrox/Mg Hydrox/Simethicone (Mylanta) 30 ml Q4HP PRN PO HEARTBURN/INDIGESTION 09/17/21 15:25 Aripiprazole (AbiLIFY) 5 mg BID PO 09/22/21 09:00 09/23/21 11:06 DC 09/23/21 08:04 Aripiprazole (AbiLIFY) 10 mg BID PO 09/18/21 21:00 09/22/21 08:14 DC 09/21/21 20:48 Aripiprazole (AbiLIFY) 15 mg BID PO 09/17/21 21:00 09/18/21 10:25 DC 09/18/21 09:19 Benztropine Mesylate (Cogentin) 1 mg BID PO 09/24/21 21:00 09/26/21 08:21 Haloperidol (Haldol) 5 mg Q4HP PRN PO AGITATION 09/18/21 13:25 09/21/21 14:52 Home Med (Home Med List Complete!) ASDIRECTED XX 09/16/21 23:05 09/16/21 23:08 DC Lorazepam (Ativan) 1 mg QIDP PRN PO ANXIETY/AGITATION 09/18/21 13:25 09/25/21 11:17 DC 09/21/21 14:52 Magnesium Hydroxide (Milk Of Magnesia) 30 ml DAILYPRN PRN PO CONSTIPATION 09/17/21 15:25 Miscellaneous (Unresolved Clarification Entry) SEE LABEL COMMENTS DAILY XX 09/24/21 09:00 09/26/21 08:24 DC Nicotine (Nicoderm Cq 14mg) 1 patch DAILYPRN PRN TD NICOTINE WITHDRAWAL 09/25/21 15:55 Nicotine (Nicoderm Cq 21mg) 1 patch DAILY TD 09/18/21 09:00 09/19/21 09:17 DC Olanzapine (ZyPREXA ZYDIS) 5 mg Q6HP PRN PO ANXIETY/AGITATION 09/17/21 15:40 09/18/21 13:24 DC 09/18/21 13:13 Paliperidone (Invega) 3 mg BID PO 09/24/21 09:00 09/26/21 08:21 Paliperidone (Invega) 3 mg QHS PO 09/18/21 21:00 09/19/21 09:59 DC 09/18/21 19:40 Paliperidone (Invega) 6 mg QHS PO 09/19/21 21:00 09/22/21 08:19 DC 09/21/21 20:48 Paliperidone (Invega) 9 mg QHS PO 09/22/21 21:00 09/24/21 10:04 DC 09/23/21 21:18 Paliperidone Palmitate (Invega Sustenna) 234 mg Q30D IM 09/23/21 09:00 09/23/21 12:40 Trazodone HCl (Desyrel) 50 mg QHSP PRN PO INSOMNIA 09/17/21 15:25 09/25/21 21:14 Allergies Coded Allergies: Penicillins (Verified Allergy, Intermediate, 12/02/20) SWELLING BRISEYDA MCCULLOUGH MD Sep 26, 2021 14:16
[2021-09-26 18:40] VITALS: BP 138/74
[2021-09-26] MEDS: haloperidoL 5 MG TAB PO SCH (20:09)
[2021-09-26] MEDS: traZODone 50 MG TAB PO PRN (20:09)
[2021-09-27 06:13] VITALS: BP 148/66
[2021-09-27] MEDS: BENZTROPINE 1 MG TAB PO SCH ×2 (09:42→22:05)
[2021-09-27] MEDS: PALIPERIDONE 3 MG ER TAB (INVEGA) PO SCH ×2 (09:42→22:06)
[2021-09-27 16:45] VITALS: BP 131/73
[2021-09-27] MEDS: haloperidoL 5 MG TAB PO SCH (22:05)
[2021-09-27] MEDS: traZODone 50 MG TAB PO PRN (22:05)
[2021-09-28 06:41] VITALS: BP 144/68
[2021-09-28] MEDS: BENZTROPINE 1 MG TAB PO SCH ×2 (08:38→20:29)
[2021-09-28] MEDS: PALIPERIDONE 3 MG ER TAB (INVEGA) PO SCH ×2 (08:38→20:29)
[2021-09-28 16:45] VITALS: BP 130/62
[2021-09-28] MEDS: haloperidoL 5 MG TAB PO SCH (20:29)
[2021-09-29] MEDS ORDERED: PALIPERIDONE PALMITATE 156MG/1ML INJ(INVEGA)(FREE PSY INPT ONLY) IM ONE (06:00)
[2021-09-29] MEDS ORDERED: PALIPERIDONE PALMITATE 156MG/1ML INJ(INVEGA)(INFUS/ED OUTPTS) IM ONE (06:00)
[2021-09-29 06:22] VITALS: BP 128/58
[2021-09-29] MEDS: BENZTROPINE 1 MG TAB PO SCH ×2 (09:13→21:04)
[2021-09-29] MEDS: PALIPERIDONE 3 MG ER TAB (INVEGA) PO SCH ×2 (09:13→21:04)
--- NOTE | 2021-09-29 14:47 | MHIPNPDOC ---
[facility] Progress Note Progress Note DATE OF SERVICE: 09/29/21 HISTORY: This senior mortgage underwriter's consultation report: Patient is a 30 -year-old , male, with a pph of schizoaffective disorder and more than 10 hospitalizations presents with suicidal ideations and plan to jump off roof, endorses worsening depression, suicidal thoughts and command auditory hallucinations telling him to harm himself and that he needs to be in the hospital reportedly. Denies acute physical complaints. Denies medication side effects. Reported the symptoms at [facility] appointment and provider urged he be brought to the hospital for evaluation. Interval: Patient has been attending some groups, no longer reports sexual side effects and states he is tolerating paliperidone medication well, denies any acute physical complaints, received IM FOSTER 156 mg this morning, denies swelling or pain in his shoulder. No longer endorsing auditory visual hallucinations including hearing the spirit talk to him, denies SI, HI. States he looks forward to returning to [facility] housing. States his mood is "good" and a 9 out of 10. Reports sleep is improved, appetite is normal, continues to primarily isolate in the room when outside of groups. VITAL SIGNS: See below. NEW TEST RESULTS: See below CURRENT MEDICATIONS: See below. MENTAL STATUS EXAMINATION: Patient is a 30-year old male, who is in no acute distress, sitting in bed, thin, tall, wearing glasses, improved hygiene, in hospital clothing, appears older than stated age Speech: Is spontaneous, normal amount Language skills are improving Thought processes including: continues to be less disorganized Thought content: Denies SI or HI, feels doing abstract reasoning, and computation: normal description of associations: good Description of abnormal or psychotic thoughts: No longer reports hallucinations, delusions, not observed on interview Judgment: Improving Insight: Improving Orientation: x4 Recent and remote memory: Continues to be improved Attention span and concentration: Decreased Language: Sami Fund of knowledge: Average based on history Mood: "good, 9/10" affect: Denies hallucinations, paranoia, blunted, more engaged on interview DIAGNOSES: Schizoaffective disorder, depressed type Cannabis use disorder Tobacco use disorder ASSESSMENT: Patient appears less paranoid, no longer appears grossly psychotic, denies auditory visual hallucinations, states he looks forward to returning to [facility] housing, took his every morning paliperidone IM FOSTER this morning without incident, or side effects. We will continue to monitor for safety and psychotic symptoms, plan to possibly discharge tomorrow. Per chart review of nursing assessment, has been maintaining behavioral control, reports low anxiety and depressive symptoms, compliant with medications, no issues on the unit. Was encouraged to attend groups. MANAGEMENT PLAN: Continue paliperidone for Haldol 5 mg nightly for breakthrough psychosis in context of being started on a long-acting injectable, received Invega Sustenna 234 mg IM FOSTER 09/23/21, received subsequent booster shot at 156 mg ordered for 09/29/2021, Invega Sustenna 234 mg IM FOSTER next due 10/29/2021. TIME SPENT: 15 minutes. Vital Signs Vital Signs Date Time Temp Pulse Resp B/P (MAP) Pulse Ox O2 Delivery O2 Flow Rate FiO2 09/29/21 06:22 97.9 58 16 128/58 (81) 99 Room Air Current Medications Current Medications Medications (Trade) Dose Ordered Sig/Jamey Route PRN Reason Start Time Stop Time Status Last Admin Dose Admin Acetaminophen (Tylenol Tab) 650 mg Q6HP PRN PO HEADACHE or MILD DISCOMFORT 09/17/21 15:25 Al Hydrox/Mg Hydrox/Simethicone (Mylanta) 30 ml Q4HP PRN PO HEARTBURN/INDIGESTION 09/17/21 15:25 Aripiprazole (AbiLIFY) 5 mg BID PO 09/22/21 09:00 09/23/21 11:06 DC 09/23/21 08:04 Aripiprazole (AbiLIFY) 10 mg BID PO 09/18/21 21:00 09/22/21 08:14 DC 09/21/21 20:48 Aripiprazole (AbiLIFY) 15 mg BID PO 09/17/21 21:00 09/18/21 10:25 DC 09/18/21 09:19 Benztropine Mesylate (Cogentin) 1 mg BID PO 09/24/21 21:00 09/29/21 09:13 Haloperidol (Haldol) 5 mg Q4HP PRN PO AGITATION 09/18/21 13:25 09/21/21 14:52 Haloperidol (Haldol) 5 mg QHS PO 09/26/21 21:00 09/28/21 20:29 Home Med (Home Med List Complete!) ASDIRECTED XX 09/16/21 23:05 09/16/21 23:08 DC Lorazepam (Ativan) 1 mg QIDP PRN PO ANXIETY/AGITATION 09/18/21 13:25 09/25/21 11:17 DC 09/21/21 14:52 Magnesium Hydroxide (Milk Of Magnesia) 30 ml DAILYPRN PRN PO CONSTIPATION 09/17/21 15:25 Miscellaneous (Unresolved Clarification Entry) SEE LABEL COMMENTS DAILY XX 09/24/21 09:00 09/26/21 08:24 DC Nicotine (Nicoderm Cq 14mg) 1 patch DAILYPRN PRN TD NICOTINE WITHDRAWAL 09/25/21 15:55 09/28/21 14:31 Nicotine (Nicoderm Cq 21mg) 1 patch DAILY TD 09/18/21 09:00 09/19/21 09:17 DC Olanzapine (ZyPREXA ZYDIS) 5 mg Q6HP PRN PO ANXIETY/AGITATION 09/17/21 15:40 09/18/21 13:24 DC 09/18/21 13:13 Paliperidone (Invega) 3 mg BID PO 09/24/21 09:00 09/29/21 09:13 Paliperidone (Invega) 3 mg QHS PO 09/18/21 21:00 09/19/21 09:59 DC 09/18/21 19:40 Paliperidone (Invega) 6 mg QHS PO 09/19/21 21:00 09/22/21 08:19 DC 09/21/21 20:48 Paliperidone (Invega) 9 mg QHS PO 09/22/21 21:00 09/24/21 10:04 DC 09/23/21 21:18 Paliperidone Palmitate (Invega Sustenna) 234 mg Q30D IM 09/23/21 09:00 09/23/21 12:40 Trazodone HCl (Desyrel) 50 mg QHSP PRN PO INSOMNIA 09/17/21 15:25 09/27/21 22:05 Allergies Coded Allergies: Penicillins (Verified Allergy, Intermediate, 12/02/20) SWELLING BRISEYDA MCCULLOUGH MD Sep 29, 2021 14:47
[2021-09-29 19:22] VITALS: BP 143/73
[2021-09-29] MEDS: haloperidoL 5 MG TAB PO SCH (21:04)
[2021-09-30 06:17] VITALS: BP 110/58
[2021-09-30] MEDS ORDERED: NICO14PA TD (09:25)
[2021-09-30] MEDS ORDERED: BENZ-52 PO (09:25)
[2021-09-30] MEDS ORDERED: INVE234I IM (09:25)
[2021-09-30] MEDS ORDERED: PALI1TAB2 PO (09:25)
[2021-09-30] MEDS ORDERED: HALO5TA PO (09:25)
[2021-09-30] MEDS ORDERED: TRAZ-252 PO (09:25)
[2021-09-30] MEDS: PALIPERIDONE 3 MG ER TAB (INVEGA) PO SCH (09:53)
[2021-09-30] MEDS: BENZTROPINE 1 MG TAB PO SCH (09:54)
--- NOTE | 2021-09-30 15:41 | MHDSPDOC ---
[facility] Discharge Summary Discharge Summary DATE OF ADMISSION: Sep 17, 2021 at 15:21 DATE OF DISCHARGE: Sep 30, 2021 at 13:18 Discharge diagnoses: Schizoaffective disorder, depressed type Cannabis use disorder Tobacco use disorder Reason for admission: This keno writer/runner's consultation report: Patient is a 30 -year-old , male, with a pph of schizoaffective disorder and more than 10 hospitalizations presents with suicidal ideations and plan to jump off roof, endorses worsening depression, suicidal thoughts and command auditory hallucinations telling him to harm himself and that he needs to be in the hospital reportedly. Denies acute physical complaints. Denies medication side effects. Reported the symptoms at [facility] appointment and provider urged he be brought to the hospital for evaluation. Vital signs: See below Consultants involved: See medical H&P by hospitalist Treatment and progress on the unit: Patient was admitted to the [facility] on a 9.39 legal status and was afforded the following treatment modalities: 1. Individual therapy 2. Group therapy 3. Medication management 4. Milieu therapy 5. Safe environment Hospital course: Patient was admitted to the [facility] on a 9.39 legal status. Was medically cleared prior to coming up to the [facility]. Have been reporting suicidal ideations and command auditory hallucinations, Abilify 15 mg twice daily was discontinued as a cross taper patient was started on paliperidone 3 mg nightly which was titrated up to 9 mg nightly, patient received paliperidone (Invega sustenna) IM FOSTER 234 mg 09/23, then paliperidone booster 156 mg IM FOSTER 09/29, patient is next due for monthly paliperidone 234 mg IM FOSTER Invega Sustenna 10/23. After first injection titration down of oral medication to 3 mg twice daily due to sedation patient endorses sexual side effects with lack of ability for sexual arousal in context of continued psychotic symptoms, including auditory visual hallucinations of seeing a spirit person, and was frustrated with not being d ischarged, patient was given Haldol 5 mg nightly and had improvement in psychotic symptoms, patient did take the booster and hallucinations subsided, mood improved, no longer endorsed any paranoia, denied swelling or pain in injection site on either injection, denied other medication side effects including sedation, EPS, NMS, and felt that the sexual side effects were no longer bothersome anymore reportedly, patient was more organized, engaged and reported being ready for discharge. Patient also started to attend groups context of improving psychotic symptoms. Patient found medications beneficial and tolerated them well. Denies mood anxiety and intrusive thoughts which improved with treatment. Patient symptoms improved with treatment. On day of discharge patient denied depression, anxiety, insomnia, suicidal or homicidal ideations intent or plan, hallucinations, delusions. Patient was discharged home with follow-up. Patient felt safe for discharge and contracted for safety. Was offered continued stay on voluntary admission but refused. Discharge assessment: On today's interview patient is alert and oriented, dressed appropriately. Hygiene and grooming is well-kept. Smiles on approach and is pleasant and engaged on interview. Denies depression and anxiety. Denies suicidal homicidal ideation, intent or planning. Denies and is not observed with alyson or psychotic symptoms of delusions, hallucinations, bizarre thinking, obsessions, paranoia, ruminations, illogical thoughts, flight of ideas or having poor insight or judgment. Patient has normal mentation, declines further hospitalization of voluntary status and meets criteria for discharge today, patient encouraged to return the hospital if symptoms worsen or change and encouraged to call unit if they feel they need provider's questions to be answered or help with medications or care. Patient endorses being future oriented, wanting to return to [facility] housing. Mental status: Patient is a 30-year old male, who is in no acute distress, sitting in bed, thin, tall, wearing glasses, improved hygiene, sitting up in bed, in hospital clothing, appears older than stated age Speech: Is spontaneous, normal amount, somewhat slowed Language skills are improving Thought processes including: linear logical Thought content: Denies SI or HI, feels doing abstract reasoning, and computation: normal description of associations: good Description of abnormal or psychotic thoughts: No longer reports hallucinations, delusions, not observed on interview Judgment: Fair Insight: Fair Orientation: x4 Recent and remote memory: Continues to be improved Attention span and concentration: Decreased Language: Slovak Fund of knowledge: Average based on history Mood: "Good" affect: Calm, stable, appropriate, mood congruent Medications on discharge: see medication reconciliation: CSSRS on discharge: Wish to be : No nonspecific active suicidal thoughts: No lifetime attempts: 0 interrupted attempts: 0 aborted attempts: 0 preparatory acts or behavior: None Taking into consideration safety state, status, safety plan, protective factors, modifiable, non-modifiable risk factors patient is at low risk on discharge for suicide according to [facility] suicide evaluation. PLAN/FOLLOWUP ARRANGEMENTS: Follow Up Care Education Label * Mental Health Appt 1 * Mental Health [facility] * Established With This Provider Yes * Therapist ARSENIO * Date Oct 02, 2021 * Time 09:00 * Address of Clinic or Practice [address] [place] [address] * Follow Up Care Education Label * Medical * Medical Follow Up [facility] * Established With This Provider Yes * Therapist CARLOTA * Date Oct 03, 2021 * Time 11:00 * Address of Clinic or Practice [address] [place] [address] * The amount of time spent in the coordination of care for this patient was approximately 25 minutes. ETOH/Disorder Med Rx ETOH/DRUG DISORDER RX: Offrd @ d/c & pt refused Vital Signs/I&Os Vital Signs Date Time Temp Pulse Resp B/P (MAP) Pulse Ox O2 Delivery O2 Flow Rate FiO2 09/30/21 06:17 98.0 73 16 110/58 (75) 98 Room Air Medications Scheduled Benztropine Mesylate (Benztropine Mesylate) 1 Mg Tablet, 1 MG PO BID for eps, #14 Haloperidol (Haloperidol) 5 Mg Tablet, 5 MG PO QHS for psychosis, #7 Paliperidone (Paliperidone ER) 3 Mg Tab.er.24, 3 MG PO BID for psychosis, #14 Paliperidone Palmitate (Invega Sustenna) 234 Mg/1.5 Ml Syringe, 234 MG IM Q30D for psychosis, #1 Scheduled PRN Nicotine (Nicotine Patch) 14 Mg Patch.td24, 1 PATCH TD DAILYPRN PRN for NICOTINE WITHDRAWAL, #7 Trazodone HCl (Trazodone HCl) 50 Mg Tablet, 50 MG PO QHSP PRN for INSOMNIA, #7 Allergies Coded Allergies: Penicillins (Verified Allergy, Intermediate, 12/02/20) BRISEYDA FRIEDMAN MD Sep 30, 2021 15:41
== END 2021-09-30 13:18 | disposition home or self-care (01) | DRG 750 ==
LOC: M ED 16:38 → M ED INP 09-17 15:21 → M PSY 09-17 16:18
PROVIDERS: ADMIT Student in an Organized Health Care Education/Training Program; ATTEND Student in an Organized Health Care Education/Training Program
DX: F25.1 Schizoaffective disorder, depressive type (principal); R45.851 Suicidal ideations; F12.90 Cannabis use, unspecified, uncomplicated; F17.200 Nicotine dependence, unspecified, uncomplicated; Z88.0 Allergy status to penicillin; Z79.899 Other long term (current) drug therapy

== ENCOUNTER 2021-10-07 05:56 | Emergency (ER) | payer OTHER ==
[~2021-10-07] VITALS: Ht 188 cm; Wt 85.0 kg
[~2021-10-07 05:56] MED LIST changes: +BENZ-52 PO; +HALO5TAB33 PO; +INVE234I IM; +NICO14PA TD; +PALI1TAB2 PO; +TRAZ-252 PO
[2021-10-07] MEDS ORDERED: LORazepam 2 MG/ML VIAL IM STA (06:37)
[2021-10-07 08:07] LABS: HEMATOCRIT 44.2 % (42.0-52.0); HEMOGLOBIN 15.2 g/dl (13.5-17.5); MEAN CORPUSCULAR HEMOGLOBIN 30.3 pg (27.0-33.0); MEAN CORPUSCULAR HGB CONC 34.4 g/dl (32.0-36.5); MEAN CORPUSCULAR VOLUME 88.2 fl (80.0-96.0); PLATELET COUNT, AUTOMATED 142 10^3/uL (150-450); RED BLOOD COUNT 5.01 10^6/uL (4.30-6.10); WHITE BLOOD COUNT 1.7 10^3/uL (4.0-10.0)
[2021-10-07 08:29] LABS: ACETAMINOPHEN LEVEL < 2.0 UG/ML (10.0-30.0); ALBUMIN 3.4 GM/DL (3.2-5.2); ALT/SGPT 37 U/L (12-78); BILIRUBIN,DIRECT < 0.1 MG/DL (0.0-0.2); BILIRUBIN,TOTAL 0.3 MG/DL (0.2-1.0); BLOOD UREA NITROGEN 12 MG/DL (7-18); CALCIUM LEVEL 9.2 MG/DL (8.5-10.1); CARBON DIOXIDE LEVEL 28 MEQ/L (21-32); CHLORIDE LEVEL 106 MEQ/L (98-107); CREATININE FOR GFR 0.97 MG/DL (0.70-1.30); ETHYL ALCOHOL (ETHANOL) < 0.003 % (0.000-0.010); GLOMERULAR FILTRATION RATE > 60.0 (>60); GLUCOSE, FASTING 87 MG/DL (70-100); POTASSIUM SERUM 3.9 MEQ/L (3.5-5.1); SALICYLATE LEVEL < 1.7 MG/DL (5.0-30.0); SODIUM LEVEL 139 MEQ/L (136-145); TOTAL PROTEIN 6.6 GM/DL (6.4-8.2)
[2021-10-07 09:07] LABS: BASO % 0.6 % (0.0-1.0); EOS % 1.1 % (0.0-3.0); LYMPH % 52.8 % (24.0-44.0); MONO # 0.3 10^3/uL (0.0-0.8); MONO % 18.3 % (2.0-8.0); NEUTROPHILS % 26.6 % (36.0-66.0)
[2021-10-07 09:20] LABS: NEUTROPHILS # 0.5 10^3/uL (1.5-8.5)
[2021-10-07 10:14] LABS: PLATELET ESTIMATE DECREASED (NORMAL)
[2021-10-07 10:27] LABS: AMPHETAMINES LEVEL URINE NEGATIVE (NEGATIVE); BARBITURATES URINE NEGATIVE (NEGATIVE); BENZODIAZEPINES URINE NEGATIVE (NEGATIVE); CANNABINOIDS URINE NEGATIVE (NEGATIVE); COCAINE METABOLITE URINE NEGATIVE (NEGATIVE); METHADONE URINE NEGATIVE (NEGATIVE); OPIATES URINE NEGATIVE (NEGATIVE); PHENCYCLIDINE URINE NEGATIVE (NEGATIVE)
[2021-10-07 14:37] VITALS: BP 140/77
== END 2021-10-07 14:39 | disposition home or self-care (01) ==
LOC: M ED 05:56
DX: F32.A Depression, unspecified (principal); F43.0 Acute stress reaction; D70.9 Neutropenia, unspecified; R45.850 Homicidal ideations; R44.3 Hallucinations, unspecified; Z88.0 Allergy status to penicillin
CPT/HCPCS: 80048; 80076; 80143; 80307; 82077; 84443; 85027; 96372; 99284; J2060

== ENCOUNTER 2021-10-15 05:17 | Emergency (ER) | payer OTHER ==
[2021-10-15] MEDS ORDERED: LORazepam 1 MG TAB PO ONE (05:50)
[2021-10-15 08:24] LABS: AMPHETAMINES LEVEL URINE NEGATIVE (NEGATIVE); BARBITURATES URINE NEGATIVE (NEGATIVE); BENZODIAZEPINES URINE NEGATIVE (NEGATIVE); CANNABINOIDS URINE NEGATIVE (NEGATIVE); COCAINE METABOLITE URINE NEGATIVE (NEGATIVE); METHADONE URINE NEGATIVE (NEGATIVE); OPIATES URINE NEGATIVE (NEGATIVE); PHENCYCLIDINE URINE NEGATIVE (NEGATIVE)
[2021-10-15 08:25] LABS: HEMATOCRIT 41.8 % (42.0-52.0); HEMOGLOBIN 14.6 g/dl (13.5-17.5); MEAN CORPUSCULAR HEMOGLOBIN 30.2 pg (27.0-33.0); MEAN CORPUSCULAR HGB CONC 34.9 g/dl (32.0-36.5); MEAN CORPUSCULAR VOLUME 86.4 fl (80.0-96.0); PLATELET COUNT, AUTOMATED 203 10^3/uL (150-450); RED BLOOD COUNT 4.84 10^6/uL (4.30-6.10); WHITE BLOOD COUNT 3.8 10^3/uL (4.0-10.0)
[2021-10-15 08:55] LABS: ACETAMINOPHEN LEVEL < 2.0 UG/ML (10.0-30.0); ALBUMIN 3.5 GM/DL (3.2-5.2); ALT/SGPT 23 U/L (12-78); BILIRUBIN,DIRECT 0.1 MG/DL (0.0-0.2); BILIRUBIN,TOTAL 0.5 MG/DL (0.2-1.0); BLOOD UREA NITROGEN 11 MG/DL (7-18); CALCIUM LEVEL 9.2 MG/DL (8.5-10.1); CARBON DIOXIDE LEVEL 26 MEQ/L (21-32); CHLORIDE LEVEL 108 MEQ/L (98-107); CREATININE FOR GFR 0.98 MG/DL (0.70-1.30); ETHYL ALCOHOL (ETHANOL) 0.003 % (0.000-0.010); GLOMERULAR FILTRATION RATE > 60.0 (>60); GLUCOSE, FASTING 109 MG/DL (70-100); POTASSIUM SERUM 3.9 MEQ/L (3.5-5.1); SALICYLATE LEVEL < 1.7 MG/DL (5.0-30.0); SODIUM LEVEL 141 MEQ/L (136-145); TOTAL PROTEIN 6.7 GM/DL (6.4-8.2)
[2021-10-15 14:11] VITALS: BP 121/76
== END 2021-10-15 14:25 | disposition home or self-care (01) ==
LOC: M ED 05:17
DX: F25.9 Schizoaffective disorder, unspecified (principal); F17.290 Nicotine dependence, other tobacco product, uncomplicated; Z79.899 Other long term (current) drug therapy; Z88.0 Allergy status to penicillin

== ENCOUNTER 2022-01-19 10:23 | Emergency (ER) | payer OTHER ==
[~2022-01-19] VITALS: Ht 182.9 cm; Wt 72.7 kg
[2022-01-19 11:56] LABS: HEMATOCRIT 44.7 % (42.0-52.0); HEMOGLOBIN 15.3 g/dl (13.5-17.5); MEAN CORPUSCULAR HEMOGLOBIN 29.7 pg (27.0-33.0); MEAN CORPUSCULAR HGB CONC 34.2 g/dl (32.0-36.5); MEAN CORPUSCULAR VOLUME 86.8 fl (80.0-96.0); PLATELET COUNT, AUTOMATED 182 10^3/uL (150-450); RED BLOOD COUNT 5.15 10^6/uL (4.30-6.10); WHITE BLOOD COUNT 3.5 10^3/uL (4.0-10.0)
[2022-01-19 12:27] LABS: AMPHETAMINES LEVEL URINE NEGATIVE (NEGATIVE); BARBITURATES URINE NEGATIVE (NEGATIVE); BENZODIAZEPINES URINE NEGATIVE (NEGATIVE); CANNABINOIDS URINE POSITIVE (NEGATIVE); COCAINE METABOLITE URINE NEGATIVE (NEGATIVE); METHADONE URINE NEGATIVE (NEGATIVE); OPIATES URINE NEGATIVE (NEGATIVE); PHENCYCLIDINE URINE NEGATIVE (NEGATIVE)
[2022-01-19 12:29] LABS: ACETAMINOPHEN LEVEL < 2.0 UG/ML (10.0-30.0); ALBUMIN 3.7 GM/DL (3.2-5.2); ALT/SGPT 25 U/L (12-78); BILIRUBIN,DIRECT 0.1 MG/DL (0.0-0.2); BILIRUBIN,TOTAL 0.4 MG/DL (0.2-1.0); BLOOD UREA NITROGEN 13 MG/DL (7-18); CALCIUM LEVEL 9.4 MG/DL (8.5-10.1); CARBON DIOXIDE LEVEL 29 MEQ/L (21-32); CHLORIDE LEVEL 107 MEQ/L (98-107); CREATININE FOR GFR 1.11 MG/DL (0.70-1.30); ETHYL ALCOHOL (ETHANOL) < 0.003 % (0.000-0.010); GLOMERULAR FILTRATION RATE > 60.0 (>60); GLUCOSE, FASTING 91 MG/DL (70-100); POTASSIUM SERUM 4.1 MEQ/L (3.5-5.1); SALICYLATE LEVEL < 1.7 MG/DL (5.0-30.0); SODIUM LEVEL 140 MEQ/L (136-145); THYROID STIMULATING HORMONE 0.939 uIU/ML (0.358-3.740); TOTAL PROTEIN 6.8 GM/DL (6.4-8.2)
[2022-01-19 13:04] LABS: RSV AMPLIFICATION NEGATIVE (NEGATIVE)
[2022-01-19] MEDS ORDERED: PALIPERIDONE PALMITATE 234MG/1.5ML INJ (INVEGA)(FREE PSY INPT ONLY) IM ONE (14:25)
[2022-01-19] MEDS ORDERED: HALO5TAB33 PO (15:28)
[2022-01-19 16:03] VITALS: BP 132/70
== END 2022-01-19 16:10 | disposition home or self-care (01) ==
LOC: M ED 10:23
DX: F25.9 Schizoaffective disorder, unspecified (principal); Z88.0 Allergy status to penicillin; Z77.098 Contact with and (suspected) exposure to other hazardous, chiefly nonmedicinal, chemicals

== ENCOUNTER 2022-01-19 18:17 | Inpatient (IN) | payer OTHER ==
[2022-01-19 19:37] LABS: HEMATOCRIT 43.2 % (42.0-52.0); HEMOGLOBIN 14.9 g/dl (13.5-17.5); MEAN CORPUSCULAR HEMOGLOBIN 29.9 pg (27.0-33.0); MEAN CORPUSCULAR HGB CONC 34.5 g/dl (32.0-36.5); MEAN CORPUSCULAR VOLUME 86.6 fl (80.0-96.0); PLATELET COUNT, AUTOMATED 188 10^3/uL (150-450); RED BLOOD COUNT 4.99 10^6/uL (4.30-6.10); WHITE BLOOD COUNT 4.3 10^3/uL (4.0-10.0)
[2022-01-19] MEDS ORDERED: HOME MED LIST COMPLETE! XX SCH (19:45)
[2022-01-19 20:00] LABS: AMPHETAMINES LEVEL URINE NEGATIVE (NEGATIVE); BARBITURATES URINE NEGATIVE (NEGATIVE); BENZODIAZEPINES URINE NEGATIVE (NEGATIVE); CANNABINOIDS URINE POSITIVE (NEGATIVE); COCAINE METABOLITE URINE NEGATIVE (NEGATIVE); METHADONE URINE NEGATIVE (NEGATIVE); OPIATES URINE NEGATIVE (NEGATIVE); PHENCYCLIDINE URINE NEGATIVE (NEGATIVE)
[2022-01-19 20:15] LABS: ACETAMINOPHEN LEVEL < 2.0 UG/ML (10.0-30.0); ALBUMIN 3.4 GM/DL (3.2-5.2); ALT/SGPT 31 U/L (12-78); BILIRUBIN,DIRECT < 0.1 MG/DL (0.0-0.2); BILIRUBIN,TOTAL 0.3 MG/DL (0.2-1.0); BLOOD UREA NITROGEN 13 MG/DL (7-18); CARBON DIOXIDE LEVEL 29 MEQ/L (21-32); CHLORIDE LEVEL 107 MEQ/L (98-107); CREATININE FOR GFR 1.06 MG/DL (0.70-1.30); ETHYL ALCOHOL (ETHANOL) < 0.003 % (0.000-0.010); GLOMERULAR FILTRATION RATE > 60.0 (>60); GLUCOSE, FASTING 110 MG/DL (70-100); POTASSIUM SERUM 4.2 MEQ/L (3.5-5.1); SALICYLATE LEVEL < 1.7 MG/DL (5.0-30.0); SODIUM LEVEL 141 MEQ/L (136-145); THYROID STIMULATING HORMONE 0.851 uIU/ML (0.358-3.740); TOTAL PROTEIN 6.5 GM/DL (6.4-8.2)
[2022-01-20] MEDS ORDERED: IBUPROFEN 400MG TAB PO PRN (13:30)
[2022-01-20] MEDS ORDERED: MAALOX 30 ML SUSP *UDC PO PRN (13:30)
[2022-01-20] MEDS ORDERED: MOM 30ML SUSPENSION UDC PO PRN (13:30)
[2022-01-20] MEDS ORDERED: traZODone 50 MG TAB PO PRN (13:30)
[2022-01-20 17:06] VITALS: BP 124/74
[2022-01-20] MEDS ORDERED: PALIPERIDONE PALMITATE 234MG/1.5ML INJ (INVEGA)(FREE PSY INPT ONLY) IM ONE (20:00)
[2022-01-21 07:11] VITALS: BP 113/59
[2022-01-21] MEDS ORDERED: LORazepam 1 MG TAB PO PRN (10:15)
[2022-01-21] MEDS ORDERED: NICOTINE 21MG/24HR 1 EA TRANSDERMAL TD PRN (10:15)
[2022-01-21] MEDS ORDERED: OLANZapine ORAL DISINTEGRATING TAB 5MG PO PRN (10:15)
[2022-01-21 18:43] VITALS: BP 109/64
[2022-01-22] MEDS ORDERED: NICO21PAT TD (09:41)
[2022-01-22] MEDS ORDERED: INVE234I IM (09:41)
== END 2022-01-22 11:21 | disposition home or self-care (01) | DRG 750 ==
LOC: M ED 18:17 → M ED INP 01-20 13:27 → M PSY 01-20 14:55
PROVIDERS: ADMIT Psychiatry & Neurology Psychiatry; ATTEND Psychiatry & Neurology Psychiatry
DX: F25.9 Schizoaffective disorder, unspecified (principal); F17.290 Nicotine dependence, other tobacco product, uncomplicated; F12.10 Cannabis abuse, uncomplicated; Z91.14 Patient's other noncompliance with medication regimen; Z88.0 Allergy status to penicillin

== ENCOUNTER 2022-01-23 18:43 | Emergency (ER) | payer OTHER ==
[~2022-01-23] VITALS: Ht 193 cm; Wt 54.5 kg
[2022-01-23 20:22] LABS: AMPHETAMINES LEVEL URINE NEGATIVE (NEGATIVE); BARBITURATES URINE NEGATIVE (NEGATIVE); BENZODIAZEPINES URINE NEGATIVE (NEGATIVE); CANNABINOIDS URINE POSITIVE (NEGATIVE); COCAINE METABOLITE URINE NEGATIVE (NEGATIVE); METHADONE URINE NEGATIVE (NEGATIVE); OPIATES URINE NEGATIVE (NEGATIVE); PHENCYCLIDINE URINE NEGATIVE (NEGATIVE)
[2022-01-23 20:39] LABS: HEMATOCRIT 43.2 % (42.0-52.0); MEAN CORPUSCULAR HEMOGLOBIN 29.7 pg (27.0-33.0); MEAN CORPUSCULAR HGB CONC 34.7 g/dl (32.0-36.5); MEAN CORPUSCULAR VOLUME 85.5 fl (80.0-96.0); PLATELET COUNT, AUTOMATED 188 10^3/uL (150-450); RED BLOOD COUNT 5.05 10^6/uL (4.30-6.10); WHITE BLOOD COUNT 5.8 10^3/uL (4.0-10.0)
[2022-01-23 21:05] LABS: ACETAMINOPHEN LEVEL < 2.0 UG/ML (10.0-30.0); ALBUMIN 3.5 GM/DL (3.2-5.2); ALT/SGPT 30 U/L (12-78); BILIRUBIN,DIRECT < 0.1 MG/DL (0.0-0.2); BILIRUBIN,TOTAL 0.3 MG/DL (0.2-1.0); BLOOD UREA NITROGEN 19 MG/DL (7-18); CALCIUM LEVEL 9.3 MG/DL (8.5-10.1); CARBON DIOXIDE LEVEL 32 MEQ/L (21-32); CHLORIDE LEVEL 107 MEQ/L (98-107); CREATININE FOR GFR 1.07 MG/DL (0.70-1.30); ETHYL ALCOHOL (ETHANOL) < 0.003 % (0.000-0.010); GLOMERULAR FILTRATION RATE > 60.0 (>60); GLUCOSE, FASTING 86 MG/DL (70-100); POTASSIUM SERUM 5.4 MEQ/L (3.5-5.1); SALICYLATE LEVEL < 1.7 MG/DL (5.0-30.0); SODIUM LEVEL 141 MEQ/L (136-145); TOTAL PROTEIN 6.5 GM/DL (6.4-8.2)
[2022-01-24] MEDS ORDERED: HALO5TAB33 PO (00:17)
[2022-01-24] MEDS ORDERED: HOME MED LIST COMPLETE! XX SCH (00:25)
[2022-01-25 09:07] VITALS: BP 115/73
== END 2022-01-25 09:09 ==
LOC: M ED 18:43
DX: R45.851 Suicidal ideations (principal); F33.9 Major depressive disorder, recurrent, unspecified; F20.9 Schizophrenia, unspecified; Z88.0 Allergy status to penicillin; F17.210 Nicotine dependence, cigarettes, uncomplicated

== ENCOUNTER 2022-02-04 18:02 | Inpatient (IN) | payer OTHER ==
[~2022-02-04] VITALS: Ht 198.1 cm; Wt 84.5 kg
[2022-02-04] MEDS ORDERED: OLANZapine INTRAMUSCULAR 10MG VIAL IM ONE (18:10)
[2022-02-04] MEDS ORDERED: LORazepam 2 MG/ML VIAL IM ONE (18:10)
[2022-02-04 18:24] LABS: HEMATOCRIT 45.7 % (42.0-52.0); HEMOGLOBIN 15.7 g/dl (13.5-17.5); MEAN CORPUSCULAR HEMOGLOBIN 29.6 pg (27.0-33.0); MEAN CORPUSCULAR HGB CONC 34.4 g/dl (32.0-36.5); MEAN CORPUSCULAR VOLUME 86.1 fl (80.0-96.0); PLATELET COUNT, AUTOMATED 191 10^3/uL (150-450); RED BLOOD COUNT 5.31 10^6/uL (4.30-6.10); WHITE BLOOD COUNT 5.9 10^3/uL (4.0-10.0)
[2022-02-04] MEDS ORDERED: OLANZapine 10 MG TAB PO ONE (18:30)
[2022-02-04 18:55] LABS: ACETAMINOPHEN LEVEL < 2.0 UG/ML (10.0-30.0); ALBUMIN 3.6 GM/DL (3.2-5.2); ALT/SGPT 65 U/L (12-78); BILIRUBIN,DIRECT 0.1 MG/DL (0.0-0.2); BILIRUBIN,TOTAL 0.4 MG/DL (0.2-1.0); BLOOD UREA NITROGEN 19 MG/DL (7-18); CALCIUM LEVEL 9.1 MG/DL (8.5-10.1); CARBON DIOXIDE LEVEL 31 MEQ/L (21-32); CHLORIDE LEVEL 105 MEQ/L (98-107); CREATININE FOR GFR 1.21 MG/DL (0.70-1.30); ETHYL ALCOHOL (ETHANOL) < 0.003 % (0.000-0.010); GLOMERULAR FILTRATION RATE > 60.0 (>60); GLUCOSE, FASTING 88 MG/DL (70-100); POTASSIUM SERUM 4.3 MEQ/L (3.5-5.1); SALICYLATE LEVEL < 1.7 MG/DL (5.0-30.0); SODIUM LEVEL 139 MEQ/L (136-145); TOTAL PROTEIN 6.8 GM/DL (6.4-8.2)
[2022-02-04 18:57] LABS: AMPHETAMINES LEVEL URINE NEGATIVE (NEGATIVE); BARBITURATES URINE NEGATIVE (NEGATIVE); BENZODIAZEPINES URINE NEGATIVE (NEGATIVE); CANNABINOIDS URINE POSITIVE (NEGATIVE); COCAINE METABOLITE URINE NEGATIVE (NEGATIVE); METHADONE URINE NEGATIVE (NEGATIVE); OPIATES URINE NEGATIVE (NEGATIVE); PHENCYCLIDINE URINE NEGATIVE (NEGATIVE)
[2022-02-04 19:25] LABS: RSV AMPLIFICATION NEGATIVE (NEGATIVE)
[2022-02-05] MEDS ORDERED: NICO21DI37 TD (14:17)
[2022-02-05] MEDS ORDERED: INVE234I IM (14:17)
[2022-02-05] MEDS ORDERED: BENZ0.5T23 PO (14:17)
[2022-02-05] MEDS ORDERED: HOME MED LIST COMPLETE! XX SCH (14:20)
[2022-02-05] MEDS ORDERED: ACETAMINOPHEN TAB 650MG DOSE (2X325MG) PO PRN (15:15)
[2022-02-05] MEDS ORDERED: MAALOX 30 ML SUSP *UDC PO PRN (15:15)
[2022-02-05] MEDS ORDERED: OLANZapine ORAL DISINTEGRATING TAB 5MG PO PRN (15:15)
[2022-02-05] MEDS ORDERED: MOM 30ML SUSPENSION UDC PO PRN (15:15)
[2022-02-05 16:53] VITALS: BP 121/74
[2022-02-05] MEDS: NICOTINE 21MG/24HR 1 EA TRANSDERMAL TD SCH (20:39)
[2022-02-06] MEDS: NICOTINE 21MG/24HR 1 EA TRANSDERMAL TD SCH (09:00)
[2022-02-06] MEDS ORDERED: BENZTROPINE 1 MG TAB PO PRN (11:10)
[2022-02-06] MEDS: VENLAFAXINE **XR** 37.5 MG CAPSULE PO SCH (12:26)
[2022-02-06 19:06] VITALS: BP 132/79
[2022-02-07] MEDS: NICOTINE 21MG/24HR 1 EA TRANSDERMAL TD SCH (09:00)
[2022-02-07] MEDS: VENLAFAXINE **XR** 37.5 MG CAPSULE PO SCH (10:00)
[2022-02-08] VITALS (8 sets, daily range): BP systolic 115–126; BP diastolic 59–80
[2022-02-08] MEDS: NICOTINE 21MG/24HR 1 EA TRANSDERMAL TD SCH (09:00)
[2022-02-08] MEDS: VENLAFAXINE **XR** 75MG CAPSULE PO SCH (09:23)
[2022-02-08] MEDS ORDERED: diphenhydrAMINE 50MG CAP PO PRN (19:25)
[2022-02-08] MEDS ORDERED: LORazepam 1 MG TAB PO PRN (19:25)
[2022-02-08] MEDS ORDERED: diphenhydrAMINE 50MG/ML VIAL (J1200) IM STA ×2 (20:04→20:58)
[2022-02-08] MEDS ORDERED: HALOPERIDOL 5MG/ML VIAL (J1630 PER 1) IM STA (20:04)
[2022-02-08] MEDS ORDERED: LORazepam 2 MG/ML VIAL IM STA ×2 (20:04→22:46)
[2022-02-08] MEDS ORDERED: chlorproMAZINE INJ 50MG/2ML AMP (J3230) IM STA ×2 (20:58→22:46)
[2022-02-09 00:02] VITALS: BP 115/68
[2022-02-09] MEDS: NICOTINE 21MG/24HR 1 EA TRANSDERMAL TD SCH (15:04)
[2022-02-09] MEDS: VENLAFAXINE **XR** 75MG CAPSULE PO SCH (15:04)
[2022-02-10] MEDS: NICOTINE 21MG/24HR 1 EA TRANSDERMAL TD SCH (09:00)
[2022-02-10] MEDS: VENLAFAXINE **XR** 75MG CAPSULE PO SCH (09:42)
[2022-02-11] MEDS: NICOTINE 21MG/24HR 1 EA TRANSDERMAL TD SCH (09:00)
[2022-02-11] MEDS: VENLAFAXINE **XR** 75MG CAPSULE PO SCH ×2 (09:00→13:20)
[2022-02-11 16:45] VITALS: BP 129/81
[2022-02-12] MEDS ORDERED: HALOPERIDOL DECANOATE 100 MG/ML VIAL (J1631) IM SCH (07:00)
[2022-02-12] MEDS: VENLAFAXINE **XR** 75MG CAPSULE PO SCH (09:56)
[2022-02-12] MEDS: NICOTINE 21MG/24HR 1 EA TRANSDERMAL TD SCH (09:58)
[2022-02-12 18:30] VITALS: BP 120/82
[2022-02-13] MEDS: NICOTINE 21MG/24HR 1 EA TRANSDERMAL TD SCH (08:55)
[2022-02-13] MEDS: VENLAFAXINE **XR** 75MG CAPSULE PO SCH (08:55)
[2022-02-14] MEDS: NICOTINE 21MG/24HR 1 EA TRANSDERMAL TD SCH (08:12)
[2022-02-14] MEDS: VENLAFAXINE **XR** 75MG CAPSULE PO SCH (08:13)
[2022-02-15] MEDS: NICOTINE 21MG/24HR 1 EA TRANSDERMAL TD SCH (08:25)
[2022-02-15] MEDS: VENLAFAXINE **XR** 75MG CAPSULE PO SCH (08:26)
[2022-02-16] MEDS ORDERED: VENL75CA47 PO (08:16)
[2022-02-16] MEDS ORDERED: NICO21DI37 TD (08:16)
[2022-02-16] MEDS ORDERED: HALO10AM IM (08:16)
[2022-02-16] MEDS: VENLAFAXINE **XR** 75MG CAPSULE PO SCH (08:24)
[2022-02-16] MEDS: NICOTINE 21MG/24HR 1 EA TRANSDERMAL TD SCH (08:25)
== END 2022-02-16 12:08 | disposition home or self-care (01) | DRG 750 ==
LOC: M ED 18:02 → M ED INP 02-05 15:15 → M PSY 02-05 16:44
PROVIDERS: ADMIT Student in an Organized Health Care Education/Training Program; ATTEND Student in an Organized Health Care Education/Training Program
DX: F25.1 Schizoaffective disorder, depressive type (principal); F12.10 Cannabis abuse, uncomplicated; F17.200 Nicotine dependence, unspecified, uncomplicated; R45.851 Suicidal ideations; Z79.899 Other long term (current) drug therapy; Z88.0 Allergy status to penicillin; Z59.89 Other problems related to housing and economic circumstances; Z78.1 Physical restraint status

== ENCOUNTER 2022-03-15 02:46 | Inpatient (IN) | payer OTHER ==
[~2022-03-15] VITALS: Ht 188 cm; Wt 88.0 kg
[~2022-03-15 02:46] MED LIST changes: +BENZ0.5T23 PO; +HALO10AM IM; +NICO21DI37 TD; +VENL75CA47 PO
[2022-03-15 03:27] LABS: BASO % 0.3 % (0.0-1.0); EOS # 0.1 10^3/uL (0.0-0.5); EOS % 1.4 % (0.0-3.0); HEMATOCRIT 44.9 % (42.0-52.0); HEMOGLOBIN 15.4 g/dl (13.5-17.5); LYMPH # 3.2 10^3/uL (1.5-5.0); LYMPH % 50.3 % (24.0-44.0); MEAN CORPUSCULAR HEMOGLOBIN 30.3 pg (27.0-33.0); MEAN CORPUSCULAR HGB CONC 34.3 g/dl (32.0-36.5); MEAN CORPUSCULAR VOLUME 88.2 fl (80.0-96.0); MONO # 0.5 10^3/uL (0.0-0.8); MONO % 8.3 % (2.0-8.0); NEUTROPHILS # 2.5 10^3/uL (1.5-8.5); NEUTROPHILS % 39.1 % (36.0-66.0); PLATELET COUNT, AUTOMATED 174 10^3/uL (150-450); RED BLOOD COUNT 5.09 10^6/uL (4.30-6.10); WHITE BLOOD COUNT 6.4 10^3/uL (4.0-10.0)
[2022-03-15 03:56] LABS: AMPHETAMINES LEVEL URINE NEGATIVE (NEGATIVE); BARBITURATES URINE NEGATIVE (NEGATIVE); BENZODIAZEPINES URINE NEGATIVE (NEGATIVE); CANNABINOIDS URINE POSITIVE (NEGATIVE); COCAINE METABOLITE URINE NEGATIVE (NEGATIVE); METHADONE URINE NEGATIVE (NEGATIVE); OPIATES URINE NEGATIVE (NEGATIVE); PHENCYCLIDINE URINE NEGATIVE (NEGATIVE)
[2022-03-15 04:25] LABS: ACETAMINOPHEN LEVEL < 2.0 UG/ML (10.0-30.0); ALBUMIN 3.5 GM/DL (3.2-5.2); ALT/SGPT 49 U/L (12-78); BILIRUBIN,DIRECT < 0.1 MG/DL (0.0-0.2); BILIRUBIN,TOTAL 0.5 MG/DL (0.2-1.0); BLOOD UREA NITROGEN 16 MG/DL (7-18); CALCIUM LEVEL 8.9 MG/DL (8.5-10.1); CARBON DIOXIDE LEVEL 28 MEQ/L (21-32); CHLORIDE LEVEL 106 MEQ/L (98-107); CREATININE FOR GFR 1.04 MG/DL (0.70-1.30); ETHYL ALCOHOL (ETHANOL) < 0.003 % (0.000-0.010); GLOMERULAR FILTRATION RATE > 60.0 (>60); GLUCOSE, FASTING 93 MG/DL (70-100); POTASSIUM SERUM 4.1 MEQ/L (3.5-5.1); SALICYLATE LEVEL < 1.7 MG/DL (5.0-30.0); SODIUM LEVEL 140 MEQ/L (136-145); TOTAL PROTEIN 6.7 GM/DL (6.4-8.2)
[2022-03-15 04:38] LABS: RSV AMPLIFICATION NEGATIVE (NEGATIVE)
[2022-03-15] MEDS ORDERED: INVE234I INJ (05:24)
[2022-03-15] MEDS ORDERED: BENZ-52 PO (05:24)
[2022-03-15] MEDS ORDERED: NICO1DIS12 TOP (05:24)
[2022-03-15] MEDS ORDERED: HALO5TAB33 PO (05:24)
[2022-03-15] MEDS ORDERED: HOME MED LIST COMPLETE! XX SCH (05:25)
[2022-03-15] MEDS: BENZTROPINE 1 MG TAB PO SCH ×2 (09:03→21:03)
[2022-03-16] MEDS: BENZTROPINE 1 MG TAB PO SCH (08:21)
[2022-03-16] MEDS ORDERED: ACETAMINOPHEN TAB 650MG DOSE (2X325MG) PO PRN (14:55)
[2022-03-16] MEDS ORDERED: MOM 30ML SUSPENSION UDC PO PRN (14:55)
[2022-03-16] MEDS ORDERED: MAALOX 30 ML SUSP *UDC PO PRN (14:55)
[2022-03-16 17:12] VITALS: BP 120/71
[2022-03-16] MEDS: traZODone 50 MG TAB PO PRN (21:05)
[2022-03-17] MEDS ORDERED: VENLAFAXINE 37.5 MG TAB PO SCH (09:00)
[2022-03-17] MEDS: VENLAFAXINE **XR** 37.5 MG CAPSULE PO SCH (09:56)
[2022-03-17] MEDS: BENZTROPINE 1 MG TAB PO SCH (21:33)
[2022-03-18 08:30] VITALS: BP 120/71
[2022-03-18] MEDS: VENLAFAXINE **XR** 37.5 MG CAPSULE PO SCH ×2 (09:00→09:55)
[2022-03-18] MEDS: BENZTROPINE 1 MG TAB PO SCH ×3 (09:00→20:16)
[2022-03-19] MEDS: BENZTROPINE 1 MG TAB PO SCH ×2 (08:37→21:00)
[2022-03-19] MEDS: VENLAFAXINE **XR** 37.5 MG CAPSULE PO SCH (08:37)
[2022-03-19] MEDS ORDERED: HALOPERIDOL DECANOATE 100 MG/ML VIAL (J1631) IM ONE (15:00)
[2022-03-20] MEDS: VENLAFAXINE **XR** 37.5 MG CAPSULE PO SCH (09:00)
[2022-03-20] MEDS: BENZTROPINE 1 MG TAB PO SCH ×2 (10:00→21:00)
[2022-03-21] MEDS: BENZTROPINE 1 MG TAB PO SCH ×2 (09:51→20:51)
[2022-03-21] MEDS: VENLAFAXINE **XR** 75MG CAPSULE PO SCH (09:51)
[2022-03-21] MEDS: traZODone 50 MG TAB PO PRN (20:51)
[2022-03-22] MEDS: BENZTROPINE 1 MG TAB PO SCH ×2 (08:54→21:18)
[2022-03-22] MEDS: VENLAFAXINE **XR** 75MG CAPSULE PO SCH (08:54)
[2022-03-23] MEDS: VENLAFAXINE **XR** 75MG CAPSULE PO SCH (09:11)
[2022-03-23] MEDS: BENZTROPINE 1 MG TAB PO SCH (09:11)
[2022-03-23] MEDS ORDERED: HALD100I2 IM (10:46)
[2022-03-23] MEDS ORDERED: HALO5TAB33 PO ×2 (10:46→21:02)
[2022-03-23] MEDS ORDERED: VENL75CA47 PO (10:46)
[2022-03-23] MEDS ORDERED: BENZ-52 PO ×2 (10:46→21:02)
[2022-03-23] MEDS ORDERED: HALO10AM IM (21:02)
[2022-03-23] MEDS ORDERED: VENL75CA2 PO (21:02)
== END 2022-03-23 12:03 | disposition home or self-care (01) | DRG 750 ==
LOC: M ED 02:46 → M ED INP 03-16 14:55 → M PSY 03-16 17:02
PROVIDERS: ADMIT Student in an Organized Health Care Education/Training Program; ATTEND Student in an Organized Health Care Education/Training Program
DX: F25.1 Schizoaffective disorder, depressive type (principal); F12.90 Cannabis use, unspecified, uncomplicated; F17.210 Nicotine dependence, cigarettes, uncomplicated; R45.851 Suicidal ideations; F17.200 Nicotine dependence, unspecified, uncomplicated; Z79.899 Other long term (current) drug therapy; Z88.0 Allergy status to penicillin; Z20.822 Contact with and (suspected) exposure to COVID-19; Z91.14 Patient's other noncompliance with medication regimen; Z91.19 Patient's noncompliance with other medical treatment and regimen

== ENCOUNTER 2022-03-23 18:58 | Inpatient (IN) | payer OTHER ==
[~2022-03-23] VITALS: Ht 188 cm; Wt 86.4 kg
[~2022-03-23 18:58] MED LIST changes: +HALD100I2 IM; +INVE234I INJ; +NICO1DIS12 TOP
[2022-03-23 19:53] LABS: HEMOGLOBIN 14.3 g/dl (13.5-17.5); MEAN CORPUSCULAR HGB CONC 34.9 g/dl (32.0-36.5); MEAN CORPUSCULAR VOLUME 86.1 fl (80.0-96.0); PLATELET COUNT, AUTOMATED 177 10^3/uL (150-450); RED BLOOD COUNT 4.76 10^6/uL (4.30-6.10)
[2022-03-23 20:25] LABS: RSV AMPLIFICATION NEGATIVE (NEGATIVE)
[2022-03-23 20:31] LABS: ACETAMINOPHEN LEVEL < 2.0 UG/ML (10.0-30.0); ALBUMIN 3.5 GM/DL (3.2-5.2); ALT/SGPT 25 U/L (12-78); BILIRUBIN,DIRECT 0.1 MG/DL (0.0-0.2); BILIRUBIN,TOTAL 0.3 MG/DL (0.2-1.0); BLOOD UREA NITROGEN 17 MG/DL (7-18); CALCIUM LEVEL 9.2 MG/DL (8.5-10.1); CARBON DIOXIDE LEVEL 29 MEQ/L (21-32); CHLORIDE LEVEL 105 MEQ/L (98-107); CREATININE FOR GFR 1.05 MG/DL (0.70-1.30); ETHYL ALCOHOL (ETHANOL) < 0.003 % (0.000-0.010); GLOMERULAR FILTRATION RATE > 60.0 (>60); GLUCOSE, FASTING 86 MG/DL (70-100); POTASSIUM SERUM 3.8 MEQ/L (3.5-5.1); SALICYLATE LEVEL < 1.7 MG/DL (5.0-30.0); SODIUM LEVEL 140 MEQ/L (136-145); THYROID STIMULATING HORMONE 0.878 uIU/ML (0.358-3.740); TOTAL PROTEIN 6.6 GM/DL (6.4-8.2)
[2022-03-23] MEDS ORDERED: HALO5TAB33 PO (21:02)
[2022-03-23] MEDS ORDERED: HALO10AM IM (21:02)
[2022-03-23] MEDS ORDERED: VENL75CA2 PO (21:02)
[2022-03-23] MEDS ORDERED: BENZ-52 PO (21:02)
[2022-03-23] MEDS ORDERED: HOME MED LIST COMPLETE! XX SCH (21:10)
[2022-03-23 22:32] LABS: AMPHETAMINES LEVEL URINE NEGATIVE (NEGATIVE); BARBITURATES URINE NEGATIVE (NEGATIVE); BENZODIAZEPINES URINE NEGATIVE (NEGATIVE); CANNABINOIDS URINE POSITIVE (NEGATIVE); COCAINE METABOLITE URINE NEGATIVE (NEGATIVE); METHADONE URINE NEGATIVE (NEGATIVE); OPIATES URINE NEGATIVE (NEGATIVE); PHENCYCLIDINE URINE NEGATIVE (NEGATIVE)
[2022-03-24] MEDS ORDERED: VENLAFAXINE **XR** 75MG CAPSULE PO SCH (09:00)
[2022-03-24] MEDS ORDERED: BENZTROPINE 1 MG TAB PO SCH (09:00)
[2022-03-24] MEDS ORDERED: ACETAMINOPHEN TAB 650MG DOSE (2X325MG) PO PRN (19:55)
[2022-03-24] MEDS ORDERED: MOM 30ML SUSPENSION UDC PO PRN (19:55)
[2022-03-24] MEDS ORDERED: MAALOX 30 ML SUSP *UDC PO PRN (19:55)
[2022-03-24 21:00] VITALS: BP 137/89
[2022-03-24] MEDS: BENZTROPINE 1 MG TAB PO SCH (21:51)
[2022-03-25] MEDS: BENZTROPINE 1 MG TAB PO SCH ×2 (10:58→21:13)
[2022-03-25] MEDS: VENLAFAXINE **XR** 75MG CAPSULE PO SCH (10:58)
[2022-03-26] MEDS: VENLAFAXINE **XR** 75MG CAPSULE PO SCH (09:15)
[2022-03-26] MEDS: BENZTROPINE 1 MG TAB PO SCH ×2 (09:15→22:19)
[2022-03-26] MEDS: traZODone 50 MG TAB PO PRN (22:19)
[2022-03-27] MEDS: VENLAFAXINE **XR** 75MG CAPSULE PO SCH (10:17)
[2022-03-27] MEDS: BENZTROPINE 1 MG TAB PO SCH ×2 (10:17→22:21)
[2022-03-28] MEDS: VENLAFAXINE **XR** 75MG CAPSULE PO SCH (10:18)
[2022-03-28] MEDS: BENZTROPINE 1 MG TAB PO SCH ×2 (10:18→20:56)
[2022-03-28] MEDS: traZODone 50 MG TAB PO PRN (20:55)
[2022-03-29] MEDS: BENZTROPINE 1 MG TAB PO SCH ×2 (09:39→20:50)
[2022-03-29] MEDS: VENLAFAXINE **XR** 75MG CAPSULE PO SCH (09:39)
[2022-03-30] MEDS: VENLAFAXINE **XR** 75MG CAPSULE PO SCH (09:34)
[2022-03-30] MEDS: BENZTROPINE 1 MG TAB PO SCH ×2 (09:34→21:36)
[2022-03-31] MEDS: BENZTROPINE 1 MG TAB PO SCH (09:06)
[2022-03-31] MEDS: VENLAFAXINE **XR** 75MG CAPSULE PO SCH (09:06)
== END 2022-03-31 13:20 | disposition home or self-care (01) | DRG 750 ==
LOC: EDBD → M ED 18:58 → M ED INP 03-24 19:51 → M PSY 03-24 20:49
PROVIDERS: ADMIT Psychiatry & Neurology Psychiatry; ATTEND Psychiatry & Neurology Psychiatry
DX: F25.1 Schizoaffective disorder, depressive type (principal); Z91.19 Patient's noncompliance with other medical treatment and regimen; F17.200 Nicotine dependence, unspecified, uncomplicated; F12.90 Cannabis use, unspecified, uncomplicated; Z79.899 Other long term (current) drug therapy; Z88.0 Allergy status to penicillin

== ENCOUNTER 2022-04-01 18:14 | Inpatient (IN) | payer OTHER ==
[~2022-04-01] VITALS: Ht 188 cm; Wt 63.6 kg
[~2022-04-01 18:14] MED LIST changes: +VENL75CA2 PO
[2022-04-01 20:04] LABS: HEMATOCRIT 41.6 % (42.0-52.0); HEMOGLOBIN 14.3 g/dl (13.5-17.5); MEAN CORPUSCULAR HEMOGLOBIN 30.3 pg (27.0-33.0); MEAN CORPUSCULAR HGB CONC 34.4 g/dl (32.0-36.5); MEAN CORPUSCULAR VOLUME 88.1 fl (80.0-96.0); PLATELET COUNT, AUTOMATED 185 10^3/uL (150-450); RED BLOOD COUNT 4.72 10^6/uL (4.30-6.10); WHITE BLOOD COUNT 5.9 10^3/uL (4.0-10.0)
[2022-04-01 20:34] LABS: AMPHETAMINES LEVEL URINE NEGATIVE (NEGATIVE); BARBITURATES URINE NEGATIVE (NEGATIVE); BENZODIAZEPINES URINE NEGATIVE (NEGATIVE); CANNABINOIDS URINE POSITIVE (NEGATIVE); COCAINE METABOLITE URINE NEGATIVE (NEGATIVE); METHADONE URINE NEGATIVE (NEGATIVE); OPIATES URINE NEGATIVE (NEGATIVE); PHENCYCLIDINE URINE NEGATIVE (NEGATIVE)
[2022-04-01 20:34] LABS: ACETAMINOPHEN LEVEL < 2.0 UG/ML (10.0-30.0); ALBUMIN 3.4 GM/DL (3.2-5.2); ALT/SGPT 27 U/L (12-78); BILIRUBIN,DIRECT < 0.1 MG/DL (0.0-0.2); BILIRUBIN,TOTAL 0.2 MG/DL (0.2-1.0); BLOOD UREA NITROGEN 16 MG/DL (7-18); CALCIUM LEVEL 9.4 MG/DL (8.5-10.1); CARBON DIOXIDE LEVEL 28 MEQ/L (21-32); CHLORIDE LEVEL 105 MEQ/L (98-107); CREATININE FOR GFR 1.06 MG/DL (0.70-1.30); ETHYL ALCOHOL (ETHANOL) < 0.003 % (0.000-0.010); GLOMERULAR FILTRATION RATE > 60.0 (>60); GLUCOSE, FASTING 88 MG/DL (70-100); POTASSIUM SERUM 3.8 MEQ/L (3.5-5.1); SALICYLATE LEVEL < 1.7 MG/DL (5.0-30.0); SODIUM LEVEL 142 MEQ/L (136-145); TOTAL PROTEIN 6.4 GM/DL (6.4-8.2)
[2022-04-01 20:37] LABS: RSV AMPLIFICATION NEGATIVE (NEGATIVE)
[2022-04-02] MEDS ORDERED: HOME MED LIST COMPLETE! XX SCH (03:15)
[2022-04-02] MEDS: VENLAFAXINE **XR** 75MG CAPSULE PO SCH ×3 (10:33→12:18)
[2022-04-02] MEDS: BENZTROPINE 1 MG TAB PO SCH ×4 (10:34→21:17)
[2022-04-03] MEDS: NICOTINE 21MG/24HR 1 EA TRANSDERMAL TD SCH (09:00)
[2022-04-03] MEDS: VENLAFAXINE **XR** 75MG CAPSULE PO SCH (09:00)
[2022-04-03] MEDS: BENZTROPINE 1 MG TAB PO SCH ×2 (09:00→20:42)
[2022-04-03] MEDS ORDERED: OLANZapine ORAL DISINTEGRATING TAB 5MG PO PRN (13:35)
[2022-04-03] MEDS ORDERED: IBUPROFEN 400MG TAB PO PRN (13:35)
[2022-04-03] MEDS ORDERED: MAALOX 30 ML SUSP *UDC PO PRN (13:35)
[2022-04-03] MEDS ORDERED: traZODone 50 MG TAB PO PRN (13:35)
[2022-04-03] MEDS ORDERED: diphenhydrAMINE 25MG CAP PO PRN (13:35)
[2022-04-03 16:40] VITALS: BP 129/87
[2022-04-04] MEDS: BENZTROPINE 1 MG TAB PO SCH ×2 (08:50→21:31)
[2022-04-04] MEDS: VENLAFAXINE **XR** 75MG CAPSULE PO SCH (08:50)
[2022-04-04] MEDS: NICOTINE 21MG/24HR 1 EA TRANSDERMAL TD SCH (08:52)
[2022-04-05] MEDS: BENZTROPINE 1 MG TAB PO SCH ×2 (08:38→22:12)
[2022-04-05] MEDS: NICOTINE 21MG/24HR 1 EA TRANSDERMAL TD SCH (08:38)
[2022-04-05] MEDS: VENLAFAXINE **XR** 75MG CAPSULE PO SCH (08:38)
[2022-04-06] MEDS: NICOTINE 21MG/24HR 1 EA TRANSDERMAL TD SCH (09:00)
[2022-04-06] MEDS: BENZTROPINE 1 MG TAB PO SCH ×2 (09:23→21:36)
[2022-04-06] MEDS: VENLAFAXINE **XR** 75MG CAPSULE PO SCH (09:23)
[2022-04-07] MEDS: NICOTINE 21MG/24HR 1 EA TRANSDERMAL TD SCH (09:00)
[2022-04-07] MEDS: VENLAFAXINE **XR** 75MG CAPSULE PO SCH (09:19)
[2022-04-07] MEDS: BENZTROPINE 1 MG TAB PO SCH (09:19)
== END 2022-04-07 13:31 | disposition home or self-care (01) | DRG 750 ==
LOC: M ED 18:14 → EDBD 18:14 → M ED INP 04-03 13:35 → M PSY 04-03 16:40
PROVIDERS: ADMIT Psychiatry & Neurology Psychiatry; ATTEND Psychiatry & Neurology Psychiatry
DX: F25.9 Schizoaffective disorder, unspecified (principal); F12.90 Cannabis use, unspecified, uncomplicated; R45.851 Suicidal ideations; R45.850 Homicidal ideations; F17.210 Nicotine dependence, cigarettes, uncomplicated; Z79.899 Other long term (current) drug therapy; Z88.0 Allergy status to penicillin; Z20.822 Contact with and (suspected) exposure to COVID-19; Z91.19 Patient's noncompliance with other medical treatment and regimen

== ENCOUNTER 2022-06-19 20:19 | Inpatient (IN) | payer OTHER ==
[~2022-06-19] VITALS: Ht 180.3 cm; Wt 74.6 kg
[2022-06-19 21:43] LABS: HEMATOCRIT 47.7 % (42.0-52.0); HEMOGLOBIN 16.2 g/dl (13.5-17.5); MEAN CORPUSCULAR HEMOGLOBIN 30.1 pg (27.0-33.0); MEAN CORPUSCULAR VOLUME 88.7 fl (80.0-96.0); PLATELET COUNT, AUTOMATED 217 10^3/uL (150-450); RED BLOOD COUNT 5.38 10^6/uL (4.30-6.10); WHITE BLOOD COUNT 6.1 10^3/uL (4.0-10.0)
[2022-06-19 22:10] LABS: AMPHETAMINES LEVEL URINE NEGATIVE (NEGATIVE); BARBITURATES URINE NEGATIVE (NEGATIVE); BENZODIAZEPINES URINE NEGATIVE (NEGATIVE); CANNABINOIDS URINE POSITIVE (NEGATIVE); COCAINE METABOLITE URINE NEGATIVE (NEGATIVE); METHADONE URINE NEGATIVE (NEGATIVE); OPIATES URINE NEGATIVE (NEGATIVE); PHENCYCLIDINE URINE NEGATIVE (NEGATIVE)
[2022-06-19 22:22] LABS: ACETAMINOPHEN LEVEL < 2.0 UG/ML (10.0-30.0); ALBUMIN 3.8 GM/DL (3.2-5.2); ALT/SGPT 24 U/L (12-78); BILIRUBIN,DIRECT 0.1 MG/DL (0.0-0.2); BILIRUBIN,TOTAL 0.6 MG/DL (0.2-1.0); BLOOD UREA NITROGEN 11 MG/DL (7-18); CALCIUM LEVEL 9.4 MG/DL (8.5-10.1); CARBON DIOXIDE LEVEL 24 MEQ/L (21-32); CHLORIDE LEVEL 107 MEQ/L (98-107); CREATININE FOR GFR 1.19 MG/DL (0.70-1.30); ETHYL ALCOHOL (ETHANOL) < 0.003 % (0.000-0.010); GLOMERULAR FILTRATION RATE > 60.0 (>60); GLUCOSE, FASTING 98 MG/DL (70-100); POTASSIUM SERUM 4.2 MEQ/L (3.5-5.1); SALICYLATE LEVEL < 1.7 MG/DL (5.0-30.0); SODIUM LEVEL 139 MEQ/L (136-145); TOTAL PROTEIN 7.1 GM/DL (6.4-8.2)
[2022-06-19 22:35] LABS: RSV AMPLIFICATION NEGATIVE (NEGATIVE)
[2022-06-19] MEDS ORDERED: HOME MED LIST COMPLETE! XX SCH (23:00)
[2022-06-21] MEDS ORDERED: OLANZapine ORAL DISINTEGRATING TAB 5MG PO ONE (18:05)
[2022-06-21] MEDS ORDERED: OLANZapine 5 MG TAB PO ONE (20:30)
[2022-06-21] MEDS ORDERED: LORazepam 2 MG TAB PO STA (20:37)
[2022-06-23] MEDS ORDERED: OLANZapine ORAL DISINTEGRATING TAB 5MG PO ONE (11:55)
[2022-06-23] MEDS ORDERED: MOM 30ML SUSPENSION UDC PO PRN (12:35)
[2022-06-23] MEDS ORDERED: ACETAMINOPHEN TAB 650MG DOSE (2X325MG) PO PRN (12:35)
[2022-06-23] MEDS ORDERED: MAALOX 30 ML SUSP *UDC PO PRN (12:35)
[2022-06-23] MEDS: NICOTINE 21MG/24HR 1 EA TRANSDERMAL TD SCH (13:00)
[2022-06-23] MEDS: VENLAFAXINE **XR** 37.5 MG CAPSULE PO SCH (13:00)
[2022-06-23 14:07] VITALS: BP 131/84
[2022-06-23] MEDS: BENZTROPINE 1 MG TAB PO SCH ×2 (16:00→20:48)
[2022-06-24 06:37] VITALS: BP 98/56
[2022-06-24] MEDS: NICOTINE 21MG/24HR 1 EA TRANSDERMAL TD SCH (09:00)
[2022-06-24] MEDS: VENLAFAXINE **XR** 37.5 MG CAPSULE PO SCH (10:10)
[2022-06-24] MEDS: BENZTROPINE 1 MG TAB PO SCH ×3 (10:10→20:59)
[2022-06-24] MEDS: CARBAMIDE PEROXIDE 6.5% OTIC SOLN 15ML AU SCH ×2 (15:08→21:00)
[2022-06-24 18:31] VITALS: BP 114/87
[2022-06-25] MEDS: NICOTINE 21MG/24HR 1 EA TRANSDERMAL TD SCH (09:00)
[2022-06-25] MEDS: CARBAMIDE PEROXIDE 6.5% OTIC SOLN 15ML AU SCH (09:00)
[2022-06-25] MEDS: VENLAFAXINE **XR** 37.5 MG CAPSULE PO SCH (09:17)
[2022-06-25] MEDS: BENZTROPINE 1 MG TAB PO SCH ×3 (09:17→22:07)
[2022-06-25 18:00] VITALS: BP 138/88
[2022-06-25] MEDS ORDERED: MINERAL OIL 473ML BTL AU ONE (21:00)
[2022-06-26] MEDS ORDERED: HALOPERIDOL DECANOATE 100 MG/ML VIAL (J1631) IM ONE (10:00)
[2022-06-26] MEDS: BENZTROPINE 1 MG TAB PO SCH ×3 (10:40→21:08)
[2022-06-26] MEDS: VENLAFAXINE **XR** 37.5 MG CAPSULE PO SCH (10:40)
[2022-06-26] MEDS: NICOTINE 21MG/24HR 1 EA TRANSDERMAL TD SCH (10:41)
[2022-06-27] MEDS: BENZTROPINE 1 MG TAB PO SCH ×3 (10:03→21:42)
[2022-06-27] MEDS: NICOTINE 21MG/24HR 1 EA TRANSDERMAL TD SCH (10:04)
[2022-06-27] MEDS: VENLAFAXINE **XR** 37.5 MG CAPSULE PO SCH (10:04)
[2022-06-27] MEDS ORDERED: HALOPERIDOL DECANOATE 100 MG/ML VIAL (J1631) IM ONE (16:30)
[2022-06-27 18:24] VITALS: BP 120/56
[2022-06-28 06:55] VITALS: BP 105/65
[2022-06-28] MEDS: NICOTINE 21MG/24HR 1 EA TRANSDERMAL TD SCH (09:00)
[2022-06-28] MEDS: BENZTROPINE 1 MG TAB PO SCH ×3 (09:00→20:51)
[2022-06-28] MEDS: VENLAFAXINE **XR** 37.5 MG CAPSULE PO SCH (09:00)
[2022-06-28] MEDS: OLANZapine ORAL DISINTEGRATING TAB 5MG PO PRN (16:22)
[2022-06-28 18:18] VITALS: BP 148/87
[2022-06-29 06:35] VITALS: BP 118/59
[2022-06-29] MEDS: NICOTINE 21MG/24HR 1 EA TRANSDERMAL TD SCH (09:00)
[2022-06-29] MEDS: VENLAFAXINE **XR** 37.5 MG CAPSULE PO SCH (09:46)
[2022-06-29] MEDS: BENZTROPINE 1 MG TAB PO SCH ×3 (09:46→20:51)
[2022-06-29 16:23] VITALS: BP 131/74
[2022-06-30] MEDS: BENZTROPINE 1 MG TAB PO SCH ×3 (08:46→21:31)
[2022-06-30] MEDS: VENLAFAXINE **XR** 37.5 MG CAPSULE PO SCH (08:46)
[2022-06-30] MEDS: NICOTINE 21MG/24HR 1 EA TRANSDERMAL TD SCH (08:46)
[2022-06-30 16:54] VITALS: BP 122/83
[2022-07-01 06:41] VITALS: BP 111/66
[2022-07-01] MEDS: NICOTINE 21MG/24HR 1 EA TRANSDERMAL TD SCH (09:00)
[2022-07-01] MEDS: VENLAFAXINE **XR** 37.5 MG CAPSULE PO SCH (09:18)
[2022-07-01] MEDS: BENZTROPINE 1 MG TAB PO SCH ×3 (09:18→20:48)
[2022-07-01 16:50] VITALS: BP 125/73
[2022-07-02 06:50] VITALS: BP 107/66
[2022-07-02] MEDS: NICOTINE 21MG/24HR 1 EA TRANSDERMAL TD SCH (09:02)
[2022-07-02] MEDS: BENZTROPINE 1 MG TAB PO SCH ×3 (09:02→21:39)
[2022-07-02] MEDS: VENLAFAXINE **XR** 75MG CAPSULE PO SCH (09:02)
[2022-07-03 06:56] VITALS: BP 124/75
[2022-07-03] MEDS: NICOTINE 21MG/24HR 1 EA TRANSDERMAL TD SCH (08:15)
[2022-07-03] MEDS: BENZTROPINE 1 MG TAB PO SCH ×3 (08:18→21:51)
[2022-07-03] MEDS: VENLAFAXINE **XR** 75MG CAPSULE PO SCH (08:18)
[2022-07-03 16:16] VITALS: BP 122/67
[2022-07-04] MEDS: OLANZapine ORAL DISINTEGRATING TAB 5MG PO PRN ×3 (02:39→08:55)
[2022-07-04] MEDS: traZODone 50 MG TAB PO PRN (02:39)
[2022-07-04] MEDS: BENZTROPINE 1 MG TAB PO SCH ×3 (08:49→21:00)
[2022-07-04] MEDS: NICOTINE 21MG/24HR 1 EA TRANSDERMAL TD SCH (08:49)
[2022-07-04] MEDS: VENLAFAXINE **XR** 75MG CAPSULE PO SCH (08:49)
[2022-07-05] MEDS: NICOTINE 21MG/24HR 1 EA TRANSDERMAL TD SCH (09:00)
[2022-07-05] MEDS: VENLAFAXINE **XR** 75MG CAPSULE PO SCH ×2 (09:00→10:54)
[2022-07-05] MEDS: BENZTROPINE 1 MG TAB PO SCH ×4 (09:59→21:25)
[2022-07-05] MEDS: OLANZapine ORAL DISINTEGRATING TAB 5MG PO PRN (12:27)
[2022-07-06 06:27] VITALS: BP 124/69
[2022-07-06] MEDS: VENLAFAXINE **XR** 75MG CAPSULE PO SCH ×2 (10:30→12:14)
[2022-07-06] MEDS: BENZTROPINE 1 MG TAB PO SCH ×2 (10:30→20:26)
[2022-07-06] MEDS: NICOTINE 21MG/24HR 1 EA TRANSDERMAL TD SCH (10:30)
[2022-07-07 06:36] VITALS: BP 107/59
[2022-07-07] MEDS: VENLAFAXINE **XR** 75MG CAPSULE PO SCH (09:14)
[2022-07-07] MEDS: BENZTROPINE 1 MG TAB PO SCH ×2 (09:14→20:12)
[2022-07-07] MEDS: NICOTINE 21MG/24HR 1 EA TRANSDERMAL TD SCH (09:15)
[2022-07-08] MEDS: NICOTINE 21MG/24HR 1 EA TRANSDERMAL TD SCH (09:00)
[2022-07-08] MEDS: BENZTROPINE 1 MG TAB PO SCH ×2 (09:39→21:09)
[2022-07-08] MEDS: VENLAFAXINE **XR** 75MG CAPSULE PO SCH (09:39)
[2022-07-08] MEDS: traZODone 50 MG TAB PO PRN (21:09)
[2022-07-09] MEDS: NICOTINE 21MG/24HR 1 EA TRANSDERMAL TD SCH (09:00)
[2022-07-09] MEDS: VENLAFAXINE **XR** 75MG CAPSULE PO SCH (09:06)
[2022-07-09] MEDS: BENZTROPINE 1 MG TAB PO SCH ×2 (09:06→20:21)
[2022-07-09] MEDS: traZODone 50 MG TAB PO PRN (20:21)
[2022-07-10 06:27] VITALS: BP 116/61
[2022-07-10] MEDS: NICOTINE 21MG/24HR 1 EA TRANSDERMAL TD SCH (10:01)
[2022-07-10] MEDS: BENZTROPINE 1 MG TAB PO SCH ×2 (10:01→21:13)
[2022-07-10] MEDS: VENLAFAXINE **XR** 75MG CAPSULE PO SCH (10:01)
[2022-07-10 19:14] VITALS: BP 127/70
[2022-07-10] MEDS: traZODone 50 MG TAB PO PRN (21:13)
[2022-07-11] MEDS: NICOTINE 21MG/24HR 1 EA TRANSDERMAL TD SCH (09:00)
[2022-07-11] MEDS: BENZTROPINE 1 MG TAB PO SCH ×2 (09:15→21:28)
[2022-07-11] MEDS: VENLAFAXINE **XR** 75MG CAPSULE PO SCH (09:15)
[2022-07-12] MEDS: BENZTROPINE 1 MG TAB PO SCH ×2 (08:23→21:22)
[2022-07-12] MEDS: NICOTINE 21MG/24HR 1 EA TRANSDERMAL TD SCH (08:23)
[2022-07-12] MEDS: VENLAFAXINE **XR** 75MG CAPSULE PO SCH (08:23)
[2022-07-12 19:57] VITALS: BP 134/75
[2022-07-13] MEDS: VENLAFAXINE **XR** 75MG CAPSULE PO SCH (08:56)
[2022-07-13] MEDS: NICOTINE 21MG/24HR 1 EA TRANSDERMAL TD SCH (08:56)
[2022-07-13] MEDS: BENZTROPINE 1 MG TAB PO SCH ×2 (08:56→20:37)
[2022-07-13 17:00] VITALS: BP 118/66
[2022-07-13] MEDS: traZODone 50 MG TAB PO PRN (20:37)
[2022-07-14] MEDS: BENZTROPINE 1 MG TAB PO SCH ×2 (09:11→20:30)
[2022-07-14] MEDS: NICOTINE 21MG/24HR 1 EA TRANSDERMAL TD SCH (09:11)
[2022-07-14] MEDS: VENLAFAXINE **XR** 75MG CAPSULE PO SCH (09:11)
[2022-07-14 17:02] VITALS: BP 110/61
[2022-07-14] MEDS: traZODone 50 MG TAB PO PRN (20:30)
[2022-07-15] MEDS: BENZTROPINE 1 MG TAB PO SCH (08:44)
[2022-07-15] MEDS: NICOTINE 21MG/24HR 1 EA TRANSDERMAL TD SCH (08:44)
[2022-07-15] MEDS: VENLAFAXINE **XR** 75MG CAPSULE PO SCH (08:44)
[2022-07-15] MEDS ORDERED: VENL75CA47 PO (09:29)
[2022-07-15] MEDS ORDERED: NICO21PAT TD (09:29)
[2022-07-15] MEDS ORDERED: BENZ-52 PO (09:29)
[2022-07-15] MEDS ORDERED: HALO5TAB33 PO (09:29)
[2022-07-15] MEDS ORDERED: HALO10TA20 PO (09:29)
[2022-07-15] MEDS ORDERED: TRAZ-252 PO (09:29)
[2022-07-15] MEDS ORDERED: OLAN5ZYD PO (09:29)
== END 2022-07-15 13:08 | disposition home or self-care (01) | DRG 750 ==
LOC: M ED 20:19 → M ED INP 06-23 12:34 → M PSY 06-23 13:59
PROVIDERS: ADMIT Psychiatry & Neurology Psychiatry; ATTEND Psychiatry & Neurology Psychiatry
DX: F25.1 Schizoaffective disorder, depressive type (principal); F12.10 Cannabis abuse, uncomplicated; F17.200 Nicotine dependence, unspecified, uncomplicated; Z91.14 Patient's other noncompliance with medication regimen; R45.851 Suicidal ideations; Z88.0 Allergy status to penicillin; H61.20 Impacted cerumen, unspecified ear; Z59.89 Other problems related to housing and economic circumstances

== ENCOUNTER 2022-07-16 10:26 | Emergency (ER) | payer OTHER ==
[~2022-07-16] VITALS: Ht 180.3 cm; Wt 74.0 kg
[~2022-07-16 10:26] MED LIST changes: +OLAN5ZYD PO
[2022-07-16] MEDS ORDERED: diphenhydrAMINE 50MG/ML VIAL (J1200) IM ONE (10:45)
[2022-07-16] MEDS ORDERED: HALOPERIDOL 5MG/ML VIAL (J1630 PER 1) IM ONE (10:45)
[2022-07-16] MEDS ORDERED: MIDAZOLAM INJ 2MG/2ML VIAL (J2250 PER 1MG) IM ONE (10:45)
[2022-07-16 11:05] LABS: HEMATOCRIT 42.4 % (42.0-52.0); HEMOGLOBIN 14.8 g/dl (13.5-17.5); MEAN CORPUSCULAR HEMOGLOBIN 29.9 pg (27.0-33.0); MEAN CORPUSCULAR HGB CONC 34.9 g/dl (32.0-36.5); MEAN CORPUSCULAR VOLUME 85.7 fl (80.0-96.0); PLATELET COUNT, AUTOMATED 164 10^3/uL (150-450); RED BLOOD COUNT 4.95 10^6/uL (4.30-6.10); WHITE BLOOD COUNT 3.8 10^3/uL (4.0-10.0)
[2022-07-16 11:39] LABS: ACETAMINOPHEN LEVEL < 2.0 UG/ML (10.0-30.0); ALBUMIN 3.7 GM/DL (3.2-5.2); ALT/SGPT 24 U/L (12-78); BILIRUBIN,DIRECT 0.1 MG/DL (0.0-0.2); BILIRUBIN,TOTAL 0.6 MG/DL (0.2-1.0); BLOOD UREA NITROGEN 11 MG/DL (7-18); CALCIUM LEVEL 9.4 MG/DL (8.5-10.1); CARBON DIOXIDE LEVEL 23 MEQ/L (21-32); CHLORIDE LEVEL 105 MEQ/L (98-107); CREATININE FOR GFR 0.94 MG/DL (0.70-1.30); ETHYL ALCOHOL (ETHANOL) 0.003 % (0.000-0.010); GLOMERULAR FILTRATION RATE > 60.0 (>60); GLUCOSE, FASTING 81 MG/DL (70-100); POTASSIUM SERUM 3.7 MEQ/L (3.5-5.1); SALICYLATE LEVEL < 1.7 MG/DL (5.0-30.0); SODIUM LEVEL 137 MEQ/L (136-145); TOTAL PROTEIN 6.4 GM/DL (6.4-8.2)
[2022-07-16 11:40] LABS: RSV AMPLIFICATION NEGATIVE (NEGATIVE)
[2022-07-16 13:05] LABS: AMPHETAMINES LEVEL URINE NEGATIVE (NEGATIVE); BARBITURATES URINE NEGATIVE (NEGATIVE); BENZODIAZEPINES URINE NEGATIVE (NEGATIVE); CANNABINOIDS URINE POSITIVE (NEGATIVE); COCAINE METABOLITE URINE NEGATIVE (NEGATIVE); METHADONE URINE NEGATIVE (NEGATIVE); OPIATES URINE NEGATIVE (NEGATIVE); PHENCYCLIDINE URINE NEGATIVE (NEGATIVE)
[2022-07-16] MEDS ORDERED: HOME MED LIST COMPLETE! XX SCH (19:55)
[2022-07-17] MEDS ORDERED: HALO5TAB33 PO (11:52)
[2022-07-17] MEDS ORDERED: VENL75CA47 PO (11:52)
[2022-07-17] MEDS ORDERED: BENZ-52 PO (11:52)
[2022-07-17 17:17] VITALS: BP 129/83
[2022-07-18] MEDS ORDERED: TRAZ-252 PO (06:32)
== END 2022-07-17 17:25 | disposition home or self-care (01) ==
LOC: M ED 10:26
DX: F25.9 Schizoaffective disorder, unspecified (principal); F41.9 Anxiety disorder, unspecified; F32.9 Major depressive disorder, single episode, unspecified; F17.200 Nicotine dependence, unspecified, uncomplicated; F12.10 Cannabis abuse, uncomplicated; Z88.0 Allergy status to penicillin
CPT/HCPCS: 80048; 80076; 80143; 80307; 82077; 84443; 85027; 87631; 96372; 99285; J1200; J1630; J2250

== ENCOUNTER 2022-07-17 21:43 | Emergency (ER) | payer OTHER ==
[2022-07-17 22:53] LABS: HEMATOCRIT 40.1 % (42.0-52.0); HEMOGLOBIN 14.2 g/dl (13.5-17.5); MEAN CORPUSCULAR HEMOGLOBIN 30.3 pg (27.0-33.0); MEAN CORPUSCULAR HGB CONC 35.4 g/dl (32.0-36.5); MEAN CORPUSCULAR VOLUME 85.7 fl (80.0-96.0); PLATELET COUNT, AUTOMATED 155 10^3/uL (150-450); RED BLOOD COUNT 4.68 10^6/uL (4.30-6.10); WHITE BLOOD COUNT 4.7 10^3/uL (4.0-10.0)
[2022-07-17] MEDS ORDERED: ACETAMINOPHEN TAB 650MG DOSE (2X325MG) PO ONE (23:10)
[2022-07-17 23:39] LABS: RSV AMPLIFICATION NEGATIVE (NEGATIVE)
[2022-07-17 23:40] LABS: ACETAMINOPHEN LEVEL < 2.0 UG/ML (10.0-30.0); ALBUMIN 3.4 GM/DL (3.2-5.2); ALT/SGPT 20 U/L (12-78); BILIRUBIN,DIRECT 0.3 MG/DL (0.0-0.2); BILIRUBIN,TOTAL 0.4 MG/DL (0.2-1.0); BLOOD UREA NITROGEN 12 MG/DL (7-18); CALCIUM LEVEL 9.2 MG/DL (8.5-10.1); CARBON DIOXIDE LEVEL 26 MEQ/L (21-32); CHLORIDE LEVEL 107 MEQ/L (98-107); CREATININE FOR GFR 1.08 MG/DL (0.70-1.30); ETHYL ALCOHOL (ETHANOL) < 0.003 % (0.000-0.010); GLOMERULAR FILTRATION RATE > 60.0 (>60); GLUCOSE, FASTING 84 MG/DL (70-100); POTASSIUM SERUM 3.4 MEQ/L (3.5-5.1); SALICYLATE LEVEL < 1.7 MG/DL (5.0-30.0); SODIUM LEVEL 139 MEQ/L (136-145); TOTAL PROTEIN 6.2 GM/DL (6.4-8.2)
[2022-07-17 23:55] LABS: AMPHETAMINES LEVEL URINE NEGATIVE (NEGATIVE); BARBITURATES URINE NEGATIVE (NEGATIVE); BENZODIAZEPINES URINE POSITIVE (NEGATIVE); CANNABINOIDS URINE POSITIVE (NEGATIVE); COCAINE METABOLITE URINE NEGATIVE (NEGATIVE); METHADONE URINE NEGATIVE (NEGATIVE); OPIATES URINE NEGATIVE (NEGATIVE); PHENCYCLIDINE URINE NEGATIVE (NEGATIVE)
[2022-07-18] MEDS ORDERED: TRAZ-252 PO (06:32)
[2022-07-18] MEDS ORDERED: HOME MED LIST COMPLETE! XX SCH (06:35)
[2022-07-18] MEDS ORDERED: VENLAFAXINE 37.5 MG TAB PO ONE (11:40)
[2022-07-18] MEDS ORDERED: VENLAFAXINE **XR** 75MG CAPSULE PO ONE (11:50)
[2022-07-18] MEDS: BENZTROPINE 1 MG TAB PO SCH (21:00)
[2022-07-18] MEDS: traZODone 50 MG TAB PO SCH (21:00)
[2022-07-19] MEDS: VENLAFAXINE **XR** 75MG CAPSULE PO SCH (09:07)
[2022-07-19] MEDS: BENZTROPINE 1 MG TAB PO SCH ×2 (09:07→23:44)
[2022-07-19] MEDS ORDERED: LORazepam 2 MG TAB PO STA (15:07)
[2022-07-19] MEDS: traZODone 50 MG TAB PO SCH (23:44)
[2022-07-20] MEDS: VENLAFAXINE **XR** 75MG CAPSULE PO SCH (10:02)
[2022-07-20] MEDS: BENZTROPINE 1 MG TAB PO SCH ×2 (10:02→21:00)
[2022-07-20] MEDS ORDERED: LORazepam 2 MG TAB PO STA (10:34)
[2022-07-20] MEDS: traZODone 50 MG TAB PO SCH (21:00)
[2022-07-21] MEDS: BENZTROPINE 1 MG TAB PO SCH (10:18)
[2022-07-21] MEDS: VENLAFAXINE **XR** 75MG CAPSULE PO SCH (10:18)
[2022-07-21 17:36] VITALS: BP 118/75
[2022-07-22] MEDS ORDERED: HALO10TA20 PO (09:21)
[2022-07-22] MEDS ORDERED: NICO1DIS12 (09:21)
[2022-07-22] MEDS ORDERED: OLAN5ZYD SL (09:21)
== END 2022-07-21 17:40 | disposition home or self-care (01) ==
LOC: EDBD 21:43 → M ED 21:43
DX: F29 Unspecified psychosis not due to a substance or known physiological condition (principal); F20.9 Schizophrenia, unspecified; F41.9 Anxiety disorder, unspecified; Z79.899 Other long term (current) drug therapy; Z88.0 Allergy status to penicillin

== ENCOUNTER 2022-07-22 08:06 | Emergency (ER) | payer OTHER ==
[~2022-07-22] VITALS: Ht 182.9 cm; Wt 79.5 kg
[2022-07-22] MEDS ORDERED: VENLAFAXINE **XR** 75MG CAPSULE PO SCH (09:00)
[2022-07-22 09:04] LABS: HEMATOCRIT 44.3 % (42.0-52.0); HEMOGLOBIN 15.6 g/dl (13.5-17.5); MEAN CORPUSCULAR HEMOGLOBIN 30.3 pg (27.0-33.0); MEAN CORPUSCULAR HGB CONC 35.2 g/dl (32.0-36.5); PLATELET COUNT, AUTOMATED 163 10^3/uL (150-450); RED BLOOD COUNT 5.15 10^6/uL (4.30-6.10); WHITE BLOOD COUNT 3.6 10^3/uL (4.0-10.0)
[2022-07-22] MEDS ORDERED: NICO1DIS12 (09:21)
[2022-07-22] MEDS ORDERED: OLAN5ZYD SL (09:21)
[2022-07-22] MEDS ORDERED: HALO10TA20 PO (09:21)
[2022-07-22] MEDS ORDERED: OLANZapine 5 MG TAB PO PRN (09:25)
[2022-07-22] MEDS ORDERED: NICOTINE 21MG/24HR 1 EA TRANSDERMAL TD ONE (09:25)
[2022-07-22 09:47] LABS: ACETAMINOPHEN LEVEL < 2.0 UG/ML (10.0-30.0); ALBUMIN 3.8 GM/DL (3.2-5.2); ALT/SGPT 24 U/L (12-78); BILIRUBIN,DIRECT 0.1 MG/DL (0.0-0.2); BILIRUBIN,TOTAL 0.6 MG/DL (0.2-1.0); BLOOD UREA NITROGEN 9 MG/DL (7-18); CALCIUM LEVEL 9.5 MG/DL (8.5-10.1); CARBON DIOXIDE LEVEL 27 MEQ/L (21-32); CHLORIDE LEVEL 103 MEQ/L (98-107); CREATININE FOR GFR 1.06 MG/DL (0.70-1.30); ETHYL ALCOHOL (ETHANOL) < 0.003 % (0.000-0.010); GLOMERULAR FILTRATION RATE > 60.0 (>60); GLUCOSE, FASTING 90 MG/DL (70-100); POTASSIUM SERUM 3.9 MEQ/L (3.5-5.1); SALICYLATE LEVEL < 1.7 MG/DL (5.0-30.0); SODIUM LEVEL 137 MEQ/L (136-145); TOTAL PROTEIN 6.6 GM/DL (6.4-8.2)
[2022-07-22] MEDS: BENZTROPINE 1 MG TAB PO SCH ×2 (09:54→20:34)
[2022-07-22 10:38] LABS: RSV AMPLIFICATION NEGATIVE (NEGATIVE)
[2022-07-22 10:54] LABS: AMPHETAMINES LEVEL URINE NEGATIVE (NEGATIVE); BARBITURATES URINE NEGATIVE (NEGATIVE); BENZODIAZEPINES URINE NEGATIVE (NEGATIVE); CANNABINOIDS URINE POSITIVE (NEGATIVE); COCAINE METABOLITE URINE NEGATIVE (NEGATIVE); METHADONE URINE NEGATIVE (NEGATIVE); OPIATES URINE NEGATIVE (NEGATIVE); PHENCYCLIDINE URINE NEGATIVE (NEGATIVE)
[2022-07-22] MEDS ORDERED: traZODone 50 MG TAB PO SCH (21:00)
[2022-07-22 22:09] VITALS: BP 127/74
== END 2022-07-22 22:13 | disposition home or self-care (01) ==
LOC: M ED 08:06
DX: F43.0 Acute stress reaction (principal); F25.9 Schizoaffective disorder, unspecified; F32.9 Major depressive disorder, single episode, unspecified; F12.10 Cannabis abuse, uncomplicated; Z79.899 Other long term (current) drug therapy; Z88.0 Allergy status to penicillin

== ENCOUNTER 2022-07-26 07:55 | Emergency (ER) | payer OTHER ==
[~2022-07-26] VITALS: Ht 175.3 cm; Wt 77.2 kg
[~2022-07-26 07:55] MED LIST changes: +NICO1DIS12 TD; +OLAN5ZYD SL
[2022-07-26 14:40] LABS: HEMATOCRIT 37.9 % (42.0-52.0); HEMOGLOBIN 13.3 g/dl (13.5-17.5); MEAN CORPUSCULAR HEMOGLOBIN 30.5 pg (27.0-33.0); MEAN CORPUSCULAR HGB CONC 35.1 g/dl (32.0-36.5); MEAN CORPUSCULAR VOLUME 86.9 fl (80.0-96.0); PLATELET COUNT, AUTOMATED 161 10^3/uL (150-450); RED BLOOD COUNT 4.36 10^6/uL (4.30-6.10); WHITE BLOOD COUNT 4.1 10^3/uL (4.0-10.0)
[2022-07-26 15:08] LABS: RSV AMPLIFICATION NEGATIVE (NEGATIVE)
[2022-07-26 15:24] LABS: ACETAMINOPHEN LEVEL < 2.0 UG/ML (10.0-30.0); ALBUMIN 3.3 GM/DL (3.2-5.2); ALT/SGPT 27 U/L (12-78); BILIRUBIN,DIRECT 0.1 MG/DL (0.0-0.2); BILIRUBIN,TOTAL 0.3 MG/DL (0.2-1.0); BLOOD UREA NITROGEN 9 MG/DL (7-18); CALCIUM LEVEL 8.5 MG/DL (8.5-10.1); CARBON DIOXIDE LEVEL 27 MEQ/L (21-32); CHLORIDE LEVEL 110 MEQ/L (98-107); CREATININE FOR GFR 0.79 MG/DL (0.70-1.30); ETHYL ALCOHOL (ETHANOL) < 0.003 % (0.000-0.010); GLOMERULAR FILTRATION RATE > 60.0 (>60); GLUCOSE, FASTING 89 MG/DL (70-100); POTASSIUM SERUM 3.8 MEQ/L (3.5-5.1); SALICYLATE LEVEL < 1.7 MG/DL (5.0-30.0); SODIUM LEVEL 142 MEQ/L (136-145); TOTAL PROTEIN 5.8 GM/DL (6.4-8.2)
[2022-07-26 17:15] LABS: AMPHETAMINES LEVEL URINE NEGATIVE (NEGATIVE); BARBITURATES URINE NEGATIVE (NEGATIVE); BENZODIAZEPINES URINE NEGATIVE (NEGATIVE); CANNABINOIDS URINE POSITIVE (NEGATIVE); COCAINE METABOLITE URINE NEGATIVE (NEGATIVE); METHADONE URINE NEGATIVE (NEGATIVE); OPIATES URINE NEGATIVE (NEGATIVE); PHENCYCLIDINE URINE NEGATIVE (NEGATIVE)
[2022-07-26] MEDS ORDERED: HOME MED LIST COMPLETE! XX SCH (17:15)
[2022-07-26] MEDS ORDERED: OLANZapine ORAL DISINTEGRATING TAB 5MG PO PRN (20:15)
[2022-07-26] MEDS: traZODone 50 MG TAB PO SCH (21:00)
[2022-07-26] MEDS: BENZTROPINE 1 MG TAB PO SCH (21:00)
[2022-07-27] MEDS ORDERED: VENLAFAXINE 37.5 MG TAB PO SCH (09:00)
[2022-07-27] MEDS: NICOTINE 21MG/24HR 1 EA TRANSDERMAL TD SCH (09:00)
[2022-07-27] MEDS: BENZTROPINE 1 MG TAB PO SCH ×2 (09:02→21:00)
[2022-07-27] MEDS: VENLAFAXINE **XR** 75MG CAPSULE PO SCH (09:02)
[2022-07-27] MEDS: traZODone 50 MG TAB PO SCH (20:59)
[2022-07-28] MEDS: BENZTROPINE 1 MG TAB PO SCH ×2 (10:19→21:41)
[2022-07-28] MEDS: VENLAFAXINE **XR** 75MG CAPSULE PO SCH (10:19)
[2022-07-28] MEDS: NICOTINE 21MG/24HR 1 EA TRANSDERMAL TD SCH (10:19)
[2022-07-28 16:24] VITALS: BP 99/60
[2022-07-28] MEDS: traZODone 50 MG TAB PO SCH (21:41)
[2022-07-29] MEDS: BENZTROPINE 1 MG TAB PO SCH (10:31)
[2022-07-29] MEDS: NICOTINE 21MG/24HR 1 EA TRANSDERMAL TD SCH (10:32)
[2022-07-29] MEDS: VENLAFAXINE **XR** 75MG CAPSULE PO SCH (10:32)
== END 2022-07-29 16:01 | disposition home or self-care (01) ==
LOC: M ED 07:55
DX: F25.9 Schizoaffective disorder, unspecified (principal); Z79.899 Other long term (current) drug therapy; Z88.0 Allergy status to penicillin

== ENCOUNTER 2022-08-10 11:38 | Emergency (ER) | payer OTHER ==
[~2022-08-10] VITALS: Ht 185.4 cm; Wt 84.1 kg
[2022-08-10 13:47] LABS: HEMATOCRIT 43.5 % (42.0-52.0); HEMOGLOBIN 15.2 g/dl (13.5-17.5); MEAN CORPUSCULAR HEMOGLOBIN 30.1 pg (27.0-33.0); MEAN CORPUSCULAR HGB CONC 34.9 g/dl (32.0-36.5); MEAN CORPUSCULAR VOLUME 86.1 fl (80.0-96.0); PLATELET COUNT, AUTOMATED 194 10^3/uL (150-450); RED BLOOD COUNT 5.05 10^6/uL (4.30-6.10); WHITE BLOOD COUNT 4.8 10^3/uL (4.0-10.0)
[2022-08-10 14:31] LABS: RSV AMPLIFICATION NEGATIVE (NEGATIVE)
[2022-08-10 14:35] LABS: ACETAMINOPHEN LEVEL < 2.0 UG/ML (10.0-30.0); ALBUMIN 3.6 GM/DL (3.2-5.2); ALT/SGPT 28 U/L (12-78); BILIRUBIN,DIRECT 0.1 MG/DL (0.0-0.2); BILIRUBIN,TOTAL 0.4 MG/DL (0.2-1.0); BLOOD UREA NITROGEN 12 MG/DL (7-18); CARBON DIOXIDE LEVEL 25 MEQ/L (21-32); CHLORIDE LEVEL 107 MEQ/L (98-107); ETHYL ALCOHOL (ETHANOL) < 0.003 % (0.000-0.010); GLOMERULAR FILTRATION RATE > 60.0 (>60); GLUCOSE, FASTING 92 MG/DL (70-100); POTASSIUM SERUM 4.1 MEQ/L (3.5-5.1); SALICYLATE LEVEL < 1.7 MG/DL (5.0-30.0); SODIUM LEVEL 137 MEQ/L (136-145); THYROID STIMULATING HORMONE 0.535 uIU/ML (0.358-3.740); TOTAL PROTEIN 6.7 GM/DL (6.4-8.2)
[2022-08-10 15:56] VITALS: BP 115/80
== END 2022-08-10 15:58 | disposition home or self-care (01) ==
LOC: M ED 11:38
DX: F25.9 Schizoaffective disorder, unspecified (principal); Z79.899 Other long term (current) drug therapy; Z88.0 Allergy status to penicillin

== ENCOUNTER 2022-08-19 15:37 | Inpatient (IN) | payer OTHER ==
[~2022-08-19] VITALS: Ht 185.4 cm; Wt 88.3 kg
[2022-08-19] MEDS ORDERED: ABIL1INJ2 (15:59)
[2022-08-19] MEDS ORDERED: ARIP10TA32 (15:59)
[2022-08-19 16:27] LABS: HEMATOCRIT 42.9 % (42.0-52.0); HEMOGLOBIN 14.5 g/dl (13.5-17.5); MEAN CORPUSCULAR HEMOGLOBIN 29.7 pg (27.0-33.0); MEAN CORPUSCULAR HGB CONC 33.8 g/dl (32.0-36.5); MEAN CORPUSCULAR VOLUME 87.9 fl (80.0-96.0); PLATELET COUNT, AUTOMATED 197 10^3/uL (150-450); RED BLOOD COUNT 4.88 10^6/uL (4.30-6.10); WHITE BLOOD COUNT 4.9 10^3/uL (4.0-10.0)
[2022-08-19 16:56] LABS: RSV AMPLIFICATION NEGATIVE (NEGATIVE)
[2022-08-19 17:26] LABS: AMPHETAMINES LEVEL URINE NEGATIVE (NEGATIVE); BARBITURATES URINE NEGATIVE (NEGATIVE); BENZODIAZEPINES URINE NEGATIVE (NEGATIVE); CANNABINOIDS URINE POSITIVE (NEGATIVE); COCAINE METABOLITE URINE NEGATIVE (NEGATIVE); METHADONE URINE NEGATIVE (NEGATIVE); OPIATES URINE NEGATIVE (NEGATIVE); PHENCYCLIDINE URINE NEGATIVE (NEGATIVE)
[2022-08-19 17:35] LABS: ACETAMINOPHEN LEVEL < 2.0 UG/ML (10.0-30.0); ALBUMIN 3.6 GM/DL (3.2-5.2); ALKALINE PHOSPHATASE 61 U/L (45-117); ALT/SGPT 36 U/L (12-78); AST/SGOT 12 U/L (7-37); BILIRUBIN,DIRECT 0.1 MG/DL (0.0-0.2); BILIRUBIN,TOTAL 0.3 MG/DL (0.2-1.0); BLOOD UREA NITROGEN 14 MG/DL (7-18); CALCIUM LEVEL 9.8 MG/DL (8.5-10.1); CARBON DIOXIDE LEVEL 29 MEQ/L (21-32); CHLORIDE LEVEL 106 MEQ/L (98-107); CREATININE FOR GFR 1.03 MG/DL (0.70-1.30); ETHYL ALCOHOL (ETHANOL) < 0.003 % (0.000-0.010); GLOMERULAR FILTRATION RATE > 60.0 (>60); GLUCOSE, FASTING 88 MG/DL (70-100); POTASSIUM SERUM 4.1 MEQ/L (3.5-5.1); SALICYLATE LEVEL < 1.7 MG/DL (5.0-30.0); SODIUM LEVEL 141 MEQ/L (136-145); THYROID STIMULATING HORMONE 0.448 uIU/ML (0.358-3.740); TOTAL PROTEIN 6.8 GM/DL (6.4-8.2)
[2022-08-20] MEDS ORDERED: BENZ-52 PO (00:55)
[2022-08-20] MEDS ORDERED: HALO10AM IM (00:55)
[2022-08-20] MEDS ORDERED: VENL75CA2 PO (00:55)
[2022-08-20] MEDS ORDERED: VITMTA PO (00:55)
[2022-08-20] MEDS ORDERED: HOME MED LIST COMPLETE! XX SCH (01:00)
[2022-08-20] MEDS ORDERED: BENZTROPINE 1 MG TAB PO SCH (09:00)
[2022-08-20] MEDS ORDERED: VENLAFAXINE **XR** 75MG CAPSULE PO SCH (09:00)
[2022-08-20] MEDS ORDERED: MAALOX 30 ML SUSP *UDC PO PRN (16:00)
[2022-08-20] MEDS ORDERED: ACETAMINOPHEN TAB 650MG DOSE (2X325MG) PO PRN (16:00)
[2022-08-20] MEDS ORDERED: MOM 30ML SUSPENSION UDC PO PRN (16:00)
[2022-08-20 18:37] VITALS: BP 137/78
[2022-08-20] MEDS: BENZTROPINE 1 MG TAB PO SCH (22:02)
[2022-08-21 06:36] VITALS: BP 99/50
[2022-08-21] MEDS: VENLAFAXINE **XR** 75MG CAPSULE PO SCH (10:33)
[2022-08-21] MEDS: BENZTROPINE 1 MG TAB PO SCH ×2 (10:33→20:23)
[2022-08-21] MEDS: traZODone 50 MG TAB PO PRN (20:24)
[2022-08-21] MEDS: OLANZapine ORAL DISINTEGRATING TAB 5MG PO PRN (23:16)
[2022-08-22 06:47] VITALS: BP 113/70
[2022-08-22] MEDS: VENLAFAXINE **XR** 75MG CAPSULE PO SCH (09:59)
[2022-08-22] MEDS: BENZTROPINE 1 MG TAB PO SCH ×2 (09:59→21:31)
[2022-08-22 15:17] LABS: HEMOGLOBIN A1c 5.4 %
[2022-08-22] MEDS: traZODone 50 MG TAB PO PRN (21:31)
[2022-08-23 07:00] VITALS: BP 114/60
[2022-08-23] MEDS: BENZTROPINE 1 MG TAB PO SCH ×2 (09:21→22:08)
[2022-08-23] MEDS: VENLAFAXINE **XR** 75MG CAPSULE PO SCH (09:21)
[2022-08-23 18:00] VITALS: BP 162/82
[2022-08-24 07:04] VITALS: BP 113/64
[2022-08-24] MEDS: VENLAFAXINE **XR** 75MG CAPSULE PO SCH (08:47)
[2022-08-24] MEDS: BENZTROPINE 1 MG TAB PO SCH ×2 (08:47→22:11)
[2022-08-24 16:18] VITALS: BP 135/78
[2022-08-25 06:29] VITALS: BP 141/81
[2022-08-25] MEDS: VENLAFAXINE **XR** 75MG CAPSULE PO SCH (09:46)
[2022-08-25] MEDS: BENZTROPINE 1 MG TAB PO SCH ×2 (09:46→22:09)
[2022-08-25 16:03] VITALS: BP 140/84
[2022-08-26 06:25] VITALS: BP 129/62
[2022-08-26] MEDS: VENLAFAXINE **XR** 75MG CAPSULE PO SCH (09:28)
[2022-08-26] MEDS: BENZTROPINE 1 MG TAB PO SCH ×2 (09:28→22:00)
[2022-08-26 16:23] VITALS: BP 130/75
[2022-08-27 06:16] VITALS: BP 112/63
[2022-08-27] MEDS: VENLAFAXINE **XR** 75MG CAPSULE PO SCH (09:01)
[2022-08-27] MEDS: BENZTROPINE 1 MG TAB PO SCH ×2 (09:01→21:33)
[2022-08-27 18:38] VITALS: BP 134/83
[2022-08-28 06:01] VITALS: BP 129/70
[2022-08-28] MEDS: BENZTROPINE 1 MG TAB PO SCH ×2 (08:54→22:08)
[2022-08-28] MEDS: VENLAFAXINE **XR** 75MG CAPSULE PO SCH (08:54)
[2022-08-28] MEDS: traZODone 50 MG TAB PO PRN (22:08)
[2022-08-29] MEDS: VENLAFAXINE **XR** 75MG CAPSULE PO SCH (08:55)
[2022-08-29] MEDS: BENZTROPINE 1 MG TAB PO SCH ×2 (08:55→20:33)
[2022-08-29 16:19] VITALS: BP 129/71
[2022-08-30 06:31] VITALS: BP 116/59
[2022-08-30] MEDS: BENZTROPINE 1 MG TAB PO SCH ×3 (08:18→21:00)
[2022-08-30] MEDS: VENLAFAXINE **XR** 75MG CAPSULE PO SCH ×2 (08:19→08:21)
[2022-08-30 16:09] VITALS: BP 133/80
[2022-08-31] MEDS: VENLAFAXINE **XR** 75MG CAPSULE PO SCH (09:07)
[2022-08-31] MEDS: BENZTROPINE 1 MG TAB PO SCH ×2 (09:08→20:46)
[2022-08-31 18:06] VITALS: BP 126/83
[2022-09-01] MEDS: BENZTROPINE 1 MG TAB PO SCH ×2 (09:53→20:51)
[2022-09-01] MEDS: VENLAFAXINE **XR** 75MG CAPSULE PO SCH (09:53)
[2022-09-01 18:02] VITALS: BP 105/76
[2022-09-01] MEDS: traZODone 50 MG TAB PO PRN (20:51)
[2022-09-02 05:55] VITALS: BP 106/54
[2022-09-02] MEDS: BENZTROPINE 1 MG TAB PO SCH ×2 (09:27→20:01)
[2022-09-02] MEDS: VENLAFAXINE **XR** 75MG CAPSULE PO SCH (09:27)
[2022-09-02 17:47] VITALS: BP 138/80
[2022-09-02] MEDS: traZODone 50 MG TAB PO PRN (20:01)
[2022-09-03 06:22] VITALS: BP 98/52
[2022-09-03] MEDS: BENZTROPINE 1 MG TAB PO SCH ×2 (09:32→20:35)
[2022-09-03] MEDS: VENLAFAXINE **XR** 75MG CAPSULE PO SCH (09:32)
[2022-09-03] MEDS: OLANZapine ORAL DISINTEGRATING TAB 5MG PO PRN (17:35)
[2022-09-03 18:10] VITALS: BP 135/85
[2022-09-03] MEDS: traZODone 50 MG TAB PO PRN (20:35)
[2022-09-04 06:18] VITALS: BP 97/54
[2022-09-04] MEDS: BENZTROPINE 1 MG TAB PO SCH ×2 (08:52→21:21)
[2022-09-04] MEDS: VENLAFAXINE **XR** 75MG CAPSULE PO SCH (08:52)
[2022-09-04 18:03] VITALS: BP 155/87
[2022-09-04] MEDS: traZODone 50 MG TAB PO PRN (21:21)
[2022-09-05] MEDS: BENZTROPINE 1 MG TAB PO SCH ×2 (08:49→20:13)
[2022-09-05] MEDS: VENLAFAXINE **XR** 75MG CAPSULE PO SCH (08:49)
[2022-09-05 18:00] VITALS: BP 120/64
[2022-09-05] MEDS: traZODone 50 MG TAB PO PRN (20:13)
[2022-09-06] MEDS: VENLAFAXINE **XR** 75MG CAPSULE PO SCH (09:32)
[2022-09-06] MEDS: BENZTROPINE 1 MG TAB PO SCH ×2 (09:32→20:38)
[2022-09-06 18:36] VITALS: BP 122/67
[2022-09-06] MEDS: traZODone 50 MG TAB PO PRN (20:37)
[2022-09-07] MEDS: VENLAFAXINE **XR** 75MG CAPSULE PO SCH (09:18)
[2022-09-07] MEDS: BENZTROPINE 1 MG TAB PO SCH ×2 (09:18→20:57)
[2022-09-07] MEDS: traZODone 50 MG TAB PO PRN (20:57)
[2022-09-08 06:20] VITALS: BP 106/54
[2022-09-08] MEDS: BENZTROPINE 1 MG TAB PO SCH ×2 (09:48→20:47)
[2022-09-08] MEDS: VENLAFAXINE **XR** 75MG CAPSULE PO SCH (09:48)
[2022-09-09 06:17] VITALS: BP 111/59
[2022-09-09] MEDS: BENZTROPINE 1 MG TAB PO SCH ×2 (09:25→20:35)
[2022-09-09] MEDS: VENLAFAXINE **XR** 75MG CAPSULE PO SCH (09:25)
[2022-09-09 16:40] VITALS: BP 121/80
[2022-09-09] MEDS: traZODone 50 MG TAB PO PRN (20:35)
[2022-09-10 06:15] VITALS: BP 112/59
[2022-09-10] MEDS: BENZTROPINE 1 MG TAB PO SCH ×2 (09:17→21:42)
[2022-09-10] MEDS: VENLAFAXINE **XR** 75MG CAPSULE PO SCH (09:17)
[2022-09-10 18:18] VITALS: BP 132/65
[2022-09-11 06:00] VITALS: BP 102/52
[2022-09-11] MEDS: BENZTROPINE 1 MG TAB PO SCH ×2 (07:43→20:27)
[2022-09-11] MEDS: VENLAFAXINE **XR** 75MG CAPSULE PO SCH (07:43)
[2022-09-11 16:37] VITALS: BP 142/90
[2022-09-11] MEDS: traZODone 50 MG TAB PO PRN (20:27)
[2022-09-12 06:39] VITALS: BP 131/71
[2022-09-12] MEDS: BENZTROPINE 1 MG TAB PO SCH ×2 (09:06→19:59)
[2022-09-12] MEDS: VENLAFAXINE **XR** 75MG CAPSULE PO SCH (09:06)
[2022-09-12 16:16] VITALS: BP 125/77
[2022-09-12] MEDS: traZODone 50 MG TAB PO PRN (19:59)
[2022-09-13 06:31] VITALS: BP 110/62
[2022-09-13] MEDS: BENZTROPINE 1 MG TAB PO SCH ×2 (08:47→21:03)
[2022-09-13] MEDS: VENLAFAXINE **XR** 75MG CAPSULE PO SCH (08:47)
[2022-09-13 16:25] VITALS: BP 110/55
[2022-09-13] MEDS: traZODone 50 MG TAB PO PRN (21:03)
[2022-09-14 06:15] VITALS: BP 135/62
[2022-09-14] MEDS: MULTIVITAMINS/MINERALS THERAP 1 TAB PO SCH (08:44)
[2022-09-14] MEDS: BENZTROPINE 1 MG TAB PO SCH ×2 (08:44→21:06)
[2022-09-14] MEDS: VENLAFAXINE **XR** 75MG CAPSULE PO SCH (08:45)
[2022-09-14] MEDS ORDERED: ARIPiprazole MONOHYDRATE 400 MG INJ (ABILIFY)(FREE PSY INPT ONLY) IM ONE (09:00)
[2022-09-14] MEDS ORDERED: TUBERCULIN PPD 5 UNITS/0.1 ML ID ONE (10:00)
[2022-09-14 17:21] VITALS: BP 137/83
[2022-09-14] MEDS: traZODone 50 MG TAB PO PRN (21:06)
[2022-09-15 06:18] VITALS: BP 124/89
[2022-09-15] MEDS: VENLAFAXINE **XR** 75MG CAPSULE PO SCH (09:06)
[2022-09-15] MEDS: BENZTROPINE 1 MG TAB PO SCH ×2 (09:06→21:35)
[2022-09-15] MEDS: MULTIVITAMINS/MINERALS THERAP 1 TAB PO SCH (09:07)
[2022-09-15] MEDS: traZODone 50 MG TAB PO PRN (21:35)
[2022-09-16 06:11] VITALS: BP 106/55
[2022-09-16] MEDS: MULTIVITAMINS/MINERALS THERAP 1 TAB PO SCH (09:00)
[2022-09-16] MEDS: BENZTROPINE 1 MG TAB PO SCH ×2 (09:00→20:36)
[2022-09-16] MEDS: VENLAFAXINE **XR** 75MG CAPSULE PO SCH (09:00)
[2022-09-16] MEDS ORDERED: PPD DOCUMENTATION ENTRY MISC XX ONE (10:00)
[2022-09-16] MEDS: traZODone 50 MG TAB PO PRN (20:36)
[2022-09-17 06:42] VITALS: BP 119/59
[2022-09-17] MEDS: VENLAFAXINE **XR** 75MG CAPSULE PO SCH (08:12)
[2022-09-17] MEDS: BENZTROPINE 1 MG TAB PO SCH ×2 (08:12→21:54)
[2022-09-17] MEDS: MULTIVITAMINS/MINERALS THERAP 1 TAB PO SCH (08:12)
[2022-09-17 19:27] VITALS: BP 146/63
[2022-09-17] MEDS: traZODone 50 MG TAB PO PRN (21:54)
[2022-09-18 06:13] VITALS: BP 117/56
[2022-09-18] MEDS: VENLAFAXINE **XR** 75MG CAPSULE PO SCH (08:40)
[2022-09-18] MEDS: MULTIVITAMINS/MINERALS THERAP 1 TAB PO SCH (08:40)
[2022-09-18] MEDS: BENZTROPINE 1 MG TAB PO SCH ×2 (08:40→20:01)
[2022-09-18 18:33] VITALS: BP 135/77
[2022-09-19 06:09] VITALS: BP 114/58
[2022-09-19] MEDS: VENLAFAXINE **XR** 75MG CAPSULE PO SCH (08:28)
[2022-09-19] MEDS: MULTIVITAMINS/MINERALS THERAP 1 TAB PO SCH (08:28)
[2022-09-19] MEDS: BENZTROPINE 1 MG TAB PO SCH ×2 (08:28→21:38)
[2022-09-19 18:19] VITALS: BP 125/76
[2022-09-20] MEDS: VENLAFAXINE **XR** 75MG CAPSULE PO SCH (09:06)
[2022-09-20] MEDS: MULTIVITAMINS/MINERALS THERAP 1 TAB PO SCH (09:06)
[2022-09-20] MEDS: BENZTROPINE 1 MG TAB PO SCH ×2 (09:06→21:22)
[2022-09-20 18:19] VITALS: BP 120/77
[2022-09-20] MEDS: traZODone 50 MG TAB PO PRN (21:21)
[2022-09-21 06:15] VITALS: BP 109/56
[2022-09-21] MEDS: MULTIVITAMINS/MINERALS THERAP 1 TAB PO SCH (09:33)
[2022-09-21] MEDS: VENLAFAXINE **XR** 75MG CAPSULE PO SCH (09:33)
[2022-09-21] MEDS: BENZTROPINE 1 MG TAB PO SCH ×2 (09:33→21:51)
[2022-09-21] MEDS: OLANZapine ORAL DISINTEGRATING TAB 5MG PO PRN (15:38)
[2022-09-21 16:32] VITALS: BP 138/74
[2022-09-21] MEDS: traZODone 50 MG TAB PO PRN (21:51)
[2022-09-22 06:28] VITALS: BP 111/66
[2022-09-22] MEDS: VENLAFAXINE **XR** 75MG CAPSULE PO SCH (09:30)
[2022-09-22] MEDS: MULTIVITAMINS/MINERALS THERAP 1 TAB PO SCH (09:30)
[2022-09-22] MEDS: BENZTROPINE 1 MG TAB PO SCH ×2 (09:30→20:34)
[2022-09-22 16:25] VITALS: BP 128/68
[2022-09-22] MEDS: traZODone 50 MG TAB PO PRN (20:34)
[2022-09-23 06:21] VITALS: BP 104/62
[2022-09-23] MEDS: BENZTROPINE 1 MG TAB PO SCH ×2 (09:10→22:08)
[2022-09-23] MEDS: MULTIVITAMINS/MINERALS THERAP 1 TAB PO SCH (09:10)
[2022-09-23] MEDS: VENLAFAXINE **XR** 75MG CAPSULE PO SCH (09:11)
[2022-09-23 16:35] VITALS: BP 127/78
[2022-09-23] MEDS: traZODone 50 MG TAB PO PRN (22:08)
[2022-09-24 06:16] VITALS: BP 105/58
[2022-09-24] MEDS: MULTIVITAMINS/MINERALS THERAP 1 TAB PO SCH (09:05)
[2022-09-24] MEDS: BENZTROPINE 1 MG TAB PO SCH ×2 (09:05→22:44)
[2022-09-24] MEDS: VENLAFAXINE **XR** 75MG CAPSULE PO SCH (09:05)
[2022-09-24 18:33] VITALS: BP 131/75
[2022-09-25 06:10] VITALS: BP 100/55
[2022-09-25] MEDS: BENZTROPINE 1 MG TAB PO SCH ×2 (09:57→20:22)
[2022-09-25] MEDS: MULTIVITAMINS/MINERALS THERAP 1 TAB PO SCH (09:57)
[2022-09-25] MEDS: VENLAFAXINE **XR** 75MG CAPSULE PO SCH (09:57)
[2022-09-25 16:20] VITALS: BP 129/70
[2022-09-25] MEDS: traZODone 50 MG TAB PO PRN (20:22)
[2022-09-26 06:24] VITALS: BP 116/58
[2022-09-26] MEDS: MULTIVITAMINS/MINERALS THERAP 1 TAB PO SCH (09:12)
[2022-09-26] MEDS: VENLAFAXINE **XR** 75MG CAPSULE PO SCH (09:12)
[2022-09-26] MEDS: BENZTROPINE 1 MG TAB PO SCH ×2 (09:12→21:14)
[2022-09-26 16:18] VITALS: BP 138/87
[2022-09-26] MEDS: traZODone 50 MG TAB PO PRN (21:14)
[2022-09-27 06:15] VITALS: BP 98/58
[2022-09-27] MEDS: VENLAFAXINE **XR** 75MG CAPSULE PO SCH (09:31)
[2022-09-27] MEDS: MULTIVITAMINS/MINERALS THERAP 1 TAB PO SCH (09:31)
[2022-09-27] MEDS: BENZTROPINE 1 MG TAB PO SCH ×2 (09:31→20:03)
[2022-09-27 16:17] VITALS: BP 130/71
[2022-09-27] MEDS: traZODone 50 MG TAB PO PRN (20:03)
[2022-09-28 06:37] VITALS: BP 116/62
[2022-09-28] MEDS: BENZTROPINE 1 MG TAB PO SCH ×2 (09:26→21:12)
[2022-09-28] MEDS: MULTIVITAMINS/MINERALS THERAP 1 TAB PO SCH (09:27)
[2022-09-28] MEDS: VENLAFAXINE **XR** 75MG CAPSULE PO SCH (09:27)
[2022-09-28] MEDS: traZODone 50 MG TAB PO PRN (21:12)
[2022-09-29] MEDS: MULTIVITAMINS/MINERALS THERAP 1 TAB PO SCH (08:31)
[2022-09-29] MEDS: BENZTROPINE 1 MG TAB PO SCH ×2 (08:31→20:21)
[2022-09-29] MEDS: VENLAFAXINE **XR** 75MG CAPSULE PO SCH (08:31)
[2022-09-29 18:17] VITALS: BP 132/77
[2022-09-29] MEDS: traZODone 50 MG TAB PO PRN (20:21)
[2022-09-30 06:09] VITALS: BP 91/50
[2022-09-30] MEDS: MULTIVITAMINS/MINERALS THERAP 1 TAB PO SCH (08:47)
[2022-09-30] MEDS: BENZTROPINE 1 MG TAB PO SCH ×2 (08:47→21:31)
[2022-09-30] MEDS: VENLAFAXINE **XR** 75MG CAPSULE PO SCH (08:47)
[2022-09-30 18:31] VITALS: BP 129/83
[2022-09-30] MEDS: traZODone 50 MG TAB PO PRN (21:31)
[2022-10-01] MEDS: MULTIVITAMINS/MINERALS THERAP 1 TAB PO SCH (09:21)
[2022-10-01] MEDS: BENZTROPINE 1 MG TAB PO SCH ×2 (09:21→20:51)
[2022-10-01] MEDS: VENLAFAXINE **XR** 75MG CAPSULE PO SCH (09:21)
[2022-10-01 18:38] VITALS: BP 145/82
[2022-10-01] MEDS: traZODone 50 MG TAB PO PRN (20:51)
[2022-10-02] MEDS: BENZTROPINE 1 MG TAB PO SCH ×2 (09:03→21:24)
[2022-10-02] MEDS: MULTIVITAMINS/MINERALS THERAP 1 TAB PO SCH (09:04)
[2022-10-02] MEDS: VENLAFAXINE **XR** 75MG CAPSULE PO SCH (09:05)
[2022-10-02 18:26] VITALS: BP 109/59
[2022-10-02] MEDS: traZODone 50 MG TAB PO PRN (21:24)
[2022-10-03] MEDS: VENLAFAXINE **XR** 75MG CAPSULE PO SCH (10:06)
[2022-10-03] MEDS: BENZTROPINE 1 MG TAB PO SCH ×2 (10:06→20:07)
[2022-10-03] MEDS: MULTIVITAMINS/MINERALS THERAP 1 TAB PO SCH (10:06)
[2022-10-03 18:28] VITALS: BP 124/67
[2022-10-03] MEDS: traZODone 50 MG TAB PO PRN (20:07)
[2022-10-04 06:00] VITALS: BP 116/57
[2022-10-04] MEDS: BENZTROPINE 1 MG TAB PO SCH ×2 (07:56→21:08)
[2022-10-04] MEDS: VENLAFAXINE **XR** 75MG CAPSULE PO SCH (07:56)
[2022-10-04] MEDS: MULTIVITAMINS/MINERALS THERAP 1 TAB PO SCH (07:57)
[2022-10-04 16:55] VITALS: BP 134/78
[2022-10-04] MEDS: traZODone 50 MG TAB PO PRN (21:08)
[2022-10-05 06:29] VITALS: BP 99/53
[2022-10-05] MEDS: MULTIVITAMINS/MINERALS THERAP 1 TAB PO SCH (09:07)
[2022-10-05] MEDS: VENLAFAXINE **XR** 75MG CAPSULE PO SCH (09:07)
[2022-10-05] MEDS: BENZTROPINE 1 MG TAB PO SCH ×2 (09:07→20:33)
[2022-10-05 16:50] VITALS: BP 134/83
[2022-10-05] MEDS: traZODone 50 MG TAB PO PRN (20:33)
[2022-10-06 06:32] VITALS: BP 130/55
[2022-10-06] MEDS: MULTIVITAMINS/MINERALS THERAP 1 TAB PO SCH (09:12)
[2022-10-06] MEDS: BENZTROPINE 1 MG TAB PO SCH ×2 (09:12→20:05)
[2022-10-06] MEDS: VENLAFAXINE **XR** 75MG CAPSULE PO SCH (09:12)
[2022-10-06 16:22] VITALS: BP 132/81
[2022-10-06] MEDS: traZODone 50 MG TAB PO PRN (20:05)
[2022-10-07 06:15] VITALS: BP 130/55
[2022-10-07] MEDS: MULTIVITAMINS/MINERALS THERAP 1 TAB PO SCH (09:00)
[2022-10-07] MEDS: BENZTROPINE 1 MG TAB PO SCH ×2 (09:00→21:26)
[2022-10-07] MEDS: VENLAFAXINE **XR** 75MG CAPSULE PO SCH (09:00)
[2022-10-07 18:14] VITALS: BP 140/68
[2022-10-07] MEDS: traZODone 50 MG TAB PO PRN (21:26)
[2022-10-08] MEDS: MULTIVITAMINS/MINERALS THERAP 1 TAB PO SCH (11:19)
[2022-10-08] MEDS: VENLAFAXINE **XR** 75MG CAPSULE PO SCH (11:19)
[2022-10-08] MEDS: BENZTROPINE 1 MG TAB PO SCH ×2 (11:19→20:28)
[2022-10-08 18:00] VITALS: BP 131/79
[2022-10-08] MEDS: traZODone 50 MG TAB PO PRN (20:28)
[2022-10-09 06:57] VITALS: BP 117/62
[2022-10-09] MEDS: MULTIVITAMINS/MINERALS THERAP 1 TAB PO SCH (08:52)
[2022-10-09] MEDS: BENZTROPINE 1 MG TAB PO SCH ×2 (08:52→21:29)
[2022-10-09] MEDS: VENLAFAXINE **XR** 75MG CAPSULE PO SCH (08:52)
[2022-10-09 18:26] VITALS: BP 127/66
[2022-10-09] MEDS: traZODone 50 MG TAB PO PRN (21:29)
[2022-10-10 06:29] VITALS: BP 105/60
[2022-10-10] MEDS: MULTIVITAMINS/MINERALS THERAP 1 TAB PO SCH (09:29)
[2022-10-10] MEDS: VENLAFAXINE **XR** 75MG CAPSULE PO SCH (09:29)
[2022-10-10] MEDS: BENZTROPINE 1 MG TAB PO SCH ×2 (09:30→21:59)
[2022-10-10 16:32] VITALS: BP 138/89
[2022-10-10] MEDS: traZODone 50 MG TAB PO PRN (21:59)
[2022-10-11 06:45] VITALS: BP 116/64
[2022-10-11] MEDS: BENZTROPINE 1 MG TAB PO SCH ×2 (09:49→21:45)
[2022-10-11] MEDS: MULTIVITAMINS/MINERALS THERAP 1 TAB PO SCH (09:49)
[2022-10-11] MEDS: VENLAFAXINE **XR** 75MG CAPSULE PO SCH (09:49)
[2022-10-11 17:01] VITALS: BP 132/79
[2022-10-11] MEDS: traZODone 50 MG TAB PO PRN (21:45)
[2022-10-12 06:05] VITALS: BP 105/59
[2022-10-12] MEDS: BENZTROPINE 1 MG TAB PO SCH ×2 (10:09→20:11)
[2022-10-12] MEDS: MULTIVITAMINS/MINERALS THERAP 1 TAB PO SCH (10:09)
[2022-10-12] MEDS: VENLAFAXINE **XR** 75MG CAPSULE PO SCH (10:09)
[2022-10-12] MEDS ORDERED: ARIPiprazole MONOHYDRATE 400 MG INJ (ABILIFY)(FREE PSY INPT ONLY) IM ONE (12:00)
[2022-10-12 18:15] VITALS: BP 122/72
[2022-10-12] MEDS: traZODone 50 MG TAB PO PRN (20:11)
[2022-10-13 06:11] VITALS: BP 117/60
[2022-10-13] MEDS: BENZTROPINE 1 MG TAB PO SCH ×2 (09:41→21:22)
[2022-10-13] MEDS: VENLAFAXINE **XR** 75MG CAPSULE PO SCH (09:41)
[2022-10-13] MEDS: MULTIVITAMINS/MINERALS THERAP 1 TAB PO SCH (09:41)
[2022-10-13 13:54] LABS: BASO % 0.2 % (0.0-1.0); HEMOGLOBIN 14.1 g/dl (13.5-17.5); LYMPH # 2.1 10^3/uL (1.5-5.0); LYMPH % 41.4 % (24.0-44.0); MEAN CORPUSCULAR HEMOGLOBIN 29.9 pg (27.0-33.0); MEAN CORPUSCULAR HGB CONC 33.6 g/dl (32.0-36.5); MEAN CORPUSCULAR VOLUME 89.2 fl (80.0-96.0); MONO # 0.4 10^3/uL (0.0-0.8); MONO % 7.1 % (2.0-8.0); NEUTROPHILS # 2.6 10^3/uL (1.5-8.5); NEUTROPHILS % 50.9 % (36.0-66.0); PLATELET COUNT, AUTOMATED 183 10^3/uL (150-450); RED BLOOD COUNT 4.71 10^6/uL (4.30-6.10); WHITE BLOOD COUNT 5.1 10^3/uL (4.0-10.0)
[2022-10-13 14:18] LABS: ALBUMIN 3.3 G/DL (3.2-5.2); CARBON DIOXIDE LEVEL 29 MMOL/L (20-31); CHLORIDE LEVEL 102 MMOL/L (98-107); POTASSIUM SERUM 3.9 MMOL/L (3.5-5.1); SODIUM LEVEL 139 MMOL/L (136-145)
[2022-10-13 14:24] LABS: ALKALINE PHOSPHATASE 69 U/L (46-116); BLOOD UREA NITROGEN 12 MG/DL (9-23); CALCIUM LEVEL 9.1 MG/DL (8.5-10.1); GLUCOSE, FASTING 106 MG/DL (60-100)
[2022-10-13 14:25] LABS: ALT/SGPT 36 U/L (7.0-40)
[2022-10-13 14:26] LABS: AST/SGOT 20 U/L (<34); BILIRUBIN,TOTAL 0.4 MG/DL (0.3-1.2); CREATININE FOR GFR 0.87 MG/DL (0.70-1.30); GLOMERULAR FILTRATION RATE > 60.0 (>60); TOTAL PROTEIN 5.9 G/DL (5.7-8.2)
[2022-10-13 14:30] LABS: PROLACTIN 4.31 NG/ML (2.1-17.7)
[2022-10-13] MEDS: traZODone 50 MG TAB PO PRN (21:22)
[2022-10-14 06:11] VITALS: BP 120/66
[2022-10-14] MEDS: VENLAFAXINE **XR** 75MG CAPSULE PO SCH (09:48)
[2022-10-14] MEDS: MULTIVITAMINS/MINERALS THERAP 1 TAB PO SCH (09:48)
[2022-10-14] MEDS: BENZTROPINE 1 MG TAB PO SCH ×2 (09:48→20:51)
[2022-10-14] MEDS: traZODone 50 MG TAB PO PRN (20:51)
[2022-10-15 06:33] VITALS: BP 114/60
[2022-10-15] MEDS: BENZTROPINE 1 MG TAB PO SCH ×2 (08:34→22:10)
[2022-10-15] MEDS: MULTIVITAMINS/MINERALS THERAP 1 TAB PO SCH (08:34)
[2022-10-15] MEDS: VENLAFAXINE **XR** 75MG CAPSULE PO SCH (08:34)
[2022-10-15 18:18] VITALS: BP 140/73
[2022-10-15] MEDS: traZODone 50 MG TAB PO PRN (22:10)
[2022-10-16 06:38] VITALS: BP 111/61
[2022-10-16] MEDS: VENLAFAXINE **XR** 75MG CAPSULE PO SCH ×2 (09:00→10:13)
[2022-10-16] MEDS: BENZTROPINE 1 MG TAB PO SCH ×3 (09:00→20:59)
[2022-10-16] MEDS: MULTIVITAMINS/MINERALS THERAP 1 TAB PO SCH ×2 (09:00→10:12)
[2022-10-16 18:15] VITALS: BP 129/74
[2022-10-16] MEDS: traZODone 50 MG TAB PO PRN (21:00)
[2022-10-17 06:17] VITALS: BP 135/68
[2022-10-17] MEDS: MULTIVITAMINS/MINERALS THERAP 1 TAB PO SCH (08:16)
[2022-10-17] MEDS: BENZTROPINE 1 MG TAB PO SCH ×2 (08:16→21:11)
[2022-10-17] MEDS: VENLAFAXINE **XR** 75MG CAPSULE PO SCH (08:16)
[2022-10-17 18:23] VITALS: BP 128/78
[2022-10-17] MEDS: traZODone 50 MG TAB PO PRN (21:11)
[2022-10-18 06:24] VITALS: BP 114/54
[2022-10-18] MEDS: BENZTROPINE 1 MG TAB PO SCH ×2 (10:17→21:25)
[2022-10-18] MEDS: MULTIVITAMINS/MINERALS THERAP 1 TAB PO SCH (10:18)
[2022-10-18] MEDS: VENLAFAXINE **XR** 75MG CAPSULE PO SCH (10:18)
[2022-10-18 18:00] VITALS: BP 139/85
[2022-10-18] MEDS: traZODone 50 MG TAB PO PRN (21:25)
[2022-10-19 06:35] VITALS: BP 134/82
[2022-10-19] MEDS: BENZTROPINE 1 MG TAB PO SCH ×2 (09:10→22:13)
[2022-10-19] MEDS: VENLAFAXINE **XR** 75MG CAPSULE PO SCH (09:10)
[2022-10-19] MEDS: MULTIVITAMINS/MINERALS THERAP 1 TAB PO SCH (09:10)
[2022-10-19 16:25] VITALS: BP 199/70
[2022-10-20] MEDS: BENZTROPINE 1 MG TAB PO SCH (07:41)
[2022-10-20] MEDS: MULTIVITAMINS/MINERALS THERAP 1 TAB PO SCH (07:41)
[2022-10-20] MEDS: VENLAFAXINE **XR** 75MG CAPSULE PO SCH (07:41)
[2022-10-20] MEDS ORDERED: VENL75CA47 PO (10:25)
[2022-10-20] MEDS ORDERED: ABIL1INJ2 IM (10:25)
[2022-10-20] MEDS ORDERED: BENZ-52 PO (10:25)
[2022-10-20] MEDS ORDERED: VITMTA PO (10:25)
== END 2022-10-20 13:55 | disposition home or self-care (01) | DRG 750 ==
LOC: M ED 15:37 → M ED INP 08-20 15:59 → M PSY 08-20 17:36
PROVIDERS: ADMIT Student in an Organized Health Care Education/Training Program; ATTEND Psychiatry & Neurology Psychiatry
DX: F25.1 Schizoaffective disorder, depressive type (principal); F17.290 Nicotine dependence, other tobacco product, uncomplicated; F12.10 Cannabis abuse, uncomplicated; R45.851 Suicidal ideations; Z20.822 Contact with and (suspected) exposure to COVID-19; Z79.899 Other long term (current) drug therapy; Z88.0 Allergy status to penicillin; Z59.89 Other problems related to housing and economic circumstances

== ENCOUNTER 2022-10-22 12:18 | Emergency (ER) | payer OTHER ==
[~2022-10-22] VITALS: Ht 185.4 cm; Wt 86.4 kg
[~2022-10-22 12:18] MED LIST changes: +ABIL1INJ2; +ARIP10TA32
[2022-10-22 12:25] VITALS: BP 129/64
[2022-10-22 14:06] LABS: HEMOGLOBIN 15.5 g/dl (13.5-17.5); MEAN CORPUSCULAR HEMOGLOBIN 30.4 pg (27.0-33.0); MEAN CORPUSCULAR HGB CONC 33.7 g/dl (32.0-36.5); MEAN CORPUSCULAR VOLUME 90.2 fl (80.0-96.0); PLATELET COUNT, AUTOMATED 196 10^3/uL (150-450); WHITE BLOOD COUNT 5.3 10^3/uL (4.0-10.0)
[2022-10-22 14:19] LABS: RSV AMPLIFICATION NEGATIVE (NEGATIVE)
[2022-10-22 14:25] LABS: AMPHETAMINES LEVEL URINE NEGATIVE (NEGATIVE); BARBITURATES URINE NEGATIVE (NEGATIVE); BENZODIAZEPINES URINE NEGATIVE (NEGATIVE); CANNABINOIDS URINE NEGATIVE (NEGATIVE); COCAINE METABOLITE URINE NEGATIVE (NEGATIVE); METHADONE URINE NEGATIVE (NEGATIVE); OPIATES URINE NEGATIVE (NEGATIVE); PHENCYCLIDINE URINE NEGATIVE (NEGATIVE)
[2022-10-22 14:32] LABS: ETHYL ALCOHOL (ETHANOL) 0.003 % (0.000-0.010)
[2022-10-22 14:33] LABS: ACETAMINOPHEN LEVEL < 2.0 UG/ML (10.0-20.0); BILIRUBIN,DIRECT < 0.1 MG/DL (<0.4); SALICYLATE LEVEL < 3.0 MG/DL (<30)
[2022-10-22 14:34] LABS: ALBUMIN 3.6 G/DL (3.2-5.2); ALKALINE PHOSPHATASE 81 U/L (46-116); ALT/SGPT 48 U/L (7.0-40); AST/SGOT 27 U/L (<34); BILIRUBIN,TOTAL 0.4 MG/DL (0.3-1.2); BLOOD UREA NITROGEN 10 MG/DL (9-23); CALCIUM LEVEL 9.3 MG/DL (8.5-10.1); CARBON DIOXIDE LEVEL 28 MMOL/L (20-31); CHLORIDE LEVEL 107 MMOL/L (98-107); CREATININE FOR GFR 0.86 MG/DL (0.70-1.30); GLOMERULAR FILTRATION RATE > 60.0 (>60); GLUCOSE, FASTING 73 MG/DL (60-100); POTASSIUM SERUM 4.1 MMOL/L (3.5-5.1); SODIUM LEVEL 139 MMOL/L (136-145); TOTAL PROTEIN 6.6 G/DL (5.7-8.2)
[2022-10-22] MEDS ORDERED: HYDR50TA70 PO (15:06)
== END 2022-10-22 16:41 | disposition home or self-care (01) ==
LOC: M ED 12:18
DX: F25.9 Schizoaffective disorder, unspecified (principal); R45.851 Suicidal ideations; F32.A Depression, unspecified; F41.9 Anxiety disorder, unspecified; Z88.0 Allergy status to penicillin

== ENCOUNTER 2022-11-01 21:48 | Inpatient (IN) | payer OTHER ==
[~2022-11-01] VITALS: Ht 185.4 cm; Wt 81.8 kg
[~2022-11-01 21:48] MED LIST changes: +HYDR50TA70 PO
[2022-11-01 22:19] LABS: HEMATOCRIT 39.6 % (42.0-52.0); HEMOGLOBIN 13.7 g/dl (13.5-17.5); MEAN CORPUSCULAR HEMOGLOBIN 30.4 pg (27.0-33.0); MEAN CORPUSCULAR HGB CONC 34.6 g/dl (32.0-36.5); PLATELET COUNT, AUTOMATED 204 10^3/uL (150-450); WHITE BLOOD COUNT 5.2 10^3/uL (4.0-10.0)
[2022-11-01 22:38] LABS: ETHYL ALCOHOL (ETHANOL) 0.003 % (0.000-0.010)
[2022-11-01 22:39] LABS: ACETAMINOPHEN LEVEL < 2.0 UG/ML (10.0-20.0)
[2022-11-01 22:40] LABS: ALBUMIN 3.2 G/DL (3.2-5.2); ALKALINE PHOSPHATASE 63 U/L (46-116); ALT/SGPT 52 U/L (7.0-40); AST/SGOT 33 U/L (<34); BILIRUBIN,DIRECT 0.1 MG/DL (<0.4); BILIRUBIN,TOTAL 0.3 MG/DL (0.3-1.2); BLOOD UREA NITROGEN 15 MG/DL (9-23); CALCIUM LEVEL 8.5 MG/DL (8.5-10.1); CARBON DIOXIDE LEVEL 26 MMOL/L (20-31); CHLORIDE LEVEL 106 MMOL/L (98-107); CREATININE FOR GFR 0.89 MG/DL (0.70-1.30); GLOMERULAR FILTRATION RATE > 60.0 (>60); GLUCOSE, FASTING 86 MG/DL (60-100); POTASSIUM SERUM 3.6 MMOL/L (3.5-5.1); SALICYLATE LEVEL < 3.0 MG/DL (<30); SODIUM LEVEL 138 MMOL/L (136-145); TOTAL PROTEIN 6.1 G/DL (5.7-8.2)
[2022-11-01 22:42] LABS: THYROID STIMULATING HORMONE 1.642 uIU/ML (0.55-4.78)
[2022-11-01 23:02] LABS: RSV AMPLIFICATION NEGATIVE (NEGATIVE)
[2022-11-02 02:27] LABS: AMPHETAMINES LEVEL URINE NEGATIVE (NEGATIVE); BARBITURATES URINE NEGATIVE (NEGATIVE); BENZODIAZEPINES URINE NEGATIVE (NEGATIVE); COCAINE METABOLITE URINE NEGATIVE (NEGATIVE); METHADONE URINE NEGATIVE (NEGATIVE); OPIATES URINE NEGATIVE (NEGATIVE); PHENCYCLIDINE URINE NEGATIVE (NEGATIVE)
[2022-11-02 02:34] LABS: CANNABINOIDS URINE POSITIVE (NEGATIVE)
[2022-11-02] MEDS ORDERED: ABIL1INJ2 IM (13:40)
[2022-11-02] MEDS ORDERED: HYDR50TA70 PO (13:40)
[2022-11-02] MEDS ORDERED: HOME MED LIST COMPLETE! XX SCH (13:45)
[2022-11-03] MEDS ORDERED: VENL75CA47 PO (07:53)
[2022-11-03] MEDS ORDERED: hydrOXYzine 50 MG TAB PO PRN ×2 (08:00→14:30)
[2022-11-03] MEDS ORDERED: traZODone 50 MG TAB PO PRN (14:20)
[2022-11-03] MEDS ORDERED: MOM 30ML SUSPENSION UDC PO PRN (14:20)
[2022-11-03] MEDS ORDERED: ACETAMINOPHEN TAB 650MG DOSE (2X325MG) PO PRN (14:20)
[2022-11-03] MEDS ORDERED: MAALOX 30 ML SUSP *UDC PO PRN (14:20)
[2022-11-03 15:31] VITALS: BP 149/73
[2022-11-03] MEDS: VENLAFAXINE **XR** 75MG CAPSULE PO SCH (16:35)
[2022-11-04 06:40] VITALS: BP 159/80
[2022-11-04] MEDS: VENLAFAXINE **XR** 75MG CAPSULE PO SCH (07:54)
[2022-11-04 16:28] VITALS: BP 125/68
[2022-11-04 20:14] LABS: MAGNESIUM LEVEL 1.9 MG/DL (1.8-2.4)
[2022-11-04 20:18] LABS: BLOOD UREA NITROGEN 11 MG/DL (9-23); CALCIUM LEVEL 9.5 MG/DL (8.5-10.1); CARBON DIOXIDE LEVEL 26 MMOL/L (20-31); CHLORIDE LEVEL 103 MMOL/L (98-107); CREATININE FOR GFR 0.78 MG/DL (0.70-1.30); GLOMERULAR FILTRATION RATE > 60.0 (>60); GLUCOSE, FASTING 91 MG/DL (60-100); POTASSIUM SERUM 4.5 MMOL/L (3.5-5.1); SODIUM LEVEL 138 MMOL/L (136-145)
[2022-11-05 06:54] VITALS: BP 111/55
[2022-11-05] MEDS: VENLAFAXINE **XR** 75MG CAPSULE PO SCH (09:02)
[2022-11-05 18:37] VITALS: BP 143/88
[2022-11-06 06:09] VITALS: BP 130/74
[2022-11-06] MEDS: VENLAFAXINE **XR** 75MG CAPSULE PO SCH (09:00)
[2022-11-06] MEDS ORDERED: ARIPiprazole MONOHYDRATE 400 MG INJ (ABILIFY)(FREE PSY INPT ONLY) IM ONE (09:30)
[2022-11-10] MEDS ORDERED: ARIPiprazole MONOHYDRATE 400 MG INJ (ABILIFY)(FREE PSY INPT ONLY) IM SCH (09:00)
[2022-11-11] MEDS ORDERED: ARIPiprazole MONOHYDRATE 400 MG INJ (ABILIFY)(FREE PSY INPT ONLY) IM SCH (09:00)
== END 2022-11-06 09:36 | disposition home or self-care (01) | DRG 750 ==
LOC: M ED 21:48 → M ED INP 11-03 14:19 → M PSY 11-03 15:42
PROVIDERS: ADMIT Psychiatry & Neurology Psychiatry; ATTEND Psychiatry & Neurology Psychiatry
DX: F25.9 Schizoaffective disorder, unspecified (principal); F60.89 Other specific personality disorders; F12.10 Cannabis abuse, uncomplicated; F17.290 Nicotine dependence, other tobacco product, uncomplicated; R19.7 Diarrhea, unspecified; F10.10 Alcohol abuse, uncomplicated; Z79.899 Other long term (current) drug therapy; Z88.0 Allergy status to penicillin; Z76.5 Malingerer [conscious simulation]

== ENCOUNTER 2022-12-14 13:13 | Emergency (ER) | payer OTHER ==
[~2022-12-14] VITALS: Ht 182.9 cm; Wt 76.6 kg
[2022-12-14 15:47] LABS: HEMOGLOBIN 14.6 g/dl (13.5-17.5); MEAN CORPUSCULAR HEMOGLOBIN 29.6 pg (27.0-33.0); MEAN CORPUSCULAR HGB CONC 33.2 g/dl (32.0-36.5); MEAN CORPUSCULAR VOLUME 89.1 fl (80.0-96.0); PLATELET COUNT, AUTOMATED 183 10^3/uL (150-450); RED BLOOD COUNT 4.94 10^6/uL (4.30-6.10); WHITE BLOOD COUNT 4.7 10^3/uL (4.0-10.0)
[2022-12-14 16:06] LABS: AMPHETAMINES LEVEL URINE NEGATIVE (NEGATIVE); BARBITURATES URINE NEGATIVE (NEGATIVE); BENZODIAZEPINES URINE NEGATIVE (NEGATIVE); COCAINE METABOLITE URINE NEGATIVE (NEGATIVE)
[2022-12-14 16:07] LABS: CANNABINOIDS URINE POSITIVE (NEGATIVE); METHADONE URINE NEGATIVE (NEGATIVE); OPIATES URINE NEGATIVE (NEGATIVE); PHENCYCLIDINE URINE NEGATIVE (NEGATIVE)
[2022-12-14 16:17] LABS: ETHYL ALCOHOL (ETHANOL) 0.003 % (0.000-0.010)
[2022-12-14 16:18] LABS: ACETAMINOPHEN LEVEL < 2.0 UG/ML (10.0-20.0)
[2022-12-14 16:20] LABS: SALICYLATE LEVEL < 3.0 MG/DL (<30)
[2022-12-14 16:22] LABS: ALBUMIN 3.4 G/DL (3.2-5.2); ALKALINE PHOSPHATASE 59 U/L (46-116); ALT/SGPT 31 U/L (7.0-40); AST/SGOT 23 U/L (<34); BILIRUBIN,DIRECT < 0.1 MG/DL (<0.4); BILIRUBIN,TOTAL 0.4 MG/DL (0.3-1.2); BLOOD UREA NITROGEN 17 MG/DL (9-23); CALCIUM LEVEL 9.3 MG/DL (8.5-10.1); CARBON DIOXIDE LEVEL 27 MMOL/L (20-31); CHLORIDE LEVEL 104 MMOL/L (98-107); CREATININE FOR GFR 0.93 MG/DL (0.70-1.30); GLOMERULAR FILTRATION RATE > 60.0 (>60); GLUCOSE, FASTING 81 MG/DL (60-100); POTASSIUM SERUM 4.5 MMOL/L (3.5-5.1); SODIUM LEVEL 138 MMOL/L (136-145); THYROID STIMULATING HORMONE 0.566 uIU/ML (0.55-4.78); TOTAL PROTEIN 6.5 G/DL (5.7-8.2)
[2022-12-14 16:25] LABS: RSV AMPLIFICATION NEGATIVE (NEGATIVE)
[2022-12-14] MEDS ORDERED: THERTAB52 PO (20:25)
[2022-12-14] MEDS ORDERED: ARIP10TA32 PO (20:25)
[2022-12-14] MEDS ORDERED: HOME MED LIST COMPLETE! XX SCH (21:05)
[2022-12-15 12:23] VITALS: BP 115/55
== END 2022-12-15 12:29 | disposition home or self-care (01) ==
LOC: M ED 13:13
DX: R45.851 Suicidal ideations (principal); F17.200 Nicotine dependence, unspecified, uncomplicated; F12.10 Cannabis abuse, uncomplicated; Z88.0 Allergy status to penicillin; Z79.810 Long term (current) use of selective estrogen receptor modulators (SERMs); Z79.811 Long term (current) use of aromatase inhibitors; Z79.899 Other long term (current) drug therapy

== ENCOUNTER 2023-01-15 13:31 | Inpatient (IN) | payer OTHER ==
[~2023-01-15] VITALS: Ht 185.4 cm; Wt 95.5 kg
[~2023-01-15 13:31] MED LIST changes: +ARIP10TA32 PO; -BENZ-52 PO; +BENZ1TAB5 PO; +THERTAB52 PO
[2023-01-15 14:46] LABS: HEMATOCRIT 45.4 % (42.0-52.0); HEMOGLOBIN 15.4 g/dl (13.5-17.5); MEAN CORPUSCULAR HEMOGLOBIN 30.1 pg (27.0-33.0); MEAN CORPUSCULAR HGB CONC 33.9 g/dl (32.0-36.5); MEAN CORPUSCULAR VOLUME 88.7 fl (80.0-96.0); PLATELET COUNT, AUTOMATED 205 10^3/uL (150-450); RED BLOOD COUNT 5.12 10^6/uL (4.30-6.10); WHITE BLOOD COUNT 6.2 10^3/uL (4.0-10.0)
[2023-01-15 15:07] LABS: AMPHETAMINES LEVEL URINE NEGATIVE (NEGATIVE); BARBITURATES URINE NEGATIVE (NEGATIVE); BENZODIAZEPINES URINE NEGATIVE (NEGATIVE); CANNABINOIDS URINE NEGATIVE (NEGATIVE); COCAINE METABOLITE URINE NEGATIVE (NEGATIVE); PHENCYCLIDINE URINE NEGATIVE (NEGATIVE)
[2023-01-15 15:08] LABS: ETHYL ALCOHOL (ETHANOL) 0.004 % (0.000-0.010); METHADONE URINE NEGATIVE (NEGATIVE); OPIATES URINE NEGATIVE (NEGATIVE)
[2023-01-15 15:09] LABS: SALICYLATE LEVEL < 3.0 MG/DL (<30)
[2023-01-15 15:10] LABS: ACETAMINOPHEN LEVEL < 2.0 UG/ML (10.0-20.0)
[2023-01-15 15:43] LABS: ALKALINE PHOSPHATASE 60 U/L (46-116); ALT/SGPT 38 U/L (7.0-40); AST/SGOT 24 U/L (<34); BILIRUBIN,DIRECT 0.1 MG/DL (<0.4); BILIRUBIN,TOTAL 0.6 MG/DL (0.3-1.2); BLOOD UREA NITROGEN 17 MG/DL (9-23); CALCIUM LEVEL 9.4 MG/DL (8.5-10.1); CARBON DIOXIDE LEVEL 27 MMOL/L (20-31); CHLORIDE LEVEL 102 MMOL/L (98-107); CREATININE FOR GFR 0.95 MG/DL (0.70-1.30); GLOMERULAR FILTRATION RATE > 60.0 (>60); GLUCOSE, FASTING 104 MG/DL (60-100); POTASSIUM SERUM 4.4 MMOL/L (3.5-5.1); SODIUM LEVEL 137 MMOL/L (136-145); THYROID STIMULATING HORMONE 0.847 uIU/ML (0.55-4.78); TOTAL PROTEIN 7.1 G/DL (5.7-8.2)
[2023-01-15] MEDS ORDERED: MOM 30ML SUSPENSION UDC PO PRN (17:20)
[2023-01-15] MEDS ORDERED: ACETAMINOPHEN TAB 650MG DOSE (2X325MG) PO PRN (17:20)
[2023-01-15] MEDS ORDERED: MAALOX 30 ML SUSP *UDC PO PRN (17:20)
[2023-01-15] MEDS ORDERED: DIVA250T67 PO (20:43)
[2023-01-15] MEDS ORDERED: HOME MED LIST COMPLETE! XX SCH (20:45)
[2023-01-15 21:02] VITALS: BP 120/65
[2023-01-16] MEDS: hydrOXYzine 50 MG TAB PO PRN (00:47)
[2023-01-16] MEDS: traZODone 50 MG TAB PO PRN ×2 (00:47→21:08)
[2023-01-16] MEDS: VENLAFAXINE **XR** 75MG CAPSULE PO SCH (08:48)
[2023-01-16] MEDS: ARIPiprazole 10 MG TAB PO SCH (08:48)
[2023-01-17 06:48] VITALS: BP 114/57
[2023-01-17] MEDS: VENLAFAXINE **XR** 75MG CAPSULE PO SCH (07:43)
[2023-01-17] MEDS: ARIPiprazole 10 MG TAB PO SCH (07:44)
[2023-01-17 16:12] VITALS: BP 131/63
[2023-01-18 06:53] VITALS: BP 106/59
[2023-01-18] MEDS: VENLAFAXINE **XR** 75MG CAPSULE PO SCH (10:23)
[2023-01-18] MEDS: ARIPiprazole 10 MG TAB PO SCH (10:24)
[2023-01-18] MEDS ORDERED: ARIPiprazole MONOHYDRATE 400 MG INJ (ABILIFY)(FREE PSY INPT ONLY) IM ONE (17:00)
[2023-01-18] MEDS: traZODone 50 MG TAB PO PRN (21:39)
[2023-01-18] MEDS: OLANZapine ORAL DISINTEGRATING TAB 5MG PO PRN (21:39)
[2023-01-19 06:22] VITALS: BP 119/56
[2023-01-19] MEDS: ARIPiprazole 10 MG TAB PO SCH (09:00)
[2023-01-19] MEDS: VENLAFAXINE **XR** 75MG CAPSULE PO SCH (09:00)
[2023-01-19 18:22] VITALS: BP 122/78
[2023-01-20 06:33] VITALS: BP 111/55
[2023-01-20] MEDS: VENLAFAXINE **XR** 75MG CAPSULE PO SCH (09:38)
[2023-01-20] MEDS: ARIPiprazole 10 MG TAB PO SCH (09:38)
[2023-01-20] MEDS: hydrOXYzine 50 MG TAB PO PRN (12:49)
[2023-01-20 17:32] VITALS: BP 126/59
[2023-01-21 06:44] VITALS: BP 112/57
[2023-01-21] MEDS: ARIPiprazole 10 MG TAB PO SCH (09:28)
[2023-01-21] MEDS: VENLAFAXINE **XR** 75MG CAPSULE PO SCH (09:28)
[2023-01-22 06:45] VITALS: BP 125/71
[2023-01-22] MEDS: VENLAFAXINE **XR** 75MG CAPSULE PO SCH (08:56)
[2023-01-22] MEDS: ARIPiprazole 10 MG TAB PO SCH (08:56)
[2023-01-22 18:00] VITALS: BP 161/77
[2023-01-23] MEDS: ARIPiprazole 10 MG TAB PO SCH (08:36)
[2023-01-23] MEDS: VENLAFAXINE **XR** 75MG CAPSULE PO SCH (08:37)
[2023-01-23 18:56] VITALS: BP 133/88
[2023-01-24] MEDS: ARIPiprazole 10 MG TAB PO SCH (09:41)
[2023-01-24] MEDS: VENLAFAXINE **XR** 75MG CAPSULE PO SCH (09:41)
[2023-01-24] MEDS: hydrOXYzine 50 MG TAB PO PRN (20:45)
[2023-01-24] MEDS: OLANZapine ORAL DISINTEGRATING TAB 5MG PO PRN (20:45)
[2023-01-25 06:42] VITALS: BP 118/58
[2023-01-25] MEDS: VENLAFAXINE **XR** 75MG CAPSULE PO SCH (09:29)
[2023-01-25] MEDS: ARIPiprazole 10 MG TAB PO SCH (09:29)
[2023-01-26 06:54] VITALS: BP 110/63
[2023-01-26] MEDS: VENLAFAXINE **XR** 75MG CAPSULE PO SCH (08:46)
[2023-01-26] MEDS: ARIPiprazole 10 MG TAB PO SCH (08:47)
[2023-01-27 06:27] VITALS: BP 106/59
[2023-01-27] MEDS: VENLAFAXINE **XR** 75MG CAPSULE PO SCH (09:15)
[2023-01-27] MEDS: ARIPiprazole 10 MG TAB PO SCH (09:17)
[2023-01-27] MEDS ORDERED: VENL75CA47 PO (09:33)
[2023-01-27] MEDS ORDERED: ARIP10TA32 PO (09:33)
[2023-01-27] MEDS ORDERED: VENL150C43 PO (09:35)
== END 2023-01-27 13:10 | disposition home or self-care (01) | DRG 750 ==
LOC: M ED 13:31 → M ED INP 17:18 → M PSY 20:45
PROVIDERS: ADMIT Psychiatry & Neurology Psychiatry; ATTEND Psychiatry & Neurology Psychiatry
DX: F25.9 Schizoaffective disorder, unspecified (principal); R45.851 Suicidal ideations; F60.89 Other specific personality disorders; F12.90 Cannabis use, unspecified, uncomplicated; F17.290 Nicotine dependence, other tobacco product, uncomplicated; Z71.6 Tobacco abuse counseling; Z71.51 Drug abuse counseling and surveillance of drug abuser; Z79.899 Other long term (current) drug therapy; Z20.822 Contact with and (suspected) exposure to COVID-19; Z88.0 Allergy status to penicillin

== ENCOUNTER 2023-01-30 20:22 | Emergency (ER) | payer OTHER ==
[~2023-01-30] VITALS: Ht 185.4 cm; Wt 90.9 kg
[~2023-01-30 20:22] MED LIST changes: +DIVA250T67 PO; +VENL150C43 PO
[2023-01-30 20:58] LABS: HEMATOCRIT 45.2 % (42.0-52.0); HEMOGLOBIN 15.7 g/dl (13.5-17.5); MEAN CORPUSCULAR HEMOGLOBIN 30.4 pg (27.0-33.0); MEAN CORPUSCULAR HGB CONC 34.7 g/dl (32.0-36.5); MEAN CORPUSCULAR VOLUME 87.4 fl (80.0-96.0); PLATELET COUNT, AUTOMATED 215 10^3/uL (150-450); RED BLOOD COUNT 5.17 10^6/uL (4.30-6.10); WHITE BLOOD COUNT 5.6 10^3/uL (4.0-10.0)
[2023-01-30 21:19] LABS: ETHYL ALCOHOL (ETHANOL) < 0.003 % (0.000-0.010)
[2023-01-30 21:21] LABS: ALBUMIN 3.8 G/DL (3.2-5.2); ALKALINE PHOSPHATASE 64 U/L (46-116); ALT/SGPT 41 U/L (7.0-40); AST/SGOT 18 U/L (<34); BILIRUBIN,DIRECT 0.1 MG/DL (<0.4); BILIRUBIN,TOTAL 0.4 MG/DL (0.3-1.2); BLOOD UREA NITROGEN 15 MG/DL (9-23); CARBON DIOXIDE LEVEL 26 MMOL/L (20-31); CHLORIDE LEVEL 107 MMOL/L (98-107); CREATININE FOR GFR 1.13 MG/DL (0.70-1.30); GLOMERULAR FILTRATION RATE > 60.0 (>60); GLUCOSE, FASTING 97 MG/DL (60-100); POTASSIUM SERUM 4.2 MMOL/L (3.5-5.1); SALICYLATE LEVEL < 3.0 MG/DL (<30); SODIUM LEVEL 140 MMOL/L (136-145); TOTAL PROTEIN 6.8 G/DL (5.7-8.2)
[2023-01-30 21:22] LABS: ACETAMINOPHEN LEVEL < 2.0 UG/ML (10.0-20.0)
[2023-01-30 21:23] LABS: THYROID STIMULATING HORMONE 1.066 uIU/ML (0.55-4.78)
[2023-01-30] MEDS ORDERED: ARIP10TA32 PO (23:27)
[2023-01-30] MEDS ORDERED: VENL150C43 PO (23:27)
[2023-01-30] MEDS ORDERED: NICO2GUM41 PO (23:27)
[2023-01-30] MEDS ORDERED: HOME MED LIST COMPLETE! XX SCH (23:30)
[2023-01-31] MEDS: ARIPiprazole 10 MG TAB PO SCH (09:39)
[2023-01-31] MEDS: VENLAFAXINE **XR** 75MG CAPSULE PO SCH (09:39)
[2023-01-31 10:26] LABS: AMPHETAMINES LEVEL URINE NEGATIVE (NEGATIVE); BARBITURATES URINE NEGATIVE (NEGATIVE); BENZODIAZEPINES URINE NEGATIVE (NEGATIVE); COCAINE METABOLITE URINE NEGATIVE (NEGATIVE); METHADONE URINE NEGATIVE (NEGATIVE); OPIATES URINE NEGATIVE (NEGATIVE); PHENCYCLIDINE URINE NEGATIVE (NEGATIVE)
[2023-01-31 10:36] LABS: CANNABINOIDS URINE POSITIVE (NEGATIVE)
[2023-01-31] MEDS ORDERED: hydrOXYzine 50 MG TAB PO PRN (11:20)
[2023-02-01] MEDS: VENLAFAXINE **XR** 75MG CAPSULE PO SCH (10:32)
[2023-02-01] MEDS: ARIPiprazole 10 MG TAB PO SCH (10:32)
[2023-02-01 14:04] VITALS: BP 110/67
== END 2023-02-01 16:19 | disposition home or self-care (01) ==
LOC: M ED 20:22
DX: F43.0 Acute stress reaction (principal); F32.A Depression, unspecified; F25.9 Schizoaffective disorder, unspecified; Z88.0 Allergy status to penicillin; Z79.899 Other long term (current) drug therapy

== ENCOUNTER 2023-03-21 14:42 | Inpatient (IN) | payer OTHER ==
[~2023-03-21] VITALS: Ht 185.4 cm; Wt 86.4 kg
[2023-03-21] MEDS: ARIPiprazole 10 MG TAB PO SCH (09:00)
[~2023-03-21 14:42] MED LIST changes: +BENZ0.5T2 PO; -BENZ0.5T23 PO; +NICO2GUM41 PO
[2023-03-21 16:43] LABS: HEMATOCRIT 41.4 % (42.0-52.0); MEAN CORPUSCULAR HEMOGLOBIN 29.9 pg (27.0-33.0); MEAN CORPUSCULAR HGB CONC 33.8 g/dl (32.0-36.5); MEAN CORPUSCULAR VOLUME 88.3 fl (80.0-96.0); PLATELET COUNT, AUTOMATED 195 10^3/uL (150-450); RED BLOOD COUNT 4.69 10^6/uL (4.30-6.10); WHITE BLOOD COUNT 5.3 10^3/uL (4.0-10.0)
[2023-03-21 16:59] LABS: ETHYL ALCOHOL (ETHANOL) < 0.003 % (0.000-0.010)
[2023-03-21 17:01] LABS: ACETAMINOPHEN LEVEL < 2.0 UG/ML (10.0-20.0); ALBUMIN 3.2 G/DL (3.2-5.2); ALKALINE PHOSPHATASE 56 U/L (46-116); ALT/SGPT 17 U/L (7.0-40); AST/SGOT 15 U/L (<34); BILIRUBIN,DIRECT 0.1 MG/DL (<0.4); BILIRUBIN,TOTAL 0.4 MG/DL (0.3-1.2); BLOOD UREA NITROGEN 13 MG/DL (9-23); CALCIUM LEVEL 8.9 MG/DL (8.5-10.1); CARBON DIOXIDE LEVEL 29 MMOL/L (20-31); CHLORIDE LEVEL 107 MMOL/L (98-107); CREATININE FOR GFR 1.01 MG/DL (0.70-1.30); GLOMERULAR FILTRATION RATE > 60.0 (>60); GLUCOSE, FASTING 90 MG/DL (60-100); POTASSIUM SERUM 4.1 MMOL/L (3.5-5.1); SALICYLATE LEVEL < 3.0 MG/DL (<30); SODIUM LEVEL 141 MMOL/L (136-145); TOTAL PROTEIN 5.6 G/DL (5.7-8.2)
[2023-03-21 17:03] LABS: THYROID STIMULATING HORMONE 0.408 uIU/ML (0.55-4.78)
[2023-03-21] MEDS ORDERED: HOME MED LIST COMPLETE! XX SCH (17:30)
[2023-03-21 17:53] LABS: AMPHETAMINES LEVEL URINE NEGATIVE (NEGATIVE); BARBITURATES URINE NEGATIVE (NEGATIVE); BENZODIAZEPINES URINE NEGATIVE (NEGATIVE); COCAINE METABOLITE URINE NEGATIVE (NEGATIVE); METHADONE URINE NEGATIVE (NEGATIVE); OPIATES URINE NEGATIVE (NEGATIVE); PHENCYCLIDINE URINE NEGATIVE (NEGATIVE)
[2023-03-21 17:54] LABS: CANNABINOIDS URINE NEGATIVE (NEGATIVE)
[2023-03-21] MEDS ORDERED: OLANZapine ORAL DISINTEGRATING TAB 5MG PO PRN (18:35)
[2023-03-21] MEDS ORDERED: traZODone 50 MG TAB PO PRN (18:35)
[2023-03-21] MEDS ORDERED: MOM 30ML SUSPENSION UDC PO PRN (18:35)
[2023-03-21] MEDS ORDERED: VENLAFAXINE **XR** 75MG CAPSULE PO ONE (18:35)
[2023-03-21] MEDS ORDERED: ACETAMINOPHEN TAB 650MG DOSE (2X325MG) PO PRN (18:35)
[2023-03-21] MEDS ORDERED: MAALOX 30 ML SUSP *UDC PO PRN (18:35)
[2023-03-22] MEDS: ARIPiprazole 10 MG TAB PO SCH (09:22)
[2023-03-22] MEDS: VENLAFAXINE **XR** 75MG CAPSULE PO SCH (12:21)
[2023-03-22 16:17] VITALS: BP 135/60
[2023-03-22] MEDS: NICOTINE POLACRILEX 2 MG GUM PO PRN (17:31)
[2023-03-23 06:40] VITALS: BP 113/62
[2023-03-23] MEDS: VENLAFAXINE **XR** 75MG CAPSULE PO SCH (07:58)
[2023-03-23] MEDS: ARIPiprazole 10 MG TAB PO SCH (07:58)
[2023-03-23] MEDS: NICOTINE POLACRILEX 2 MG GUM PO PRN ×4 (08:16→23:10)
[2023-03-23 16:06] VITALS: BP 113/77
[2023-03-24 06:38] VITALS: BP 119/81
[2023-03-24] MEDS: NICOTINE POLACRILEX 2 MG GUM PO PRN ×2 (06:57→17:55)
[2023-03-24] MEDS: VENLAFAXINE **XR** 75MG CAPSULE PO SCH (08:44)
[2023-03-24] MEDS: ARIPiprazole 10 MG TAB PO SCH (08:45)
[2023-03-25] MEDS: VENLAFAXINE **XR** 75MG CAPSULE PO SCH (09:51)
[2023-03-25] MEDS: ARIPiprazole 10 MG TAB PO SCH (09:52)
[2023-03-25] MEDS: NICOTINE POLACRILEX 2 MG GUM PO PRN ×2 (12:50→18:05)
[2023-03-25] MEDS ORDERED: ARIPiprazole MONOHYDRATE 400 MG INJ (ABILIFY) PT CHG ONE IM (14:00)
[2023-03-25 18:15] VITALS: BP 130/68
[2023-03-26 07:16] VITALS: BP 104/58
[2023-03-26] MEDS: VENLAFAXINE **XR** 75MG CAPSULE PO SCH (08:59)
[2023-03-26] MEDS: ARIPiprazole 10 MG TAB PO SCH (08:59)
[2023-03-26] MEDS ORDERED: TRAZ-252 PO (09:05)
[2023-03-26] MEDS ORDERED: ABIL10TA9 PO (09:05)
[2023-03-26] MEDS: NICOTINE POLACRILEX 2 MG GUM PO PRN (10:06)
== END 2023-03-26 12:42 | disposition home or self-care (01) | DRG 750 ==
LOC: M ED 14:42 → M ED INP 18:31 → M PSY 21:30
PROVIDERS: ADMIT Psychiatry & Neurology Psychiatry; ATTEND Psychiatry & Neurology Psychiatry
DX: F25.9 Schizoaffective disorder, unspecified (principal); Z91.128 Patient's intentional underdosing of medication regimen for other reason; R45.851 Suicidal ideations; F12.90 Cannabis use, unspecified, uncomplicated; F17.200 Nicotine dependence, unspecified, uncomplicated; F60.89 Other specific personality disorders; Z88.0 Allergy status to penicillin; F17.290 Nicotine dependence, other tobacco product, uncomplicated; E05.90 Thyrotoxicosis, unspecified without thyrotoxic crisis or storm

== ENCOUNTER 2023-05-14 10:01 | Emergency (ER) | payer OTHER ==
[~2023-05-14] VITALS: Ht 185.4 cm; Wt 90.9 kg
[~2023-05-14 10:01] MED LIST changes: +ABIL10TA9 PO
[2023-05-14 10:03] VITALS: BP 117/80; TEMP 98; O2SAT 99
[2023-05-14] MEDS ORDERED: ABIL400I IM (10:19)
[2023-05-14] MEDS ORDERED: ARIPiprazole MONOHYDRATE 400 MG INJ (ABILIFY)(FREE PSY INPT ONLY) IM ONE (11:55)
== END 2023-05-14 13:30 | disposition home or self-care (01) ==
LOC: M ED 10:01
DX: Z76.0 Encounter for issue of repeat prescription (principal); F25.9 Schizoaffective disorder, unspecified; Z88.0 Allergy status to penicillin

== ENCOUNTER 2023-08-21 09:17 | Emergency (ER) | payer OTHER ==
[2023-08-21] MEDS ORDERED: MED REC IN PROGRESS XX SCH (10:15)
[2023-08-21] MEDS ORDERED: MED REC CURRENTLY UNOBTAINABLE XX SCH (10:40)
== END 2023-08-21 09:55 | disposition left against medical advice (07) ==
LOC: M ED 09:17
DX: M54.50 Low back pain, unspecified (principal); F17.200 Nicotine dependence, unspecified, uncomplicated; F32.A Depression, unspecified; F10.10 Alcohol abuse, uncomplicated; F19.10 Other psychoactive substance abuse, uncomplicated; Z88.0 Allergy status to penicillin; Z79.899 Other long term (current) drug therapy; Z53.9 Procedure and treatment not carried out, unspecified reason

== ENCOUNTER 2023-09-02 05:42 | Emergency (ER) | payer OTHER ==
[~2023-09-02] VITALS: Ht 185.4 cm; Wt 81.8 kg
[2023-09-02 05:42] VITALS: BP 127/80; TEMP 97.1; O2SAT 100
[~2023-09-02 05:42] MED LIST changes: +LIDO5OIN19 PR
== END 2023-09-02 06:06 | disposition left against medical advice (07) ==
LOC: M ED 05:42
DX: Z53.21 Procedure and treatment not carried out due to patient leaving prior to being seen by health care provider (principal)

== ENCOUNTER 2023-09-03 06:42 | Emergency (ER) | payer OTHER ==
[2023-09-03 07:03] VITALS: BP 122/74; TEMP 97.2; O2SAT 98
[2023-09-03 08:18] LABS: HEMATOCRIT 40.7 % (42.0-52.0); HEMOGLOBIN 14.1 g/dl (13.5-17.5); MEAN CORPUSCULAR HEMOGLOBIN 30.3 pg (27.0-33.0); MEAN CORPUSCULAR HGB CONC 34.6 g/dl (32.0-36.5); MEAN CORPUSCULAR VOLUME 87.3 fl (80.0-96.0); PLATELET COUNT, AUTOMATED 189 10^3/uL (150-450); RED BLOOD COUNT 4.66 10^6/uL (4.30-6.10); WHITE BLOOD COUNT 4.1 10^3/uL (4.0-10.0)
[2023-09-03 08:35] LABS: ATYPICAL LYMPH 10 % (0-5); LYMPHOCYTES 31 % (16-44); MONOCYTES 7 % (0-5); NEUTROPHILS 52 % (28-66); PLATELET ESTIMATE NORMAL (NORMAL)
[2023-09-03 08:36] LABS: ANISOCYTOSIS 1+; HELMET CELLS 1+
[2023-09-04 10:52] LABS: THYROID STIMULATING HORMONE 0.51 UIU/ML (0.47-5.01)
[2023-09-04 10:53] LABS: BLOOD UREA NITROGEN 3 MG/DL (7-21); CARBON DIOXIDE LEVEL 27 MEQ/L (22-30); CHLORIDE LEVEL 101 MEQ/L (98-107); CREATININE FOR GFR 0.8 MG/DL (0.7-1.5); GLOMERULAR FILTRATION RATE > 60.0 (>60); GLUCOSE, FASTING 97 MG/DL (70-99); POTASSIUM SERUM 4.2 MEQ/L (3.6-5.0); SODIUM LEVEL 140 MEQ/L (134-153)
[2023-09-04 10:54] LABS: ALBUMIN 3.6 G/DL (3.9-5.0); ALKALINE PHOSPHATASE 85 U/L (40-129); ALT/SGPT 24 U/L (1-41); AST/SGOT 18 U/L (5-40); BILIRUBIN,DIRECT < 0.2 MG/DL (0.1-0.4); BILIRUBIN,TOTAL < 0.7 MG/DL (0.2-1.3); CALCIUM LEVEL 9.1 MG/DL (8.4-10.2); TOTAL PROTEIN 6.1 G/DL (6.3-8.2)
== END 2023-09-03 16:49 | disposition left against medical advice (07) ==
LOC: M ED 06:42
DX: F25.9 Schizoaffective disorder, unspecified (principal); R45.851 Suicidal ideations; F32.A Depression, unspecified; F17.200 Nicotine dependence, unspecified, uncomplicated; Z88.0 Allergy status to penicillin; Z79.899 Other long term (current) drug therapy; Z79.891 Long term (current) use of opiate analgesic; Z53.9 Procedure and treatment not carried out, unspecified reason

== ENCOUNTER 2023-10-28 09:41 | Inpatient (IN) | payer OTHER ==
[~2023-10-28] VITALS: Ht 185.4 cm; Wt 77.3 kg
[2023-10-28] MEDS ORDERED: MED REC IN PROGRESS XX SCH (09:50)
[2023-10-28 10:24] LABS: HEMATOCRIT 46.5 % (42.0-52.0); HEMOGLOBIN 15.4 g/dl (13.5-17.5); MEAN CORPUSCULAR HEMOGLOBIN 29.2 pg (27.0-33.0); MEAN CORPUSCULAR HGB CONC 33.1 g/dl (32.0-36.5); MEAN CORPUSCULAR VOLUME 88.2 fl (80.0-96.0); PLATELET COUNT, AUTOMATED 232 10^3/uL (150-450); RED BLOOD COUNT 5.27 10^6/uL (4.30-6.10); WHITE BLOOD COUNT 3.6 10^3/uL (4.0-10.0)
[2023-10-28 10:47] LABS: BARBITURATES URINE NEGATIVE (NEGATIVE); BENZODIAZEPINES URINE NEGATIVE (NEGATIVE); COCAINE METABOLITE URINE NEGATIVE (NEGATIVE)
[2023-10-28 10:48] LABS: CANNABINOIDS URINE NEGATIVE (NEGATIVE); METHADONE URINE NEGATIVE (NEGATIVE); OPIATES URINE NEGATIVE (NEGATIVE); PHENCYCLIDINE URINE NEGATIVE (NEGATIVE)
[2023-10-28 10:51] LABS: AMPHETAMINES LEVEL URINE POSITIVE (NEGATIVE)
[2023-10-28 11:02] LABS: ETHYL ALCOHOL (ETHANOL) 0.003 % (0.000-0.010)
[2023-10-28 11:03] LABS: SALICYLATE LEVEL < 3.0 MG/DL (<30)
[2023-10-28 11:04] LABS: ALBUMIN 3.7 G/DL (3.2-5.2); ALKALINE PHOSPHATASE 63 U/L (46-116); ALT/SGPT 24 U/L (7.0-40); AST/SGOT 16 U/L (<34); BILIRUBIN,DIRECT 0.2 MG/DL (<0.4); BILIRUBIN,TOTAL 0.6 MG/DL (0.3-1.2); BLOOD UREA NITROGEN 7 MG/DL (9-23); CALCIUM LEVEL 9.4 MG/DL (8.5-10.1); CARBON DIOXIDE LEVEL 29 MMOL/L (20-31); CHLORIDE LEVEL 104 MMOL/L (98-107); CREATININE FOR GFR 0.88 MG/DL (0.70-1.30); GLOMERULAR FILTRATION RATE > 60.0 (>60); GLUCOSE, FASTING 87 MG/DL (60-100); POTASSIUM SERUM 5.2 MMOL/L (3.5-5.1); SODIUM LEVEL 139 MMOL/L (136-145); TOTAL PROTEIN 6.6 G/DL (5.7-8.2)
[2023-10-28 11:07] LABS: THYROID STIMULATING HORMONE 0.585 uIU/ML (0.55-4.78)
[2023-10-28] MEDS ORDERED: MED REC CURRENTLY UNOBTAINABLE XX SCH (12:00)
[2023-10-28] MEDS ORDERED: MOM 30ML SUSPENSION UDC PO PRN (12:55)
[2023-10-28] MEDS ORDERED: ACETAMINOPHEN TAB 650MG DOSE (2X325MG) PO PRN (12:55)
[2023-10-28] MEDS ORDERED: IBUPROFEN 400MG TAB PO PRN (12:55)
[2023-10-28] MEDS ORDERED: MAALOX 30 ML SUSP *UDC PO PRN (12:55)
[2023-10-28] MEDS ORDERED: traZODone 50 MG TAB PO PRN (12:55)
[2023-10-28 16:02] VITALS: BP 112/76; TEMP 97; O2SAT 99
[2023-10-29] MEDS: diphenhydrAMINE 25MG CAP PO PRN (09:42)
[2023-10-29] MEDS: OLANZapine ORAL DISINTEGRATING TAB 5MG PO PRN (13:10)
[2023-10-30] MEDS ORDERED: ARIPiprazole MONOHYDRATE 400 MG INJ (ABILIFY)(FREE PSY INPT ONLY) IM ONE (13:00)
[2023-10-30] MEDS: OLANZapine ORAL DISINTEGRATING TAB 5MG PO PRN ×2 (13:48→18:20)
[2023-10-30] MEDS: diphenhydrAMINE 25MG CAP PO PRN (13:48)
[2023-10-31] MEDS: OLANZapine ORAL DISINTEGRATING TAB 5MG PO PRN (12:01)
[2023-10-31] MEDS: diphenhydrAMINE 25MG CAP PO PRN (12:01)
[2023-11-03] MEDS ORDERED: ABIL1INJ2 IM (11:29)
[2023-11-03] MEDS ORDERED: OLAN5ZYD PO (11:29)
== END 2023-11-03 13:25 | disposition home or self-care (01) | DRG 750 ==
LOC: M ED 09:41 → M ED INP 12:53 → M PSY 16:08
PROVIDERS: ADMIT Student in an Organized Health Care Education/Training Program; ATTEND Student in an Organized Health Care Education/Training Program
DX: F20.0 Paranoid schizophrenia (principal); Z91.148 Patient's other noncompliance with medication regimen for other reason; R45.851 Suicidal ideations; Z88.0 Allergy status to penicillin; G47.00 Insomnia, unspecified

== ENCOUNTER 2024-01-29 16:32 | Inpatient (IN) | payer MEDICAID, OTHER ==
[~2024-01-29] VITALS: Ht 185.4 cm; Wt 72.1 kg
[2024-01-29] MEDS: OLANZapine INTRAMUSCULAR 10MG VIAL IM ONE (17:13)
[2024-01-29 17:29] LABS: HEMATOCRIT 43.9 % (42.0-52.0); MEAN CORPUSCULAR HEMOGLOBIN 29.1 pg (27.0-33.0); MEAN CORPUSCULAR HGB CONC 34.2 g/dl (32.0-36.5); MEAN CORPUSCULAR VOLUME 85.1 fl (80.0-96.0); PLATELET COUNT, AUTOMATED 209 10^3/uL (150-450); RED BLOOD COUNT 5.16 10^6/uL (4.30-6.10); WHITE BLOOD COUNT 4.7 10^3/uL (4.0-10.0)
[2024-01-29 17:49] LABS: VALPROIC ACID (DEPAKOTE) < 3.0 UG/ML (50.0-100.0)
[2024-01-29 17:50] LABS: ETHYL ALCOHOL (ETHANOL) < 0.003 % (0.000-0.010)
[2024-01-29 17:51] LABS: ALBUMIN 4.2 G/DL (3.2-5.2); ALKALINE PHOSPHATASE 76 U/L (46-116); ALT/SGPT 17 U/L (7.0-40); AST/SGOT 16 U/L (<34); BILIRUBIN,DIRECT 0.2 MG/DL (<0.4); BILIRUBIN,TOTAL 0.4 MG/DL (0.3-1.2); BLOOD UREA NITROGEN 11 MG/DL (9-23); CALCIUM LEVEL 9.4 MG/DL (8.5-10.1); CARBON DIOXIDE LEVEL 24 MMOL/L (20-31); CHLORIDE LEVEL 106 MMOL/L (98-107); CREATININE FOR GFR 0.83 MG/DL (0.70-1.30); GLOMERULAR FILTRATION RATE > 60.0 (>60); GLUCOSE, FASTING 97 MG/DL (60-100); POTASSIUM SERUM 4.2 MMOL/L (3.5-5.1); SALICYLATE LEVEL < 3.0 MG/DL (<30); SODIUM LEVEL 139 MMOL/L (136-145)
[2024-01-29 17:53] LABS: THYROID STIMULATING HORMONE 0.985 uIU/ML (0.55-4.78)
[2024-01-29 18:27] LABS: BARBITURATES URINE NEGATIVE (NEGATIVE); BENZODIAZEPINES URINE NEGATIVE (NEGATIVE); CANNABINOIDS URINE NEGATIVE (NEGATIVE); COCAINE METABOLITE URINE NEGATIVE (NEGATIVE); METHADONE URINE NEGATIVE (NEGATIVE); OPIATES URINE NEGATIVE (NEGATIVE); PHENCYCLIDINE URINE NEGATIVE (NEGATIVE)
[2024-01-29 18:38] LABS: AMPHETAMINES LEVEL URINE POSITIVE (NEGATIVE)
[2024-01-29] MEDS ORDERED: HOME MED LIST COMPLETE! XX SCH (18:45)
[2024-01-29] MEDS ORDERED: MOM 30ML SUSPENSION UDC PO PRN (19:15)
[2024-01-29] MEDS ORDERED: MAALOX 30 ML SUSP *UDC PO PRN (19:15)
[2024-01-29] MEDS ORDERED: IBUPROFEN 400MG TAB PO PRN (19:15)
[2024-01-30] MEDS: diphenhydrAMINE 50MG CAP PO STA (11:12)
[2024-01-30] MEDS: LORazepam 2 MG TAB PO STA (11:13)
[2024-01-30] MEDS: ARIPiprazole 15 MG TAB (AbiLIFY) PO SCH (21:19)
[2024-01-31] MEDS: OLANZapine 5 MG TAB PO PRN (08:26)
[2024-01-31] MEDS: diphenhydrAMINE 25MG CAP PO PRN (08:27)
[2024-01-31] MEDS: risperiDONE 1 MG TAB PO SCH (09:00)
[2024-01-31] MEDS: ARIPiprazole 15 MG TAB (AbiLIFY) PO SCH (21:04)
[2024-01-31] MEDS: traZODone 50 MG TAB PO PRN (21:04)
[2024-01-31] MEDS: ARIPiprazole 10 MG TAB PO SCH (21:04)
[2024-02-01] MEDS: PALIPERIDONE PAL 234MG/1.5ML INJ (INVEGA)(FREE PSY INPT ONLY) IM ONE (10:08)
[2024-02-01] MEDS ORDERED: PALIPERIDONE PAL 234MG/1.5ML INJ (INVEGA)(FREE PSY INPT ONLY) IM ONE (11:00)
[2024-02-01] MEDS: ACETAMINOPHEN TAB 650MG DOSE (2X325MG) PO PRN (13:59)
[2024-02-01] MEDS: HALOPERIDOL 5MG/ML 1ML VIAL IM STA (21:20)
[2024-02-01] MEDS: LORazepam 2 MG/ML 1ML VIAL IM STA (21:20)
[2024-02-02] MEDS: HALOPERIDOL 5MG/ML 1ML VIAL IM STA (08:48)
[2024-02-02] MEDS: diphenhydrAMINE 50MG/ML VIAL IM STA (08:49)
[2024-02-02] MEDS: LORazepam 2 MG/ML 1ML VIAL IM STA (08:49)
[2024-02-02 09:15] VITALS: BP 108/55; TEMP 97.7
[2024-02-02 13:15] VITALS: BP 106/64; O2SAT 100
[2024-02-02] MEDS: ARIPiprazole 15 MG TAB (AbiLIFY) PO SCH (21:00)
[2024-02-03 17:34] VITALS: BP 112/60; TEMP 97.6; O2SAT 97
[2024-02-05] MEDS ORDERED: PALIPERIDONE PAL 156MG/1ML INJ(INVEGA)(FREE PSY INPT ONLY) IM ONE (09:30)
[2024-02-05] MEDS: PALIPERIDONE PAL 156MG/1ML INJ(INVEGA)(FREE PSY INPT ONLY) IM ONE (13:14)
[2024-02-05 16:03] VITALS: BP 135/85; TEMP 97.6; O2SAT 97
[2024-02-05] MEDS: LORazepam 2 MG/ML 1ML VIAL IM STA (21:42)
[2024-02-05] MEDS: HALOPERIDOL 5MG/ML 1ML VIAL IM STA (21:42)
[2024-02-05] MEDS: diphenhydrAMINE 50MG/ML VIAL IM STA (21:42)
[2024-02-06] MEDS: MULTIVITAMINS/MINERALS THERAP 1 TAB PO SCH (09:00)
[2024-02-06 16:13] VITALS: BP 114/70; TEMP 97.2; O2SAT 100
[2024-02-07 16:51] VITALS: BP 130/69; TEMP 97.4; O2SAT 100
[2024-02-07] MEDS: risperiDONE 2 MG TAB PO SCH (20:35)
[2024-02-08 06:20] VITALS: BP 110/56; TEMP 98.9; O2SAT 98
[2024-02-08 16:08] VITALS: BP 121/69; TEMP 97.2
[2024-02-08] MEDS: risperiDONE 1 MG TAB PO SCH (21:11)
[2024-02-11 16:33] VITALS: BP 115/77; TEMP 97.2; O2SAT 97
[2024-02-12 06:32] VITALS: BP 132/63; TEMP 98; O2SAT 100
[2024-02-12 16:11] VITALS: BP 120/74; TEMP 97; O2SAT 98
[2024-02-13 06:15] VITALS: BP 122/60; TEMP 98.1; O2SAT 99
[2024-02-13 16:35] VITALS: BP 117/58; TEMP 97.8; O2SAT 98
[2024-02-14] MEDS ORDERED: ABIL1TAB12 PO (13:21)
[2024-02-14] MEDS ORDERED: RISP3TAB20 PO (13:21)
[2024-02-14] MEDS ORDERED: OLAN1TAB16 PO (13:21)
== END 2024-02-14 14:34 | disposition home or self-care (01) | DRG 750 ==
LOC: M ED 16:32 → M ED INP 19:15 → M PSY 20:28
PROVIDERS: ADMIT Student in an Organized Health Care Education/Training Program; ATTEND Student in an Organized Health Care Education/Training Program
DX: F20.0 Paranoid schizophrenia (principal); F15.90 Other stimulant use, unspecified, uncomplicated; R45.850 Homicidal ideations; Z88.0 Allergy status to penicillin; Z11.52 Encounter for screening for COVID-19; Z91.148 Patient's other noncompliance with medication regimen for other reason; Z78.1 Physical restraint status

== ENCOUNTER 2024-02-25 16:30 | Emergency (ER) | payer MEDICAID, OTHER ==
[~2024-02-25] VITALS: Ht 185.4 cm; Wt 75.2 kg
[~2024-02-25 16:30] MED LIST changes: +OLAN1TAB16 PO; +RISP3TAB20 PO
[2024-02-25 17:34] LABS: HEMATOCRIT 42.2 % (42.0-52.0); HEMOGLOBIN 14.1 g/dl (13.5-17.5); MEAN CORPUSCULAR HEMOGLOBIN 29.2 pg (27.0-33.0); MEAN CORPUSCULAR HGB CONC 33.4 g/dl (32.0-36.5); MEAN CORPUSCULAR VOLUME 87.4 fl (80.0-96.0); PLATELET COUNT, AUTOMATED 235 10^3/uL (150-450); RED BLOOD COUNT 4.83 10^6/uL (4.30-6.10); WHITE BLOOD COUNT 5.2 10^3/uL (4.0-10.0)
[2024-02-25 17:49] LABS: AMPHETAMINES LEVEL URINE NEGATIVE (NEGATIVE); BARBITURATES URINE NEGATIVE (NEGATIVE); COCAINE METABOLITE URINE NEGATIVE (NEGATIVE)
[2024-02-25 17:50] LABS: BENZODIAZEPINES URINE NEGATIVE (NEGATIVE); CANNABINOIDS URINE NEGATIVE (NEGATIVE); METHADONE URINE NEGATIVE (NEGATIVE); OPIATES URINE NEGATIVE (NEGATIVE); PHENCYCLIDINE URINE NEGATIVE (NEGATIVE)
[2024-02-25 17:53] LABS: ETHYL ALCOHOL (ETHANOL) < 0.003 % (0.000-0.010)
[2024-02-25 17:54] LABS: ALBUMIN 3.1 G/DL (3.2-5.2); ALKALINE PHOSPHATASE 75 U/L (46-116); ALT/SGPT 10 U/L (7.0-40); AST/SGOT 11 U/L (<34); BILIRUBIN,DIRECT 0.1 MG/DL (<0.4); BILIRUBIN,TOTAL 0.3 MG/DL (0.3-1.2); BLOOD UREA NITROGEN 9 MG/DL (9-23); CALCIUM LEVEL 9.6 MG/DL (8.5-10.1); CARBON DIOXIDE LEVEL 32 MMOL/L (20-31); CHLORIDE LEVEL 101 MMOL/L (98-107); CREATININE FOR GFR 0.85 MG/DL (0.70-1.30); GLOMERULAR FILTRATION RATE > 60.0 (>60); GLUCOSE, FASTING 96 MG/DL (60-100); POTASSIUM SERUM 4.2 MMOL/L (3.5-5.1); SALICYLATE LEVEL < 3.0 MG/DL (<30); SODIUM LEVEL 137 MMOL/L (136-145); TOTAL PROTEIN 6.4 G/DL (5.7-8.2)
[2024-02-25 17:56] LABS: THYROID STIMULATING HORMONE 0.565 uIU/ML (0.55-4.78)
[2024-02-25] MEDS ORDERED: HOME MED LIST COMPLETE! XX SCH (19:35)
[2024-02-26 03:59] VITALS: BP 136/73; TEMP 98.7; O2SAT 98
== END 2024-02-26 04:02 ==
LOC: M ED 16:30
DX: F23 Brief psychotic disorder (principal); F32.A Depression, unspecified; F12.10 Cannabis abuse, uncomplicated; Z88.0 Allergy status to penicillin

== ENCOUNTER → 2024-06-15 | Outpatient (CLI) | payer OTHER | LOC: M OUTALCOH 12:19 | PROVIDERS: ATTEND Psychiatry & Neurology Psychiatry | DX: Z03.89 Encounter for observation for other suspected diseases and conditions ruled out (principal) ==

== ENCOUNTER 2024-10-20 11:59 | Inpatient (IN) | payer OTHER ==
[~2024-10-20] VITALS: Ht 185.4 cm; Wt 72.2 kg
[~2024-10-20 11:59] MED LIST changes: -ARIP10TA32; -ARIP10TA32 PO; +ARIP10TA63; +ARIP10TA63 PO
[2024-10-20 13:09] LABS: HEMATOCRIT 44.7 % (42.0-52.0); HEMOGLOBIN 15.3 g/dl (13.5-17.5); MEAN CORPUSCULAR HEMOGLOBIN 30.1 pg (27.0-33.0); MEAN CORPUSCULAR HGB CONC 34.2 g/dl (32.0-36.5); PLATELET COUNT, AUTOMATED 224 10^3/uL (150-450); RED BLOOD COUNT 5.08 10^6/uL (4.30-6.10); WHITE BLOOD COUNT 5.5 10^3/uL (4.0-10.0)
[2024-10-20 13:35] LABS: ETHYL ALCOHOL (ETHANOL) 0.004 % (0.000-0.010)
[2024-10-20 13:37] LABS: ALBUMIN 3.9 G/DL (3.2-5.2); ALKALINE PHOSPHATASE 72 U/L (40-129); ALT/SGPT 15 U/L (7.0-40); AST/SGOT < 8 U/L (<34); BILIRUBIN,DIRECT 0.2 MG/DL (<0.4); BILIRUBIN,TOTAL 0.5 MG/DL (0.3-1.2); BLOOD UREA NITROGEN 10 MG/DL (9-23); CARBON DIOXIDE LEVEL 27 MMOL/L (20-31); CHLORIDE LEVEL 103 MMOL/L (98-107); CREATININE FOR GFR 0.89 MG/DL (0.70-1.30); GLOMERULAR FILTRATION RATE > 60.0 (>60); GLUCOSE, FASTING 114 MG/DL (60-100); POTASSIUM SERUM 4.2 MMOL/L (3.5-5.1); SALICYLATE LEVEL < 3.0 MG/DL (<30); SODIUM LEVEL 139 MMOL/L (136-145); TOTAL PROTEIN 7.2 G/DL (5.7-8.2)
[2024-10-20 13:39] LABS: THYROID STIMULATING HORMONE 2.423 uIU/ML (0.55-4.78)
[2024-10-20 13:58] LABS: BARBITURATES URINE NEGATIVE (NEGATIVE); BENZODIAZEPINES URINE NEGATIVE (NEGATIVE); COCAINE METABOLITE URINE NEGATIVE (NEGATIVE)
[2024-10-20 13:59] LABS: CANNABINOIDS URINE NEGATIVE (NEGATIVE); METHADONE URINE NEGATIVE (NEGATIVE); OPIATES URINE NEGATIVE (NEGATIVE); PHENCYCLIDINE URINE NEGATIVE (NEGATIVE)
[2024-10-20 14:00] LABS: AMPHETAMINES LEVEL URINE POSITIVE (NEGATIVE)
[2024-10-20] MEDS ORDERED: MAALOX 30 ML SUSP *UDC PO PRN (15:20)
[2024-10-20] MEDS ORDERED: ACETAMINOPHEN 325 MG TAB PO PRN (15:20)
[2024-10-20] MEDS ORDERED: IBUPROFEN 400MG TAB PO PRN (15:20)
[2024-10-20] MEDS ORDERED: MOM 30ML SUSPENSION UDC PO PRN (15:20)
[2024-10-20 16:48] VITALS: BP 112/73; TEMP 97.4; O2SAT 99
[2024-10-21] MEDS: FLUZONE VACCINE TRIVALENT PF(2024-25) 0.5ML SYRINGE IM.IMMUN ONE (09:13)
[2024-10-21] MEDS: RISPERIDONE 1 MG TAB PO SCH (11:12)
[2024-10-21] MEDS: BENZTROPINE 0.5 MG TAB PO PRN (11:20)
[2024-10-22 06:21] VITALS: BP 106/57; TEMP 98.3; O2SAT 97
[2024-10-22] MEDS: diphenhydrAMINE 25MG CAP PO PRN (09:10)
[2024-10-22] MEDS: risperiDONE 2 MG TAB PO SCH (21:00)
[2024-10-24] MEDS ORDERED: HOME MED LIST COMPLETE! XX SCH (10:10)
[2024-10-24] MEDS: PALIPERIDONE PAL 234MG/1.5ML INJ (INVEGA)(FREE PSY INPT ONLY) IM ONE (13:22)
[2024-10-25] MEDS ORDERED: PALIPERIDONE PAL 234MG/1.5ML INJ (INVEGA)(FREE PSY INPT ONLY) IM ONE (09:00)
[2024-10-25] MEDS: traZODone 50 MG TAB PO PRN (22:03)
[2024-10-26] MEDS ORDERED: BENZ0.5T2 PO (09:30)
== END 2024-10-26 11:47 | disposition home or self-care (01) | DRG 750 ==
LOC: M ED 11:59 → M ED INP 15:20 → M PSY 16:06
PROVIDERS: ADMIT Psychiatry & Neurology Psychiatry; ATTEND Psychiatry & Neurology Psychiatry
DX: F20.9 Schizophrenia, unspecified (principal); Z91.148 Patient's other noncompliance with medication regimen for other reason; F17.200 Nicotine dependence, unspecified, uncomplicated; Z88.0 Allergy status to penicillin; Z79.899 Other long term (current) drug therapy

== ENCOUNTER 2025-01-01 08:57 | Inpatient (IN) | payer MEDICAID, OTHER ==
[~2025-01-01] VITALS: Ht 185.4 cm; Wt 73.3 kg
[2025-01-01 09:58] LABS: HEMATOCRIT 44.8 % (42.0-52.0); HEMOGLOBIN 15.2 g/dl (13.5-17.5); MEAN CORPUSCULAR HEMOGLOBIN 29.7 pg (27.0-33.0); MEAN CORPUSCULAR HGB CONC 33.9 g/dl (32.0-36.5); MEAN CORPUSCULAR VOLUME 87.5 fl (80.0-96.0); PLATELET COUNT, AUTOMATED 199 10^3/uL (150-450); RED BLOOD COUNT 5.12 10^6/uL (4.30-6.10); WHITE BLOOD COUNT 5.5 10^3/uL (4.0-10.0)
[2025-01-01 10:17] LABS: BARBITURATES URINE NEGATIVE (NEGATIVE); BENZODIAZEPINES URINE NEGATIVE (NEGATIVE); CANNABINOIDS URINE NEGATIVE (NEGATIVE); COCAINE METABOLITE URINE NEGATIVE (NEGATIVE); METHADONE URINE NEGATIVE (NEGATIVE); OPIATES URINE NEGATIVE (NEGATIVE); PHENCYCLIDINE URINE NEGATIVE (NEGATIVE)
[2025-01-01 10:19] LABS: ETHYL ALCOHOL (ETHANOL) 0.004 % (0.000-0.010)
[2025-01-01 10:20] LABS: SALICYLATE LEVEL < 3.0 MG/DL (<30)
[2025-01-01 10:21] LABS: ALBUMIN 3.5 G/DL (3.2-5.2); ALKALINE PHOSPHATASE 67 U/L (40-129); ALT/SGPT 16 U/L (7.0-40); AST/SGOT 12 U/L (<34); BILIRUBIN,DIRECT 0.1 MG/DL (<0.4); BILIRUBIN,TOTAL 0.5 MG/DL (0.3-1.2); BLOOD UREA NITROGEN 15 MG/DL (9-23); CALCIUM LEVEL 9.6 MG/DL (8.5-10.1); CARBON DIOXIDE LEVEL 28 MMOL/L (20-31); CHLORIDE LEVEL 104 MMOL/L (98-107); CREATININE FOR GFR 0.93 MG/DL (0.70-1.30); GLOMERULAR FILTRATION RATE > 60.0 (>60); GLUCOSE, FASTING 103 MG/DL (60-100); SODIUM LEVEL 142 MMOL/L (136-145); TOTAL PROTEIN 6.8 G/DL (5.7-8.2)
[2025-01-01 10:23] LABS: AMPHETAMINES LEVEL URINE POSITIVE (NEGATIVE); THYROID STIMULATING HORMONE 0.277 uIU/ML (0.55-4.78)
[2025-01-01] MEDS: OLANZapine ORAL DISINTEGRATING TAB 5MG PO ONE (12:26)
[2025-01-01] MEDS ORDERED: HOME MED LIST COMPLETE! XX SCH (14:50)
[2025-01-01] MEDS ORDERED: MOM 30ML SUSPENSION UDC PO PRN (21:55)
[2025-01-01] MEDS ORDERED: MAALOX 30 ML SUSP *UDC PO PRN (21:55)
[2025-01-02 08:39] LABS: FREE T4 1.23 NG/DL (0.89-1.76)
[2025-01-03] MEDS: OLANZapine 5 MG TAB PO SCH (21:00)
[2025-01-04 17:02] VITALS: BP 109/72; TEMP 97.7; O2SAT 97
[2025-01-05] MEDS ORDERED: BENZTROPINE 0.5 MG TAB PO PRN (08:35)
[2025-01-05] MEDS: OLANZapine ORAL DISINTEGRATING TAB 5MG PO PRN (08:40)
[2025-01-05] MEDS: IBUPROFEN 400MG TAB PO PRN (10:34)
[2025-01-06] MEDS: ACETAMINOPHEN 325 MG TAB PO PRN (14:15)
[2025-01-06 16:21] VITALS: BP 129/75; TEMP 97.2; O2SAT 97
[2025-01-07 16:44] VITALS: BP 126/72; TEMP 96.9; O2SAT 98
[2025-01-08] MEDS: diphenhydrAMINE 25MG CAP PO PRN (04:05)
[2025-01-08] MEDS: traZODone 50 MG TAB PO PRN (04:05)
[2025-01-08 06:29] VITALS: BP 124/68; TEMP 97.9; O2SAT 96
[2025-01-08] MEDS ORDERED: BENZ0.5T2 PO (10:58)
== END 2025-01-08 13:35 | disposition home or self-care (01) | DRG 750 ==
LOC: M ED 08:57 → M ED INP 14:28 → M PSY 15:52
PROVIDERS: ADMIT Psychiatry & Neurology Psychiatry; ATTEND Psychiatry & Neurology Psychiatry
DX: F20.9 Schizophrenia, unspecified (principal); F15.90 Other stimulant use, unspecified, uncomplicated; F17.200 Nicotine dependence, unspecified, uncomplicated; Z88.0 Allergy status to penicillin; Z79.899 Other long term (current) drug therapy

== ENCOUNTER 2025-01-30 11:53 | Emergency (ER) | payer MEDICAID, OTHER ==
[~2025-01-30] VITALS: Ht 188 cm; Wt 77.2 kg
[2025-01-30 12:05] VITALS: BP 117/61; TEMP 97.9; O2SAT 99
== END 2025-01-30 13:34 | disposition home or self-care (01) ==
LOC: EDBD 11:53 → M ED 11:53
DX: F25.9 Schizoaffective disorder, unspecified (principal); Z79.899 Other long term (current) drug therapy; Z88.0 Allergy status to penicillin

== ENCOUNTER 2025-03-21 16:42 | Inpatient (IN) | payer OTHER ==
[~2025-03-21] VITALS: Ht 185.4 cm; Wt 74.7 kg
[2025-03-21] MEDS ORDERED: BUPR75TA5 PO (16:48)
[2025-03-21] MEDS ORDERED: INVE117I IM (16:48)
[2025-03-21 18:05] LABS: HEMATOCRIT 41.9 % (42.0-52.0); HEMOGLOBIN 14.2 g/dl (13.5-17.5); MEAN CORPUSCULAR HEMOGLOBIN 29.8 pg (27.0-33.0); MEAN CORPUSCULAR HGB CONC 33.9 g/dl (32.0-36.5); PLATELET COUNT, AUTOMATED 214 10^3/uL (150-450); RED BLOOD COUNT 4.76 10^6/uL (4.30-6.10); WHITE BLOOD COUNT 5.5 10^3/uL (4.0-10.0)
[2025-03-21 18:10] LABS: BARBITURATES URINE NEGATIVE (NEGATIVE); COCAINE METABOLITE URINE NEGATIVE (NEGATIVE); METHADONE URINE NEGATIVE (NEGATIVE); OPIATES URINE NEGATIVE (NEGATIVE); PHENCYCLIDINE URINE NEGATIVE (NEGATIVE)
[2025-03-21 18:11] LABS: AMPHETAMINES LEVEL URINE NEGATIVE (NEGATIVE); BENZODIAZEPINES URINE NEGATIVE (NEGATIVE); CANNABINOIDS URINE NEGATIVE (NEGATIVE)
[2025-03-21 18:13] LABS: ETHYL ALCOHOL (ETHANOL) 0.003 % (0.000-0.010)
[2025-03-21 18:15] LABS: ALBUMIN 3.5 G/DL (3.2-5.2); ALKALINE PHOSPHATASE 69 U/L (40-129); ALT/SGPT 20 U/L (7.0-40); AST/SGOT 15 U/L (<34); BILIRUBIN,DIRECT 0.1 MG/DL (<0.4); BILIRUBIN,TOTAL 0.4 MG/DL (0.3-1.2); BLOOD UREA NITROGEN 13 MG/DL (9-23); CALCIUM LEVEL 9.2 MG/DL (8.5-10.1); CARBON DIOXIDE LEVEL 30 MMOL/L (20-31); CHLORIDE LEVEL 103 MMOL/L (98-107); CREATININE FOR GFR 0.83 MG/DL (0.70-1.30); GLOMERULAR FILTRATION RATE > 90.0 (>60); GLUCOSE, FASTING 90 MG/DL (60-100); SALICYLATE LEVEL < 3.0 MG/DL (<30); SODIUM LEVEL 142 MMOL/L (136-145); TOTAL PROTEIN 6.6 G/DL (5.7-8.2)
[2025-03-21 18:17] LABS: THYROID STIMULATING HORMONE 0.722 uIU/ML (0.55-4.78)
[2025-03-21] MEDS ORDERED: HOME MED LIST COMPLETE! XX SCH (18:45)
[2025-03-21 21:25] VITALS: BP 106/65; TEMP 97.1; O2SAT 97
[2025-03-21] MEDS ORDERED: ACETAMINOPHEN 325 MG TAB PO PRN (22:15)
[2025-03-21] MEDS ORDERED: IBUPROFEN 400MG TAB PO PRN (22:15)
[2025-03-21] MEDS ORDERED: MAALOX 30 ML SUSP *UDC PO PRN (22:15)
[2025-03-21] MEDS ORDERED: diphenhydrAMINE 25MG CAP PO PRN (22:15)
[2025-03-21] MEDS ORDERED: traZODone 50 MG TAB PO PRN (22:15)
[2025-03-21] MEDS ORDERED: MOM 30ML SUSPENSION UDC PO PRN (22:15)
[2025-03-22] MEDS: BENZTROPINE 1 MG TAB PO SCH (08:56)
[2025-03-22] MEDS: PALIPERIDONE PAL 234MG/1.5ML INJ (INVEGA)(FREE PSY INPT ONLY) IM ONE (11:20)
[2025-03-22 15:39] VITALS: BP 138/79; TEMP 97.3; O2SAT 99
[2025-03-23 07:01] VITALS: BP 102/58; TEMP 97.1; O2SAT 98
[2025-03-23 15:50] VITALS: BP 110/72; TEMP 96.7; O2SAT 99
[2025-03-24 06:31] VITALS: BP 102/58; TEMP 97.4; O2SAT 98
[2025-03-24 15:58] VITALS: BP 123/68; TEMP 97.4; O2SAT 100
[2025-03-25 16:05] VITALS: BP 123/78; TEMP 97; O2SAT 99
[2025-03-26 06:39] VITALS: BP 97/52; TEMP 97.2; O2SAT 100
[2025-03-26 15:39] VITALS: BP 117/83; TEMP 97.5; O2SAT 98
== END 2025-03-27 17:04 | disposition home or self-care (01) | DRG 750 ==
LOC: M ED 16:42 → M ED INP 22:13 → M PSY 23:19
PROVIDERS: ADMIT Psychiatry & Neurology Neurology; ATTEND Internal Medicine
DX: F25.0 Schizoaffective disorder, bipolar type (principal); R45.851 Suicidal ideations; Z56.0 Unemployment, unspecified; Z88.0 Allergy status to penicillin; Z79.899 Other long term (current) drug therapy; F41.9 Anxiety disorder, unspecified; F15.11 Other stimulant abuse, in remission